=== PATIENT | male | born 1995 | race Caucasian/White ===

== ENCOUNTER 2019-06-19 19:40 | Emergency (ER) | payer MEDICAID, SELFPAY ==
--- NOTE | 2019-06-19 19:42 | ED_ITS ---
Entered by Carrol Ballard, acting as scribe for Shara Linder HPI - Seizure General: Chief Complaint: Seizure Stated Complaint: SEIZURE Time Seen by Provider: 06/19/19 19:41 Source: EMS Mode of arrival: EMS Limitations: no limitations History of Present Illness: HPI Narrative: 24 yo m came to the er by [facility] for a seizure. Onset was today. Pt states that he has one about once a month. He denies missing any medications or loss of sleep, alcohol or other known precipitants for his seizures. Patient is developmental delayed and appears postictal. We are awaiting his care provider at this time. MD complaint: possible seizure Onset (ago): day(s) (today) Witnessed: No Trauma: No Seizure History: Yes Place: Home Possible Precipitating Event: none Associated symptoms: Reports no associated symptoms; Deny chest pain, chills, confusion, diaphoresis, fever(s), malaise or syncope Review of Systems General: Reports: other (negative unless marked) Const: Denies: fever, chills, body aches, fatigue, malaise or diaphoresis Eyes: Denies: change in vision or blurry vision ENMT: Denies: throat pain, painful swallowing, hoarseness, ear pain, ear discharge, Change in hearing or nasal discharge Card: Denies: chest pain, palpitations, irregular heart rhythm, syncope, pre- syncope, shortness of breath on exertion or shortness of breath when lying down Resp: Denies: shortness of breath, productive cough, non-productive cough, wheezing, coughing up blood or chest congestion GI: Denies: abdominal pain, nausea, vomiting, vomiting blood, coffee grounds in vomit, diarrhea, constipation, cramping, blood in stool or black tarry stool : Denies: flank pain, difficulty urinating, painful urination, urinary frequency, urinary urgency, decreased urine ouput, urinary incontinence or blood in urine Musc: Denies: neck pain, back pain, extremity pain, extremity swelling, joint pain, joint swelling, joint warmth or joint stiffness Skin/Breast: Denies: rash, skin tenderness or yellow skin Neuro: Denies: headache, numbness in extremities, weakness in extremities, changes in sensation, lack of coordination, difficulty walking, dizziness, vertigo or confusion Endo: Denies: excessive thirst, tired all the time, cold intolerance, excessive sweating, flushing or hot flashes Harshad/Lymph: Denies: easy bruising, easy bleeding, petechiae or enlarged lymph nodes All/Imm: Denies: hives, throat swelling, tongue swelling, facial swelling or acute wheezing PFSH ED PFSH: Statuses (acute, chronic, etc) shown below reflect problem list status as previously entered and may not be historically accurate Social History Smoking and tobacco status: current every day smoker Physical Exam Const: COMMON NORMALS: no apparent distress, oriented x3, no limitations, healthy appearing and well nourished EXAM LIMITATIONS: no altered mental status GENERAL APPEARANCE: cooperative, well kempt and well developed ORIENTATION/CONSCIOUSNESS: Yes awake HENMT: COMMON NORMALS: normocephalic, head/scalp atraumatic, hearing grossly normal bilaterally, external ears normal, EAC's normal, external nose normal and moist oral mucous membranes HEAD & SCALP: normal to inspection, normocephalic and atraumatic FACE & SINUS: normal facial exam and face symmetric NOSE: external nose normal and nares normal EXTERNAL EAR: Yes external ears normal EXTERNAL AUDITORY CANAL: EAC's normal MOUTH: oral and palatal mucosa normal and tongue normal Eye: COMMON NORMALS: PERRL, EOMs intact bilaterally, conjunctivae normal and no scleral icterus GENERAL EYE: normal appearance of both eyes and normal light reflex CONJUNCTIVA: Yes conjunctivae normal SCLERA: sclerae normal CORNEA: Yes corneas normal PUPIL: Yes PERRL DIRECT OPHTHALMOSCOPY: Yes normal light reflex Neck/C-Spine: COMMON NORMALS: full ROM, no lymphadenopathy, supple, no meningeal signs and no JVD GENERAL: Yes normal visual inspection and Yes trachea midline CERVICAL SPINE: Yes cervical ROM normal Chest: COMMONS NORMALS: inspection of chest normal and palpation of chest normal Resp: COMMON NORMALS: normal respiratory effort, no retractions, no use of accessory muscles and clear to auscultation bilaterally EFFORT & INSPECTION: Yes able to speak in complete sentences AUSCULTATION: clear to auscultation bilaterally Cardio: COMMON NORMALS: no JVD, regular rate, regular rhythm, S1 normal heart sound, S2 normal heart sound, no gallops, no clicks, no murmurs and no rub JUGULAR VENOUS DISTENTION: no JVD RATE: regular rate RHYTHM: regular rhythm HEART SOUNDS: S1 normal and S2 normal GI: COMMON NORMALS: soft to palpation, non-tender, no hepatosplenomegaly and no masses INSPECTION: Yes normal to inspection PALPATION: Yes soft and Yes no hepatosplenomegaly : COMMON NORMALS: Yes no CVA tenderness BLADDER/KIDNEY EXAM: Yes no CVA tenderness Back/Pelvis: COMMON NORMALS: no CVA tenderness, thoracic and lumbar spine normal to inspection, no thoracic nor lumbar tenderness and thoraco-lumbar ROM normal Extremity: COMMON NORMALS: normal to inspection, full ROM, normal capillary refill, no joint enlargement, no clubbing, cyanosis or edema and no calf tenderness Neuro: COMMON NORMALS: oriented x3, CN's II-XII intact bilaterally, moves all extremities, no focal motor deficits and no sensory deficits noted MENINGEAL SIGNS: Yes no meningeal signs Psych: COMMON NORMALS: mental status grossly normal, thought process normal, c ooperative, affect normal, speech normal and activity/motor behavior normal APPEARANCE: Yes well kempt SPEECH: Yes normal speech THOUGHT PROCESS: normal thought process Skin: COMMON NORMALS: no rashes or lesions noted, skin turgor normal, no jaundice, no petechiae and no mottling GENERAL SKIN EXAM: no rashes or lesions noted and turgor normal Course Vital Signs: Vital signs: Vital Signs Temperature 98.2 F 06/19/19 19:44 Pulse Rate 101 H 06/19/19 20:51 Respiratory Rate 20 H 06/19/19 20:51 Blood Pressure 131/91 06/19/19 20:51 Pulse Oximetry 99 06/19/19 20:51 MDM - Seizure MDM Narrative: Medical decision making narrative: Arrival -Ángel is a 24-year-old male who comes in with what appears to be a breakthrough seizure. Is unclear he may have hurt himself. Differential diagnosis is that of breakthrough seizure, syncope, altered mental status among many others. We will proceed with typical evaluation for altered mental status seizure type work-up and await for his caretakers to arrive. Discharge -Ángel's caretakers have arrived and stated the patient acted as though he was been going to go into a seizure and demonstrated very brief seizure activity and then was slowly responsive. He did not fall but was caught and had no injuries from this. They state that this is a typical seizure for him a typical seizure pattern. They do agree to return if symptoms change or worsen but at this time they would like to take him home. His Depakote is therapeutic but I will give him a dose of Ativan just to help calm the brain in the short-term. They agree to follow-up with his regular doctor for reevaluation. Lab Data: Attestation: I reviewed the patient's lab results. Labs: Lab Results 06/19/19 06/19/19 06/19/19 Range/Units 19:54 19:54 20:00 WBC 4.8 (4.0-10.0) 10^3/ uL RBC 4.84 (4.1-5.3) 10^6/u L Hgb 14.1 (11.7-16.6) g/dL Hct 43.4 (42.0-52.0) % MCV 89.7 (80-94) fL MCH 29.1 (28.0-34.0) pg MCHC 32.5 (30.0-36.0) g/dL RDW 13.0 (12.1-15.1) % Plt Count 183 (130-400) 10^3/c mm MPV 11.6 H (7.4-10.4) fL Neut % (Auto) 52.3 % Lymph % (Auto) 34.7 % [place] % (Auto) 11.0 % Eos % (Auto) 0.8 % Baso % (Auto) 0.4 % Neut # (Auto) 2.5 (1.8-7.7) 10^3/u L Lymph # (Auto) 1.7 (0.8-4.8) 10^3/u L [place] # (Auto) 0.5 (0.2-0.9) 10^3/u L Eos # (Auto) 0.0 (0.0-0.8) 10^3/u L Baso # (Auto) 0.0 (0.0-0.1) 10^3/u L Nucleated RBC % (a uto) 0 % Nucleated RBCs # 0.0 /100WBC Sodium 135 L (136-145) mmol/L Potassium 4.0 (3.5-5.1) mmol/L Chloride 99 (98-107) mmol/L Carbon Dioxide 26 (22-29) mmol/L Anion Gap 14.0 (5-19) BUN 14 (6-20) mg/dL Creatinine 0.7 (0.7-1.2) mg/dL GFR Calculation 138.6 H (90-130) mL/min Glucose 133 H (74-109) mg/dL Calcium 10.0 (8.5-10.5) mg/dL Total Bilirubin 0.2 (0.15-1.2) mg/dL AST 19 (0-40) U/L ALT 22 (0-41) U/L Alkaline Phosphata se 62 (40-130) IU/L Total Protein 7.6 (6.6-8.7) g/dL Albumin 4.4 (3.5-5.2) g/dL Globulin 3.2 (1.3-4.6) g/dL Urine Color Yellow (Yellow) Urine Appearance Sl hazy (CLEAR) Urine pH 8 H (5-7) Ur Specific Gravit y 1.015 (1.005-1.030) Urine Protein Neg (Negative) Urine Glucose (UA) Norm (Normal) Urine Ketones Negative (Negative) Urine Occult Blood Neg (Negative) Urine Nitrate Negative (Negative) Urine Bilirubin Neg (NEGATIVE) Prot Sulfosalicyli c Acd Negative Urine Urobilinogen Norm (Negative) mg/dL Ur Leukocyte Cinthya ase Negative (Negative) Urine RBC None (0-2) /hpf Urine WBC None (0-5) /hpf Ur Squamous Epith Cells None (0-5) Urine Bacteria 2+ H (NONE) Valproic Acid 99.2 (50-100) mcg/mL Discharge Plan Discharge Patient Disposition: Home, Self-Care Clinical Impression: Epileptic seizure Qualifiers: Epilepsy type: unspecified Intractability: not intractable Status epilepticus: without status epilepticus Qualified Code(s): G40.909 - Epilepsy, unspecified, not intractable, without status epilepticus Condition: Stable Prescriptions: No Action dextroamphetamine 10 mg tablet 10 mg PO BID RF: 0 topiramate 100 mg tablet 100 mg PO BID RF: 0 dextroamphetamine 5 mg tablet 5 mg PO TID RF: 0 hydrochlorothiazide 25 mg tablet 25 mg PO QAM RF: 0 desmopressin [DDAVP] 0.2 mg tablet 0.2 mg PO .hs RF: 0 loxapine succinate 5 mg capsule 10 mg PO BID RF: 0 diphenhydramine HCl [Banophen] 50 mg capsule 50 mg PO .twice daily RF: 0 folic acid 1 mg tablet 1 mg PO ONCE RF: 0 trazodone 50 mg tablet 50 mg PO .qhs RF: 0 lorazepam 1 mg tablet 1 mg PO BID RF: 0 benztropine 1 mg tablet 1 mg PO BID RF: 0 divalproex 500 mg tablet,delayed release (DR/EC) 1,000 mg PO BID Qty: 120 RF: 1 divalproex [Depakote ER] 500 mg tablet extended release 24 hr 500 mg PO .q hs Qty: 30 RF: 1 Discharge Orders: Discharge Order (Routine); Ordered 06/19/19 Ordered By: Shara Linder Referrals: Beatriz Loza DO [Family Provider] - 1-3 days Discharge Diet: Advance as tolerated Discharge Activity: Increase activity as tolerated Patient Instructions: Epilepsy (ED), Seizures Activity Restrictions/Additional Instructions: Please return to the ER immediately for any of the signs or symptoms listed on your discharge instruction sheets, worsening/changing of your symptoms, you are not getting better as quickly as expected, or for ANY other cause or concerns. No driving, no working at heights, no tub baths, no swimming alone or anything else that would put you at risk should you have another seizure. Discharge Date/Time: 06/19/19 20:52 Coding Level of Care Code ED Traffic Attendant for Chg Fwd Exam Problem Focused The documentation recorded by the Elio cason Stephanie Lyn, accurately reflects the service I personally performed and the decisions made by , Shara Palomares Jun 19, 2019 19:40
[2019-06-19 19:44] VITALS: BP 120/83; PULSE 102; RESP 16; TEMP 36.8; O2SAT 99; BMI 32.1
[2019-06-19] MEDS: LORazepam 2 mg/mL INJ 1 mL 0.5 MG IVP ×2 (19:55→20:51)
[2019-06-19 20:06] LABS: Basophils % 0.4 %; Eosinophils % 0.8 %; Hematocrit 43.4 % (42.0-52.0); Hemoglobin 14.1 g/dL (11.7-16.6); Lymphocytes # 1.7 10^3/uL (0.8-4.8); Lymphocytes % 34.7 %; Mean Corpuscular HGB Conc 32.5 g/dL (30.0-36.0); Mean Corpuscular Hemoglobin 29.1 pg (28.0-34.0); Mean Corpuscular Volume 89.7 fL (80-94); Mean Platelet Volume 11.6 fL (7.4-10.4); Monocytes # 0.5 10^3/uL (0.2-0.9); Neutrophils # 2.5 10^3/uL (1.8-7.7); Neutrophils % 52.3 %; Nucleated Red Blood Cells % 0 %; Platelet Count 183 10^3/cmm (130-400); Red Blood Count 4.84 10^6/uL (4.1-5.3); White Blood Count 4.8 10^3/uL (4.0-10.0)
[2019-06-19 20:21] LABS: Alanine Aminotransferase 22 U/L (0-41); Albumin Level 4.4 g/dL (3.5-5.2); Alkaline Phosphatase 62 IU/L (40-130); Aspartate Amino Transferase 19 U/L (0-40); Blood Urea Nitrogen 14 mg/dL (6-20); Carbon Dioxide 26 mmol/L (22-29); Chloride 99 mmol/L (98-107); Globulin 3.2 g/dL (1.3-4.6); Glomerular Filtration Rate 138.6 mL/min (90-130); Glucose 133 mg/dL (74-109); Sodium 135 mmol/L (136-145); Total Bilirubin 0.2 mg/dL (0.15-1.2); Total Protein 7.6 g/dL (6.6-8.7); Valproic Acid Level 99.2 mcg/mL (50-100)
[2019-06-19 20:22] LABS: Specific Gravity, Urine 1.015 (1.005-1.030); Urine Appearance SL Hazy (CLEAR); Urine Color Yellow (Yellow); pH Urine 8 (5-7)
[2019-06-19 20:23] LABS: Bacteria Urine 2+; Bilirubin Urine Neg (NEGATIVE); Blood Urine Neg (Negative); Glucose Urine UA Norm (Normal); Ketones Urine Negative (Negative); Leukocyte Esterase Urine Negative (Negative); Nitrate Urine Negative (Negative); Protein Urine Neg (Negative); Sulfosalicylic Acid Urine Negative; Urobilinogen Urine Norm (Negative)
[2019-06-19 20:51] VITALS: BP 131/91; PULSE 101; RESP 20; O2SAT 99
== END 2019-06-19 20:52 | disposition home or self-care (01) ==
PROVIDERS: Emergency Provider Emergency Medicine; Family Provider Family Medicine
DX: G40.909 Epilepsy, unspecified, not intractable, without status epilepticus (principal); F17.210 Nicotine dependence, cigarettes, uncomplicated
CPT/HCPCS: 80053; 80164; 81001; 85025; 96374; 99283; J2060

== ENCOUNTER 2019-06-20 23:37 | Emergency (ER) | payer MEDICAID, SELFPAY ==
[2019-06-20 23:37] VITALS: BP 150/97; PULSE 108; RESP 18; TEMP 36.5; O2SAT 97; BMI 34.8
--- NOTE | 2019-06-20 23:38 | ED_ITS ---
Entered by Carrol Ballard, acting as scribe for Jimmie Magallanes DO HPI - Psych General: Chief Complaint: Psychiatric Symptoms Stated Complaint: anger issues Time Seen by Provider: 06/20/19 23:38 Source: EMS Mode of arrival: EMS Limitations: no limitations History of Present Illness: HPI Narrative: 24 yo m came to the er by [facility] for anger issues. Onset was today. Pt states that he was threating the staff. Pt states that he was mad at the staff but is not now. Pt states that the police told him that he had a choice to come to the hospital or half-way and pt chose the hospital. MD complaint: other (anger issues) Onset (ago): day(s) (today) Duration: resolved prior to arrival History of same: Yes Relieving factors: none Exacerbating factors: none Associated psychiatric symptoms: none Associated symptoms: Deny auditory hallucinations or visual hallucinations Review of Systems Const: Denies: fever or chills Eyes: Denies: change in vision or blurry vision ENMT: Denies: painful swallowing, swelling of lips/tongue, bleeding gums, dental pain, Change in hearing, nose bleeds, post nasal drip or facial/sinus pain Card: Denies: chest pain, palpitations, irregular heart rhythm, edema, swelling of feet/ankles, shortness of breath on exertion or shortness of breath when lying down Resp: Denies: shortness of breath, productive cough, non-productive cough or wheezing GI: Denies: abdominal pain, nausea, vomiting, rectal pain, blood in stool or black tarry stool : Denies: difficulty urinating, painful urination, urinary frequency, urinary urgency or blood in urine Musc: Denies: joint warmth Skin/Breast: Denies: rash, itching or redness Neuro: Denies: headache, dizziness, vertigo, confusion or seizure-like activity Psych: Denies: anxiety, visual hallucinations or auditory hallucinations All/Imm: Denies: acute wheezing PFSH ED PFSH: Statuses (acute, chronic, etc) shown below reflect problem list status as previously entered and may not be historically accurate Social History Smoking and tobacco status: current every day smoker Physical Exam Const: GENERAL APPEARANCE: not well developed ORIENTATION/CONSCIOUSNESS: Yes oriented to person, Yes oriented to place and Yes oriented to time HENMT: COMMON NORMALS: normocephalic, external ears normal and external nose normal HEAD & SCALP: normocephalic; no scalp tenderness FACE & SINUS: normal facial exam NOSE: external nose normal and no nasal discharge EXTERNAL EAR: Yes external ears normal MOUTH: tongue normal TEETH & GINGIVA: Yes abnormal tooth and associated gingiva THROAT: posterior oropharynx normal; no peritonsillar mass Eye: COMMON NORMALS: PERRL, EOMs intact bilaterally and conjunctivae normal EYELID: eyelids normal CONJUNCTIVA: Yes conjunctivae normal PUPIL: Yes PERRL Neck/C-Spine: COMMON NORMALS: full ROM GENERAL: No tracheal deviation Chest: COMMONS NORMALS: inspection of chest normal CHEST: No tenderness Resp: COMMON NORMALS: clear to auscultation bilaterally EFFORT & INSPECTION: No tachypneic, No respiratory distress, No retractions, No uses accessory muscles and No tracheal deviation AUSCULTATION: clear to auscultation bilaterally, no rhonchi, no wheezes and lung sounds not diminished Cardio: COMMON NORMALS: regular rate and regular rhythm RATE: regular rate RHYTHM: regular rhythm HEART SOUNDS: no murmurs PERIPHERAL PULSES: radial pulses present GI: INSPECTION: No abdominal distension AUSCULTATION: No hyperactive bowel sounds and No hypoactive bowel sounds PALPATION: No guarding and No rigid PERCUSSION: no dullness to percussion and no tympanic to percussion : COMMON NORMALS: Yes no CVA tenderness BLADDER/KIDNEY EXAM: Yes no CVA tenderness Back/Pelvis: COMMON NORMALS: no CVA tenderness Neuro: SENSORIUM/ORIENTATION: Yes oriented to person, Yes oriented to place and Yes oriented to time Psych: COMMON NORMALS: mental status grossly normal Skin: COMMON NORMALS: no rashes or lesions noted GENERAL SKIN EXAM: no rashes or lesions noted MDM - Psych Lab Data: Labs: Lab Results 06/20/19 06/20/19 06/21/19 Range/Units 23:59 23:59 00:20 WBC 5.4 (4.0-10.0) 10^3/ uL RBC 4.61 (4.1-5.3) 10^6/u L Hgb 13.6 (11.7-16.6) g/dL Hct 40.8 L (42.0-52.0) % MCV 88.5 (80-94) fL MCH 29.5 (28.0-34.0) pg MCHC 33.3 (30.0-36.0) g/dL RDW 13.0 (12.1-15.1) % Plt Count 183 (130-400) 10^3/c mm MPV 12.0 H (7.4-10.4) fL Neut % (Auto) 49.4 % Lymph % (Auto) 38.0 % Alfalfa % (Auto) 10.4 % Eos % (Auto) 1.1 % Baso % (Auto) 0.4 % Neut # (Auto) 2.7 (1.8-7.7) 10^3/u L Lymph # (Auto) 2.1 (0.8-4.8) 10^3/u L Alfalfa # (Auto) 0.6 (0.2-0.9) 10^3/u L Eos # (Auto) 0.1 (0.0-0.8) 10^3/u L Baso # (Auto) 0.0 (0.0-0.1) 10^3/u L Nucleated RBC % (a uto) 0 % Nucleated RBCs # 0.0 /100WBC Sodium 137 (136-145) mmol/L Potassium 3.0 L (3.5-5.1) mmol/L Chloride 99 (98-107) mmol/L Carbon Dioxide 22 (22-29) mmol/L Anion Gap 19.0 (5-19) BUN 14 (6-20) mg/dL Creatinine 0.6 L (0.7-1.2) mg/dL GFR Calculation 165.5 H (90-130) mL/min Glucose 174 H (74-109) mg/dL Calcium 9.6 (8.5-10.5) mg/dL Total Bilirubin 0.2 (0.15-1.2) mg/dL AST 18 (0-40) U/L ALT 24 (0-41) U/L Alkaline Phosphata se 65 (40-130) IU/L Total Protein 7.3 (6.6-8.7) g/dL Albumin 4.3 (3.5-5.2) g/dL Globulin 3.0 (1.3-4.6) g/dL Urine Color Yellow (Yellow) Urine Appearance Clear (CLEAR) Urine pH 6.5 (5-7) Ur Specific Gravit y 1.020 (1.005-1.030) Urine Protein Neg (Negative) Urine Glucose (UA) Norm (Normal) Urine Ketones Negative (Negative) Urine Occult Blood Neg (Negative) Urine Nitrate Negative (Negative) Urine Bilirubin Neg (NEGATIVE) Urine Urobilinogen 1 H (Negative) mg/dL Ur Leukocyte Cinthya ase Negative (Negative) Salicylates < 0.3 L (3-10) mg/dL Urine Opiates Scre en (Negative) ng/mL Acetaminophen < 5.0 L (10-30) ug/mL Ur Barbiturates Sc reen (Negative) ng/mL Valproic Acid 88.0 (50-100) mcg/mL Ur Phencyclidine S crn (Negative) ng/mL Ur Amphetamines Sc reen (Negative) ng/mL U Benzodiazepines Scrn (Negative) ng/mL Urine Cocaine Scre en (Negative) ng/mL U Marijuana (THC) Screen (Negative) ng/mL Ethyl Alcohol < 10 (0-10) mg/dL 06/21/19 Range/Units 00:20 WBC (4.0-10.0) 10^3/ uL RBC (4.1-5.3) 10^6/u L Hgb (11.7-16.6) g/dL Hct (42.0-52.0) % MCV (80-94) fL MCH (28.0-34.0) pg MCHC (30.0-36.0) g/dL RDW (12.1-15.1) % Plt Count (130-400) 10^3/c mm MPV (7.4-10.4) fL Neut % (Auto) % Lymph % (Auto) % Alfalfa % (Auto) % Eos % (Auto) % Baso % (Auto) % Neut # (Auto) (1.8-7.7) 10^3/u L Lymph # (Auto) (0.8-4.8) 10^3/u L Alfalfa # (Auto) (0.2-0.9) 10^3/u L Eos # (Auto) (0.0-0.8) 10^3/u L Baso # (Auto) (0.0-0.1) 10^3/u L Nucleated RBC % (a uto) % Nucleated RBCs # /100WBC Sodium (136-145) mmol/L Potassium (3.5-5.1) mmol/L Chloride (98-107) mmol/L Carbon Dioxide (22-29) mmol/L Anion Gap (5-19) BUN (6-20) mg/dL Creatinine (0.7-1.2) mg/dL GFR Calculation (90-130) mL/min Glucose (74-109) mg/dL Calcium (8.5-10.5) mg/dL Total Bilirubin (0.15-1.2) mg/dL AST (0-40) U/L ALT (0-41) U/L Alkaline Phosphata se (40-130) IU/L Total Protein (6.6-8.7) g/dL Albumin (3.5-5.2) g/dL Globulin (1.3-4.6) g/dL Urine Color (Yellow) Urine Appearance (CLEAR) Urine pH (5-7) Ur Specific Gravit y (1.005-1.030) Urine Protein (Negative) Urine Glucose (UA) (Normal) Urine Ketones (Negative) Urine Occult Blood (Negative) Urine Nitrate (Negative) Urine Bilirubin (NEGATIVE) Urine Urobilinogen (Negative) mg/dL Ur Leukocyte Cinthya ase (Negative) Salicylates (3-10) mg/dL Urine Opiates Scre en Negative (Negative) ng/mL Acetaminophen (10-30) ug/mL Ur Barbiturates Sc reen Negative (Negative) ng/mL Valproic Acid (50-100) mcg/mL Ur Phencyclidine S crn Negative (Negative) ng/mL Ur Amphetamines Sc reen Positive H (Negative) ng/mL U Benzodiazepines Scrn Positive H (Negative) ng/mL Urine Cocaine Scre en Negative (Negative) ng/mL U Marijuana (THC) Screen Negative (Negative) ng/mL Ethyl Alcohol (0-10) mg/dL Discharge Plan Discharge Patient Disposition: Home, Self-Care Clinical Impression: Intermittent explosive disorder in adult Condition: Stable Prescriptions: No Action dextroamphetamine 10 mg tablet 10 mg PO BID RF: 0 topiramate 100 mg tablet 100 mg PO BID RF: 0 dextroamphetamine 5 mg tablet 5 mg PO TID RF: 0 hydrochlorothiazide 25 mg tablet 25 mg PO QAM RF: 0 desmopressin [DDAVP] 0.2 mg tablet 0.2 mg PO .hs RF: 0 loxapine succinate 5 mg capsule 10 mg PO BID RF: 0 diphenhydramine HCl [Banophen] 50 mg capsule 50 mg PO .twice daily RF: 0 folic acid 1 mg tablet 1 mg PO ONCE RF: 0 trazodone 50 mg tablet 50 mg PO .qhs RF: 0 lorazepam 1 mg tablet 1 mg PO BID RF: 0 benztropine 1 mg tablet 1 mg PO BID RF: 0 divalproex 500 mg tablet,delayed release (DR/EC) 1,000 mg PO BID Qty: 120 RF: 1 divalproex [Depakote ER] 500 mg tablet extended release 24 hr 500 mg PO .q hs Qty: 30 RF: 1 Discharge Orders: Discharge Order (Routine); Ordered 06/21/19 Ordered By: Jimmie Magallanes Referrals: Beatriz Loza DO [Family Provider] - Discharge Diet: Usual diet Discharge Activity: Resume usual activity Activity Restrictions/Additional Instructions: Return for thoughts or wishes to harm yourself or others. Discharge Date/Time: 06/21/19 01:44 Coding Level of Care Code ED Stucco Laborer for Chg Fwd The documentation recorded by the Elio cason Stephanie Lyn, accurately reflects the service I personally performed and the decisions made by Elpidio lyles Jeremy John, DO Jun 20, 2019 23:37
--- NOTE | 2019-06-21 00:09 | PC.NURSE ---
pt is not suicidal, but placed in psych room
[2019-06-21 00:15] LABS: Basophils % 0.4 %; Eosinophils # 0.1 10^3/uL (0.0-0.8); Eosinophils % 1.1 %; Hematocrit 40.8 % (42.0-52.0); Hemoglobin 13.6 g/dL (11.7-16.6); Lymphocytes # 2.1 10^3/uL (0.8-4.8); Mean Corpuscular HGB Conc 33.3 g/dL (30.0-36.0); Mean Corpuscular Hemoglobin 29.5 pg (28.0-34.0); Mean Corpuscular Volume 88.5 fL (80-94); Monocytes # 0.6 10^3/uL (0.2-0.9); Monocytes % 10.4 %; Neutrophils # 2.7 10^3/uL (1.8-7.7); Neutrophils % 49.4 %; Nucleated Red Blood Cells % 0 %; Platelet Count 183 10^3/cmm (130-400); Red Blood Count 4.61 10^6/uL (4.1-5.3); White Blood Count 5.4 10^3/uL (4.0-10.0)
[2019-06-21 00:34] LABS: Add Urine Microscopic? NO
[2019-06-21 00:38] LABS: THC Screen Urine Negative (Negative)
[2019-06-21 00:39] LABS: Amphetamines Screen Urine Positive (Negative); Barbiturates Screen Urine Negative (Negative); Benzodiazepines Screen Urine Positive (Negative); Bilirubin Urine Neg (NEGATIVE); Blood Urine Neg (Negative); Cocaine Screen Urine Negative (Negative); Glucose Urine UA Norm (Normal); Ketones Urine Negative (Negative); Leukocyte Esterase Urine Negative (Negative); Nitrate Urine Negative (Negative); Opiate Screen Urine Negative (Negative); PCP Screen Urine Negative (Negative); Protein Urine Neg (Negative); Urine Appearance Clear (CLEAR); Urine Color Yellow (Yellow); Urobilinogen Urine 1 mg/dL (Negative); pH Urine 6.5 (5-7)
[2019-06-21 00:44] LABS: Alanine Aminotransferase 24 U/L (0-41); Albumin Level 4.3 g/dL (3.5-5.2); Alkaline Phosphatase 65 IU/L (40-130); Aspartate Amino Transferase 18 U/L (0-40); Blood Urea Nitrogen 14 mg/dL (6-20); Calcium 9.6 mg/dL (8.5-10.5); Carbon Dioxide 22 mmol/L (22-29); Chloride 99 mmol/L (98-107); Glomerular Filtration Rate 165.5 mL/min (90-130); Glucose 174 mg/dL (74-109); Sodium 137 mmol/L (136-145); Total Bilirubin 0.2 mg/dL (0.15-1.2); Total Protein 7.3 g/dL (6.6-8.7)
[2019-06-21 01:00] LABS: Acetaminophen < 5.0 ug/mL (10-30); Alcohol Level < 10 mg/dL (0-10); Salicylate < 0.3 mg/dL (3-10)
[2019-06-21] MEDS: ziprasidone hcl 40 mg Capsule PO (01:43)
== END 2019-06-21 01:44 | disposition home or self-care (01) ==
PROVIDERS: Emergency Provider Emergency Medicine; Family Provider Family Medicine
DX: F63.81 Intermittent explosive disorder (principal); F17.210 Nicotine dependence, cigarettes, uncomplicated
CPT/HCPCS: 80053; 80164; 80307; 81003; 85025; 99284

== ENCOUNTER → 2019-07-02 13:50 | Outpatient (BNVA) | payer MEDICAID, SELFPAY | PROVIDERS: Family Provider Family Medicine; Visit Provider Nurse Practitioner | DX: F70 Mild intellectual disabilities (principal); F41.1 Generalized anxiety disorder; F90.2 Attention-deficit hyperactivity disorder, combined type; F31.9 Bipolar disorder, unspecified | CPT/HCPCS: 90832; 99213 ==

== ENCOUNTER → 2019-08-14 08:34 | Outpatient (BNVA) | payer MEDICAID, SELFPAY | PROVIDERS: Family Provider Family Medicine; Visit Provider Nurse Practitioner | DX: F31.9 Bipolar disorder, unspecified (principal); F90.2 Attention-deficit hyperactivity disorder, combined type; F41.1 Generalized anxiety disorder; F70 Mild intellectual disabilities | CPT/HCPCS: 99214 ==

== ENCOUNTER → 2019-09-24 07:45 | Outpatient (BNVA) | payer MEDICAID, SELFPAY | PROVIDERS: Family Provider Family Medicine; Visit Provider Nurse Practitioner | DX: F31.9 Bipolar disorder, unspecified (principal); F90.2 Attention-deficit hyperactivity disorder, combined type; F41.1 Generalized anxiety disorder; F70 Mild intellectual disabilities | CPT/HCPCS: 99213 ==

== ENCOUNTER → 2019-10-02 07:39 | Outpatient (BNVA) | payer MEDICAID, SELFPAY | PROVIDERS: Family Provider Family Medicine; Visit Provider Nurse Practitioner | DX: F31.9 Bipolar disorder, unspecified (principal); F41.1 Generalized anxiety disorder; F70 Mild intellectual disabilities; F90.2 Attention-deficit hyperactivity disorder, combined type; F43.12 Post-traumatic stress disorder, chronic | CPT/HCPCS: 99214 ==

== ENCOUNTER → 2019-10-22 07:40 | Outpatient (BNVA) | payer MEDICAID, SELFPAY | PROVIDERS: Family Provider Family Medicine; Visit Provider Nurse Practitioner | DX: F31.9 Bipolar disorder, unspecified (principal); F90.2 Attention-deficit hyperactivity disorder, combined type; F70 Mild intellectual disabilities; F41.1 Generalized anxiety disorder | CPT/HCPCS: 99213 ==

== ENCOUNTER 2019-10-28 02:18 | Inpatient (IN) | payer MEDICAID, SELFPAY ==
[2019-10-28] VITALS (7 sets, daily range): BP systolic 108–151; BP diastolic 68–100; PULSE 92–102; RESP 17–22; TEMP 36.4–36.8; O2SAT 96–99; BMI 41.8
--- NOTE | 2019-10-28 02:24 | ECG_ITS ---
Measurements Intervals [place] Rate: 99 P: 35 NH: 174 QRS: 40 QRSD: 85 T: 64 QT: 323 QTc: 415 SINUS RHYTHM NONSPECIFIC T-WAVE ABNORMALITY Compared to ECG 01/08/2019 20:16:59 T-wave abnormality now present Electronically Signed On 10-28-2019 19:37:07 CDT by Sam Rosen M.D. [email or web address]
--- NOTE | 2019-10-28 02:36 | ED_ITS ---
HPI - Psych General: Chief Complaint: Psychiatric Symptoms Stated Complaint: mhe Time Seen by Provider: 10/28/19 02:19 History of Present Illness: HPI Narrative: Ángel is a 24-year-old male who comes in from his assisted living facility with reports that he put his hands on his caregiver. Patient states he is having auditory hallucinations telling him to hurt his caregiver. Patient states that he does not want to do this and he wants to get help. He denies any suicidal thoughts. He only has voices telling him to hurt his caregiver that he wants to get help. Review of Systems Const: Denies: fever(s), chills, body aches, fatigue, malaise or diaphoresis Eyes: Denies: change in vision, blurry vision, blind spots or photophobia ENMT: Denies: throat pain, odynophagia, hoarseness, swelling of lips/tongue, ear or mastoid pain, ear discharge, change in hearing or nasal discharge Card: Denies: chest pain, palpitations, irregular heart rhythm, edema, lightheadedness, syncope, pre-syncope, dyspnea on exertion or orthopnea Resp: Denies: dyspnea, productive cough, non-productive cough, wheezing, hemoptysis or chest congestion GI: Denies: abdominal pain, nausea, vomiting, hematemesis, coffee ground emesis, heartburn, diarrhea, constipation, GI cramping, hematochezia or melena : Denies: flank pain, dysuria, urinary frequency, urinary urgency or hematuria Musc: Denies: neck pain, back pain, extremity pain, extremity swelling, joint pain, joint swelling, joint redness, joint warmth or joint stiffness Skin/Breast: Denies: rash, pruritus, erythema, skin tenderness or jaundice Neuro: Denies: headache(s), numbness in extremities, weakness in extremities, sensory changes, lack of coordination, difficulty walking, dizziness, vertigo, confusion or Slurred speech present Harshad/Lymph: Denies: easy bruising, easy bleeding, petechiae, purpura or enlarged lymph nodes All/Imm: Denies: urticaria, throat swelling, tongue swelling, facial swelling or acute wheezing PFSH ED PFSH: Medical History Attention-deficit hyperactivity disorder, combined type Bipolar disorder, unspecified Generalized anxiety disorder Mild intellectual disabilities Social History Smoking and tobacco status: never smoked Smoking risk assessment/counseling performed?: Yes Tobacco counseling given: counseling >3 minutes Physical Exam Const: COMMON NORMALS: no acute distress, patient oriented x3, no limitations, healthy appearing and well nourished GENERAL APPEARANCE: cooperative, well kempt and well developed HENMT: COMMON NORMALS: normocephalic, atraumatic, hearing grossly normal bilaterally, external ears normal, EAC's normal, Normal external nose present and moist oral mucous membranes HEAD & SCALP: normocephalic and atraumatic NOSE: Normal external nose present and Normal nares present EXTERNAL EAR: Yes external ears normal EXTERNAL AUDITORY CANAL: EAC's normal MOUTH: Normal oral and palatal mucosa present, lip normal and tongue normal Eye: COMMON NORMALS: Equal, round and reactive pupils present, EOMs intact bilaterally, conjunctivae normal and no scleral icterus GENERAL EYE: appearance normal, both eyes and all related structures ALIGNMENT: Yes alignment normal PERIORBITAL: periorbital findings normal EYELID: eyelids normal CONJUNCTIVA: Yes conjunctivae normal SCLERA: sclerae normal PUPIL: Yes Equal, round and reactive pupils present Neck/C-Spine: COMMON NORMALS: full ROM, no lymphadenopathy, supple, no meningeal signs and no JVD GENERAL: Yes normal visual inspection and Yes trachea midline Chest: COMMONS NORMALS: normal inspection of the chest and normal palpation of entire chest wall Resp: COMMON NORMALS: normal respiratory effort, No retractions, No use of accessory muscles and clear to auscultation bilaterally EFFORT & INSPECTION: Yes able to speak in complete sentences and Yes symmetric chest movement AUSCULTATION: clear to auscultation bilaterally, no crackles, no rales, no rhonchi and no wheezes Cardio: COMMON NORMALS: no JVD, regular rate, regular rhythm, S1 normal heart sound present, S2 normal heart sound present, No gallops present (Cardio), No clicks present (Cardio), No murmurs present (Cardio) and No rub (Cardio) RATE: regular rate RHYTHM: regular rhythm HEART SOUNDS: S1 normal heart sound present and S2 normal heart sound present GI: COMMON NORMALS: Soft to palpation and No hepatosplenomegaly present PALPATION: Yes Soft to palpation, No Tenderness to palpation present (GI), No Guarding due to palpation present (GI), No Rigid due to palpation, Yes No hepatosplenomegaly present, No Hernia present, No Palpable mass present and No Pulsatile mass present : COMMON NORMALS: Yes no CVA tenderness BLADDER/KIDNEY EXAM: Yes no CVA tenderness Back/Pelvis: COMMON NORMALS: no CVA tenderness, thoracic and lumbar spine normal to inspection, no thoracic nor lumbar tenderness and thoraco-lumbar ROM normal Extremity: COMMON NORMALS: normal to inspection, full ROM, capillary refill normal, no joint enlargement, no clubbing, cyanosis or edema and no calf tenderness Neuro: COMMON NORMALS: patient oriented x3, CN's II-XII intact bilaterally, moves all extremities, no focal motor deficits and no sensory deficits noted MENINGEAL SIGNS: Yes no meningeal signs SPEECH: speech normal Psych: APPEARANCE: Yes well kempt and Yes disheveled ATTITUDE: Yes calm ACTIVITY/MOTOR BEHAVIOR: Yes appropriate eye contact SPEECH: Yes slow MOOD & AFFECT: Yes apathetic THOUGHT PROCESS: disorganized THOUGHT CONTENT: Yes Hallucination(s) present ATTENTION/CONCENTRATION: Yes attention grossly intact INSIGHT: Limited insight present (Psych) Skin: COMMON NORMALS: no rashes or lesions noted, turgor normal, no jaundice, no petechiae and no mottling GENERAL SKIN EXAM: no rashes or lesions noted and turgor normal MDM - Psych MDM Narrative: Medical decision making narrative: Case reviewed with Dr. Khoury, he agrees to accept the patient to the [facility]. Lab Data: Labs: Lab Results 10/28/19 Range/Units 02:30 WBC 5.2 (4.0-10.0) 10^3/ uL RBC 4.33 (4.1-5.3) 10^6/u L Hgb 12.5 (11.7-16.6) g/dL Hct 39.3 L (42.0-52.0) % MCV 90.8 (80-94) fL MCH 28.9 (28.0-34.0) pg MCHC 31.8 (30.0-36.0) g/dL RDW 13.1 (12.1-15.1) % Plt Count 235 (130-400) 10^3/c mm MPV 11.5 H (7.4-10.4) fL Neut % (Auto) 53.5 % Lymph % (Auto) 34.0 % Wharton % (Auto) 9.6 % Eos % (Auto) 1.7 % Baso % (Auto) 0.4 % Neut # (Auto) 2.8 (1.8-7.7) 10^3/u L Lymph # (Auto) 1.8 (0.8-4.8) 10^3/u L Wharton # (Auto) 0.5 (0.2-0.9) 10^3/u L Eos # (Auto) 0.1 (0.0-0.8) 10^3/u L Baso # (Auto) 0.0 (0.0-0.1) 10^3/u L Nucleated RBC % (a uto) 0 % Nucleated RBCs # 0.0 /100WBC EKG Data^: EKG 1: Attestation: I personally reviewed and interpreted this EKG as follows: EKG interpretation date: 10/28/19 EKG interpretation time: 02:38 Interpretation: Normal sinus rhythm at 99 beats a minute, no acute ST-T wave changes, no blocks, normal intervals. Discharge Plan Discharge Patient Disposition: Placed in Observation Clinical Impression: Acute psychosis Condition: Stable Prescriptions: No Action divalproex 500 mg tablet,delayed release (DR/EC) 500 mg PO .COMPLEX Qty: 150 RF: 1 quetiapine [Seroquel] 50 mg tablet 50 mg PO BID Qty: 60 RF: 0 topiramate 100 mg tablet 100 mg PO BID Qty: 60 RF: 1 trazodone 100 mg tablet 100 mg PO .HS Qty: 30 RF: 0 benztropine 1 mg tablet 1 mg PO BID Qty: 60 RF: 1 lorazepam 1 mg tablet 1 mg PO BID Qty: 60 RF: 1 hydrochlorothiazide 25 mg tablet 25 mg PO QAM RF: 0 desmopressin [DDAVP] 0.2 mg tablet 0.2 mg PO .hs RF: 0 folic acid 1 mg tablet 1 mg PO ONCE RF: 0 Referrals: Beatriz Loza DO [Primary Care Provider] - Coding Level of Care Code ED Certified Ophthalmic Medical Technician for g Fwd Exam Comprehensive
[2019-10-28 02:39] LABS: Basophils % 0.4 %; Eosinophils # 0.1 10^3/uL (0.0-0.8); Eosinophils % 1.7 %; Hematocrit 39.3 % (42.0-52.0); Hemoglobin 12.5 g/dL (11.7-16.6); Lymphocytes # 1.8 10^3/uL (0.8-4.8); Mean Corpuscular HGB Conc 31.8 g/dL (30.0-36.0); Mean Corpuscular Hemoglobin 28.9 pg (28.0-34.0); Mean Corpuscular Volume 90.8 fL (80-94); Mean Platelet Volume 11.5 fL (7.4-10.4); Monocytes # 0.5 10^3/uL (0.2-0.9); Monocytes % 9.6 %; Neutrophils # 2.8 10^3/uL (1.8-7.7); Neutrophils % 53.5 %; Nucleated Red Blood Cells % 0 %; Platelet Count 235 10^3/cmm (130-400); Red Blood Count 4.33 10^6/uL (4.1-5.3); Red Cell Distribution Width 13.1 % (12.1-15.1); White Blood Count 5.2 10^3/uL (4.0-10.0)
[2019-10-28 03:01] LABS: Amphetamines Screen Urine Negative (Negative); Barbiturates Screen Urine Negative (Negative); Benzodiazepines Screen Urine Positive (Negative); Cocaine Screen Urine Negative (Negative); Opiate Screen Urine Negative (Negative); PCP Screen Urine Negative (Negative); THC Screen Urine Negative (Negative)
[2019-10-28 03:05] LABS: Lithium 0.1 mmol/L (0.6-1.2)
[2019-10-28 03:11] LABS: Alanine Aminotransferase 22 U/L (0-41); Alkaline Phosphatase 66 IU/L (40-130); Anion Gap 14.5 (5-19); Aspartate Amino Transferase 16 U/L (0-40); Blood Urea Nitrogen 16 mg/dL (6-20); Carbon Dioxide 24 mmol/L (22-29); Chloride 101 mmol/L (98-107); Globulin 2.7 g/dL (1.3-4.6); Glomerular Filtration Rate 138.6 mL/min (90-130); Glucose 252 mg/dL (65-115); Osmolality Calculated 287 mOsm/kg (285-295); Phenytoin Dilantin 0.8 ug/mL (10-20); Potassium 3.5 mmol/L (3.5-5.1); Sodium 136 mmol/L (136-145); Thyroid Stimulating Hormone 3.93 uIU/mL (0.27-4.20); Total Bilirubin 0.2 mg/dL (0.15-1.2); Total Protein 6.7 g/dL (6.6-8.7)
[2019-10-28 03:13] LABS: Acetaminophen < 5.0 ug/mL (10-30); Alcohol Level < 10 mg/dL (0-10); Salicylate < 0.3 mg/dL (3-10)
--- NOTE | 2019-10-28 03:17 | PC.NURSE ---
called report to Naomi in N[facility]
[2019-10-28 06:16] LABS: Glucose Point of Care 311 mg/dL (70-110)
--- NOTE | 2019-10-28 11:32 | P.HP_ITS ---
Providers/Chief Complaint Admitting Physician: Jaquan Khoury MD Primary Care Provider: Beatriz Loza DO Chief Complaint: mhe HPI N[facility] History of Present Illness Ángel Calloway is a 24 year old male Ángel presents today, reporting that he is not doing really well. We checked his pharmacy and it appears, at least at this point, he is not taking his medication. He is at an assisted living facility, so it is unclear why that is the case. We agreed that we would do some investigating to figure out what he is actually taking, since he could not produce that information independently. He presented to the emergency room, reporting that he was having thoughts to put his hands on his caregiver and actually did do so, but it is our understanding that he did not do any significant harm. He was endorsing auditory hallucinations telling him to do that. He denied any suicidality, and he endorses a desire, to get assistance in fighting off the voices. We reviewed his last note and outside of the medications, he denies any substantive changes to his circumstances and psychosocial history. [place] [facility] [place] History of Present Illness Date of Service: May 12, 2019 Chief Complaint: I got angry and acted like I shouldn't HPI: Ángel presented today reporting that he lost control and was inappropriate and angry, and that is how he ended up coming to the hospital. He was seen most recently in December at this hospital and seen on two occasions by this commercial insurance underwriter during that visit. He presents reporting that he knows that he should not have done what he did and he was out of control, and that he feels like he will be fine if he goes back there, and he is also fine if he stays a couple of days. The treatment team is working hard to talk to the residential to find out if this represents some kind of decompensation or whether this represents one of his explosive episodes and whether or not there is something to be gained by a long hospitalization versus him maybe having a mild adjustment in his medications and then working on his choices which will always be the case. We did discuss the risks, benefits and alternatives of increasing his Loxapine which he understood and agreed to proceed as is documented in this note. He endorsed a willingness to follow the rules here and denied any new or pressing problems other than the conflict that happened yesterday at his facility. We reviewed his psychosocial history and he denied any changes or new aspects to his life. He reportedly still lives with perfect partners and he is planning on returning there as far as he understands. Per ED eval: HISTORY OF PRESENT ILLNESS Chief Complaint: DELUSIONAL and HALLUCINATIONS and Hearing voices. This started today. (24 yo m came to the er by police. This happened tonight. Pt stats that he is hearing voices and the voices are telling him to harm people but he does not want to. Pt is denying any SI at this time.). No recent drug use or alcohol consumption. The patient has had delusions and hallucinations. No suicidal thoughts. The symptoms are described as mild. No injury is present. Recent medical care: The patient was seen recently by a health care provider. Seen for 01/07/19 MHE. REVIEW OF SYSTEMS No headache, fever or cough. All other systems reviewed and are negative. PAST HISTORY See nurses notes. Hypertension. Diabetes mellitus. Hypokalemia. Attention deficit and hyperactivity disorder. Mental illness. Bipolar disorder. Obesity. ( Enuresis). Surgeries: Unknown. SOCIAL HISTORY Light tobacco smoker- less than 1/2 a pack per day. No alcohol use or drug use. ADDITIONAL NOTES The nursing notes have been reviewed. PHYSICAL EXAM Vital Signs: 05/12/2019 03:15 BP: 130/95. HR: 94. O2 saturation: 97%. Temp: 97.7 F. Appearance: Alert. No acute distress. Appearance is normal. Lethargic. Eyes: Pupils equal, round and reactive to light. Neck: Normal inspection. Neck supple. CVS: Normal heart rate and rhythm. Heart sounds normal. Respiratory: Breath sounds normal. Chest nontender. Abdomen: Soft and nontender. Skin: Normal skin color. Extremities: Extremities exhibit normal ROM. Psych / Neuro: Blunted affect. Appears to have auditory hallucinations. He expresses homicidal thoughts. He does not appear to understand his illness. Cranial nerves normal (as tested). No cerebellar findings. No motor Per last NPU eval: History of Present Illness Date of Service: Jan 07, 2019 Chief Complaint: He was going to kill himself and hurt staff. HPI: Ángel is a 25 year old white male who here is for suicidal behaviors. The voices are inside of his head. The voices are male. The voices tell him to hurt himself and others. He denies visual hallucinations, paranoia and ideas of references, He admits to thought broadcasting, thought insertion and thought withdrawal. Moods are happy. He is able to have fun. Sleep is good. Appetite is good. Energy level is good. Concentration is good. He denies crying spells and guilty feelings. Motivation is good. Self esteem is good. The patient denies homicidal and suicidal thoughts. He denies generalized anxiety, panic attacks, compulsions and obsessions. The patient denies didi and irritability. Allergies: Coded Allergies: OLANZAPINE (Verified Allergy, Unknown, 07/24/18) RISPERIDONE (Verified Allergy, Unknown, 07/24/18) Active Meds: Current Hospital Medications: Medications (Trade) Dose Ordered Sig/Zaid Route PRN Reason Start Time Stop Time Status Last Admin Dose Admin Lorazepam (Ativan Tab) 0.5 mg Q4H PRN PO FOR MILD ANXIETY 01/07/19 01:30 Lorazepam (Ativan Tab) 1 mg Q4H PRN PO FOR MODERATE ANXIETY 01/07/19 01:30 Lorazepam (Ativan Tab) 2 mg Q4H PRN PO FOR SEVERE ANXIETY 01/07/19 01:30 Lorazepam (Ativan Inj) 2 mg Q4H PRN IM For Severe Aggression 01/07/19 01:30 Haloperidol Lactate (Haldol Inj) 5 mg Q4H PRN IM Severe Aggression 01/07/19 01:30 Diphenhydramine HCl (Benadryl Inj) 50 mg ONCE PRN IV Severe Extrapyramidal Symptoms 01/07/19 01:30 Benztropine Mesylate (Cogentin Tab) 1 mg BID PRN PO Mild Extrapyramidal symptoms 01/07/19 01:30 Benztropine Mesylate (Cogentin Inj) 1 mg ONCE PRN IM Severe Extrapyramidal Symptom 01/07/19 01:30 Acetaminophen (Tylenol Tab) 650 mg Q4H PRN PO FOR MILD PAIN 01/07/19 01:30 Trazodone HCl (Trazodone) 50 mg BEDTIME PRN PO FOR SLEEP 01/07/19 01:30 Nicotine (Nicoderm Patch) 21 mg DAILY PRN TD FOR WITHDRAWAL 01/07/19 01:30 Nicotine Polacrilex (Nicotine Gum) 2 mg Q2H PRN PO Withdrawal 01/07/19 01:30 Haloperidol (Haldol Tab) 5 mg Q4H PRN PO For agitation 01/07/19 01:30 Lorazepam (Ativan Tab) 2 mg Q4H PRN PO FOR AGITATION 01/07/19 01:30 Past Medical History Past Medical History Past Medical History: None Other Medical History: There is no history of psychiatric hospitalizations. He denies a history of therapy. Ángel has a history of medication management. The patient denies a history of suicide attempts. Ángel denies a history of self injurious behaviors and violence. Other Surgical History: Left Foot after a fall Other Family Medical History: There is no family history of mental illness. There is no history of drug abuse. No one has committed or attempted suicide. Other Past Social History: Ángel denies a history of drug and alcohol abuse. The patient was born in [place], [place] and [place], [place]. Biological parents are to each other and still living. Ángel has two brothers. Ángel is single. He graduated high school and took regular classes. The patient is disabled. He lives in a house and does not have transportation. He denies legal issues. Ángel denies a history of physical and sexual abuse. Meds NPU Home Medications Medication Instructions Recorded Confirmed Last Taken Type desmopressin 0.2 mg tablet 0.2 mg PO .hs tab 05/30/19 08/14/19 Unknown History folic acid 1 mg tablet 1 mg PO ONCE 05/30/19 08/14/19 Unknown History hydrochlorothiazide 25 mg tablet 25 mg PO QAM 05/30/19 08/14/19 Unknown History benztropine 1 mg tablet 1 mg PO BID #60 tab 10/22/19 10/22/19 Unknown Rx divalproex 500 mg tablet,delayed 500 mg PO .COMPLEX #150 tab 10/22/19 10/22/19 Unknown Rx release quetiapine 50 mg tablet 50 mg PO BID #60 tab 10/22/19 10/22/19 Unknown Rx topiramate 100 mg tablet 100 mg PO BID #60 tab 10/22/19 10/22/19 Unknown Rx trazodone 100 mg tablet 100 mg PO .HS #30 tab 10/22/19 10/22/19 Unknown Rx lorazepam 1 mg tablet 1 mg PO BID #60 tab 10/23/19 10/23/19 Unknown Rx Allergies Allergy/AdvReac Type Severity Reaction Status Date / Time olanzapine Allergy Unknown Verified 05/30/19 11:43 risperidone Allergy Unknown Verified 05/30/19 11:43 PFS NPU PFSH: Medical History Attention-deficit hyperactivity disorder, combined type Bipolar disorder, unspecified Generalized anxiety disorder Mild intellectual disabilities Social History Smoking and tobacco status: never smoked Smoking risk assessment/counseling performed?: Yes Tobacco counseling given: counseling >3 minutes Mental Status Exam MSE Comments: This is an obese, versus morbidly obese, white male, with adequate dress, grooming, and eye contact. No abnormal movements except for psychomotor retardation. Cooperative with exam in mild distress. Speech was decreased rate and volume. Mood described as depressed and anxious; affect congruent. Thought process, organized. Thought content: patient denied any suicidal or homicidal ideation but did endorse this vague auditory hallucination to put his hands on his provider. There were no delusions reported or noted. He does endorse some auditory hallucinations. Attention and concentration appear intact, and memory is unreliable, but none were formally tested. He is alert and oriented times three. Insight and judgment are impaired. Intellectual ability is impaired. Vitals/I&O/Wt Last Vital Signs Temp 97.6 F 10/28/19 22:00 Pulse 92 10/28/19 22:00 Resp 17 10/28/19 22:00 BP 108/68 10/28/19 22:00 Pulse Ox 99 10/28/19 22:00 Weight last 48 hrs Weight 136.078 kg Data NPU : 10/28/19 02:30 10/28/19 02:30 A&P Assessment and plan (1) Acute psychosis: Status: Acute (2) Bipolar disorder, unspecified: Status: Acute (3) Attention-deficit hyperactivity disorder, combined type: Status: Acute (4) Generalized anxiety disorder: Status: Acute (5) Mild intellectual disabilities: Status: Acute Additional A&P Information This is a 24 year old, white male, well known to the system, with a long history of intellectual disability and psychosis, previous diagnoses of bipolar disorder and attention deficit hyperactivity disorder, who presents with urges to put his hands on his provider, and appearing to be not on his medication. Continue current medication after we evaluate and vet what he is actually taking. We do have a note from his outpatient provider from 10-21, however pharmacy reports seem to be conflicting. Continue q 15-minute check for safety. Encourage individual, group, and milieu therapy. We will work with the social work team to figure out what is happening, if there is an issue with him taking medication, given him being in an assisted setting. Involuntary Hold Information 96 Hour Hold: 96 Hour Involuntary Admission: No Attestations NPU Medical Necessity Statement*: Inpatient hospitalization is medically necessary, and the clinically appropriate intervention at this time. We will evaluate his medications and restart and monitor, and make changes as indicated. He will be in the hospital for over two midnights. Likely length of stay four to six days. Coding Level of Care Code Acute K [employer] Professional for shasta Fwd Diagnoses Acute psychosis F23 Bipolar disorder, unspecified F31.9 Attention-deficit hyperactivity disorder, combined type F90.2 Generalized anxiety disorder F41.1 Mild intellectual disabilities F70
[2019-10-28] MEDS: trazodone 50 mg Tablet PO (21:01)
[2019-10-29 06:00] VITALS: BP 120/84; PULSE 93; RESP 18; TEMP 36.6; O2SAT 95
[2019-10-29 06:35] LABS: Glucose Point of Care 132 mg/dL (70-110)
--- NOTE | 2019-10-29 12:41 | P.PN_ITS ---
Subjective NPU Subjective: Interval history: Ángel presents today reporting that he feels like he is ready to go home. There have been signs of aggression or concerns, as were raised at the time of admission. He denies any thoughts to put his hands on his provider, but this is an issue that has been ongoing. We continue to try to work with the place of residence to get his medication list because there continue to be discrepancies that we do not want to engage. He reports he is eating and sleeping fine. Mental Status Exam MSE Comments: This is an obese, versus morbidly obese, white male, with limited dress, grooming, and adequate eye contact. No abnormal movements except for significant psychomotor retardation. Semi-cooperative with exam in no acute distress. Speech was decreased rate and volume and child-like. Mood described as okay; affect subdued. Thought process, linear. Thought content: patient denied any suicidal or homicidal ideation, there were no delusions reported or noted, patient denied any auditory or visual hallucinations. Memory appears unreliable. Insight and judgment are limited. Impulse control is limited but improving. Intellectual ability is impaired. Vitals/I&O/Wt Last Vital Signs Temp 97.8 F 10/29/19 06:00 Pulse 93 10/29/19 06:00 Resp 18 10/29/19 06:00 BP 120/84 10/29/19 06:00 Pulse Ox 95 10/29/19 06:00 Data NPU : 10/28/19 02:30 10/28/19 02:30 A&P Additional A&P Information (1) Acute psychosis: (2) Bipolar disorder, unspecified: (3) Attention-deficit hyperactivity disorder, combined type: (4) Generalized anxiety disorder: (5) Mild intellectual disabilities: This is a 24 year old, white male, well known to the system, with a long history of intellectual disability and psychosis, previous diagnoses of bipolar disorder and attention deficit hyperactivity disorder, who presents with urges to put his hands on his provider, and appearing to be not on his medication. Continue current medication after we evaluate and vet what he is actually taking. We do have a note from his outpatient provider from 10-21, however pharmacy reports seem to be conflicting. Continue q 15-minute check for safety. Encourage individual, group, and milieu therapy. We will work with the social work team to figure out what is happening, if there is an issue with him taking medication, which shouldn't be given him being in an assisted setting. Involuntary Hold Information 96 Hour Hold: 96 Hour Involuntary Admission: No Attestations NPU Medical Necessity Statement*: Inpatient hospitalization is medically necessary, and the clinically appropriate intervention at this time. We will evaluate his medications and restart and monitor, and make changes as indicated. Likely length of stay 3-5 days. Coding Level of Care Code Acute Manager Of International for Caron Crane
[2019-10-29 14:00] VITALS: BP 143/99; PULSE 94; RESP 20; TEMP 36.6; O2SAT 94
[2019-10-29 17:14] LABS: Glucose Point of Care 112 mg/dL (70-110)
[2019-10-29 22:00] VITALS: BP 130/88; PULSE 94; RESP 24; TEMP 37; O2SAT 98
[2019-10-30 06:00] VITALS: BP 139/94; PULSE 89; RESP 21; TEMP 36.9; O2SAT 98
[2019-10-30 06:25] LABS: Glucose Point of Care 130 mg/dL (70-110)
[2019-10-30 14:00] VITALS: BP 117/65; PULSE 64; RESP 18; TEMP 37.1; O2SAT 98
--- NOTE | 2019-10-30 15:53 | PM.NDC ---
Diagnoses at Discharge Discharge Diagnosis (1) Acute psychosis: Status: Acute Problem details: It appears there was a logistical foul-up in the patient's medications and he deteriorated into a brief period of psychosis. (2) Bipolar disorder, unspecified: Status: Acute Problem details: Patient is normally stable on his regimen. (3) Attention-deficit hyperactivity disorder, combined type: Status: Acute (4) Generalized anxiety disorder: Status: Acute (5) Mild intellectual disabilities: Status: Acute Reason for Visit Reason for Visit: mhe Brief History: Ángel presented the day before yesterday, reporting that he was not doing really well. We checked his pharmacy and it appeared, at least at this point, he was not taking his medication. He resides at an assisted living facility, so it is unclear why that is the case. We agreed that we would do some investigating to figure out what he is actually taking, since he could not produce that information independently. He presented to the emergency room, reporting that he was having thoughts to put his hands on his caregiver and actually did do so, but it is our understanding that he did not do any significant harm. He was endorsing auditory hallucinations telling him to do that. He denied any suicidality, and he endorses a desire to get assistance in fighting off the voices. We reviewed his last note and outside of the medications, he denies any substantive changes to his circumstances and psychosocial history. Hospital Course Hospital Course The patient was put back on his regimen and very quickly reconstituted. He is now free of hallucinations or other psychotic manifestations. He denies any intent harm anyone, including himself. Discharge Summary The patient will return to the [facility] whence he came and our nurse store planner will backtrack on the noncompliance to see that it does not recur. Involuntary Hold Information 96 Hour Hold: 96 Hour Involuntary Admission: No Mental Status Exam MSE Comments: This is a morbidly obese male with adequate dress, grooming, and eye contact. No abnormal movements except for psychomotor retardation. Cooperative with exam in mild distress. Speech was decreased rate and volume. Mood described as depressed and anxious; affect congruent. Thought process, organized and free of any racing, blocking or looseness of association. The patient denied any suicidal or homicidal ideation but did endorse this vague auditory hallucination to put his hands on his provider. There were no delusions reported or noted. He does endorse some auditory hallucinations. Attention and concentration appear intact, and memory is unreliable, but none were formally tested. He is alert and oriented times three. Insight and judgment are impaired. Intellectual ability is impaired. Discharge Data Data Completed and Pending: Labs from last 24 hours 10/30/19 10/29/19 05:54 17:11 POC Glucose 130 112 Vitals: Last Vital Signs Temp 98.5 F 10/30/19 06:00 Pulse 89 10/30/19 06:00 Resp 21 H 10/30/19 06:00 BP 139/94 10/30/19 06:00 Pulse Ox 98 10/30/19 06:00 Discharge Plan Discharge Patient Disposition: Home, Self-Care Condition: Stable Prescriptions: Continued divalproex 500 mg tablet,delayed release (DR/EC) 500 mg PO .COMPLEX Qty: 150 RF: 1 quetiapine [Seroquel] 50 mg tablet 50 mg PO BID Qty: 60 RF: 0 topiramate 100 mg tablet 100 mg PO BID Qty: 60 RF: 1 trazodone 100 mg tablet 100 mg PO .HS Qty: 30 RF: 0 benztropine 1 mg tablet 1 mg PO BID Qty: 60 RF: 1 lorazepam 1 mg tablet 1 mg PO BID Qty: 60 RF: 1 hydrochlorothiazide 25 mg tablet 25 mg PO QAM RF: 0 desmopressin [DDAVP] 0.2 mg tablet 0.2 mg PO .hs RF: 0 folic acid 1 mg tablet 1 mg PO ONCE RF: 0 Discharge Orders: Discharge Order (Routine); Ordered 10/30/19 Ordered By: Tommy Sanders Referrals: Ananya Cha PMHNP [Staff Physician] - 11/12/19 1:30 pm Beatriz Loza DO [Primary Care Provider] - Discharge Diet: Usual diet Discharge Activity: Resume usual activity Discharge Attestations NPU Time Spent in Discharge Care*: greater than 30 min Specific Discharge Activities: Specific discharge activities: educating patient, discussing with pcp/other providers, discussing with casework supervisor/social workers/dc planners, documenting/other paperwork and evaluating patient/reviewing data Status at Discharge: Cognitive status at discharge: mildly impaired cognition, Behavioral status at discharge: cooperative, Functional status at discharge: independent ambulation Overall status at discharge: patient is back to baseline Coding Level of Care Code Acute [employer] for [employer] Diagnoses Acute psychosis F23 Bipolar disorder, unspecified F31.9 Attention-deficit hyperactivity disorder, combined type F90.2 Generalized anxiety disorder F41.1 Mild intellectual disabilities F70
[2019-10-30 16:28] VITALS: BP 139/94; PULSE 89; RESP 21; TEMP 36.9; O2SAT 98
== END 2019-10-30 17:28 | disposition home or self-care (01) | DRG 885 ==
LOC: ER 03:00 → NP 03:10
PROVIDERS: Emergency Medicine; Admitting Provider Psychiatry & Neurology Psychiatry; PCP Family Medicine; Visit Provider Psychiatry & Neurology Psychiatry
DX: F23 Brief psychotic disorder (principal); Z68.41 Body mass index [BMI] 40.0-44.9, adult; R45.851 Suicidal ideations; I10 Essential (primary) hypertension; E11.9 Type 2 diabetes mellitus without complications; E87.6 Hypokalemia; F90.9 Attention-deficit hyperactivity disorder, unspecified type; E66.9 Obesity, unspecified; F17.210 Nicotine dependence, cigarettes, uncomplicated; F31.9 Bipolar disorder, unspecified; F41.9 Anxiety disorder, unspecified; F70 Mild intellectual disabilities
CPT/HCPCS: 12345; 36415; 36416; 80053; 80156; 80164; 80178; 80185; 80306; 80307; 82962; 84443; 85025; 93005; 99284; 99285

== ENCOUNTER 2019-10-28 02:18 | Emergency (ER) | payer MEDICAID, SELFPAY | END 2019-10-28 03:37 | disposition admitted as inpatient to this hospital (09) | LOC: ER 11-10 13:57 | PROVIDERS: Emergency Provider Emergency Medicine; PCP Family Medicine | DX: F23 Brief psychotic disorder (principal) | CPT/HCPCS: 12345; 36415; 80053; 80156; 80164; 80178; 80185; 80306; 80307; 84443; 85025; 93005; 99284; 99285 ==

== ENCOUNTER 2019-11-12 03:35 | Inpatient (IN) | payer MEDICAID, SELFPAY ==
[2019-11-12 03:36] VITALS: BP 145/83; PULSE 92; RESP 26; TEMP 36.8; O2SAT 94; BMI 38.0
--- NOTE | 2019-11-12 03:41 | ECG_ITS ---
[facility] ED Test Date: 2019-11-12 Pat Name: Ángel Calloway Department: Room: 150 Gender: Male Stores Assistant: : 1995 Requested By: Shara Stinson Order Number: [id number] Xiomara MD: Darien Starr M.D. Measurements Intervals [place] Rate: 92 P: 40 SC: 185 QRS: 91 QRSD: 89 T: 22 QT: 326 QTc: 404 Interpretive Statements SINUS RHYTHM BORDERLINE RIGHT AXIS DEVIATION [QRS AXIS > 90] LOW QRS VOLTAGE IN PRECORDIAL LEADS [QRS DEFLECTION < 1.0 mV IN CHEST LEADS] POSSIBLE RIGHT VENTRICULAR CONDUCTION DELAY [RSR (QR) IN V1/V2] Compared to ECG 10/28/2019 02:38:19 Low QRS voltage now present T-wave abnormality no longer present Electronically Signed On 11-12-2019 19:16:39 CDT by Darien Starr M.D. [id number]
--- NOTE | 2019-11-12 03:48 | W.ED.PSYCH ---
HPI - Psych General: Chief Complaint: Psychiatric Symptoms Stated Complaint: STRESS Time Seen by Provider: 11/12/19 03:42 Source: patient Mode of arrival: ambulatory Limitations: no limitations History of Present Illness: HPI Narrative: Mr. ramos is a nice 24-year-old male who comes on feeling depressed and lonely. He states he misses his family. Patient is very withdrawn and not very forthcoming with many recent facts. He denies any suicidal homicidal ideation. He is requesting admission for psychiatric stabilization. Review of Systems Const: Denies: fever(s), chills, body aches, fatigue, malaise or diaphoresis Eyes: Denies: change in vision, blurry vision, blind spots or photophobia ENMT: Denies: throat pain, odynophagia, hoarseness, swelling of lips/tongue, ear or mastoid pain, ear discharge, change in hearing or nasal discharge Card: Denies: chest pain, palpitations, irregular heart rhythm, edema, lightheadedness, syncope, pre-syncope, dyspnea on exertion or orthopnea Resp: Denies: dyspnea, productive cough, non-productive cough, wheezing, hemoptysis or chest congestion GI: Denies: abdominal pain, nausea, vomiting, hematemesis, coffee ground emesis, heartburn, diarrhea, constipation, GI cramping, hematochezia or melena : Denies: flank pain, dysuria, urinary frequency, urinary urgency or hematuria Musc: Denies: neck pain, back pain, extremity pain, extremity swelling, joint pain, joint swelling, joint redness, joint warmth or joint stiffness Skin/Breast: Denies: rash, pruritus, erythema, skin tenderness or jaundice Neuro: Denies: headache(s), numbness in extremities, weakness in extremities, sensory changes, lack of coordination, difficulty walking, dizziness, vertigo, confusion or Slurred speech present Harshad/Lymph: Denies: easy bruising, easy bleeding, petechiae, purpura or enlarged lymph nodes All/Imm: Denies: urticaria, throat swelling, tongue swelling, facial swelling or acute wheezing PFSH ED PFSH: Medical History Attention-deficit hyperactivity disorder, combined type Bipolar disorder, unspecified Patient is normally stable on his regimen. Generalized anxiety disorder Mild intellectual disabilities Social History Smoking and tobacco status: never smoked Smoking risk assessment/counseling performed?: Yes Tobacco counseling given: counseling >3 minutes Physical Exam Const: COMMON NORMALS: no acute distress, patient oriented x3, no limitations, healthy appearing and well nourished GENERAL APPEARANCE: cooperative and well developed HENMT: COMMON NORMALS: normocephalic, atraumatic, external ears normal, EAC's normal and Normal external nose present HEAD & SCALP: normal to inspection, normocephalic and atraumatic FACE & SINUS: normal facial exam and face symmetric NOSE: Normal external nose present and Normal nares present EXTERNAL EAR: Yes external ears normal EXTERNAL AUDITORY CANAL: EAC's normal MOUTH: Normal oral and palatal mucosa present, lip normal and tongue normal Eye: COMMON NORMALS: Equal, round and reactive pupils present and conjunctivae normal GENERAL EYE: appearance normal, both eyes and all related structures ALIGNMENT: Yes alignment normal PERIORBITAL: periorbital findings normal EYELID: eyelids normal CONJUNCTIVA: Yes conjunctivae normal SCLERA: sclerae normal PUPIL: Yes Equal, round and reactive pupils present Neck/C-Spine: COMMON NORMALS: full ROM, no lymphadenopathy, supple, no meningeal signs and no JVD GENERAL: Yes normal visual inspection and Yes trachea midline Chest: COMMONS NORMALS: normal inspection of the chest and normal palpation of entire chest wall Resp: COMMON NORMALS: normal respiratory effort, No retractions and No use of accessory muscles EFFORT & INSPECTION: Yes able to speak in complete sentences and Yes symmetric chest movement AUSCULTATION: no crackles, no rales, no rhonchi and no wheezes Cardio: COMMON NORMALS: no JVD, regular rate, regular rhythm, S1 normal heart sound present and S2 normal heart sound present RATE: regular rate RHYTHM: regular rhythm HEART SOUNDS: S1 normal heart sound present, S2 normal heart sound present, no click, no gallops, no murmurs, no rubs and abnormal split S2 GI: COMMON NORMALS: Soft to palpation and No hepatosplenomegaly present PALPATION: Yes Soft to palpation, No Tenderness to palpation present (GI), No Guarding due to palpation present (GI), No Rigid due to palpation, Yes No hepatosplenomegaly present, No Hernia present, No Palpable mass present and No Pulsatile mass present : COMMON NORMALS: Yes no CVA tenderness BLADDER/KIDNEY EXAM: Yes no CVA tenderness Back/Pelvis: COMMON NORMALS: no CVA tenderness, thoracic and lumbar spine normal to inspection, no thoracic nor lumbar tenderness and thoraco-lumbar ROM normal Extremity: COMMON NORMALS: normal to inspection, full ROM, capillary refill normal, no joint enlargement, no clubbing, cyanosis or edema and no calf tenderness Neuro: COMMON NORMALS: patient oriented x3, CN's II-XII intact bilaterally, moves all extremities, no focal motor deficits and no sensory deficits noted MENINGEAL SIGNS: Yes no meningeal signs SPEECH: speech normal Psych: COMMON NORMALS: Normal thought process present, cooperative, denies homicidal ideation and denies suicidal ideation ATTITUDE: Yes Withdrawn affect present SPEECH: Yes slow MOOD & AFFECT: Yes tearful THOUGHT PROCESS: Normal thought process present Skin: COMMON NORMALS: no rashes or lesions noted, turgor normal, no jaundice, no petechiae and no mottling GENERAL SKIN EXAM: no rashes or lesions noted and turgor normal MDM - Psych MDM Narrative: Medical decision making narrative: The case reviewed with Dr. Khoury, he agrees to meet the patient for further evaluation and care. Lab Data: Attestation: I reviewed the patient's lab results. Labs: Lab Results 11/12/19 Range/Units 03:54 WBC 6.2 (4.0-10.0) 10^3/ uL RBC 4.76 (4.1-5.3) 10^6/u L Hgb 13.7 (11.7-16.6) g/dL Hct 41.8 L (42.0-52.0) % MCV 87.8 (80-94) fL MCH 28.8 (28.0-34.0) pg MCHC 32.8 (30.0-36.0) g/dL RDW 13.0 (12.1-15.1) % Plt Count 218 (130-400) 10^3/c mm MPV 11.0 H (7.4-10.4) fL Neut % (Auto) 57.3 % Lymph % (Auto) 28.5 % [place] % (Auto) 10.3 % Eos % (Auto) 1.1 % Baso % (Auto) 0.5 % Neut # (Auto) 3.6 (1.8-7.7) 10^3/u L Lymph # (Auto) 1.8 (0.8-4.8) 10^3/u L [place] # (Auto) 0.6 (0.2-0.9) 10^3/u L Eos # (Auto) 0.1 (0.0-0.8) 10^3/u L Baso # (Auto) 0.0 (0.0-0.1) 10^3/u L Nucleated RBC % (a uto) 0 % Nucleated RBCs # 0.0 /100WBC EKG Data^: EKG 1: Attestation: I personally reviewed and interpreted this EKG as follows: EKG interpretation date: 11/12/19 EKG interpretation time: 04:02 Interpretation: Normal sinus rhythm at 92 beats a minute, no acute ST or T wave changes. Normal intervals. Discharge Plan Discharge Patient Disposition: Admitted As Inpatient Admit Provider: Jaquan Khoury Clinical Impression: Depression Condition: Stable Interventions: ED Discharge Assessment Last Done: 11/12/19 04:27 ED Charges Last Done: 11/12/19 04:29 Discharge Date/Time: 11/12/19 04:41 Coding Level of Care Code ED Pediatric Surgeon for Caron Crane
[2019-11-12 03:59] LABS: Basophils % 0.5 %; Eosinophils # 0.1 10^3/uL (0.0-0.8); Eosinophils % 1.1 %; Hematocrit 41.8 % (42.0-52.0); Hemoglobin 13.7 g/dL (11.7-16.6); Lymphocytes # 1.8 10^3/uL (0.8-4.8); Lymphocytes % 28.5 %; Mean Corpuscular HGB Conc 32.8 g/dL (30.0-36.0); Mean Corpuscular Hemoglobin 28.8 pg (28.0-34.0); Mean Corpuscular Volume 87.8 fL (80-94); Monocytes # 0.6 10^3/uL (0.2-0.9); Monocytes % 10.3 %; Neutrophils # 3.6 10^3/uL (1.8-7.7); Neutrophils % 57.3 %; Nucleated Red Blood Cells % 0 %; Platelet Count 218 10^3/cmm (130-400); Red Blood Count 4.76 10^6/uL (4.1-5.3); White Blood Count 6.2 10^3/uL (4.0-10.0)
[2019-11-12 04:21] LABS: Lithium 0.1 mmol/L (0.6-1.2)
[2019-11-12 04:24] LABS: Alanine Aminotransferase 40 U/L (0-41); Albumin Level 4.2 g/dL (3.5-5.2); Alkaline Phosphatase 70 IU/L (40-130); Anion Gap 16.5 (5-19); Aspartate Amino Transferase 28 U/L (0-40); Blood Urea Nitrogen 13 mg/dL (6-20); Calcium 9.2 mg/dL (8.5-10.5); Carbon Dioxide 24 mmol/L (22-29); Chloride 97 mmol/L (98-107); Globulin 2.4 g/dL (1.3-4.6); Glomerular Filtration Rate 165.5 mL/min (90-130); Glucose 119 mg/dL (65-115); Osmolality Calculated 275 mOsm/kg (285-295); Phenytoin Dilantin 0.8 ug/mL (10-20); Potassium 3.5 mmol/L (3.5-5.1); Sodium 134 mmol/L (136-145); Total Bilirubin 0.2 mg/dL (0.15-1.2); Total Protein 6.6 g/dL (6.6-8.7); Valproic Acid Level 88.9 ug/mL (50-100)
[2019-11-12 04:25] LABS: Acetaminophen < 5.0 ug/mL (10-30); Alcohol Level < 10 mg/dL (0-10); Salicylate < 0.3 mg/dL (3-10)
[2019-11-12 04:29] LABS: Thyroid Stimulating Hormone 3.67 uIU/mL (0.27-4.20)
[2019-11-12 04:46] LABS: Amphetamines Screen Urine Negative (Negative); Barbiturates Screen Urine Negative (Negative); Benzodiazepines Screen Urine Positive (Negative); Cocaine Screen Urine Negative (Negative); Opiate Screen Urine Negative (Negative); PCP Screen Urine Negative (Negative); THC Screen Urine Negative (Negative)
[2019-11-12 04:47] VITALS: BP 123/89; PULSE 113; RESP 20; TEMP 36.9; O2SAT 98
[2019-11-12] MEDS: folic acid 1 mg Tablet PO (08:17)
[2019-11-12] MEDS: divalproex DR 500 mg Tablet 1000 MG PO ×2 (08:17→15:08)
[2019-11-12] MEDS: benztropine 1 mg Tablet PO ×2 (08:17→17:05)
[2019-11-12] MEDS: LORazepam 1 mg Tablet PO ×2 (08:17→17:05)
[2019-11-12] MEDS: topiramate 100 mg Tablet PO ×2 (08:17→17:05)
--- NOTE | 2019-11-12 08:17 | PM.NHP ---
Providers/Chief Complaint Admitting Physician: Jaquan Khoury MD Primary Care Provider: Beatriz Loza DO Referral Source: [facility] Chief Complaint: STRESS HPI NPU History of Present Illness Ángel Calloway is a 24 year old male who comes on feeling depressed and lonely. He states he misses his family. Patient is very withdrawn and not very forthcoming. He denies any suicidal homicidal ideation. He is requesting admission for psychiatric stabilization. He is pretty sleepy and groggy and his speech is sloppy but not dysarthric. It is hard to get the whole story from him but the verification lead brought him here. Review of Systems Narrative: Const: Denies: fever(s), chills, body aches, fatigue, malaise or diaphoresis Eyes: Denies: change in vision, blurry vision, blind spots or photophobia ENMT: Denies: throat pain, odynophagia, hoarseness, swelling of lips/tongue, ear or mastoid pain, ear discharge, change in hearing or nasal discharge Card: Denies: chest pain, palpitations, irregular heart rhythm, edema, lightheadedness, syncope, pre-syncope, dyspnea on exertion or orthopnea Resp: Denies: dyspnea, productive cough, non-productive cough, wheezing, hemoptysis or chest congestion GI: Denies: abdominal pain, nausea, vomiting, hematemesis, coffee ground emesis, heartburn, diarrhea, constipation, GI cramping, hematochezia or melena : Denies: flank pain, dysuria, urinary frequency, urinary urgency or hematuria Musc: Denies: neck pain, back pain, extremity pain, extremity swelling, joint pain, joint swelling, joint redness, joint warmth or joint stiffness Skin/Breast: Denies: rash, pruritus, erythema, skin tenderness or jaundice Neuro: Denies: headache(s), numbness in extremities, weakness in extremities, sensory changes, lack of coordination, difficulty walking, dizziness, vertigo, confusion or Slurred speech present Harshad/Lymph: Denies: easy bruising, easy bleeding, petechiae, purpura or enlarged lymph nodes All/Imm: Denies: urticaria, throat swelling, tongue swelling, facial swelling or acute wheezing Meds NPU Home Medications Medication Instructions Recorded Confirmed Last Taken Type desmopressin 0.2 mg tablet 0.2 mg PO .hs tab 05/30/19 08/14/19 Unknown History folic acid 1 mg tablet 1 mg PO ONCE 05/30/19 08/14/19 Unknown History hydrochlorothiazide 25 mg tablet 25 mg PO QAM 05/30/19 08/14/19 Unknown History benztropine 1 mg tablet 1 mg PO BID #60 tab 10/22/19 10/22/19 Unknown Rx divalproex 500 mg tablet,delayed 500 mg PO .COMPLEX #150 tab 10/22/19 10/22/19 Unknown Rx release quetiapine 50 mg tablet 50 mg PO BID #60 tab 10/22/19 10/22/19 Unknown Rx topiramate 100 mg tablet 100 mg PO BID #60 tab 10/22/19 10/22/19 Unknown Rx trazodone 100 mg tablet 100 mg PO .HS #30 tab 10/22/19 10/22/19 Unknown Rx lorazepam 1 mg tablet 1 mg PO BID #60 tab 10/23/19 10/23/19 Unknown Rx Allergies Allergy/AdvReac Type Severity Reaction Status Date / Time olanzapine Allergy Unknown Verified 05/30/19 11:43 risperidone Allergy Unknown Verified 05/30/19 11:43 [facility] NPU PFSH: Medical History Attention-deficit hyperactivity disorder, combined type Bipolar disorder, unspecified Patient is normally stable on his regimen. Generalized anxiety disorder Mild intellectual disabilities Social History Smoking and tobacco status: never smoked Smoking risk assessment/counseling performed?: Yes Tobacco counseling given: counseling >3 minutes Other Psychiatric History: Other Psychiatric History: The patient had been discharged from our NPU on the fourth preceding. At that time he had not been receiving his medication. The logistical snafu was never resolved. He still does not know why he was not getting his medicine. He is now. Mental Status Exam MSE Comments: This is a morbidly obese male who presents disheveled and with poor grooming. Eye contact variable. No abnormal movements except for psychomotor retardation. Cooperative with exam in mild distress. Speech was decreased rate and volume. Mood described as depressed and anxious; affect congruent. Thought process, organized and free of any racing, blocking or looseness of association. The patient denied any suicidal or homicidal ideation but did report he was upset that he missed his family. There were no delusions reported or noted. He does endorse some auditory hallucinations. Attention and concentration appear intact, and memory is unreliable, but none were formally tested. He is alert and oriented times three. Insight and judgment are impaired. Intellectual ability is impaired. Vitals/I&O/Wt Last Vital Signs Temp 98.5 F 11/12/19 04:47 Pulse 113 H 11/12/19 04:47 Resp 20 H 11/12/19 04:47 BP 123/89 11/12/19 04:47 Pulse Ox 98 11/12/19 04:47 Weight last 48 hrs Weight 280 lb Physical Exam Narrative: EXAM NARRATIVE: Const: COMMON NORMALS: no acute distress, patient oriented x3, no limitations, healthy appearing and well nourished GENERAL APPEARANCE: cooperative and well developed HENMT: COMMON NORMALS: normocephalic, atraumatic, external ears normal, EAC's normal and Normal external nose present HEAD & SCALP: normal to inspection, normocephalic and atraumatic FACE & SINUS: normal facial exam and face symmetric NOSE: Normal external nose present and Normal nares present EXTERNAL EAR: Yes external ears normal EXTERNAL AUDITORY CANAL: EAC's normal MOUTH: Normal oral and palatal mucosa present, lip normal and tongue normal Eye: COMMON NORMALS: Equal, round and reactive pupils present and conjunctivae normal GENERAL EYE: appearance normal, both eyes and all related structures ALIGNMENT: Yes alignment normal PERIORBITAL: periorbital findings normal EYELID: eyelids normal CONJUNCTIVA: Yes conjunctivae normal SCLERA: sclerae normal PUPIL: Yes Equal, round and reactive pupils present Neck/C-Spine: COMMON NORMALS: full ROM, no lymphadenopathy, supple, no meningeal signs and no JVD GENERAL: Yes normal visual inspection and Yes trachea midline Chest: COMMONS NORMALS: normal inspection of the chest and normal palpation of entire chest wall Resp: COMMON NORMALS: normal respiratory effort, No retractions and No use of accessory muscles EFFORT & INSPECTION: Yes able to speak in complete sentences and Yes symmetric chest movement AUSCULTATION: no crackles, no rales, no rhonchi and no wheezes Cardio: COMMON NORMALS: no JVD, regular rate, regular rhythm, S1 normal heart sound present and S2 normal heart sound present RATE: regular rate RHYTHM: regular rhythm HEART SOUNDS: S1 normal heart sound present, S2 normal heart sound present, no click, no gallops, no murmurs, no rubs and abnormal split S2 GI: COMMON NORMALS: Soft to palpation and No hepatosplenomegaly present PALPATION: Yes Soft to palpation, No Tenderness to palpation present (GI), No Guarding due to palpation present (GI), No Rigid due to palpation, Yes No hepatosplenomegaly present, No Hernia present, No Palpable mass present and No Pulsatile mass present : COMMON NORMALS: Yes no CVA tenderness BLADDER/KIDNEY EXAM: Yes no CVA tenderness Back/Pelvis: COMMON NORMALS: no CVA tenderness, thoracic and lumbar spine normal to inspection, no thoracic nor lumbar tenderness and thoraco-lumbar ROM normal Extremity: COMMON NORMALS: normal inspection, full ROM, capillary refill normal, no joint enlargement, no clubbing, cyanosis or edema, no calf tenderness. Neuro: COMMON NORMALS: patient oriented x3, CN's II-XII intact bilaterally, moves all extremities, no focal motor deficits and no sensory deficits noted. no meningeal signs SPEECH: speech normal Psych: COMMON NORMALS: Normal thought process present, cooperative, denies homicidal ideation and denies suicidal ideation ATTITUDE: Yes Withdrawn affect present SPEECH: Yes slow MOOD & AFFECT: Yes tearful THOUGHT PROCESS: Normal thought process present Skin: COMMON NORMALS: no rashes or lesions noted, turgor normal, no jaundice, no petechiae and no mottling GENERAL SKIN EXAM: no rashes or lesions noted and turgor normal Data NPU : 11/12/19 03:54 11/12/19 03:54 A&P Assessment and plan (1) Depression: The patient is torpid. Status: Chronic Qualifiers: Depression Type: unspecified Qualified Code(s): F32.9 - Major depressive disorder, single episode, unspecified (2) Mild intellectual disabilities: The patient has adequate assisted living. He has sufficient cognitive wherewithal to live there. Status: Chronic Involuntary Hold Information 96 Hour Hold: 96 Hour Involuntary Admission: No Attestations NPU Medical Necessity Statement*: This may be a brief hospital stay. I anticipate no more than 3-5 midnights. Time Spent in Patient Care: Greater than 35 minutes (>than 50% of time spent in counselling and/or direct pt care on unit). Coding Level of Care Code Acute Cellulose Insulation Helper for [facility] Diagnoses Depression F32.9 Depression Type: unspecified Mild intellectual disabilities F70
[2019-11-12] MEDS: quetiapine 100 mg Tablet 50 MG PO (08:18)
[2019-11-12 12:44] VITALS: BP 130/73; PULSE 95; RESP 18; TEMP 37; O2SAT 95
[2019-11-12] MEDS: quetiapine 100 mg Tablet PO (20:15)
[2019-11-12] MEDS: trazodone 100 mg Tablet PO (20:16)
[2019-11-12] MEDS: divalproex DR 500 mg Tablet PO (20:17)
[2019-11-12 22:00] VITALS: BP 130/84; PULSE 94; RESP 22; TEMP 37; O2SAT 96
[2019-11-13] MEDS: hydroCHLOROthiazide 25 mg Tablet PO (05:59)
[2019-11-13 06:00] VITALS: BP 122/87; PULSE 95; RESP 22; TEMP 36.9; O2SAT 97
[2019-11-13] MEDS: LORazepam 1 mg Tablet PO ×2 (08:11→17:00)
[2019-11-13] MEDS: benztropine 1 mg Tablet PO ×2 (08:11→17:00)
[2019-11-13] MEDS: divalproex DR 500 mg Tablet 1000 MG PO ×2 (08:12→15:13)
[2019-11-13] MEDS: topiramate 100 mg Tablet PO ×2 (08:12→17:00)
--- NOTE | 2019-11-13 13:10 | P.PN_ITS ---
Subjective NPU Subjective: Interval history: Ángel presents today reporting that he wants to go home. This is very much his MO. He comes to the hospital and very quickly wants to be discharged with very limited impulse control. It is looking like he has gained some weight, though his BMI appears to be decreased from his last stay. His Depakote level was probably not a real troth, was 88.9, and he denies having any symptoms, though he has been sleeping a lot here and his problem at the long-term he lives at was that he was not sleeping. He denies having sleeping problems here but is not the best historian. He currently does take a standard dose of Trazodone and also has Seroquel which appears to have been added by Dr. Sanders. Otherwise, he reports he is doing well and denies any issues and would like to go home. Mental Status Exam MSE Comments: This is an obese, white male, with limited dress, grooming, and eye contact. No abnormal movements except for psychomotor retardation. Coope rative with exam in no acute distress. Speech was decreased rate and volume and child-like with some poor articulation especially with R?s. Mood described as okay, ?I think I am ready to go home?; affect subdued. Thought process, linear. Thought content: patient denied any suicidal or homicidal ideation, there were no delusions reported or noted, patient denied any auditory or visual hallucinations. Attention and concentration were intact, and memory seems unreliable, but none were formally tested. Alert and oriented times three. Insight and judgment are impaired. Intellectual ability is impaired. Impulse control is limited. Vitals/I&O/Wt Last Vital Signs Temp 978 F H 11/13/19 22:00 Pulse 100 11/13/19 22:00 Resp 18 11/13/19 22:00 BP 125/89 11/13/19 22:00 Pulse Ox 98 11/13/19 22:00 Data NPU : 11/12/19 03:54 11/12/19 03:54 A&P Assessment and plan (1) Depression: Status: Chronic Qualifiers: Depression Type: unspecified Qualified Code(s): F32.9 - Major depressive disorder, single episode, unspecified (2) Attention-deficit hyperactivity disorder, combined type: Status: Acute (3) Mild intellectual disabilities: Status: Chronic Additional A&P Information This is a 24 year old, white male, with a long history of intellectual disability, mild versus moderate, attention deficit hyperactivity disorder, combined type, and depression, who presents with some difficulties with sleep with a recent addition of Seroquel. Continue current medication. Will continue to monitor for appropriateness for discharge. Continue individual, group, and milieu therapy. Continue q 15-minute checks for safety. Will work with treatment team to find appropriate time for safe discharge. Involuntary Hold Information 96 Hour Hold: 96 Hour Involuntary Admission: No Attestations NPU Medical Necessity Statement*: Inpatient hospitalization is medically necessary, and the clinically appropriate intervention at this time. We will monitor medications and make changes as indicated. Likely length of stay two to four days. Coding Level of Care Code Acute Water Softener Servicer And Installer for g Fwd Diagnoses Depression F32.9 Depression Type: unspecified Attention-deficit hyperactivity disorder, combined type F90.2 Mild intellectual disabilities F70
[2019-11-13 14:00] VITALS: BP 137/86; PULSE 100; RESP 18; TEMP 36.6; O2SAT 98
--- NOTE | 2019-11-13 16:58 | P.PN_ITS ---
Subjective NPU Subjective: Interval history: Ángel presents today reporting that he wants to go home. This is very much his MO. He comes to the hospital and very quickly wants to be discharged with very limited impulse control. It is looking like he has gained some weight, though his BMI appears to be decreased from his last stay. His Depakote level was probably not a real troth, was 88.9, and he denies having any symptoms, though he has been sleeping a lot here and his problem at the intermediate he lives at was that he was not sleeping. He denies having sleeping problems here but is not the best historian. He currently does take a standard dose of Trazodone and also has Seroquel which appears to have been added by Dr. Sanders. Otherwise, he reports he is doing well and denies any issues and would like to go home. Mental Status Exam MSE Comments: This is an obese, white male, with limited dress, grooming, and eye contact. No abnormal movements except for psychomotor retardation. Jose Alfredo ative with exam in no acute distress. Speech was decreased rate and volume and child-like with some poor articulation especially with R?s. Mood described as okay, ?I think I am ready to go home?; affect subdued. Thought process, linear. Thought content: patient denied any suicidal or homicidal ideation, there were no delusions reported or noted, patient denied any auditory or visual hallucinations. Attention and concentration were intact, and memory seems unreliable, but none were formally tested. Alert and oriented times three. Insight and judgment are impaired. Intellectual ability is impaired. Impulse control is limited. Vitals/I&O/Wt Last Vital Signs Temp 97.9 F 11/13/19 14:00 Pulse 100 11/13/19 14:00 Resp 18 11/13/19 14:00 BP 137/86 11/13/19 14:00 Pulse Ox 98 11/13/19 14:00 Weight last 48 hrs Weight 127.006 kg Home Medications desmopressin 0.2 mg tablet 0.2 mg PO .hs tab 05/30/19 [History Confirmed 11/12/19] folic acid 1 mg tablet 1 mg PO ONCE 05/30/19 [History Confirmed 11/12/19] hydrochlorothiazide 25 mg tablet 25 mg PO QAM 05/30/19 [History Confirmed 11/12/19] benztropine 1 mg tablet 1 mg PO BID #60 tab 10/22/19 [Rx Confirmed 11/12/19] divalproex 500 mg tablet,delayed release 500 mg PO .COMPLEX #150 tab 10/22/19 [Rx Confirmed 11/12/19] quetiapine 50 mg tablet 50 mg PO BID #60 tab 10/22/19 [Rx Confirmed 11/12/19] topiramate 100 mg tablet 100 mg PO BID #60 tab 10/22/19 [Rx Confirmed 11/12/19] trazodone 100 mg tablet 100 mg PO .HS #30 tab 10/22/19 [Rx Confirmed 11/12/19] lorazepam 1 mg tablet 1 mg PO BID #60 tab 10/23/19 [Rx Confirmed 11/12/19] Active Medications Acetaminophen (Tylenol) 650 mg PO Q4H PRN PRN Reason: MILD PAIN Benztropine Mesylate (Cogentin) 1 mg PO BID PRN PRN Reason: Mild Extrapyramidal symptoms Benztropine Mesylate (Cogentin) 1 mg PO BID [facility] Last Admin: 11/13/19 17:00 Dose: 1 mg Documented by: Camphor/Menthol/Phenol (Blistex) 1 applic TOPICAL Q1H PRN PRN Reason: DRYNESS Desmopressin Acetate (Ddavp) 0.2 mg PO BEDTIME [facility] Last Admin: 11/13/19 20:52 Dose: 0.2 mg Documented by: Diphenhydramine HCl (Benadryl) 50 mg IM ONCE PRN PRN Reason: Severe Extrapyramidal Symptoms Diphenhydramine HCl (Benadryl) 50 mg IM Q4H PRN PRN Reason: Severe Aggression Divalproex Sodium (Depakote Dr) 1,000 mg PO 0800,1400 [facility] Last Admin: 11/13/19 15:13 Dose: 1,000 mg Documented by: Divalproex Sodium (Depakote Dr) 500 mg PO BEDTIME [facility] Last Admin: 11/13/19 20:54 Dose: 500 mg Documented by: Haloperidol (Haldol) 5 mg PO Q4H PRN PRN Reason: AGITATION Haloperidol Lactate (Haldol Inj) 5 mg IM Q4H PRN PRN Reason: Severe Aggression Hydrochlorothiazide (Hctz) 25 mg PO QAM [facility] Last Admin: 06/18/20 05:59 Dose: 25 mg Documented by: Hydroxyzine Pamoate (Vistaril) 50 mg PO Q6H PRN PRN Reason: ANXIETY Loperamide HCl (Imodium Capsule) 2 mg PO Q6H PRN PRN Reason: DIARRHEA Lorazepam (Ativan) 2 mg IM Q4H PRN PRN Reason: Severe Aggression Lorazepam (Ativan) 1 mg PO BID [facility] Last Admin: 11/13/19 17:00 Dose: 1 mg Documented by: Nicotine (Nicoderm 21 Mg Patch) 1 patch TRANSDERMA DAILY PRN PRN Reason: NICOTINE WITHDRAWAL Nicotine Polacrilex (Nicorette) 2 mg BUCCAL Q2H PRN PRN Reason: NICOTINE WITHDRAWAL Ondansetron HCl (Zofran) 4 mg PO Q6H PRN PRN Reason: NAUSEA AND VOMITING Quetiapine Fumarate (Seroquel) 100 mg PO BEDTIME [facility] Last Admin: 11/13/19 20:53 Dose: 100 mg Documented by: Topiramate (Topamax) 100 mg PO BID [facility] Last Admin: 11/13/19 17:00 Dose: 100 mg Documented by: Trazodone HCl (Desyrel) 50 mg PO BEDTIME PRN PRN Reason: SLEEP Trazodone HCl (Desyrel) 100 mg PO BEDTIME [facility] Last Admin: 11/13/19 20:52 Dose: 100 mg Documented by: Data NPU : 11/12/19 03:54 11/12/19 03:54 A&P Assessment and plan (1) Depression: Status: Chronic Qualifiers: Depression Type: unspecified Qualified Code(s): F32.9 - Major depressive disorder, single episode, unspecified (2) Attention-deficit hyperactivity disorder, combined type: Status: Acute (3) Mild intellectual disabilities: Status: Chronic Additional A&P Information This is a 24 year old, white male, with a long history of intellectual disability, mild versus moderate, attention deficit hyperactivity disorder, combined type, and depression, who presents with some difficulties with sleep with a recent addition of Seroquel. Continue current medication. Will continue to monitor for appropriateness for discharge. Continue individual, group, and milieu therapy. Continue q 15-minute checks for safety. Will work with treatment team to find appropriate time for safe discharge. Involuntary Hold Information 96 Hour Hold: 96 Hour Involuntary Admission: No Attestations NPU Medical Necessity Statement*: Inpatient hospitalization is medically necessary, and the clinically appropriate intervention at this time. We will monitor medications and make changes as indicated. Likely length of stay two to four days. Coding Level of Care Code Acute Drafter Cartographic for g Fwd Diagnoses Depression F32.9 Depression Type: unspecified Attention-deficit hyperactivity disorder, combined type F90.2 Mild intellectual disabilities F70
[2019-11-13] MEDS: haloperidol inj 5 mg/mL INJ 1 mL IM (20:25)
[2019-11-13] MEDS: LORazepam 2 mg/mL INJ 1 mL IM (20:35)
[2019-11-13] MEDS: trazodone 100 mg Tablet PO (20:52)
[2019-11-13] MEDS: quetiapine 100 mg Tablet PO (20:53)
[2019-11-13] MEDS: divalproex DR 500 mg Tablet PO (20:54)
[2019-11-13 22:00] VITALS: BP 125/89; PULSE 100; RESP 18; TEMP 525.5; TEMP 978; O2SAT 98
--- NOTE | 2019-11-13 23:42 | PC.NURSE ---
Patient Behavior Around 1999 patient began kicking door to the stairs saying he wanted to go home. It was explained we could talk to Dr Khoury about it but he could not keep kicking the door. He began pushing on the acute door. House super and security were called. Med nurse was sent to get medication. He began pulling the fire alarm. Security was present trying to verbally de escalate offering options. Another patient was in the andino and he started towards him with his fist drawn. BD went into his room. BD would not answer any questions. He started walking towards me with his fist drawn and I backed into the nurses station. He was pounding on the window at the nurses station. A code 10 was called at 2011. He was kicking at security and got him cornered by the vending machine. I went back out to help and BD began kicking at me and spitting towards me. Other staff were present and place him in a safe hold and he was taken to the restraint room. Patient began crying and stated he would cooperate and we did not have to restrain him. He was given 5 mg of Haldol IM. He agreed to remain calm and was escorted to his room. A message was left on the [employer] voice mail-Stacey Flores-that a code 10 occurred and patient was now cooperating and sleeping.
--- NOTE | 2019-11-14 00:22 | PC.NURSE ---
At approximately 1999 I was in the medication room beginning to pull 2100 meds. I heard a loud pounding noise in the patient andino way. I opened the door from the med-room to the andino way to investigate. Patient ( B. D. ) was kicking and pushing the door to the stair well. I attempted to reason with patient but he continued to pound / kick door. I approached the patient in attempts to calm him , asking what we could do to help settle the situation? He then moved to the fire alarm and proceeded to lift the lid to the alarm causing it to beep loudly. AT 2011 a code 10 was called. At this point, the devulcanizer charger and myself were still trying to defuse the situation. Patient stated I don't like people telling me what to do ! Proceeded to ball up his fist and approach the devulcanizer charger violently. I went to med room to get medication for B. D.. When I came out, [facility] , two ancillary staff and security had arrived. Patient had security peened up against vending machine with enough force to damage the cell phone in his back pocket. Additional staff arrived and was able to use SAFE holds to escort patient to restraint room. The patient began crying and was acceptable to get a 5 mg Haldol IM at 2025. Patient was then escorted to his room promising to cooperate, where at approximately 2029 he was given 2mg Ativan IM. I returned to med room to finish passing 2100 medications.
[2019-11-14 06:00] VITALS: BP 96/65; PULSE 82; RESP 14; TEMP 36.6; O2SAT 98
[2019-11-14] MEDS: hydroCHLOROthiazide 25 mg Tablet PO (06:23)
[2019-11-14] MEDS: LORazepam 1 mg Tablet PO (08:51)
[2019-11-14] MEDS: topiramate 100 mg Tablet PO (08:51)
[2019-11-14] MEDS: benztropine 1 mg Tablet PO (08:51)
[2019-11-14] MEDS: divalproex DR 500 mg Tablet 1000 MG PO ×2 (08:52→13:54)
[2019-11-14 14:00] VITALS: BP 96/65; PULSE 82; RESP 14; TEMP 36.6; O2SAT 98
--- NOTE | 2019-11-14 15:08 | PM.NDC ---
Diagnoses at Discharge Discharge Diagnosis (1) Depression: Status: Chronic Qualifiers: Depression Type: unspecified Qualified Code(s): F32.9 - Major depressive disorder, single episode, unspecified (2) Attention-deficit hyperactivity disorder, combined type: Status: Acute (3) Mild intellectual disabilities: Status: Chronic Reason for Visit Reason for Visit: STRESS Brief History: History of Present Illness Ángel Calloway is a 24 year old male who comes on feeling depressed and lonely. He states he misses his family. Patient is very withdrawn and not very forthcoming. He denies any suicidal homicidal ideation. He is requesting admission for psychiatric stabilization. He is pretty sleepy and groggy and his speech is sloppy but not dysarthric. It is hard to get the whole story from him but the applied science and technologies dean brought him here. Review of Systems Narrative: Const: Denies: fever(s), chills, body aches, fatigue, malaise or diaphoresis Eyes: Denies: change in vision, blurry vision, blind spots or photophobia ENMT: Denies: throat pain, odynophagia, hoarseness, swelling of lips/tongue, ear or mastoid pain, ear discharge, change in hearing or nasal discharge Card: Denies: chest pain, palpitations, irregular heart rhythm, edema, lightheadedness, syncope, pre-syncope, dyspnea on exertion or orthopnea Resp: Denies: dyspnea, productive cough, non-productive cough, wheezing, hemoptysis or chest congestion GI: Denies: abdominal pain, nausea, vomiting, hematemesis, coffee ground emesis, heartburn, diarrhea, constipation, GI cramping, hematochezia or melena : Denies: flank pain, dysuria, urinary frequency, urinary urgency or hematuria Musc: Denies: neck pain, back pain, extremity pain, extremity swelling, joint pain, joint swelling, joint redness, joint warmth or joint stiffness Skin/Breast: Denies: rash, pruritus, erythema, skin tenderness or jaundice Neuro: Denies: headache(s), numbness in extremities, weakness in extremities, sensory changes, lack of coordination, difficulty walking, dizziness, vertigo, confusion or Slurred speech present Harshad/Lymph: Denies: easy bruising, easy bleeding, petechiae, purpura or enlarged lymph nodes All/Imm: Denies: urticaria, throat swelling, tongue swelling, facial swelling or acute wheezing Meds NPU Home Medications Medication Instructions Recorded Confirmed Last Taken Type desmopressin 0.2 mg tablet 0.2 mg PO .hs tab 05/30/19 08/14/19 Unknown History folic acid 1 mg tablet 1 mg PO ONCE 05/30/19 08/14/19 Unknown History hydrochlorothiazide 25 mg tablet 25 mg PO QAM 05/30/19 08/14/19 Unknown History benztropine 1 mg tablet 1 mg PO BID #60 tab 10/22/19 10/22/19 Unknown Rx divalproex 500 mg tablet,delayed 500 mg PO .COMPLEX #150 tab 10/22/19 10/22/19 Unknown Rx release quetiapine 50 mg tablet 50 mg PO BID #60 tab 10/22/19 10/22/19 Unknown Rx topiramate 100 mg tablet 100 mg PO BID #60 tab 10/22/19 10/22/19 Unknown Rx trazodone 100 mg tablet 100 mg PO .HS #30 tab 10/22/19 10/22/19 Unknown Rx lorazepam 1 mg tablet 1 mg PO BID #60 tab 10/23/19 10/23/19 Unknown Rx Allergies Allergy/AdvReac Type Severity Reaction Status Date / Time olanzapine Allergy Unknown Verified 05/30/19 11:43 risperidone Allergy Unknown Verified 05/30/19 11:43 [facility] NPU PFSH: Medical History Attention-deficit hyperactivity disorder, combined type Bipolar disorder, unspecified Patient is normally stable on his regimen. Generalized anxiety disorder Mild intellectual disabilities Social History Smoking and tobacco status: never smoked Smoking risk assessment/counseling performed?: Yes Tobacco counseling given: counseling >3 minutes Other Psychiatric History: Other Psychiatric History: The patient had been discharged from our NPU on the fourth preceding. At that time he had not been receiving his medication. The logistical snafu was never resolved. He still does not know why he was not getting his medicine. He is now. Per his 10/27 [facility] IP eval: Hospital Course Hospital Course Ángel presented to the emergency room for his second hospitalization in October, brought by police with reports of depression, missing his family, being withdrawn, and requesting inpatient hospitalization for psychiatric stabilization. He had significant difficulties with intellectual disability and impulse control disorder and occasional aggression or aggressive ideology. He was admitted to the neuro-psychiatric unit for definitive treatment of those issues. On the unit, he quickly acclimated to the individual, group, and milieu therapies provided. It was noted that he was not sleeping well and having some aggression. Dr. Sanders added Seroquel which appeared to assist with sleep and behavior, and he had notable improvement. During the hospitalization, the patient had routine laboratory studies which were within normal limits, except for a few outliers. Additionally, he had a general medical evaluation which was within normal limits and revealed no new acute processes. Discharge Summary At the time of discharge the patient denied all lethality, was absent psychosis, and mood and anxiety were well managed. He was evaluated and deemed to be absent credible lethality, and had achieved the maximum benefit from an inpatient hospitalization, and so he was discharged. Involuntary Hold Information 96 Hour Hold: 96 Hour Involuntary Admission: No Mental Status Exam MSE Comments: This is an obese, white male, with adequate dress, grooming, and eye contact. No abnormal movements. Cooperative with exam in no acute distress. Speech was dysarthric and child-like, and decreased rate and volume. Mood described as much better; affect congruent. Thought process, organized. Thought content: patient denied any suicidal or homicidal ideation, there were no delusions reported or noted, patient denied any auditory or visual hallucinations. Attention, concentration, and memory appeared intact but were not formally tested. Alert and oriented times three. Insight and judgment are limited. Impulse control is limited and intellectual ability impaired. Discharge Data Vitals: Last Vital Signs Temp 97.8 F 11/14/19 06:00 Pulse 82 11/14/19 06:00 Resp 14 11/14/19 06:00 BP 96/65 11/14/19 06:00 Pulse Ox 98 11/14/19 06:00 Discharge Plan Discharge Patient Disposition: Home, Self-Care Condition: Stable Prescriptions: New divalproex 500 mg Tablet,Delayed Release (Dr/Ec) 500 mg PO BEDTIME 30 Days Qty: 30 RF: 1 quetiapine 100 mg Tablet 100 mg PO BEDTIME 30 Days Qty: 30 RF: 1 Continued divalproex 500 mg tablet,delayed release (DR/EC) 500 mg PO .COMPLEX Qty: 150 RF: 1 topiramate 100 mg tablet 100 mg PO BID Qty: 60 RF: 1 trazodone 100 mg tablet 100 mg PO .HS Qty: 30 RF: 0 benztropine 1 mg tablet 1 mg PO BID Qty: 60 RF: 1 lorazepam 1 mg tablet 1 mg PO BID Qty: 60 RF: 1 hydrochlorothiazide 25 mg tablet 25 mg PO QAM RF: 0 DDAVP 0.2 mg tablet 0.2 mg PO .hs 30 Days Qty: 30 RF: 1 Discontinued quetiapine [Seroquel] 50 mg tablet 50 mg PO BID Qty: 60 RF: 0 folic acid 1 mg tablet 1 mg PO ONCE RF: 0 Discharge Orders: Discharge Order (Routine); Ordered 11/14/19 Ordered By: Jaquan Khoury Referrals: Ananya Cha PMHNP [Staff Physician] - 11/21/19 11:00 am Beatriz Loza DO [Primary Care Provider] - Discharge Diet: Regular Discharge Activity: Resume usual activity Patient Instructions: Depression (DC), Brief Psychotic Disorder (DC) Activity Restrictions/Additional Instructions: do continue to work with your sales and marketing analyst at the [facility] Discharge Date/Time: 11/14/19 16:00 Discharge Attestations NPU Time Spent in Discharge Care*: less than 30 min Specific Discharge Activities: Specific discharge activities: educating patient, discussing with machine adjuster leader case trim/social workers/dc planners, documenting/other paperwork and evaluating patient/reviewing data Status at Discharge: Cognitive status at discharge: mildly impaired cognition, Behavioral status at discharge: cooperative, Coding Level of Care Code Acute Fine Artist for [facility] Fwd Diagnoses Depression F32.9 Depression Type: unspecified Attention-deficit hyperactivity disorder, combined type F90.2 Mild intellectual disabilities F70
[2019-11-14 15:37] VITALS: BP 96/65; PULSE 82; RESP 14; TEMP 36.6; O2SAT 98
== END 2019-11-14 16:00 | disposition home or self-care (01) | DRG 881 ==
LOC: ER 04:07 → NP 04:28
PROVIDERS: Emergency Medicine; Admitting Provider Psychiatry & Neurology Psychiatry; PCP Family Medicine; Visit Provider Psychiatry & Neurology Psychiatry
DX: F32.9 Major depressive disorder, single episode, unspecified (principal); F90.2 Attention-deficit hyperactivity disorder, combined type; F41.9 Anxiety disorder, unspecified; F70 Mild intellectual disabilities; E66.01 Morbid (severe) obesity due to excess calories; Z68.38 Body mass index [BMI] 38.0-38.9, adult
CPT/HCPCS: 12345; 36415; 80053; 80156; 80164; 80178; 80185; 80306; 80307; 84443; 85025; 93005; 96372; 99281; J1630; J2060

== ENCOUNTER 2019-11-12 03:35 | Emergency (ER) | payer MEDICAID, SELFPAY | END 2019-11-12 04:41 | disposition admitted as inpatient to this hospital (09) | LOC: ER 11-15 13:29 | PROVIDERS: Emergency Provider Emergency Medicine; PCP Family Medicine | DX: F32.9 Major depressive disorder, single episode, unspecified (principal) | CPT/HCPCS: 36415; 80053; 80156; 80164; 80178; 80185; 80307; 84443; 85025; 93005; 99281; 99285 ==

== ENCOUNTER → 2019-11-21 08:05 | Outpatient (BNVA) | payer MEDICAID, SELFPAY | PROVIDERS: PCP Family Medicine; Visit Provider Nurse Practitioner | DX: F90.2 Attention-deficit hyperactivity disorder, combined type (principal); F70 Mild intellectual disabilities | CPT/HCPCS: 99214 ==

== ENCOUNTER → 2019-12-19 07:57 | Outpatient (BNVA) | payer MEDICAID, SELFPAY | PROVIDERS: PCP Family Medicine; Visit Provider Nurse Practitioner | DX: F31.9 Bipolar disorder, unspecified (principal); F70 Mild intellectual disabilities | CPT/HCPCS: 99213 ==

== ENCOUNTER → 2020-01-14 15:40 | Outpatient (BNVA) | payer MEDICAID, SELFPAY | PROVIDERS: PCP Family Medicine; Referring Provider Registered Nurse; Visit Provider Podiatrist Foot & Ankle Surgery | DX: L60.3 Nail dystrophy (principal) | CPT/HCPCS: 87210 ==

== ENCOUNTER → 2020-01-16 09:09 | Outpatient (BNVA) | payer MEDICAID, SELFPAY | PROVIDERS: PCP Family Medicine; Visit Provider Nurse Practitioner | DX: F31.9 Bipolar disorder, unspecified (principal); F70 Mild intellectual disabilities; F90.2 Attention-deficit hyperactivity disorder, combined type | CPT/HCPCS: 99213 ==

== ENCOUNTER 2020-02-11 15:50 | Emergency (ER) | payer MEDICAID, SELFPAY ==
[2020-02-11 15:51] VITALS: BP 127/86; PULSE 90; RESP 18; TEMP 36.3; O2SAT 98; BMI 48.4
--- NOTE | 2020-02-11 16:17 | ED_ITS ---
Documented by User: ESTEPHANIA Rodirguez 02/12/20 07:03 HPI - Fall General: Chief Complaint: Fall Stated Complaint: FALL WITH FACE PAIN Time Seen by Provider: 02/11/20 16:00 Source: patient and other (caregiver) Mode of arrival: ambulatory Limitations: other (pt has intellectual disability ) History of Present Illness: HPI Narrative: Patient is a 24-year-old male who presents to ED today along with his caregiver evaluation following a fall. Patient is a resident at [facility]. Caregiver tells me he was going down some stairs when he accidentally fell forward onto his head and face (height of one step). Caregiver states there was no LOC. Patient has been acting normally since. He does complain of pain to his right forehead and right maxillary region. He complains of pain to the middle and left side of his chest. He denies difficulty breathing. He appears in no acute distress. MD complaint: fall Onset (ago): hour(s) Fall from: standing Fall witnessed: yes, by bystander (caregiver ) Place fall occurred: home Loss of consciousness: None Prolonged down time: no Symptoms prior to fall: none Context: tripped/slipped Associated symptoms-after fall: Reports chest pain and headache(s); Denies abdominal pain, confusion, difficulty walking, lightheadedness, neck pain or vertigo Review of Systems Const: Denies: fever(s), chills, body aches, fatigue or malaise Eyes: Denies: change in vision, blurry vision or photophobia ENMT: Reports: other (facial pain); Denies: odynophagia, dental pain, ear or mastoid pain, nasal discharge, nasal congestion or epistaxis Card: Reports: chest pain; Denies: palpitations, irregular heart rhythm, edema, lightheadedness, syncope, pre-syncope, dyspnea on exertion or orthopnea Resp: Denies: dyspnea, productive cough, non-productive cough, wheezing, stridor, pain on inspiration, hemoptysis or chest congestion GI: Denies: abdominal pain, nausea or vomiting Musc: Denies: neck pain, back pain, extremity pain, extremity swelling, joint pain or joint swelling Neuro: Reports: headache(s); Denies: numbness in extremities, weakness in extremities, sensory changes, lack of coordination, difficulty walking, frequent falls, dizziness, vertigo, confusion, behavioral changes or Slurred speech present [facility] ED PFSH: Medical History Attention-deficit hyperactivity disorder, combined type Bipolar disorder, unspecified Patient is normally stable on his regimen. Generalized anxiety disorder Mild intellectual disabilities Social History Smoking and tobacco status: never smoked Smoking risk assessment/counseling performed?: Yes Tobacco counseling given: counseling >3 minutes Physical Exam Const: COMMON NORMALS: no acute distress, patient oriented x3 and alert GENERAL APPEARANCE: cooperative NUTRITIONAL APPEARANCE: obese morbidly obese ORIENTATION/CONSCIOUSNESS: Yes oriented to person and Yes oriented to place OTHER: intellectual disability HENMT: COMMON NORMALS: normocephalic, hearing grossly normal bilaterally, external ears normal, EAC's normal, TM's normal bilaterally, Normal external nose present, Normal nasal mucous membranes and turbinates present, moist oral mucous membranes and oropharynx normal HEAD & SCALP: normocephalic HEAD IMAGES: 1. abrasion, pain NOSE: Normal external nose present and Normal nasal mucous membranes and turbinates present EXTERNAL EAR: Yes external ears normal EXTERNAL AUDITORY CANAL: EAC's normal TYMPANIC MEMBRANE: TM's normal bilaterally Eye: COMMON NORMALS: Equal, round and reactive pupils present and EOMs intact bilaterally GENERAL EYE: appearance normal, both eyes and all related structures PUPIL: Yes Equal, round and reactive pupils present Neck/C-Spine: COMMON NORMALS: full ROM, no lymphadenopathy and no meningeal signs CERVICAL SPINE: Yes cervical ROM normal, No pain with cervical ROM, No Cervical spine tenderness and No Paracervical muscle tenderness Chest: COMMONS NORMALS: normal inspection of the chest OTHER: mild TTP L anterior chest Resp: COMMON NORMALS: normal respiratory effort and clear to auscultation bilaterally AUSCULTATION: clear to auscultation bilaterally Cardio: COMMON NORMALS: regular rate and regular rhythm RATE: regular rate RHYTHM: regular rhythm GI: COMMON NORMALS: Normal to inspection, nondistended, normoactive bowel sounds present, Soft to palpation, non-tender, No hepatosplenomegaly present and no masses PALPATION: Yes Soft to palpation and Yes No hepatosplenomegaly present Back/Pelvis: COMMON NORMALS: thoracic and lumbar spine normal to inspection, no thoracic nor lumbar tenderness and thoraco-lumbar ROM normal Extremity: COMMON NORMALS: normal to inspection GENERAL: Yes normal exam except as noted Neuro: NELL COMA SCALE: document GCS findings [place] coma scale eye opening: Spontaneous Nell coma scale verbal response: Orientated Nell coma scale motor response: Obey commands Nell coma scale total score: 15 COMMON NORMALS: patient oriented x3 SENSORIUM/ORIENTATION: Yes alert, Yes oriented to person and Yes oriented to place MENINGEAL SIGNS: Yes no meningeal signs SPEECH: Other neuro speech findings (slow) OTHER: at mental baseline per caregiver Skin: COMMON NORMALS: no rashes or lesions noted GENERAL SKIN EXAM: no rashes or lesions noted Course Vital Signs: Vital signs: Vital Signs Temperature 97.3 F L 02/11/20 15:51 Pulse Rate 86 02/11/20 18:06 Respiratory Rate 14 02/11/20 18:06 Blood Pressure 108/69 02/11/20 18:06 Pulse Oximetry 97 02/11/20 18:06 MDM - Fall Imaging Data^: CXR: Radiologist's impression: [address] [address] XRay Report Signed Patient: Ángel Calloway Unit #: [id number] : 1995 Age/Sex: 24 / M ADM Date: 02/11/20 Loc: ER Room/Bed: Attending Dr: Ordering Provider/Ordering MD: Yadira Alberts Date of Service: 02/11/20 Procedure(s): XR chest 1V portable [id number] Accession Number(s): [id number] Report Number: [id number] WS: [id number] EXAM: AP CHEST: PORTABLE UPRIGHT DATE OF EXAM: 02/11/2020, 1633 hours COMPARISON: Chest x-ray from 04/18/2019 HISTORY: Patient is 24 years old with fall injury. Complaining of pain. FINDINGS: The cardiac silhouette is normal in size. The mediastinal contours are normal. The pulmonary vascularity is normal. Lung volume is mid inspiration. Lungs are clear of infiltrate. No effusion or pneumothorax No acute bony abnormality is seen. XR/XR chest 1V portable [id number] IMPRESSION: No acute pulmonary disease. Dictated By: Jose Marte MD Signed By: Jose Marte MD Signed Date/Time: 02/11/20 1645 DD/ Discharge Plan Discharge Patient Disposition: Home Clinical Impression: Abrasion Contusion Qualifiers: Encounter type: initial encounter Contusion area: head Contusion of head detail: orbital tissues Laterality: right Qualified Code(s): S05.11XA - Contusion of eyeball and orbital tissues, right eye, initial encounter Condition: Stable Prescriptions: No Action hydrochlorothiazide 25 mg tablet 25 mg PO QAM RF: 0 terbinafine HCl 250 mg tablet 250 mg PO DAILY RF: 0 loperamide 2 mg tablet 2 mg PO Q6H PRNRF: 0 fluticasone propionate [Flonase Allergy Relief] 50 mcg/actuation spray,suspension 1 spray INTRANASAL DAILY PRNRF: 0 silver sulfadiazine 1 % cream 1 applic TOPICAL DAILY RF: 0 benztropine 1 mg tablet 1 mg PO BID Qty: 60 RF: 1 DDAVP 0.2 mg tablet 0.2 mg PO .hs 30 Days Qty: 30 RF: 1 topiramate 100 mg tablet 100 mg PO BID Qty: 60 RF: 1 quetiapine 100 mg tablet 100 mg PO BEDTIME 30 Days Qty: 30 RF: 1 lorazepam 1 mg tablet 1 mg PO BID Qty: 60 RF: 1 divalproex 500 mg tablet,delayed release (DR/EC) 500 mg PO .COMPLEX Qty: 150 RF: 1 trazodone 100 mg tablet 100 mg PO .HS Qty: 30 RF: 0 vitamin A and D Ointment 1 applic TOPICAL 6XD PRN (Reason: skin irritation) Qty: 113 RF: 0 Discharge Orders: Discharge Order (Routine); Ordered 02/11/20 Ordered By: Von Worthington Referrals: Beatriz Loza DO [Primary Care Provider] - Discharge Diet: Regular Discharge Activity: Resume usual activity Patient Instructions: Contusion in Adults (ED), Abrasion (ED) Activity Restrictions/Additional Instructions: Follow-up with medical provider as directed in 7-10 days. Take ibuprofen or Tylenol for pain. Return to the ER or your medical provider if condition worsen s. Please read and understand discharge instructions. If any questions, please ask. Discharge Date/Time: 02/11/20 18:07 Sign Out Sign Out Data: Patient Sign Out occurred on 02/11/20 at 17:14. Patient's care was discussed, and care was transferred from to ESTEPHANIA Mcgvoern. Coding Level of Care Code ED [employer] for Chg Fwd Exam Comprehensive Documented by User: ESTEPHANIA Mcgovern 02/12/20 02:24 HPI - Fall General: Chief Complaint: Fall Stated Complaint: FALL WITH FACE PAIN Time Seen by Provider: 02/11/20 16:00 [facility] ED PFSH: Medical History Attention-deficit hyperactivity disorder, combined type Bipolar disorder, unspecified Patient is normally stable on his regimen. Generalized anxiety disorder Mild intellectual disabilities Social History Smoking and tobacco status: never smoked Smoking risk assessment/counseling performed?: Yes Tobacco counseling given: counseling >3 minutes Physical Exam HENMT: HEAD IMAGES: 1. abrasion, pain Course Vital Signs: Vital signs: Vital Signs Temperature 97.3 F L 02/11/20 15:51 Pulse Rate 86 02/11/20 18:06 Respiratory Rate 14 02/11/20 18:06 Blood Pressure 108/69 02/11/20 18:06 Pulse Oximetry 97 02/11/20 18:06 MDM - Fall MDM Narrative: Medical decision making narrative: Patient is a 24-year-old male who comes to the ED after having a fall down steps and hitting head. Patient had no loss of consciousness. He was complaining of some head, face and chest pain. Neuro exam was normal. Chest x-ray showed no acute findings. CT of head and CT of face showed no acute findings or fractures. Patient was discharged and told to follow-up with his PCP in 7 to 10 days for reevaluation. Apply cold pack on face trunk with any swelling. Take ibuprofen or Tylenol for pain. Return to ED precautions given. Patient and patient's caregiver understood and agree with plan. Imaging Data^: CT Head: Attestation: I personally reviewed and interpreted this imaging study as sharon ws: Radiologist's impression: [facility] [address] [facility] [place] [address] CT Scan Report Signed Patient: Ángel Calloway Unit #: [id number] : 1995 Age/Sex: 24 / M ADM Date: 02/11/20 Loc: ER Room/Bed: Attending Dr: Ordering Provider/Ordering MD: Yadira Alberts Date of Service: 02/11/20 Procedure(s): CT head wo con* [id number] Accession Number(s): [id number] Report Number: [id number] WS: [id number] EXAM: CT head wo con* [id number] DATE OF EXAMINATION: 02/11/2020, 1725 hours COMPARISON: None. HISTORY: 24 years old with fall injury. Complaining of a headache with right-sided facial pain. TECHNIQUE: Thin slice imaging obtained through the brain without the utilization of contrast. Images viewed in brain, subdural and bone window with reconstructions. CONTRAST: None DLP: 912.[address] scans at [facility] use at least one of these dose optimization techniques: automated exposure control; mA and/or kV adjustment per patient size (includes targeted exams where dose is matched to clinical indication); or iterative reconstruction. FINDINGS: Garrett-white differentiation is normal. No findings of hemorrhage, hydrocephalus, mass, mass effect or abnormal extra-axial fluid collection is seen. Hyperostosis frontalis changes are demonstrated. No acute skull abnormality is demonstrated. Extracalvarial soft tissues are unremarkable. CT/CT head wo con* [id number] IMPRESSION: No acute intracranial process. Dictated By: Jose Marte MD Signed By: Jose Marte MD Signed Date/Time: 02/11/20 1736 DD/ [address]: Attestation: I personally reviewed and interpreted this imaging study as follows: Radiologist's impression: [facility] [address] [facility] [place] [address] CT Scan Report Signed Patient: Ángel Calloway Unit #: [id number] : 1995 Age/Sex: 24 / M ADM Date: 02/11/20 Loc: ER Room/Bed: Attending Dr: Ordering Provider/Ordering MD: Yadira Alberts Date of Service: 02/11/20 Procedure(s): CT facial bones wo con* [id number] Accession Number(s): [id number] Report Number: [id number] WS: [id number] EXAM: CT facial bones wo con* [id number] DATE OF EXAMINATION: 02/11/2020, 1728 hour COMPARISON: None. HISTORY: 24 years old with facial trauma status post fall. Complaining of right-sided f acial pain TECHNIQUE: Transaxial computed tomography images obtained through the facial bones and viewed in multiple windows with reconstructions. DLP: 898.[address] scans at [facility] use at least one of these dose optimization techniques: automated exposure control; mA and/or kV adjustment per patient size (includes targeted exams where dose is matched to clinical indication); or iterative reconstruction. FINDINGS: Bone density is normal in appearance. Hyperostosis frontalis changes are demonstrated. Paranasal sinuses are pneumatized and well aerated. Small amount of streak artifact at the level of the oral cavity from dental amalgam. No facial fracture is identified. Small contusion injury over the right cheek region seen on soft tissue windows. Both orbital fossa and contents are unremarkable. CT/CT facial bones wo con* [id number] IMPRESSION: No facial bone fracture seen. Soft tissues contusion injury right cheek. Dictated By: Jose Marte MD Signed By: Jose Marte MD Signed Date/Time: 02/11/201737 DD/ 35 Discharge Plan Discharge Patient Disposition: Home Clinical Impression: Abrasion Contusion Qualifiers: Encounter type: initial encounter Contusion area: head Contusion of head de tail: orbital tissues Laterality: right Qualified Code(s): S05.11XA - Contusion of eyeball and orbital tissues, right eye, initial encounter Condition: Stable Prescriptions: No Action hydrochlorothiazide 25 mg tablet 25 mg PO QAM RF: 0 terbinafine HCl 250 mg tablet 250 mg PO DAILY RF: 0 loperamide 2 mg tablet 2 mg PO Q6H PRNRF: 0 fluticasone propionate [Flonase Allergy Relief] 50 mcg/actuation spray,suspension 1 spray INTRANASAL DAILY PRNRF: 0 silver sulfadiazine 1 % cream 1 applic TOPICAL DAILY RF: 0 benztropine 1 mg tablet 1 mg PO BID Qty: 60 RF: 1 DDAVP 0.2 mg tablet 0.2 mg PO .hs 30 Days Qty: 30 RF: 1 topiramate 100 mg tablet 100 mg PO BID Qty: 60 RF: 1 quetiapine 100 mg tablet 100 mg PO BEDTIME 30 Days Qty: 30 RF: 1 lorazepam 1 mg tablet 1 mg PO BID Qty: 60 RF: 1 divalproex 500 mg tablet,delayed release (DR/EC) 500 mg PO .COMPLEX Qty: 150 RF: 1 trazodone 100 mg tablet 100 mg PO .HS Qty: 30 RF: 0 vitamin A and D Ointment 1 applic TOPICAL 6XD PRN (Reason: skin irritation) Qty: 113 RF: 0 Discharge Orders: Discharge Order (Routine); Ordered 02/11/20 Ordered By: Von Worthington Referrals: Beatriz Loza DO [Primary Care Provider] - Discharge Diet: Regular Discharge Activity: Resume usual activity Patient Instructions: Contusion in Adults (ED), Abrasion (ED) Activity Restrictions/Additional Instructions: Follow-up with medical provider as directed in 7-10 days. Take ibuprofen or Tylenol for pain. Return to the ER or your medical provider if condition worsens. Please read and understand discharge instructions. If any questions, please ask. Discharge Date/Time: 02/11/20 18:07 Sign Out Sign Out Data: Patient Sign Out occurred on 02/11/20 at 17:14. Patient's care was discussed, and care was transferred from to ESTEPHANIA Mcgovern. Coding Level of Care Code ED [employer] for [place] Fwd Exam Comprehensive
--- NOTE | 2020-02-11 16:24 | CT_ITS ---
WS: [id number] EXAM: CT facial bones wo con* [id number] DATE OF EXAMINATION: 02/11/2020, 1728 hour COMPARISON: None. HISTORY: 24 years old with facial trauma status post fall. Complaining of right-sided facial pain TECHNIQUE: Transaxial computed tomography images obtained through the facial bones and viewed in mult iple windows with reconstructions. DLP: 898.[address] scans at [facility] use at least one of these dose optimization techniques: automat ed exposure control; mA and/or kV adjustment per patient size (includes targeted exams where dose is matched to clinical indication); or iterative reconstruction. FINDINGS: Bone density is normal in appearance. Hyperostosis frontalis changes are demonstrated. Paranasal sinu ses are pneumatized and well aerated. Small amount of streak artifact at the level of the oral cavity from dental amalgam. No facial fracture is identified. Small contusion injury over the right cheek r egion seen on soft tissue windows. Both orbital fossa and contents are unremarkable. CT/CT facial bones wo con* [id number] IMPRESSION: No facial bone fracture seen. Soft tissues contusion injury right cheek.
--- NOTE | 2020-02-11 16:24 | CT_ITS ---
WS: [id number] EXAM: CT head wo con* [id number] DATE OF EXAMINATION: 02/11/2020, 1725 hours COMPARISON: None. HISTORY: 24 years old with fall injury. Complaining of a headache with right-sided facial pain. TECHNIQUE: Thin slice imaging obtained through the brain without the utilization of contrast. Images viewed in b rain, subdural and bone window with reconstructions. CONTRAST: None DLP: 912.[address] scans at [facility] use at least one of these dose optimization techniques: automat ed exposure control; mA and/or kV adjustment per patient size (includes targeted exams where dose is matched to clinical indication); or iterative reconstruction. FINDINGS: Garrett-white differentiation is normal. No findings of hemorrhage, hydrocephalus, mass, mass effect or abnormal extra-axial fluid collection is seen. Hyperostosis frontalis changes are demonstrated. No a cute skull abnormality is demonstrated. Extracalvarial soft tissues are unremarkable. CT/CT head wo con* [id number] IMPRESSION: No acute intracranial process.
--- NOTE | 2020-02-11 16:25 | XR_ITS ---
WS: [id number] EXAM: AP CHEST: PORTABLE UPRIGHT DATE OF EXAM: 02/11/2020, 1633 hours COMPARISON: Chest x-ray from 04/18/2019 HISTORY: Patient is 24 years old with fall injury. Complaining of pain. FINDINGS: The cardiac silhouette is normal in size. The mediastinal contours are normal. The pulmonary vas cularity is normal. Lung volume is mid inspiration. Lungs are clear of infiltrate. No effusion or pn eumothorax No acute bony abnormality is seen. XR/XR chest 1V portable [id number] IMPRESSION: No acute pulmonary disease.
[2020-02-11] MEDS: acetaminophen 500 mg Tablet 1000 MG PO (18:04)
[2020-02-11 18:06] VITALS: BP 108/69; PULSE 86; RESP 14; O2SAT 97
== END 2020-02-11 18:07 | disposition home or self-care (01) ==
PROVIDERS: Emergency Provider Physician Assistant; PCP Family Medicine
DX: S05.11XA Contusion of eyeball and orbital tissues, right eye, initial encounter (principal); W10.8XXA Fall (on) (from) other stairs and steps, initial encounter
CPT/HCPCS: 12345; 70450; 70486; 71045; 99282; 99283

== ENCOUNTER → 2020-02-13 08:28 | Outpatient (BNVA) | payer MEDICAID, SELFPAY | PROVIDERS: PCP Family Medicine; Visit Provider Nurse Practitioner | DX: F31.9 Bipolar disorder, unspecified (principal); F70 Mild intellectual disabilities; F90.2 Attention-deficit hyperactivity disorder, combined type; F43.12 Post-traumatic stress disorder, chronic | CPT/HCPCS: 99213 ==

== ENCOUNTER → 2020-03-15 08:02 | Outpatient (BNVA) | payer MEDICAID, SELFPAY | PROVIDERS: PCP Family Medicine; Visit Provider Nurse Practitioner | DX: F31.9 Bipolar disorder, unspecified (principal); F90.2 Attention-deficit hyperactivity disorder, combined type; F70 Mild intellectual disabilities | CPT/HCPCS: 99214 ==

== ENCOUNTER → 2020-04-09 12:37 | Outpatient (BNVA) | payer MEDICAID, SELFPAY | PROVIDERS: PCP Family Medicine; Visit Provider Nurse Practitioner | DX: F70 Mild intellectual disabilities (principal); F31.9 Bipolar disorder, unspecified; F90.2 Attention-deficit hyperactivity disorder, combined type | CPT/HCPCS: 99213 ==

== ENCOUNTER → 2020-06-04 12:43 | Outpatient (BNVA) | payer MEDICAID, SELFPAY | PROVIDERS: PCP Family Medicine; Visit Provider Nurse Practitioner | DX: F70 Mild intellectual disabilities (principal); F31.9 Bipolar disorder, unspecified; F90.2 Attention-deficit hyperactivity disorder, combined type | CPT/HCPCS: 99213 ==

== ENCOUNTER → 2020-08-25 09:42 | Outpatient (BNVA) | payer BC, SELFPAY | PROVIDERS: PCP Family Medicine; Visit Provider Nurse Practitioner | DX: F70 Mild intellectual disabilities (principal); F31.9 Bipolar disorder, unspecified; F90.2 Attention-deficit hyperactivity disorder, combined type | CPT/HCPCS: 99214 ==

== ENCOUNTER → 2020-09-01 10:15 | Outpatient (BNVA) | payer BC, SELFPAY | PROVIDERS: PCP Family Medicine; Visit Provider Nurse Practitioner | DX: F31.9 Bipolar disorder, unspecified (principal); F90.2 Attention-deficit hyperactivity disorder, combined type; F70 Mild intellectual disabilities | CPT/HCPCS: 99214 ==

== ENCOUNTER → 2020-09-21 11:52 | Outpatient (BNVA) | payer BC, SELFPAY | PROVIDERS: PCP Family Medicine; Visit Provider Nurse Practitioner | DX: F90.2 Attention-deficit hyperactivity disorder, combined type (principal); F70 Mild intellectual disabilities; F31.9 Bipolar disorder, unspecified | CPT/HCPCS: 99214 ==

== ENCOUNTER 2020-09-28 06:18 | Emergency (ER) | payer BC, MEDICAID, SELFPAY ==
[2020-09-28 06:19] VITALS: BP 143/99; PULSE 98; RESP 20; TEMP 36.2; O2SAT 97; BMI 43.4
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
[2020-09-28 06:53] LABS: Basophils % 0.5 %; Eosinophils # 0.1 10^3/uL (0.0-0.8); Eosinophils % 0.9 %; Hematocrit 44.3 % (42.0-52.0); Hemoglobin 14.2 g/dL (11.7-16.6); Lymphocytes # 1.4 10^3/uL (0.8-4.8); Lymphocytes % 25.1 %; Mean Corpuscular HGB Conc 32.1 g/dL (30.0-36.0); Mean Corpuscular Hemoglobin 28.8 pg (28.0-34.0); Mean Corpuscular Volume 89.9 fL (80-94); Monocytes # 0.4 10^3/uL (0.2-0.9); Monocytes % 8.1 %; Neutrophils # 3.46 10^3/uL (1.8-7.7); Neutrophils % 63.4 %; Nucleated Red Blood Cells % 0 %; Platelet Count 210 10^3/cmm (130-400); Red Blood Count 4.93 10^6/uL (4.1-5.3); Red Cell Distribution Width 14.7 % (12.1-15.1); White Blood Count 5.5 10^3/uL (4.0-10.0)
[2020-09-28 07:11] LABS: Alanine Aminotransferase 25 U/L (0-41); Albumin Level 4.5 g/dL (3.5-5.2); Alkaline Phosphatase 59 IU/L (40-130); Anion Gap 12.7 (5-19); Aspartate Amino Transferase 20 U/L (0-40); Blood Urea Nitrogen 19 mg/dL (6-20); Calcium 8.8 mg/dL (8.5-10.5); Carbon Dioxide 25 mmol/L (22-29); Chloride 104 mmol/L (98-107); Globulin 2.9 g/dL (1.3-4.6); Glomerular Filtration Rate 164.2 mL/min (90-130); Glucose 125 mg/dL (65-115); Osmolality Calculated 290 mOsm/kg (285-295); Potassium 3.7 mmol/L (3.5-5.1); Sodium 138 mmol/L (136-145); Total Bilirubin 0.2 mg/dL (0.15-1.2); Total Protein 7.4 g/dL (6.6-8.7)
[2020-09-28 07:13] LABS: Acetaminophen < 5.0 ug/mL (10-30); Salicylate < 0.3 mg/dL (3-10)
[2020-09-28] MEDS: tetanus-dipt-pertussis 0.5 mL SDV IM (08:36)
== END 2020-09-28 10:05 | disposition home or self-care (01) ==
PROVIDERS: Emergency Provider Family Medicine
DX: F63.81 Intermittent explosive disorder (principal); F90.2 Attention-deficit hyperactivity disorder, combined type; F31.9 Bipolar disorder, unspecified; F70 Mild intellectual disabilities; Z23 Encounter for immunization
CPT/HCPCS: 80053; 80307; 85025; 90471; 90715; 99283

== ENCOUNTER → 2020-10-11 13:38 | Outpatient (BNVA) | payer BC, MEDICAID, SELFPAY | PROVIDERS: Visit Provider Nurse Practitioner | DX: F31.9 Bipolar disorder, unspecified (principal); F70 Mild intellectual disabilities; F63.81 Intermittent explosive disorder; F17.210 Nicotine dependence, cigarettes, uncomplicated | CPT/HCPCS: 99214 ==

== ENCOUNTER → 2020-10-15 08:46 | Outpatient (BNVA) | payer BC, SELFPAY | PROVIDERS: Visit Provider Nurse Practitioner | DX: Z79.899 Other long term (current) drug therapy (principal) | CPT/HCPCS: 80164 ==

== ENCOUNTER 2020-10-24 21:04 | Emergency (ER) | payer BC, MEDICAID, SELFPAY ==
[2020-10-24 21:04] VITALS: BP 138/76; PULSE 76; RESP 20; TEMP 36.8; O2SAT 97; BMI 40.6
[2020-10-24 21:36] LABS: Add Urine Microscopic? NO; Charge for UA Resulting for Rev
[2020-10-24 21:39] LABS: Bilirubin Urine Neg (Negative); Blood Urine Neg (Negative); Glucose Urine UA 4+ (Normal); Ketones Urine 1+ (Negative); Leukocyte Esterase Urine Negative (Negative); Nitrate Urine Negative (Negative); Protein Urine Neg (Negative); Urine Appearance Clear (CLEAR); Urine Color Yellow (Yellow); Urobilinogen Urine 1 mg/dL (Negative); pH Urine 6 (5-7)
[2020-10-24 21:48] LABS: Amphetamines Screen Urine Negative (Negative); Barbiturates Screen Urine Negative (Negative); Benzodiazepines Screen Urine Negative (Negative); Cocaine Screen Urine Negative (Negative); Opiate Screen Urine Negative (Negative); PCP Screen Urine Negative (Negative); THC Screen Urine Negative (Negative)
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
[2020-10-24 22:31] LABS: Basophils % 0.6 %; Eosinophils # 0.1 10^3/uL (0.0-0.8); Eosinophils % 0.9 %; Hematocrit 44.9 % (42.0-52.0); Hemoglobin 14.7 g/dL (11.7-16.6); Lymphocytes # 1.6 10^3/uL (0.8-4.8); Lymphocytes % 25.4 %; Mean Corpuscular HGB Conc 32.7 g/dL (30.0-36.0); Mean Corpuscular Hemoglobin 29.2 pg (28.0-34.0); Mean Corpuscular Volume 89.3 fL (80-94); Mean Platelet Volume 11.8 fL (7.4-10.4); Monocytes # 0.4 10^3/uL (0.2-0.9); Monocytes % 6.7 %; Neutrophils # 4.13 10^3/uL (1.8-7.7); Neutrophils % 64.8 %; Nucleated Red Blood Cells % 0 %; Platelet Count 222 10^3/cmm (130-400); Red Blood Count 5.03 10^6/uL (4.1-5.3); White Blood Count 6.4 10^3/uL (4.0-10.0)
[2020-10-24 22:45] LABS: Alanine Aminotransferase 26 U/L (0-41); Albumin Level 4.4 g/dL (3.5-5.2); Alkaline Phosphatase 66 IU/L (40-130); Anion Gap 15.8 (5-19); Aspartate Amino Transferase 16 U/L (0-40); Blood Urea Nitrogen 16 mg/dL (6-20); Calcium 9.1 mg/dL (8.5-10.5); Carbon Dioxide 23 mmol/L (22-29); Chloride 103 mmol/L (98-107); Glomerular Filtration Rate 202.6 mL/min (90-130); Glucose 271 mg/dL (65-115); Osmolality Calculated 297 mOsm/kg (285-295); Potassium 3.8 mmol/L (3.5-5.1); Sodium 138 mmol/L (136-145); Total Bilirubin 0.2 mg/dL (0.15-1.2); Total Protein 7.4 g/dL (6.6-8.7)
[2020-10-24 22:51] LABS: Acetaminophen < 5.0 ug/mL (10-30); Alcohol Level < 10 mg/dL (0-10); Salicylate < 0.3 mg/dL (3-10)
== END 2020-10-24 22:40 | disposition home or self-care (01) ==
PROVIDERS: Emergency Provider Family Medicine; PCP Nurse Practitioner Psychiatric/Mental Health
DX: R45.4 Irritability and anger (principal); Z79.84 Long term (current) use of oral hypoglycemic drugs
CPT/HCPCS: 36415; 80053; 80306; 80307; 81003; 85025; 99283

== ENCOUNTER 2020-10-30 21:09 | Observation (INO) | payer BC, MEDICAID, SELFPAY ==
[2020-10-30 21:16] VITALS: BP 156/84; PULSE 85; RESP 18; TEMP 36.7; O2SAT 99; BMI 44.0
[2020-10-30 21:42] LABS: Add Urine Microscopic? NO; Charge for UA Resulting for Rev
[2020-10-30 21:43] LABS: Basophils % 0.5 %; Eosinophils % 0.5 %; Hematocrit 45.5 % (42.0-52.0); Lymphocytes # 1.7 10^3/uL (0.8-4.8); Lymphocytes % 23.1 %; Mean Corpuscular Hemoglobin 29.2 pg (28.0-34.0); Mean Corpuscular Volume 88.7 fL (80-94); Mean Platelet Volume 11.6 fL (7.4-10.4); Monocytes # 0.6 10^3/uL (0.2-0.9); Monocytes % 7.7 %; Nucleated Red Blood Cells % 0 %; Platelet Count 270 10^3/cmm (130-400); Red Blood Count 5.13 10^6/uL (4.1-5.3); Red Cell Distribution Width 13.6 % (12.1-15.1); White Blood Count 7.3 10^3/uL (4.0-10.0)
[2020-10-30 21:45] LABS: Bilirubin Urine Neg (Negative); Blood Urine Neg (Negative); Glucose Urine UA 4+ (Normal); Ketones Urine Negative (Negative); Leukocyte Esterase Urine Negative (Negative); Nitrate Urine Negative (Negative); Protein Urine Neg (Negative); Urine Appearance Clear (CLEAR); Urine Color Yellow (Yellow); Urobilinogen Urine Norm (Negative); pH Urine 5 (5-7)
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
[2020-10-30 21:54] LABS: Amphetamines Screen Urine Negative (Negative); Barbiturates Screen Urine Negative (Negative); Benzodiazepines Screen Urine Negative (Negative); Cocaine Screen Urine Negative (Negative); Opiate Screen Urine Negative (Negative); PCP Screen Urine Negative (Negative); THC Screen Urine Negative (Negative)
[2020-10-30 22:04] LABS: Alanine Aminotransferase 22 U/L (0-41); Albumin Level 4.5 g/dL (3.5-5.2); Alkaline Phosphatase 65 IU/L (40-130); Anion Gap 16.4 (5-19); Aspartate Amino Transferase 17 U/L (0-40); Blood Urea Nitrogen 22 mg/dL (6-20); Calcium 8.8 mg/dL (8.5-10.5); Carbon Dioxide 23 mmol/L (22-29); Chloride 100 mmol/L (98-107); Globulin 3.7 g/dL (1.3-4.6); Glomerular Filtration Rate 202.6 mL/min (90-130); Glucose 222 mg/dL (65-115); Osmolality Calculated 292 mOsm/kg (285-295); Potassium 3.4 mmol/L (3.5-5.1); Sodium 136 mmol/L (136-145); Total Bilirubin 0.2 mg/dL (0.15-1.2); Total Protein 8.2 g/dL (6.6-8.7)
[2020-10-30 22:05] LABS: Acetaminophen < 5.0 ug/mL (10-30); Alcohol Level < 10 mg/dL (0-10); Salicylate < 0.3 mg/dL (3-10)
[2020-10-30 22:39] LABS: Valproic Acid Level 62.5 ug/mL (50-100)
[2020-10-31 00:24] VITALS: BP 135/86; PULSE 94; RESP 18; TEMP 36.8; O2SAT 95
[2020-10-31 00:38] VITALS: BP 156/84; PULSE 85; RESP 18; O2SAT 99
[2020-10-31 06:00] VITALS: BP 112/73; PULSE 85; RESP 18; TEMP 36.8; O2SAT 96
[2020-10-31] MEDS: CLONazepam 1 mg Tablet PO (08:32)
[2020-10-31] MEDS: divalproex DR 500 mg Tablet 1000 MG PO (08:32)
[2020-10-31] MEDS: topiramate 100 mg Tablet PO (08:32)
[2020-10-31] MEDS: multivitamin therapeutic Tablet 1 TAB PO (08:32)
[2020-10-31] MEDS: hydroCHLOROthiazide 25 mg Tablet PO (08:32)
[2020-10-31] MEDS: metformin 850 mg Tablet PO (08:57)
[2020-10-31] MEDS: sitagliptin 100 mg Tablet PO (08:58)
--- NOTE | 2020-10-31 09:42 | P.SS_ITS ---
Short Stay Summary Providers Date of Admit/Discharge: 10/31/20 Attending Provider: Tiny Kahn DO Primary Care Provider: Salome Glover APRN Chief Complaint: MHE HPI History of Present Illness Ángel Calloway is a 25 year old male with history of bipolar disorder, intermittent explosive disorder, ADHD, low intellectual functioning presented to the hospital with episode of physical agitation after missing a dose of medication yesterday. Patient has longstanding history of these types of episodes in which he transiently reports auditory hallucinations leading to these events where he tries to grab a lpn per diem but quickly reconstitutes and denies any auditory hallucinations and appears to be more related to impulse control. Review of Systems General: Reports: 10 or more systems reviewed and unremarkable except in HPI and below Home Meds/Allergies Home Medications and Allergies Home Medications Medication Instructions Recorded Confirmed Type hydrochlorothiazide 25 mg tablet 25 mg PO QAM 05/30/19 10/31/20 History loperamide 2 mg tablet 2 mg PO Q6H PRN 12/18/19 10/31/20 History terbinafine HCl 250 mg tablet 250 mg PO DAILY 12/18/19 10/31/20 History metformin 850 mg tablet 850 mg PO BID 08/25/20 10/31/20 History multivitamin 1 tab PO DAILY 08/25/20 10/31/20 History sitagliptin 100 mg tablet 100 mg PO QAM tab 08/25/20 10/31/20 History clonazepam 1 mg tablet 1 mg PO BID 10/11/20 10/31/20 History Allergies Allergy/AdvReac Type Severity Reaction Status Date / Time olanzapine Allergy Unknown Verified 10/30/20 21:26 risperidone Allergy Unknown Verified 10/30/20 21:26 PFSH Acute PFSH: Medical History Attention-deficit hyperactivity disorder, combined type Bipolar disorder, unspecified Generalized anxiety disorder Intermittent explosive disorder Mild intellectual disabilities On valproic acid therapy Social History Smoking and tobacco status: never smoked Smoking risk assessment/counseling performed?: Yes Tobacco counseling given: counseling >3 minutes Vitals/I&O/Wt Last Vital Signs Temp 98.3 F 10/31/20 06:00 Pulse 85 10/31/20 06:00 Resp 18 10/31/20 06:00 BP 112/73 10/31/20 06:00 Pulse Ox 96 10/31/20 06:00 Weight last 48 hrs Weight 147.418 kg Physical Exam Narrative: EXAM NARRATIVE: MSE: Appears stated age, obese, wearing hospital scrubs, calm, cooperative, interactive, childlike and polite, good eye contact Psychomotor activity is neither increased nor decreased, no agitation Speech is normal rate, normal volume, spontaneous, fair articulation, not pressured I feel good, congruent affect, not labile Alert and oriented to person, place, time, situation Memory and concentration appear to be intact per interview Intellectual functioning is low per history, not formally tested for this evaluation Thought process, linear, no flight of ideas, no looseness of associations Thought content, no delusions, no hallucinations, no suicidal or homicidal ideation Insight and judgment are fair Hospital Course Hospital Course Patient had no behavioral disturbances throughout his hospital course to include emergency department evaluation and while on the inpatient psychiatry unit. He denies any psychotic symptoms, denies any auditory hallucinations, denies any visual hallucinations, denies any delusions. Patient denies any recent or current elevated or expansive mood states, denies any hypomanic or manic episodes. Denies any recent mood symptoms although does report occasional irritability with situations in which there is a mismatch between his expectations and reality and are typically centered on activities or things that he wants that he cannot have such as smoking cigarettes. Per chart review, patient has been compliant with outpatient medication management follow-up. Patient's home medications were restarted and no medication adjustments were indicated given patient's quick reconstitution and likely contribution of impulse control. He was not psychotic and was not endorsing any suicidal ideation or homicidal ideation at the time of discharge and did not appear to pose an imminent threat of harm to self or others. Low to moderate risk of harm to self or others given no current suicidal or homicidal ideation and no current endorsement of psychotic symptoms although patient's risk may be elevated if he is noncompliant with his medication or continues to act out or act impulsively in situations in which she is not able to utilize more adaptive coping strategies. Risk mitigation included psych iatric hospitalization for observation for any persisting suicidal or homicidal ideation or any psychotic symptoms although patient quickly reconstituted with no endorsement of any psychotic symptoms since the time of his initial evaluation in the emergency department. Patient has ongoing scheduled outpatient medication management follow-up and has been compliant with these appointments. Patient was able to communicate his understanding of the need to tell others when he is experiencing any command auditory hallucinations or is experiencing any impulse control issues that may potentially harm himself or others in order to mitigate this risk further as well as the need to be compliant with his medication and medication management follow-up. Diagnoses at Discharge Discharge Diagnosis (1) Acute psychosis: Status: Acute (2) Bipolar disorder, unspecified: Status: Acute Discharge Plan Discharge Patient Disposition: Home Condition: Stable Prescriptions: Continued divalproex [Depakote] 500 mg tablet,delayed release (DR/EC) 1,000 mg PO BID Qty: 120 RF: 1 DDAVP 0.2 mg tablet 0.2 mg PO .hs 30 Days Qty: 30 RF: 1 hydroxyzine HCl 50 mg tablet 100 mg PO .at bed Qty: 60 RF: 1 quetiapine [Seroquel] 200 mg tablet 400 mg PO .HS Qty: 60 RF: 1 topiramate 100 mg tablet 100 mg PO TID Qty: 90 RF: 1 hydrochlorothiazide 25 mg tablet 25 mg PO QAM RF: 0 terbinafine HCl 250 mg tablet 250 mg PO DAILY RF: 0 loperamide 2 mg tablet 2 mg PO Q6H PRN (Reason: Diarrhea) RF: 0 metformin 850 mg tablet 850 mg PO BID RF: 0 multivitamin Tablet 1 tab PO DAILY RF: 0 Januvia 100 mg tablet 100 mg PO QAM RF: 0 clonazepam 1 mg tablet 1 mg PO BID RF: 0 vitamin A and D Ointment 1 applic TOPICAL 6XD PRN (Reason: skin irritation) Qty: 113 RF: 0 Discharge Orders: Discharge Order (Routine); Ordered 10/31/20 Ordered By: Tiny Kahn Referrals: Stpehanie Glover APRN [Primary Care Provider] - Discharge Diet: Usual diet Discharge Activity: Resume usual activity Patient Instructions: Opioid Safety Attestations Medical Necessity Statement*: Outpatient medication management and therapy is the least restrictive and appropriate level of care at this time. Time Spent in Patient Care*: greater than 30 min Status at Discharge: Cognitive status at discharge: mildly impaired cognition , Behavioral status at discharge: cooperative , Functional status at discharge: independent ambulation Overall status at discharge: patient is back to baseline Quality Metrics Clinical Quality Measures: During this hospital stay, did patient experience: None Coding Level of Care Code Acute Manager Of Maintenance for Chg Fwd Diagnoses Acute psychosis F23 Bipolar disorder, unspecified F31.9
[2020-10-31 09:46] VITALS: BP 112/73; PULSE 85; RESP 18; TEMP 36.8; O2SAT 96
== END 2020-10-31 10:13 | disposition home or self-care (01) ==
LOC: ER 22:56 → NP 10-31 00:14
PROVIDERS: Admitting Provider Psychiatry & Neurology Psychiatry; Emergency Provider Emergency Medicine; PCP Nurse Practitioner Psychiatric/Mental Health; Visit Provider Psychiatry & Neurology Psychiatry
DX: F23 Brief psychotic disorder (principal); F31.9 Bipolar disorder, unspecified
CPT/HCPCS: 80053; 80164; 80306; 80307; 81003; 85025; 99285; G0378

== ENCOUNTER → 2020-11-08 14:18 | Outpatient (BNVA) | payer BC, SELFPAY | PROVIDERS: PCP Nurse Practitioner Psychiatric/Mental Health; Visit Provider Nurse Practitioner | DX: F31.9 Bipolar disorder, unspecified (principal); F63.81 Intermittent explosive disorder; F70 Mild intellectual disabilities | CPT/HCPCS: 99214 ==

== ENCOUNTER → 2020-12-06 12:37 | Outpatient (BNVA) | payer BC, SELFPAY | PROVIDERS: PCP Nurse Practitioner Psychiatric/Mental Health; Visit Provider Nurse Practitioner | DX: F31.9 Bipolar disorder, unspecified (principal); F70 Mild intellectual disabilities; F63.81 Intermittent explosive disorder | CPT/HCPCS: 99214 ==

== ENCOUNTER 2020-12-17 08:34 | Emergency (ER) | payer MEDICAID, SELFPAY ==
[2020-12-17 08:55] VITALS: BP 137/105; PULSE 93; RESP 18; TEMP 36.6; O2SAT 97; BMI 38.7
[2020-12-17 09:15] VITALS: BP 135/84; PULSE 84; RESP 18; O2SAT 96
--- NOTE | 2020-12-17 09:19 | W.ED.GENADLT ---
HPI - General Adult General: Chief complaint: General Medical Stated complaint: high bs Time Seen by Provider: 12/17/20 08:47 History of Present Illness: HPI narrative: 25-year-old male comes in complaining of elevated blood sugars and fatigue for last couple of days. They have been treating the patient with his usual medication which includes sitagliptin. He has not had any fever sweats or chills no polyuria or polydipsia. Denies abdominal pain no recent illness Onset (ago): day(s) Severity: mild Relieving factors: none Exacerbating factors: none Associated symptoms: Deny chest pain, confusion, cough, diaphoresis, decreased appetite, dyspnea, fevers/chills, headache(s), malaise, nausea, rash, seizures, short of breath, syncope, vomiting or weakness Treatments prior to arrival: none Review of Systems Const: Denies: malaise or diaphoresis ENMT: Denies: throat pain, ear or mastoid pain, nasal discharge or nasal congestion Card: Denies: chest pain or syncope Resp: Denies: dyspnea GI: Denies: nausea or vomiting : Denies: flank pain, dysuria, urinary frequency or urinary urgency Skin/Breast: Denies: rash Neuro: Denies: headache(s) or confusion PFSH ED PFSH: Medical History Attention-deficit hyperactivity disorder, combined type Bipolar disorder, unspecified Generalized anxiety disorder Intermittent explosive disorder Mild intellectual disabilities On valproic acid therapy Social History Smoking and tobacco status: never smoked Smoking risk assessment/counseling performed?: Yes Tobacco counseling given: counseling >3 minutes Physical Exam Const: COMMON NORMALS: no acute distress GENERAL APPEARANCE: cooperative and comfortable HENMT: COMMON NORMALS: normocephalic, atraumatic and hearing grossly normal bilaterally HEAD & SCALP: normocephalic and atraumatic Neck/C-Spine: COMMON NORMALS: no JVD Lymph: LYMPHATIC: no lymphadenopathy noted and no lymphedema noted Resp: COMMON NORMALS: normal respiratory effort, No retractions, No use of accessory muscles and clear to auscultation bilaterally AUSCULTATION: clear to auscultation bilaterally Cardio: COMMON NORMALS: no JVD, regular rate, regular rhythm and No murmurs present (Cardio) RATE: regular rate RHYTHM: regular rhythm GI: COMMON NORMALS: Soft to palpation and No hepatosplenomegaly present AUSCULTATION: Yes normoactive bowel sounds PALPATION: Yes Soft to palpation, No Tenderness to palpation present (GI), No Guarding due to palpation present (GI) and Yes No hepatosplenomegaly present Extremity: COMMON NORMALS: normal to inspection, capillary refill normal, no clubbing, cyanosis or edema, no calf tenderness and no pedal edema Skin: COMMON NORMALS: no rashes or lesions noted GENERAL SKIN EXAM: no rashes or lesions noted Course Vital Signs: Vital signs: Vital Signs Temperature 97.9 F 12/17/20 08:55 Pulse Rate 102 H 12/17/20 12:02 Respiratory Rate 18 12/17/20 12:02 Blood Pressure 129/104 12/17/20 12:02 Pulse Oximetry 96 12/17/20 12:02 MDM - General Adult MDM Narrative: Medical decision making narrative: Blood sugars improved. He can be better served by more aggressive regimen but concerned about how often he will be able to check his blood sugars and react especially with his health he has a potential for hypoglycemia like insulin. Instead we will start him on Trulicity at the regular lower dose for initiation and they can follow-up with her primary care doctor to see about advancing the dose if needed Lab Data: Labs: Lab Results 12/17/20 12/17/20 12/17/20 Range/Units 09:27 10:07 10:16 WBC 5.4 (4.0-10.0) 10^3/ uL RBC 5.21 (4.1-5.3) 10^6/u L Hgb 15.0 (11.7-16.6) g/dL Hct 45.2 (42.0-52.0) % MCV 86.8 (80-94) fL MCH 28.8 (28.0-34.0) pg MCHC 33.2 (30.0-36.0) g/dL RDW 13.0 (12.1-15.1) % Plt Count 226 (130-400) 10^3/c mm MPV 11.5 H (7.4-10.4) fL Neut % (Auto) 57.7 % Lymph % (Auto) 25.5 % [place] % (Auto) 9.4 % Eos % (Auto) 1.1 % Baso % (Auto) 1.5 % Neut # (Auto) 3.12 (1.8-7.7) 10^3/u L Lymph # (Auto) 1.4 (0.8-4.8) 10^3/u L [place] # (Auto) 0.5 (0.2-0.9) 10^3/u L Eos # (Auto) 0.1 (0.0-0.8) 10^3/u L Baso # (Auto) 0.1 (0.0-0.1) 10^3/u L Nucleated RBC % (a uto) 0 % Nucleated RBCs # 0.0 /100WBC Specimen Type Arterial Sample Site Radial, left ABG pH 7.37 (7.35-7.45) ABG pCO2 39.9 (35-45) mmHg ABG pO2 78.0 L (80.0-100.0) mmH g ABG HCO3 23.3 (22-26) mmol/L ABG O2 Saturation 96.0 ABG Base Excess -1.8 (-2.0-2.0) mmol/ L Scot Test Pos A-a O2 Gradient 3.0 L (5-10) mmHg Hematocrit 44.6 (42-52) % Hgb O2 Saturation 93.2 L (95-100) % Carboxyhemoglobin 2.1 (0.4-20.1) %THgb Methemoglobin 0.8 (0.4-1.5) % Total Hemoglobin 14.5 (14-18) g/dL Sodium 136.0 (131-143) mmol/L Potassium 3.9 (3.5-5.0) mmol/L Glucose 432.0 H (70-115) mg/dL Ionized Calcium 1.3 (1.1-1.4) mmol/L O2 Delivery Device Room air FiO2 21.0 % Community Case Manager ID [id number] Chloride (98-107) mmol/L Carbon Dioxide (22-29) mmol/L Anion Gap (5-19) BUN (6-20) mg/dL Creatinine (0.7-1.2) mg/dL GFR Calculation (90-130) mL/min POC Glucose 461 H (70-110) mg/dL Calculated Osmolal ity (285-295) mOsm/k g Calcium (8.5-10.5) mg/dL Total Bilirubin (0.15-1.2) mg/dL AST (0-40) U/L ALT (0-41) U/L Alkaline Phosphata se (40-130) IU/L Total Protein (6.6-8.7) g/dL Albumin (3.5-5.2) g/dL Globulin (1.3-4.6) g/dL Serum Ketones (Negative) 12/17/20 12/17/20 12/17/20 Range/Units 10:16 10:16 12:01 WBC (4.0-10.0) 10^3/ uL RBC (4.1-5.3) 10^6/u L Hgb (11.7-16.6) g/dL Hct (42.0-52.0) % MCV (80-94) fL MCH (28.0-34.0) pg MCHC (30.0-36.0) g/dL RDW (12.1-15.1) % Plt Count (130-400) 10^3/c mm MPV (7.4-10.4) fL Neut % (Auto) % Lymph % (Auto) % [place] % (Auto) % Eos % (Auto) % Baso % (Auto) % Neut # (Auto) (1.8-7.7) 10^3/u L Lymph # (Auto) (0.8-4.8) 10^3/u L [place] # (Auto) (0.2-0.9) 10^3/u L Eos # (Auto) (0.0-0.8) 10^3/u L Baso # (Auto) (0.0-0.1) 10^3/u L Nucleated RBC % (a uto) % Nucleated RBCs # /100WBC Specimen Type Sample Site ABG pH (7.35-7.45) ABG pCO2 (35-45) mmHg ABG pO2 (80.0-100.0) mmH g ABG HCO3 (22-26) mmol/L ABG O2 Saturation ABG Base Excess (-2.0-2.0) mmol/ L Scot Test A-a O2 Gradient (5-10) mmHg Hematocrit (42-52) % Hgb O2 Saturation (95-100) % Carboxyhemoglobin (0.4-20.1) %THgb Methemoglobin (0.4-1.5) % Total Hemoglobin (14-18) g/dL Sodium 132 L (131-143) mmol/L Potassium 4.1 (3.5-5.0) mmol/L Glucose 443 H (70-115) mg/dL Ionized Calcium (1.1-1.4) mmol/L O2 Delivery Device FiO2 % Community Case Manager ID Chloride [id number] L (98-107) mmol/L Carbon Dioxide 23 (22-29) mmol/L Anion Gap 16.1 (5-19) BUN 17 (6-20) mg/dL Creatinine 0.6 L (0.7-1.2) mg/dL GFR Calculation 164.2 H (90-130) mL/min POC Glucose 309 H (70-110) mg/dL Calculated Osmolal ity 295 (285-295) mOsm/k g Calcium 9.4 (8.5-10.5) mg/dL Total Bilirubin 0.2 (0.15-1.2) mg/dL AST 11 (0-40) U/L ALT 14 (0-41) U/L Alkaline Phosphata se 73 (40-130) IU/L Total Protein 7.5 (6.6-8.7) g/dL Albumin 4.3 (3.5-5.2) g/dL Globulin 3.2 (1.3-4.6) g/dL Serum Ketones Negative (Negative) Discharge Plan Discharge Patient Disposition: Home Clinical Impression: Diabetes, Mild intellectual disabilities Condition: Stable Prescriptions: New Trulicity 0.75 mg/0.5 mL pen injector 0.75 mg SUBCUT .weekly Qty: 1 RF: 0 No Action hydrochlorothiazide 25 mg tablet 25 mg PO DAILY@08 RF: 0 loperamide 2 mg tablet 4 mg PO PRN MDD 8 tabs PRN (Reason: Diarrhea) RF: 0 multivitamin Tablet 1 tab PO DAILY@08 RF: 0 Januvia 100 mg tablet 100 mg PO DAILY@08 RF: 0 clonazepam 1 mg tablet 1 mg PO BID@08,20 RF: 0 terbinafine HCl 1 % Cream 1 applic TOPICAL PRN RF: 0 triamcinolone acetonide 0.1 % Cream 1 applic TOPICAL PRN RF: 0 Miralax 17 gram/dose Powder 17 g PO DAILY PRN (Reason: Constipation) RF: 0 Flonase 50 mcg/actuation [place],Suspension 1 spray INTRANASAL DAILY@08 RF: 0 Petroleum Jelly Gel 1 applic TOPICAL PRN RF: 0 DDAVP 0.2 mg tablet 0.2 mg PO BEDTIME RF: 0 Seroquel 200 mg tablet 400 mg PO BEDTIME@20 RF: 0 hydroxyzine HCl 50 mg tablet 100 mg PO DAILY@20 RF: 0 Depakote 500 mg tablet,delayed release (DR/EC) 1,000 mg PO BID@08,20 RF: 0 topiramate 100 mg tablet 100 mg PO TID@08,12,20 RF: 0 Discharge Orders: Discharge ED (Routine); Ordered 12/17/20 Ordered By: Alistair Carter Discharge Diet: Usual diet Discharge Activity: Resume usual activity Patient Instructions: Opioid Safety Activity Restrictions/Additional Instructions: Follow-up with your primary care doctor within the week. The new medication is a self auto injection to be used once weekly continue to monitor blood sugars. Bring your blood pressure log to your next doctor's appointment. Coding Level of Care Code ED Dry Cleaning Counter Clerk for Caron Crane
[2020-12-17 09:37] LABS: ABG PCO2 39.9 mmHg (35-45); ABG PH Result 7.37 (7.35-7.45); Arterial Blood Gas Hematocrit 44.6 % (42-52); Base Excess ABG -1.8 mmol/L (-2.0-2.0); Blood Gas Allen Test Pos; Blood Gas Sample Type Arterial; Carboxyhemoglobin 2.1 %THgb (0.4-20.1); HCO3 ABG 23.3 mmol/L (22-26); HGB O2 Sat 93.2 % (95-100); Ionized Calcium Level - ABG 1.3 mmol/L (1.1-1.4); Methemoglobin 0.8 % (0.4-1.5); Potassium Level - ABG 3.9 mmol/L (3.5-5.0); Total Hemoglobin 14.5 g/dL (14-18)
[2020-12-17 09:38] LABS: Blood Gas Sample Site Radial, left; Oxygen Device ROOM AIR
[2020-12-17] MEDS: insulin regular-human 100 units/1 mL 10 UNIT IVP (10:20)
[2020-12-17] MEDS: sodium chloride 0.9% 1,000 ML 999 ML IV (10:21)
[2020-12-17 10:22] LABS: Basophils # 0.1 10^3/uL (0.0-0.1); Basophils % 1.5 %; Eosinophils # 0.1 10^3/uL (0.0-0.8); Eosinophils % 1.1 %; Hematocrit 45.2 % (42.0-52.0); Lymphocytes # 1.4 10^3/uL (0.8-4.8); Lymphocytes % 25.5 %; Mean Corpuscular HGB Conc 33.2 g/dL (30.0-36.0); Mean Corpuscular Hemoglobin 28.8 pg (28.0-34.0); Mean Corpuscular Volume 86.8 fL (80-94); Mean Platelet Volume 11.5 fL (7.4-10.4); Monocytes # 0.5 10^3/uL (0.2-0.9); Monocytes % 9.4 %; Neutrophils # 3.12 10^3/uL (1.8-7.7); Neutrophils % 57.7 %; Nucleated Red Blood Cells % 0 %; Platelet Count 226 10^3/cmm (130-400); Red Blood Count 5.21 10^6/uL (4.1-5.3); White Blood Count 5.4 10^3/uL (4.0-10.0)
[2020-12-17 10:41] LABS: Ketone (Acetest) Serum Negative (Negative)
[2020-12-17 10:42] LABS: Alanine Aminotransferase 14 U/L (0-41); Albumin Level 4.3 g/dL (3.5-5.2); Alkaline Phosphatase 73 IU/L (40-130); Anion Gap 16.1 (5-19); Aspartate Amino Transferase 11 U/L (0-40); Blood Urea Nitrogen 17 mg/dL (6-20); Calcium 9.4 mg/dL (8.5-10.5); Carbon Dioxide 23 mmol/L (22-29); Chloride 97 mmol/L (98-107); Globulin 3.2 g/dL (1.3-4.6); Glomerular Filtration Rate 164.2 mL/min (90-130); Glucose 443 mg/dL (65-115); Osmolality Calculated 295 mOsm/kg (285-295); Potassium 4.1 mmol/L (3.5-5.1); Sodium 132 mmol/L (136-145); Total Bilirubin 0.2 mg/dL (0.15-1.2); Total Protein 7.5 g/dL (6.6-8.7)
[2020-12-17 12:02] VITALS: BP 129/104; PULSE 102; RESP 18; O2SAT 96
[2020-12-18 02:16] LABS: Glucose Point of Care 309 mg/dL (70-110)
[2020-12-18 02:16] LABS: Glucose Point of Care 461 mg/dL (70-110)
== END 2020-12-17 12:57 | disposition home or self-care (01) ==
PROVIDERS: Emergency Provider Family Medicine
DX: E11.9 Type 2 diabetes mellitus without complications (principal); F70 Mild intellectual disabilities; Z79.84 Long term (current) use of oral hypoglycemic drugs
CPT/HCPCS: 36416; 36600; 80051; 80053; 82009; 82330; 82805; 82962; 85025; 96361; 96374; 99284; J1815; J7030

== ENCOUNTER 2021-01-01 21:31 | Observation (INO) | payer MEDICAID, SELFPAY ==
[2021-01-01 21:32] VITALS: BP 134/72; PULSE 111; RESP 20; TEMP 36.2; O2SAT 96; BMI 38.7
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
[2021-01-01] MEDS: haloperidol inj 5 mg/mL INJ 1 mL IM (21:43)
[2021-01-01] MEDS: LORazepam 2 mg/mL INJ 1 mL IM (21:43)
[2021-01-01 21:54] LABS: Basophils % 0.6 %; Eosinophils % 0.8 %; Hematocrit 46.4 % (42.0-52.0); Hemoglobin 16.4 g/dL (11.7-16.6); Lymphocytes % 38.7 %; Mean Corpuscular HGB Conc 35.3 g/dL (30.0-36.0); Mean Corpuscular Hemoglobin 30.5 pg (28.0-34.0); Mean Corpuscular Volume 86.4 fL (80-94); Mean Platelet Volume 11.8 fL (7.4-10.4); Monocytes # 0.4 10^3/uL (0.2-0.9); Monocytes % 8.2 %; Neutrophils # 2.56 10^3/uL (1.8-7.7); Neutrophils % 49.9 %; Nucleated Red Blood Cells % 0 %; Platelet Count 251 10^3/cmm (130-400); Red Blood Count 5.37 10^6/uL (4.1-5.3); Red Cell Distribution Width 13.2 % (12.1-15.1); White Blood Count 5.1 10^3/uL (4.0-10.0)
[2021-01-01 22:32] LABS: Albumin Level 4.2 g/dL (3.5-5.2); Alkaline Phosphatase 87 IU/L (40-130); Blood Urea Nitrogen 13 mg/dL (6-20); Calcium 9.7 mg/dL (8.5-10.5); Carbon Dioxide 19 mmol/L (22-29); Chloride 91 mmol/L (98-107); Globulin 3.1 g/dL (1.3-4.6); Glomerular Filtration Rate 102.8 mL/min (90-130); Glucose 385 mg/dL (65-115); Osmolality Calculated 290 mOsm/kg (285-295); Sodium 132 mmol/L (136-145); Total Bilirubin 0.2 mg/dL (0.15-1.2); Total Protein 7.3 g/dL (6.6-8.7)
[2021-01-01 22:42] LABS: Acetaminophen < 5.0 ug/mL (10-30); Alcohol Level < 10 mg/dL (0-10); Salicylate < 0.3 mg/dL (3-10)
[2021-01-01 22:44] LABS: Alanine Aminotransferase < 5 U/L (0-41); Aspartate Amino Transferase 5 U/L (0-40)
[2021-01-01 23:16] VITALS: BP 130/80; PULSE 79; RESP 17; TEMP 36.8; O2SAT 96
[2021-01-01 23:20] LABS: Amphetamines Screen Urine Negative (Negative); Barbiturates Screen Urine Negative (Negative); Benzodiazepines Screen Urine Negative (Negative); Cocaine Screen Urine Negative (Negative); Opiate Screen Urine Negative (Negative); PCP Screen Urine Negative (Negative); THC Screen Urine Negative (Negative)
[2021-01-02 06:00] VITALS: BP 132/87; PULSE 69; RESP 16; TEMP 36.6; O2SAT 97
[2021-01-02 06:47] LABS: Glucose Point of Care 387 mg/dL (70-110)
[2021-01-02] MEDS: fluticasone nasal spray 16gm Btl 1 SPRAY INTRANASAL (07:50)
[2021-01-02] MEDS: CLONazepam 1 mg Tablet PO (07:51)
[2021-01-02] MEDS: divalproex DR 500 mg Tablet 1000 MG PO (07:51)
[2021-01-02] MEDS: hydroCHLOROthiazide 25 mg Tablet PO (07:51)
[2021-01-02] MEDS: metformin 850 mg Tablet PO (07:52)
[2021-01-02] MEDS: multivitamin therapeutic Tablet 1 TAB PO (07:52)
[2021-01-02] MEDS: sitagliptin 100 mg Tablet PO (07:53)
[2021-01-02] MEDS: topiramate 100 mg Tablet PO (07:53)
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
[2021-01-02 11:13] VITALS: BP 132/87; PULSE 69; RESP 16; TEMP 36.6; O2SAT 97
[2021-01-02 11:32] LABS: Glucose Point of Care 299 mg/dL (70-110)
== END 2021-01-02 12:00 | disposition home or self-care (01) ==
LOC: ER 22:49 → NP 01-02 04:55
PROVIDERS: Admitting Provider Psychiatry & Neurology Child & Adolescent Psychiatry; Emergency Provider Emergency Medicine; Visit Provider Psychiatry & Neurology Child & Adolescent Psychiatry
DX: F31.9 Bipolar disorder, unspecified (principal); F63.81 Intermittent explosive disorder; Z79.899 Other long term (current) drug therapy; F70 Mild intellectual disabilities
CPT/HCPCS: 36416; 80053; 80306; 80307; 82962; 85025; 96372; 99285; G0378; J1630; J1815; J2060

== ENCOUNTER → 2021-01-11 07:46 | Outpatient (BNVA) | payer MEDICAID, SELFPAY | PROVIDERS: Visit Provider Nurse Practitioner | DX: F31.9 Bipolar disorder, unspecified (principal); F63.81 Intermittent explosive disorder; F70 Mild intellectual disabilities | CPT/HCPCS: 99214 ==

== ENCOUNTER → 2021-01-17 13:29 | Outpatient (BNVA) | payer MEDICAID, SELFPAY | PROVIDERS: Visit Provider Nurse Practitioner | DX: F31.9 Bipolar disorder, unspecified (principal); F63.81 Intermittent explosive disorder; F70 Mild intellectual disabilities | CPT/HCPCS: 99214 ==

== ENCOUNTER → 2021-01-26 09:50 | Outpatient (BNVA) | payer MEDICAID, SELFPAY | PROVIDERS: Visit Provider Counselor Mental Health | DX: F31.9 Bipolar disorder, unspecified (principal); F63.81 Intermittent explosive disorder; F32.9 Major depressive disorder, single episode, unspecified | CPT/HCPCS: 90834 ==

== ENCOUNTER → 2021-02-02 10:01 | Outpatient (BNVA) | payer MEDICAID, SELFPAY | PROVIDERS: Visit Provider Counselor Mental Health | DX: F31.9 Bipolar disorder, unspecified (principal); F63.81 Intermittent explosive disorder; F32.9 Major depressive disorder, single episode, unspecified | CPT/HCPCS: 90832; 90834 ==

== ENCOUNTER → 2021-02-09 09:58 | Outpatient (BNVA) | payer MEDICAID, SELFPAY | PROVIDERS: Visit Provider Counselor Mental Health | DX: F31.9 Bipolar disorder, unspecified (principal); F63.81 Intermittent explosive disorder; F32.9 Major depressive disorder, single episode, unspecified | CPT/HCPCS: 90834 ==

== ENCOUNTER → 2021-02-16 08:57 | Outpatient (BNVA) | payer MEDICAID, SELFPAY | PROVIDERS: Visit Provider Counselor Mental Health | DX: F31.9 Bipolar disorder, unspecified (principal); F63.81 Intermittent explosive disorder; F32.9 Major depressive disorder, single episode, unspecified | CPT/HCPCS: 90832; 90834 ==

== ENCOUNTER → 2021-02-24 09:54 | Outpatient (BNVA) | payer MEDICAID, SELFPAY | PROVIDERS: Visit Provider Counselor Mental Health | DX: F31.9 Bipolar disorder, unspecified (principal); F63.81 Intermittent explosive disorder | CPT/HCPCS: 90834 ==

== ENCOUNTER → 2021-03-10 11:05 | Outpatient (BNVA) | payer MEDICAID, SELFPAY | PROVIDERS: Visit Provider Counselor Mental Health | DX: F31.9 Bipolar disorder, unspecified (principal); F63.81 Intermittent explosive disorder; F32.9 Major depressive disorder, single episode, unspecified; F33.1 Major depressive disorder, recurrent, moderate; F43.12 Post-traumatic stress disorder, chronic | CPT/HCPCS: 90834 ==

== ENCOUNTER → 2021-03-16 09:36 | Outpatient (BNVA) | payer MEDICAID, SELFPAY | PROVIDERS: Visit Provider Nurse Practitioner | DX: F31.9 Bipolar disorder, unspecified (principal); F63.81 Intermittent explosive disorder; F70 Mild intellectual disabilities | CPT/HCPCS: 99214 ==

== ENCOUNTER 2021-03-18 04:55 | Emergency (ER) | payer MEDICAID, SELFPAY ==
--- NOTE | 2021-03-18 04:59 | ED_ITS ---
HPI - Psych General: Chief Complaint: Psychiatric Symptoms Stated Complaint: Argument with care givers Time Seen by Provider: 03/18/21 04:57 Source: patient Mode of arrival: ambulatory Limitations: no limitations History of Present Illness: HPI Narrative: 25-year-old male who has a history of bipolar disorder and intellectual disability is very well-known to the ER. He has had multiple outburst with caregivers where he gets angry and argues with them. EMS states that tonight he was in another argument and was upset. They state that since they have been involved though he has been calm and cooperative. Patient is cooperative here but states that he was angry and arguing with his caregivers earlier denies any suicidal or homicidal ideations denies any worsening improving factors. Associated symptoms: Deny depression Review of Systems Const: Denies: fever(s), chills, body aches or change in appetite Eyes: Denies: blurry vision or eye discomfort ENMT: Denies: throat pain or dental pain Card: Denies: chest pain Resp: Denies: dyspnea GI: Denies: abdominal pain, nausea, vomiting or diarrhea : Denies: dysuria Musc: Denies: neck pain or back pain Skin/Breast: Denies: rash Neuro: Denies: headache(s) Psych: Denies: depression Hasrhad/Lymph: Denies: easy bruising All/Imm: Denies: urticaria PFSH ED PFSH: Medical History Attention-deficit hyperactivity disorder, combined type Bipolar disorder, unspecified Generalized anxiety disorder Intermittent explosive disorder Mild intellectual disabilities On valproic acid therapy Psychiatric care Social History Smoking and tobacco status: never smoked Smoking risk assessment/counseling performed?: Yes Tobacco counseling given: counseling >3 minutes Physical Exam Const: COMMON NORMALS: no acute distress, patient oriented x3 and healthy appearing HENMT: COMMON NORMALS: normocephalic and atraumatic HEAD & SCALP: normocephalic and atraumatic Eye: COMMON NORMALS: Equal, round and reactive pupils present and EOMs intact bilaterally PUPIL: Yes Equal, round and reactive pupils present Neck/C-Spine: COMMON NORMALS: full ROM and supple Chest: COMMONS NORMALS: normal inspection of the chest and normal palpation of entire chest wall Resp: COMMON NORMALS: normal respiratory effort, No retractions, No use of accessory muscles and clear to auscultation bilaterally AUSCULTATION: clear to auscultation bilaterally Cardio: COMMON NORMALS: regular rate, regular rhythm and No murmurs present (Cardio) RATE: regular rate RHYTHM: regular rhythm GI: COMMON NORMALS: Normal to inspection, nondistended, normoactive bowel sounds present, Soft to palpation, non-tender and no masses PALPATION: Yes Soft to palpation Extremity: COMMON NORMALS: normal to inspection and full ROM Neuro: COMMON NORMALS: patient oriented x3, moves all extremities and no focal motor deficits Psych: COMMON NORMALS: mental status grossly normal, Normal thought process present and cooperative THOUGHT PROCESS: Normal thought process present Skin: COMMON NORMALS: no rashes or lesions noted and no wounds GENERAL SKIN EXAM: no rashes or lesions noted Course Vital Signs: Vital signs: Vital Signs Temperature 97.8 F 03/18/21 05:04 Pulse Rate 95 03/18/21 05:04 Respiratory Rate 18 03/18/21 05:04 Blood Pressure 138/89 03/18/21 05:04 Pulse Oximetry 96 03/18/21 05:04 MDM - Psych MDM Narrative: Medical decision making narrative: Patient presents here with agitation since resolved he is well-appearing here and calm and has no homicidal suicidal thoughts he is stable for discharge back into custody of caregiver. Discharge Plan Discharge Patient Disposition: Home Clinical Impression: Agitation Condition: Stable Prescriptions: No Action Trulicity 0.75 mg/0.5 mL pen injector 0.75 mg SUBCUT .weekly RF: 0 clonazepam 1 mg tablet 1 mg PO BID@08,20 Qty: 60 RF: 1 desmopressin [DDAVP] 0.2 mg tablet 0.2 mg PO BEDTIME Qty: 30 RF: 1 divalproex 500 mg tablet,delayed release (DR/EC) 500 mg PO .COMPLEX Qty: 150 RF: 2 hydroxyzine HCl 50 mg tablet 100 mg PO .HS Qty: 60 RF: 1 quetiapine [Seroquel] 200 mg tablet 400 mg PO BEDTIME@20 Qty: 60 RF: 1 topiramate 100 mg tablet 100 mg PO TID@08,12,20 Qty: 90 RF: 1 quetiapine [Seroquel] 100 mg tablet 100 mg PO BID Qty: 60 RF: 1 hydrochlorothiazide 25 mg tablet 25 mg PO DAILY@08 RF: 0 loperamide 2 mg tablet 4 mg PO PRN MDD 8 tabs PRN (Reason: Diarrhea) RF: 0 multivitamin Tablet 1 tab PO DAILY@08 RF: 0 Januvia 100 mg tablet 100 mg PO DAILY@08 RF: 0 Victoza 2-Otf 0.6 mg/0.1 mL (18 mg/3 mL) pen injector 1.8 mg SUBCUT DAILY RF: 0 terbinafine HCl 1 % Cream 1 applic TOPICAL PRN RF: 0 triamcinolone acetonide 0.1 % Cream 1 applic TOPICAL PRN RF: 0 polyethylene glycol 3350 [Miralax] 17 gram/dose Powder 17 g PO DAILY PRN (Reason: Constipation) RF: 0 fluticasone propionate 50 mcg/actuation [place],Suspension 1 spray INTRANASAL DAILY@08 RF: 0 white petrolatum [Petroleum Jelly] Gel 1 applic TOPICAL PRN RF: 0 Discharge Orders: Discharge ED (Routine); Ordered 03/18/21 Ordered By: Sridhar Chavez Discharge Diet: Advance as tolerated Discharge Activity: Resume usual activity Patient Instructions: Bipolar Disorder (ED) Coding Level of Care Code ED [employer] for [employer] Fwd Exam Comprehensive
[2021-03-18 05:04] VITALS: BP 138/89; PULSE 95; RESP 18; TEMP 36.6; O2SAT 96; BMI 39.0
[2021-03-18 05:31] VITALS: BP 138/78; PULSE 78; RESP 16; O2SAT 98
== END 2021-03-18 05:33 | disposition home or self-care (01) ==
PROVIDERS: Emergency Provider Emergency Medicine
DX: R45.1 Restlessness and agitation (principal)
CPT/HCPCS: 99283

== ENCOUNTER 2021-03-18 07:06 | Observation (INO) | payer MEDICAID, SELFPAY ==
[2021-03-18 07:07] VITALS: BP 133/83; PULSE 97; RESP 16; TEMP 36.4; O2SAT 97; BMI 38.7
--- NOTE | 2021-03-18 07:12 | ECG_ITS ---
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 Measurements Intervals [place] Rate: 89 P: 30 IA: 189 QRS: 24 QRSD: 93 T: 40 QT: 357 QTc: 434 Interpretive Statements SINUS RHYTHM ST ELEVATION, CONSIDER INFERIOR INJURY [MARKED ST ELEVATION W/O NORMALLY INFLECTED T-WAVE IN II/aVF] ACUTE NC Compared to ECG 11/12/2019 04:02:00 ST (T wave) deviation now present Myocardial infarct finding now present Electronically Signed On 03-18-2021 22:45:21 CDT by James Montes M.D. [email or web address].[employer]/store/NU/[id number] f
--- NOTE | 2021-03-18 07:15 | ED_ITS ---
HPI - Psych General: Chief Complaint: Psychiatric Symptoms Stated Complaint: HI, PSYCH EVAL Time Seen by Provider: 03/18/21 07:12 Source: patient and EMS Mode of arrival: EMS Limitations: no limitations History of Present Illness: HPI Narrative: Patient reportedly was in custody of police after patient threatened staff member at his living facility and threatened to kill himself as well. Patient was reportedly trying to cut his arm with a phone fur glosser. Patient states that he was angry that he could not go out and smoke and became angry at staff member. Patient became homicidal and suicidal at that point. Patient was brought in by EMS for evaluation. Patient reportedly was dismissed from the hospital earlier today. Patient states that he is not presently suicidal. MD complaint: suicidal ideation and other (Homicidal ideations) Onset (ago): hour(s) (1) Duration: other (Improving) History of same: Yes Relieving factors: other (time) Exacerbating factors: other (Anger management problem) Associated psychiatric symptoms: suicidal ideation and homicidal ideation Associated symptoms: Reports depression, homicidal ideation and suicidal ideation; Deny auditory hallucinations or visual hallucinations Treatments prior to arrival: none If self harm: admits thoughts of self harm Review of Systems Const: Denies: fever(s) or chills Eyes: Denies: change in vision ENMT: Denies: throat pain Card: Denies: chest pain or palpitations Resp: Denies: dyspnea or wheezing GI: Denies: abdominal pain, nausea or vomiting : Denies: flank pain Musc: Denies: neck pain or back pain Skin/Breast: Denies: rash or pruritus Neuro: Denies: headache(s) or numbness in extremities Psych: Reports: depression, mood swings, suicidal ideation and homicidal ideation; Denies: anxiety, visual hallucinations or auditory hallucinations Harshad/Lymph: Denies: enlarged lymph nodes PFSH ED PFSH: Medical History Attention-deficit hyperactivity disorder, combined type Bipolar disorder, unspecified Generalized anxiety disorder Intermittent explosive disorder Mild intellectual disabilities On valproic acid therapy Psychiatric care Social History Smoking and tobacco status: never smoked Smoking risk assessment/counseling performed?: Yes Tobacco counseling given: counseling >3 minutes Physical Exam Const: COMMON NORMALS: no acute distress, patient oriented x3, no limitations and well nourished EXAM LIMITATIONS: no altered mental status GENERAL APPEARANCE: cooperative NUTRITIONAL APPEARANCE: obese OTHER: Flat affect. States he is not suicidal or homicidal at this time. HENMT: COMMON NORMALS: normocephalic and atraumatic HEAD & SCALP: normoce phalic and atraumatic FACE & SINUS: normal facial exam Eye: COMMON NORMALS: EOMs intact bilaterally Neck/C-Spine: COMMON NORMALS: full ROM, no lymphadenopathy, supple and no meningeal signs GENERAL: Yes normal visual inspection Lymph: LYMPHATIC: no lymphadenopathy noted Chest: COMMONS NORMALS: normal inspection of the chest and normal palpation of entire chest wall CHEST: No Ecchymosis present and No rash Resp: COMMON NORMALS: normal respiratory effort, No retractions and clear to auscultation bilaterally EFFORT & INSPECTION: No respiratory distress AUSCULTATION: clear to auscultation bilaterally Cardio: COMMON NORMALS: regular rate, regular rhythm and Peripheral pulses 2+ throughout JUGULAR VENOUS DISTENTION: no JVD RATE: regular rate RHYTHM: regular rhythm PERIPHERAL PULSES: Peripheral pulses 2+ throughout GI: COMMON NORMALS: Normal to inspection, nondistended, normoactive bowel sounds present and non-tender : COMMON NORMALS: Yes no CVA tenderness BLADDER/KIDNEY EXAM: Yes no CVA tenderness Back/Pelvis: COMMON NORMALS: no CVA tenderness Extremity: COMMON NORMALS: normal to inspection, full ROM and capillary refill normal Neuro: COMMON NORMALS: patient oriented x3, CN's II-XII intact bilaterally, no focal motor deficits and no sensory deficits noted MENINGEAL SIGNS: Yes no meningeal signs Psych: COMMON NORMALS: mental status grossly normal and Normal thought process present THOUGHT PROCESS: Normal thought process present THOUGHT CONTENT: Yes Normal thought content present ATTENTION/CONCENTRATION: Yes attention grossly intact INSIGHT: Fair insight present (Psych) Skin: COMMON NORMALS: no rashes or lesions noted and no wounds NARRATIVE SKIN EXAM: Patient has no lacerations or abrasions or wounds to either extremity. Patient has written in ink mother Killer to left forearm. GENERAL SKIN EXAM: no rashes or lesions noted Course Vital Signs: Vital signs: Vital Signs Temperature 97.6 F 03/18/21 07:30 Pulse Rate 97 03/18/21 07:07 Respiratory Rate 16 03/18/21 07:30 Blood Pressure 133/83 03/18/21 07:07 Pulse Oximetry 97 03/18/21 07:07 MDM - Psych MDM Narrative: Medical decision making narrative: See nursing assessment. 96 hour hold form completed. 0958: Discussed with Dr. Montesinos psychiatry. He states when patient is medically cleared patient may be transferred to the behavioral health unit. We will transfuse 2 L of normal saline give patient IV insulin to correct his elevated glucose. Patient is not in DKA but is slightly dehydrated. This should correct with the above treatment. Once this is completed patient will be cleared to go to behavioral health unit. 1225: cbg now 228. Patient is medically cleared to be transferred to behavioral health unit. Lab Data: Attestation: I reviewed the patient's lab results. Labs: Lab Results 03/18/21 03/18/21 03/18/21 07:30 07:30 07:30 WBC 4.0 10^3/uL 10^3/ uL (4.0-10.0) RBC 5.00 10^6/uL 10^6 /uL (4.1-5.3) Hgb 15.2 g/dL g/dL (11.7-16.6) Hct 43.8 % % (42.0-52.0) MCV 87.6 fl fl (80-94) MCH 30.4 pg pg (28.0-34.0) MCHC 34.7 g/dL g/dL (30.0-36.0) RDW 13.6 % % (12.1-15.1) Plt Count 175 10^3/cmm 10^3 /cmm (130-400) MPV 12.3 fL H fL (7.4-10.4) Neut % (Auto) 53.1 % % Lymph % (Auto) 34.1 % % [place] % (Auto) 10.4 % % Eos % (Auto) 1.2 % % Baso % (Auto) 0.2 % % Neut # (Auto) 2.13 10^3/uL 10^3 /uL (1.8-7.7) Lymph # (Auto) 1.4 10^3/uL 10^3/ uL (0.8-4.8) [place] # (Auto) 0.4 10^3/uL 10^3/ uL (0.2-0.9) Eos # (Auto) 0.1 10^3/uL 10^3/ uL (0.0-0.8) Baso # (Auto) 0.0 10^3/uL 10^3/ uL (0.0-0.1) Nucleated RBC % (a uto) 0 % % Nucleated RBCs # 0.0 /100WBC /100W BC Sodium 130 mmol/L L mmol /L (136-145) Potassium 3.4 mmol/L L mmol /L (3.5-5.1) Chloride 89 mmol/L L mmol/ L (98-107) Carbon Dioxide 24 mmol/L mmol/L (22-29) Anion Gap 20.4 H (5-19) BUN 9 mg/dL mg/dL (6-20) Creatinine 0.7 mg/dL mg/dL (0.7-1.2) GFR Calculation 137.4 mL/min H mL /min (90-130) Glucose 437 mg/dL H mg/dL (65-115) POC Glucose Calculated Osmolal ity 287 mOsm/kg mOsm/ kg (285-295) Calcium 9.3 mg/dL mg/dL (8.5-10.5) Total Bilirubin 0.2 mg/dL mg/dL (0.15-1.2) AST 9 U/L U/L (0-40) ALT 8 U/L U/L (0-41) Alkaline Phosphata se 76 IU/L IU/L (40-130) Total Protein 7.7 g/dL g/dL (6.6-8.7) Albumin 4.1 g/dL g/dL (3.5-5.2) Globulin 3.6 g/dL g/dL (1.3-4.6) TSH 2.77 uIU/mL uIU/m L (0.27-4.20) Urine Color Straw (Yellow) Urine Appearance Clear (CLEAR) Urine pH 5 (5-7) Ur Specific Gravit y 1.010 (1.005-1.030) Urine Protein Neg (Negative) Urine Glucose (UA) 4+ H (Normal) Urine Ketones 2+ H (Negative) Urine Blood Neg (Negative) Urine Nitrate Negative (Negative) Urine Bilirubin Neg (Negative) Urine Urobilinogen Norm mg/dL mg/dL (Negative) Ur Leukocyte Cinthya ase Negative (Negative) Salicylates 0.4 mg/dL L mg/dL (3-10) Urine Opiates Scre en Acetaminophen < 5.0 ug/mL L ug/ mL (10-30) Ur Barbiturates Sc reen Valproic Acid 46.1 ug/mL L ug/m L (50-100) Ur Phencyclidine S crn Ur Amphetamines Sc reen U Benzodiazepines Scrn Urine Cocaine Scre en U Marijuana (THC) Screen Ethyl Alcohol < 10 mg/dL mg/dL (0-10) SARS-CoV-2 Ag (Rap id) 03/18/21 03/18/21 03/18/21 07:30 09:54 12:18 WBC RBC Hgb Hct MCV MCH MCHC RDW Plt Count MPV Neut % (Auto) Lymph % (Auto) [place] % (Auto) Eos % (Auto) Baso % (Auto) Neut # (Auto) Lymph # (Auto) [place] # (Auto) Eos # (Auto) Baso # (Auto) Nucleated RBC % (a uto) Nucleated RBCs # Sodium Potassium Chloride Carbon Dioxide Anion Gap BUN Creatinine GFR Calculation Glucose POC Glucose 228 mg/dL H mg/dL (70-110) Calculated Osmolal ity Calcium Total Bilirubin AST ALT Alkaline Phosphata se Total Protein Albumin Globulin TSH Urine Color Urine Appearance Urine pH Ur Specific Gravit y Urine Protein Urine Glucose (UA) Urine Ketones Urine Blood Urine Nitrate Urine Bilirubin Urine Urobilinogen Ur Leukocyte Cinthya ase Salicylates Urine Opiates Scre en Negative ng/mL ng /mL (Negative) Acetaminophen Ur Barbiturates Sc reen Negative ng/mL ng /mL (Negative) Valproic Acid Ur Phencyclidine S crn Negative ng/mL ng /mL (Negative) Ur Amphetamines Sc reen Negative ng/mL ng /mL (Negative) U Benzodiazepines Scrn Negative ng/mL ng /mL (Negative) Urine Cocaine Scre en Negative ng/mL ng /mL (Negative) U Marijuana (THC) Screen Negative ng/mL ng /mL (Negative) Ethyl Alcohol SARS-CoV-2 Ag (Rap id) Negative (Negative) EKG Data^: EKG 1: Attestation: I personally reviewed and interpreted this EKG as follows: EKG interpretation date: 03/18/21 EKG interpretation time: 08:42 Prior EKG tracings: not available for review Interpretation: Normal sinus rhythm with early repolarization. No acute NC. Normal axis. Normal GA interval, normal P waves, normal T waves. Heart rate 89. normal QRS interval. No previous EKG to compare to. Discharge Plan Discharge Clinical Impression: Major depress dis, severe, Suicidal ideation, Dehydration, mild Type 2 diabetes mellitus Qualifiers: Diabetes mellitus longterm insulin use: without longterm use Diabetes mellitus complication status: with hyperglycemia Qualified Code(s): E11.65 - Type 2 diabetes mellitus with hyperglycemia Condition: Stable Prescriptions: No Action clonazepam 1 mg tablet 1 mg PO BID@08,20 Qty: 60 RF: 1 desmopressin [DDAVP] 0.2 mg tablet 0.2 mg PO BEDTIME Qty: 30 RF: 1 divalproex 500 mg tablet,delayed release (DR/EC) 500 mg PO .COMPLEX Qty: 150 RF: 2 quetiapine [Seroquel] 200 mg tablet 400 mg PO BEDTIME@20 Qty: 60 RF: 1 topiramate 100 mg tablet 100 mg PO TID@08,12,20 Qty: 90 RF: 1 quetiapine [Seroquel] 100 mg tablet 100 mg PO BID Qty: 60 RF: 1 hydrochlorothiazide 25 mg tablet 25 mg PO DAILY@08 RF: 0 loperamide 2 mg tablet 4 mg PO PRN MDD 8 tabs PRN (Reason: Diarrhea) RF: 0 multivitamin Tablet 1 tab PO DAILY@08 RF: 0 Januvia 100 mg tablet 100 mg PO DAILY@08 RF: 0 Victoza 2-Otf 0.6 mg/0.1 mL (18 mg/3 mL) pen injector 1.8 mg SUBCUT DAILY RF: 0 terbinafine HCl 1 % Cream 1 applic TOPICAL PRN RF: 0 triamcinolone acetonide 0.1 % Cream 1 applic TOPICAL PRN RF: 0 polyethylene glycol 3350 [Miralax] 17 gram/dose Powder 17 g PO DAILY PRN (Reason: Constipation) RF: 0 fluticasone propionate 50 mcg/actuation [place],Suspension 1 spray INTRANASAL DAILY@08 RF: 0 white petrolatum [Petroleum Jelly] Gel 1 applic TOPICAL PRN RF: 0 hydroxyzine HCl 50 mg tablet 100 mg PO BEDTIME RF: 0 Coding Level of Care Code ED Brake Repairer Air for Chg Fwd Exam Comprehensive
[2021-03-18 07:30] VITALS: RESP 16; TEMP 36.4
[2021-03-18 07:51] LABS: Basophils % 0.2 %; Eosinophils # 0.1 10^3/uL (0.0-0.8); Eosinophils % 1.2 %; Hematocrit 43.8 % (42.0-52.0); Hemoglobin 15.2 g/dL (11.7-16.6); Lymphocytes # 1.4 10^3/uL (0.8-4.8); Lymphocytes % 34.1 %; Mean Corpuscular HGB Conc 34.7 g/dL (30.0-36.0); Mean Corpuscular Hemoglobin 30.4 pg (28.0-34.0); Mean Corpuscular Volume 87.6 fl (80-94); Mean Platelet Volume 12.3 fL (7.4-10.4); Monocytes # 0.4 10^3/uL (0.2-0.9); Monocytes % 10.4 %; Neutrophils # 2.13 10^3/uL (1.8-7.7); Neutrophils % 53.1 %; Nucleated Red Blood Cells % 0 %; Platelet Count 175 10^3/cmm (130-400); Red Cell Distribution Width 13.6 % (12.1-15.1)
[2021-03-18 07:55] LABS: Add Urine Microscopic? NO; Charge for UA Resulting for Rev; Urine Appearance Clear (CLEAR); Urine Color Straw (Yellow); pH Urine 5 (5-7)
[2021-03-18 07:56] LABS: Bilirubin Urine Neg (Negative); Blood Urine Neg (Negative); Glucose Urine UA 4+ (Normal); Ketones Urine 2+ (Negative); Leukocyte Esterase Urine Negative (Negative); Nitrate Urine Negative (Negative); Protein Urine Neg (Negative); Urobilinogen Urine Norm (Negative)
[2021-03-18 08:05] LABS: Amphetamines Screen Urine Negative (Negative); Barbiturates Screen Urine Negative (Negative); Benzodiazepines Screen Urine Negative (Negative); Cocaine Screen Urine Negative (Negative); Opiate Screen Urine Negative (Negative); PCP Screen Urine Negative (Negative); THC Screen Urine Negative (Negative)
[2021-03-18 08:19] LABS: Albumin Level 4.1 g/dL (3.5-5.2); Alkaline Phosphatase 76 IU/L (40-130); Blood Urea Nitrogen 9 mg/dL (6-20); Calcium 9.3 mg/dL (8.5-10.5); Carbon Dioxide 24 mmol/L (22-29); Chloride 89 mmol/L (98-107); Globulin 3.6 g/dL (1.3-4.6); Glomerular Filtration Rate 137.4 mL/min (90-130); Glucose 437 mg/dL (65-115); Osmolality Calculated 287 mOsm/kg (285-295); Salicylate 0.4 mg/dL (3-10); Sodium 130 mmol/L (136-145); Thyroid Stimulating Hormone 2.77 uIU/mL (0.27-4.20); Total Bilirubin 0.2 mg/dL (0.15-1.2); Total Protein 7.7 g/dL (6.6-8.7); Valproic Acid Level 46.1 ug/mL (50-100)
[2021-03-18 09:03] LABS: Acetaminophen < 5.0 ug/mL (10-30); Alcohol Level < 10 mg/dL (0-10); Anion Gap 20.4 (5-19); Potassium 3.4 mmol/L (3.5-5.1)
[2021-03-18 09:04] LABS: Alanine Aminotransferase 8 U/L (0-41); Aspartate Amino Transferase 9 U/L (0-40)
[2021-03-18 10:18] LABS: SARS Covid-2 Antigen Negative (Negative)
[2021-03-18] MEDS: insulin regular-human 100 units/1 mL 8 UNIT IVP (10:28)
[2021-03-18] MEDS: sodium chloride 0.9% 2,000 ML 1000 ML IV (10:28)
[2021-03-18 12:21] LABS: Glucose Point of Care 228 mg/dL (70-110)
--- NOTE | 2021-03-18 13:21 | PC.NURSE ---
pt s blood glucose checked; 228. Updated
--- NOTE | 2021-03-18 15:56 | PC.NURSE ---
Tia, marketing programs specialist at [facility] requesting an update when pt is transferred to room. [phone]
--- NOTE | 2021-03-18 16:03 | W.ED.PSYCH ---
HPI - Psych General: Chief Complaint: Psychiatric Symptoms Stated Complaint: HI, PSYCH EVAL Time Seen by Provider: 03/18/21 07:12 Source: patient and EMS Mode of arrival: EMS History of Present Illness: Duration: other (Improving) Relieving factors: other (time) Exacerbating factors: other (Anger management problem) Treatments prior to arrival: none PFSH ED PFSH: Medical History Attention-deficit hyperactivity disorder, combined type Bipolar disorder, unspecified Generalized anxiety disorder Intermittent explosive disorder Mild intellectual disabilities On valproic acid therapy Psychiatric care Social History Smoking and tobacco status: never smoked Smoking risk assessment/counseling performed?: Yes Tobacco counseling given: counseling >3 minutes Course Vital Signs: Vital signs: Vital Signs Temperature 97.6 F 03/18/21 07:30 Pulse Rate 97 03/18/21 07:07 Respiratory Rate 16 03/18/21 07:30 Blood Pressure 133/83 03/18/21 07:07 Pulse Oximetry 97 03/18/21 07:07 MDM - Psych MDM Narrative: Medical decision making narrative: 1600: Patient started to become more anxious and agitated. He was demanding to leave. He was threatening to go through the cyber security manager. However he did not make any violent gestures. He was told that he is on a 96-hour involuntary hold. We had discussed this earlier also. Patient is not willing to stay in the hospital and is demanding to leave. Therefore, will give patient Haldol and Ativan to make him less anxious and agitated. Lab Data: Labs: Lab Results 03/18/21 03/18/21 03/18/21 07:30 07:30 07:30 WBC 4.0 10^3/uL 10^3/ uL (4.0-10.0) RBC 5.00 10^6/uL 10^6 /uL (4.1-5.3) Hgb 15.2 g/dL g/dL (11.7-16.6) Hct 43.8 % % (42.0-52.0) MCV 87.6 fl fl (80-94) MCH 30.4 pg pg (28.0-34.0) MCHC 34.7 g/dL g/dL (30.0-36.0) RDW 13.6 % % (12.1-15.1) Plt Count 175 10^3/cmm 10^3 /cmm (130-400) MPV 12.3 fL H fL (7.4-10.4) Neut % (Auto) 53.1 % % Lymph % (Auto) 34.1 % % [place] % (Auto) 10.4 % % Eos % (Auto) 1.2 % % Baso % (Auto) 0.2 % % Neut # (Auto) 2.13 10^3/uL 10^3 /uL (1.8-7.7) Lymph # (Auto) 1.4 10^3/uL 10^3/ uL (0.8-4.8) [place] # (Auto) 0.4 10^3/uL 10^3/ uL (0.2-0.9) Eos # (Auto) 0.1 10^3/uL 10^3/ uL (0.0-0.8) Baso # (Auto) 0.0 10^3/uL 10^3/ uL (0.0-0.1) Nucleated RBC % (a uto) 0 % % Nucleated RBCs # 0.0 /100WBC /100W BC Sodium 130 mmol/L L mmol /L (136-145) Potassium 3.4 mmol/L L mmol /L (3.5-5.1) Chloride 89 mmol/L L mmol/ L (98-107) Carbon Dioxide 24 mmol/L mmol/L (22-29) Anion Gap 20.4 H (5-19) BUN 9 mg/dL mg/dL (6-20) Creatinine 0.7 mg/dL mg/dL (0.7-1.2) GFR Calculation 137.4 mL/min H mL /min (90-130) Glucose 437 mg/dL H mg/dL (65-115) POC Glucose Calculated Osmolal ity 287 mOsm/kg mOsm/ kg (285-295) Calcium 9.3 mg/dL mg/dL (8.5-10.5) Total Bilirubin 0.2 mg/dL mg/dL (0.15-1.2) AST 9 U/L U/L (0-40) ALT 8 U/L U/L (0-41) Alkaline Phosphata se 76 IU/L IU/L (40-130) Total Protein 7.7 g/dL g/dL (6.6-8.7) Albumin 4.1 g/dL g/dL (3.5-5.2) Globulin 3.6 g/dL g/dL (1.3-4.6) TSH 2.77 uIU/mL uIU/m L (0.27-4.20) Urine Color Straw (Yellow) Urine Appearance Clear (CLEAR) Urine pH 5 (5-7) Ur Specific Gravit y 1.010 (1.005-1.030) Urine Protein Neg (Negative) Urine Glucose (UA) 4+ H (Normal) Urine Ketones 2+ H (Negative) Urine Blood Neg (Negative) Urine Nitrate Negative (Negative) Urine Bilirubin Neg (Negative) Urine Urobilinogen Norm mg/dL mg/dL (Negative) Ur Leukocyte Cinthya ase Negative (Negative) Salicylates 0.4 mg/dL L mg/dL (3-10) Urine Opiates Scre en Acetaminophen < 5.0 ug/mL L ug/ mL (10-30) Ur Barbiturates Sc reen Valproic Acid 46.1 ug/mL L ug/m L (50-100) Ur Phencyclidine S crn Ur Amphetamines Sc reen U Benzodiazepines Scrn Urine Cocaine Scre en U Marijuana (THC) Screen Ethyl Alcohol < 10 mg/dL mg/dL (0-10) SARS-CoV-2 Ag (Rap id) 03/18/21 03/18/21 03/18/21 07:30 09:54 12:18 WBC RBC Hgb Hct MCV MCH MCHC RDW Plt Count MPV Neut % (Auto) Lymph % (Auto) [place] % (Auto) Eos % (Auto) Baso % (Auto) Neut # (Auto) Lymph # (Auto) [place] # (Auto) Eos # (Auto) Baso # (Auto) Nucleated RBC % (a uto) Nucleated RBCs # Sodium Potassium Chloride Carbon Dioxide Anion Gap BUN Creatinine GFR Calculation Glucose POC Glucose 228 mg/dL H mg/dL (70-110) Calculated Osmolal ity Calcium Total Bilirubin AST ALT Alkaline Phosphata se Total Protein Albumin Globulin TSH Urine Color Urine Appearance Urine pH Ur Specific Gravit y Urine Protein Urine Glucose (UA) Urine Ketones Urine Blood Urine Nitrate Urine Bilirubin Urine Urobilinogen Ur Leukocyte Cinthya ase Salicylates Urine Opiates Scre en Negative ng/mL ng /mL (Negative) Acetaminophen Ur Barbiturates Sc reen Negative ng/mL ng /mL (Negative) Valproic Acid Ur Phencyclidine S crn Negative ng/mL ng /mL (Negative) Ur Amphetamines Sc reen Negative ng/mL ng /mL (Negative) U Benzodiazepines Scrn Negative ng/mL ng /mL (Negative) Urine Cocaine Scre en Negative ng/mL ng /mL (Negative) U Marijuana (THC) Screen Negative ng/mL ng /mL (Negative) Ethyl Alcohol SARS-CoV-2 Ag (Rap id) Negative (Negative) Discharge Plan Discharge Patient Disposition: Admitted As Inpatient Clinical Impression: Major depress dis, severe, Suicidal ideation, Dehydration, mild Type 2 diabetes mellitus Qualifiers: Diabetes mellitus computer terminal operator insulin use: without alf use Diabetes mellitus complication status: with hyperglycemia Qualified Code(s): E11.65 - Type 2 diabetes mellitus with hyperglycemia Condition: Stable Discharge Diet: Diabetic Discharge Activity: Resume usual activity Coding Level of Care Code ED Scientific Affairs Manager for Caron Crane
[2021-03-18] MEDS: LORazepam 2 mg/mL INJ 1 mL IM (16:12)
[2021-03-18] MEDS: haloperidol inj 5 mg/mL INJ 1 mL IM (16:13)
--- NOTE | 2021-03-18 16:40 | PC.NURSE ---
Pt becoming very restless and agitated, pt requesting IV be removed and states he wants to go home. This RN advised pt hs in unable to go home at this time, pt states he wants to talk with the doctor. advised, states he will go talk with him as soon as he gets a chance. 1345 1400; Pt talking with security, states he is going home and if not home then to senior living. Pt advised he is unable to go to senior living or home at this time since he is a hold. Pt getting angry, insists he will walk past security. advised, new verbal orders given. Sarika Rn entered room to find pt sitting on the bed, pt agreed to take IM medication.
--- NOTE | 2021-03-18 16:49 | PC.NURSE ---
Report called to , given to BAKARI Alvarado
--- NOTE | 2021-03-18 16:54 | W.ED.PSYCH ---
HPI - Psych General: Chief Complaint: Psychiatric Symptoms Stated Complaint: HI, PSYCH EVAL Time Seen by Provider: 03/18/21 07:12 Source: patient and EMS Mode of arrival: EMS History of Present Illness: Duration: other (Improving) Relieving factors: other (time) Exacerbating factors: other (Anger management problem) Treatments prior to arrival: none PFSH ED PFSH: Medical History Attention-deficit hyperactivity disorder, combined type Bipolar disorder, unspecified Generalized anxiety disorder Intermittent explosive disorder Mild intellectual disabilities On valproic acid therapy Psychiatric care Social History Smoking and tobacco status: never smoked Smoking risk assessment/counseling performed?: Yes Tobacco counseling given: counseling >3 minutes Course Vital Signs: Vital signs: Vital Signs Temperature 97.6 F 03/18/21 07:30 Pulse Rate 97 03/18/21 07:07 Respiratory Rate 16 03/18/21 07:30 Blood Pressure 133/83 03/18/21 07:07 Pulse Oximetry 97 03/18/21 07:07 MDM - Psych MDM Narrative: Medical decision making narrative: 1650: Patient tolerated Haldol and Ativan well. He is calm and awake. Lab Data: Labs: Lab Results 03/18/21 03/18/21 03/18/21 07:30 07:30 07:30 WBC 4.0 10^3/uL 10^3/ uL (4.0-10.0) RBC 5.00 10^6/uL 10^6 /uL (4.1-5.3) Hgb 15.2 g/dL g/dL (11.7-16.6) Hct 43.8 % % (42.0-52.0) MCV 87.6 fl fl (80-94) MCH 30.4 pg pg (28.0-34.0) MCHC 34.7 g/dL g/dL (30.0-36.0) RDW 13.6 % % (12.1-15.1) Plt Count 175 10^3/cmm 10^3 /cmm (130-400) MPV 12.3 fL H fL (7.4-10.4) Neut % (Auto) 53.1 % % Lymph % (Auto) 34.1 % % [place] % (Auto) 10.4 % % Eos % (Auto) 1.2 % % Baso % (Auto) 0.2 % % Neut # (Auto) 2.13 10^3/uL 10^3 /uL (1.8-7.7) Lymph # (Auto) 1.4 10^3/uL 10^3/ uL (0.8-4.8) [place] # (Auto) 0.4 10^3/uL 10^3/ uL (0.2-0.9) Eos # (Auto) 0.1 10^3/uL 10^3/ uL (0.0-0.8) Baso # (Auto) 0.0 10^3/uL 10^3/ uL (0.0-0.1) Nucleated RBC % (a uto) 0 % % Nucleated RBCs # 0.0 /100WBC /100W BC Sodium 130 mmol/L L mmol /L (136-145) Potassium 3.4 mmol/L L mmol /L (3.5-5.1) Chloride 89 mmol/L L mmol/ L (98-107) Carbon Dioxide 24 mmol/L mmol/L (22-29) Anion Gap 20.4 H (5-19) BUN 9 mg/dL mg/dL (6-20) Creatinine 0.7 mg/dL mg/dL (0.7-1.2) GFR Calculation 137.4 mL/min H mL /min (90-130) Glucose 437 mg/dL H mg/dL (65-115) POC Glucose Calculated Osmolal ity 287 mOsm/kg mOsm/ kg (285-295) Calcium 9.3 mg/dL mg/dL (8.5-10.5) Total Bilirubin 0.2 mg/dL mg/dL (0.15-1.2) AST 9 U/L U/L (0-40) ALT 8 U/L U/L (0-41) Alkaline Phosphata se 76 IU/L IU/L (40-130) Total Protein 7.7 g/dL g/dL (6.6-8.7) Albumin 4.1 g/dL g/dL (3.5-5.2) Globulin 3.6 g/dL g/dL (1.3-4.6) TSH 2.77 uIU/mL uIU/m L (0.27-4.20) Urine Color Straw (Yellow) Urine Appearance Clear (CLEAR) Urine pH 5 (5-7) Ur Specific Gravit y 1.010 (1.005-1.030) Urine Protein Neg (Negative) Urine Glucose (UA) 4+ H (Normal) Urine Ketones 2+ H (Negative) Urine Blood Neg (Negative) Urine Nitrate Negative (Negative) Urine Bilirubin Neg (Negative) Urine Urobilinogen Norm mg/dL mg/dL (Negative) Ur Leukocyte Cinthya ase Negative (Negative) Salicylates 0.4 mg/dL L mg/dL (3-10) Urine Opiates Scre en Acetaminophen < 5.0 ug/mL L ug/ mL (10-30) Ur Barbiturates Sc reen Valproic Acid 46.1 ug/mL L ug/m L (50-100) Ur Phencyclidine S crn Ur Amphetamines Sc reen U Benzodiazepines Scrn Urine Cocaine Scre en U Marijuana (THC) Screen Ethyl Alcohol < 10 mg/dL mg/dL (0-10) SARS-CoV-2 Ag (Rap id) 03/18/21 03/18/21 03/18/21 07:30 09:54 12:18 WBC RBC Hgb Hct MCV MCH MCHC RDW Plt Count MPV Neut % (Auto) Lymph % (Auto) [place] % (Auto) Eos % (Auto) Baso % (Auto) Neut # (Auto) Lymph # (Auto) [place] # (Auto) Eos # (Auto) Baso # (Auto) Nucleated RBC % (a uto) Nucleated RBCs # Sodium Potassium Chloride Carbon Dioxide Anion Gap BUN Creatinine GFR Calculation Glucose POC Glucose 228 mg/dL H mg/dL (70-110) Calculated Osmolal ity Calcium Total Bilirubin AST ALT Alkaline Phosphata se Total Protein Albumin Globulin TSH Urine Color Urine Appearance Urine pH Ur Specific Gravit y Urine Protein Urine Glucose (UA) Urine Ketones Urine Blood Urine Nitrate Urine Bilirubin Urine Urobilinogen Ur Leukocyte Cinthya ase Salicylates Urine Opiates Scre en Negative ng/mL ng /mL (Negative) Acetaminophen Ur Barbiturates Sc reen Negative ng/mL ng /mL (Negative) Valproic Acid Ur Phencyclidine S crn Negative ng/mL ng /mL (Negative) Ur Amphetamines Sc reen Negative ng/mL ng /mL (Negative) U Benzodiazepines Scrn Negative ng/mL ng /mL (Negative) Urine Cocaine Scre en Negative ng/mL ng /mL (Negative) U Marijuana (THC) Screen Negative ng/mL ng /mL (Negative) Ethyl Alcohol SARS-CoV-2 Ag (Rap id) Negative (Negative) Discharge Plan Discharge Patient Disposition: Admitted As Inpatient Admit Provider: Matty Montesinos Clinical Impression: Major depress dis, severe, Suicidal ideation, Dehydration, mild Type 2 diabetes mellitus Qualifiers: Diabetes mellitus intermediate insulin use: without intermediate use Diabetes mellitus complication status: with hyperglycemia Qualified Code(s): E11.65 - Type 2 diabetes mellitus with hyperglycemia Condition: Stable Discharge Diet: Diabetic Discharge Activity: Resume usual activity Coding Level of Care Code ED Senior C Web Developer for Caron Crane
[2021-03-18 17:34] VITALS: BP 117/84; PULSE 91; RESP 18; TEMP 36.6; O2SAT 98
[2021-03-18 19:14] LABS: Estmated Average Glucose 275; Hemoglobin A1C 11.2 % (4.0-6.0)
[2021-03-18] MEDS: hyDROXYzine 25 mg Capsule 100 MG PO (21:17)
[2021-03-18] MEDS: topiramate 100 mg Tablet PO (21:18)
[2021-03-18] MEDS: divalproex DR 500 mg Tablet PO (21:18)
[2021-03-18] MEDS: CLONazepam 1 mg Tablet PO (21:18)
[2021-03-18] MEDS: quetiapine 100 mg Tablet 400 MG PO (21:19)
[2021-03-18 21:21] VITALS: BP 157/89; PULSE 72; RESP 17; TEMP 36.6; O2SAT 99
[2021-03-18 22:00] LABS: Glucose Point of Care > 600 mg/dL (70-110)
[2021-03-18 22:00] LABS: Glucose Point of Care > 600 mg/dL (70-110)
[2021-03-18] MEDS: insulin lispro 100 unit/1 mL 15 UNIT SUBCUT (22:41)
--- NOTE | 2021-03-18 23:09 | PC.NURSE ---
At 2218 hrs this Nurse phoned Dr. Montesinos regarding pt's blood sugar. BS would not register on the glucometer and pt had eaten several small containers of ice cream at snack. Dr Montesinos referred this Nurse to the Hospitalist Dr. Garcia who ordered Stat CMP and 15 Units Lispro SC. Patient has no complaints at this time. Will continue to monitor.
[2021-03-18 23:47] LABS: Alanine Aminotransferase 6 U/L (0-41); Albumin Level 3.6 g/dL (3.5-5.2); Alkaline Phosphatase 59 IU/L (40-130); Anion Gap 17.1 (5-19); Aspartate Amino Transferase 6 U/L (0-40); Blood Urea Nitrogen 12 mg/dL (6-20); Calcium 8.9 mg/dL (8.5-10.5); Carbon Dioxide 23 mmol/L (22-29); Chloride 95 mmol/L (98-107); Globulin 2.7 g/dL (1.3-4.6); Glomerular Filtration Rate 202.6 mL/min (90-130); Osmolality Calculated 296 mOsm/kg (285-295); Potassium 4.1 mmol/L (3.5-5.1); Sodium 131 mmol/L (136-145); Total Bilirubin 0.2 mg/dL (0.15-1.2); Total Protein 6.3 g/dL (6.6-8.7)
[2021-03-18 23:52] LABS: Glucose 529 mg/dL (65-115)
[2021-03-19 00:14] LABS: Glucose Point of Care 410 mg/dL (70-110)
[2021-03-19] MEDS: insulin lispro 100 unit/1 mL 8 UNIT SUBCUT (00:37)
--- NOTE | 2021-03-19 01:07 | P.CONIM_ITS ---
Providers/Reason For Consult Consulting Physician/Specialty*: Ingrid Garcia MD/Hospitalist Reason for Consult*: diabetes management Attending Physician: Matty Montesinos MD History of Present Illness History of Present Illness Ángel Calloway is a 25 year old male currently admitted to the neuropsychiatry unit for violent behavior and homicidal thoughts. He has a history of diabetes mellitus, outpatient on sitagliptin, liraglutide, last HbA1c at 11.2. Hospitalist services consulted to assist with diabetes management. At the time of my assessment this evening, patient's blood sugar is greater than 600, unable to be measured on a glucometer. Stat CMP was then ordered which showed a blood sugar of 529, pseudohyponatremia with sodium 131, anion gap of 17, which is within normal range. His HbA1c from earlier this morning is at 11.2 consistent with poorly controlled diabetes mellitus. Review of Systems General: Reports: 10 or more systems reviewed and unremarkable except in HPI and below Const: Denies: fever(s), chills or body aches Eyes: Denies: change in vision, blurry vision or photophobia ENMT: Reports: hoarseness; Denies: throat pain, enlarged tonsils, odynophagia or nasal congestion Card: Denies: chest pain, palpitations, irregular heart rhythm, edema, swelling of feet/ankles, lightheadedness, pre-syncope, dyspnea on exertion or orthopnea Resp: Denies: dyspnea, productive cough, non-productive cough, wheezing, stridor, pain on inspiration, change in phlegm color, hemoptysis or chest congestion GI: Denies: abdominal pain, nausea, vomiting, hematemesis, coffee ground emesis, dysphagia, heartburn, diarrhea, constipation, GI cramping, change in stool character, hematochezia or melena : Denies: flank pain, dysuria, urinary frequency, urinary urgency, urinary hesitancy or hematuria Musc: Denies: neck pain, back pain, extremity pain, joint swelling, joint warmth or deformity Neuro: Denies: headache(s), numbness in extremities, weakness in extremities, sensory changes, difficulty walking, frequent falls, dizziness, vertigo, behavioral changes, Slurred speech present or seizure-like activity Psych: Denies: anxiety, depression, suicidal ideation or homicidal ideation Endo: Denies: polyuria, polydipsia, tired all the time, cold intolerance or hot flashes Harshad/Lymph: Denies: easy bruising or easy bleeding Meds/Allergies Home Medications and Allergies Home Medications Medication Instructions Recorded Confirmed Last Taken Type hydrochlorothiazide 25 mg tablet 25 mg PO DAILY@08 05/30/19 03/18/21 03/17/21 History loperamide 2 mg tablet 4 mg PO PRN PRN MDD 8 tabs 12/18/19 03/18/21 Unknown History multivitamin 1 tab PO DAILY@08 08/25/20 03/18/21 03/17/21 History sitagliptin 100 mg tablet 100 mg PO DAILY@08 tab 08/25/20 03/18/21 03/17/21 History fluticasone propionate 1 spray INTRANASAL DAILY@08 12/17/20 03/18/21 03/17/21 History polyethylene glycol 3350 [Miralax] 17 g PO DAILY PRN 12/17/20 03/18/21 Unknown History terbinafine HCl 1 applic TOPICAL PRN 12/17/20 03/18/21 01/01/21 09:00 History triamcinolone acetonide 1 applic TOPICAL PRN 12/17/20 03/18/21 01/01/21 09:00 History white petrolatum [Petroleum Jelly] 1 applic TOPICAL PRN 12/17/20 03/18/21 01/01/21 09:00 History liraglutide 0.6 mg/0.1 mL (18 mg/3 1.8 mg SUBCUT DAILY 01/10/21 03/18/21 03/17/21 History mL) subcutaneous pen injector clonazepam 1 mg tablet 1 mg PO BID@ #60 tab 03/16/21 03/18/21 03/17/21 Rx desmopressin 0.2 mg tablet 0.2 mg PO BEDTIME #30 tab 03/16/21 03/18/21 03/17/21 Rx divalproex 500 mg tablet,delayed 500 mg PO .COMPLEX #150 tab 03/16/21 03/18/21 03/17/21 Rx release quetiapine 100 mg tablet 100 mg PO BID #60 tab 03/16/21 03/18/21 03/17/21 Rx quetiapine 200 mg tablet 400 mg PO BEDTIME@20 #60 tab 03/16/21 03/18/21 03/17/21 Rx topiramate 100 mg tablet 100 mg PO TID@08,,20 #90 tab 03/16/21 03/18/21 03/18/21 Rx hydroxyzine HCl 100 mg PO BEDTIME 03/18/21 03/18/21 03/17/21 History Allergies Allergy/AdvReac Type Severity Reaction Status Date / Time olanzapine Allergy Unknown Verified 03/16/21 09:47 risperidone Allergy Unknown Verified 03/16/21 09:47 Current Medications Current Medications Generic Name Dose Route Start Last Admin Trade Name Hellen PRN Reason Stop Dose Admin Clonazepam 1 mg 03/18/21 20:00 03/18/21 21:18 Clonazepam 1 Mg Tablet PO 1 mg BID@, JULIANA Administration Desmopressin Acetate 0.2 mg 03/18/21 21:00 03/18/21 22:02 Desmopressin 0.2 Mg Tablet PO 0.2 mg BEDTIME JULIANA Administration Divalproex Sodium 500 mg 03/18/21 21:00 03/18/21 21:[address] 500 Mg Tablet PO 500 mg BEDTIME JULIANA Administration Hydroxyzine Pamoate 100 mg 03/18/21 21:00 03/18/21 21:17 Hydroxyzine 25 Mg Capsule PO 100 mg BEDTIME JULIANA Administration Sodium Chloride 2,000 mls @ 1,000 mls/hr 03/18/21 10:00 03/18/21 22:39 Sodium Chloride 0.9% IV Not Given .Q2H JULIANA Quetiapine Fumarate 400 mg 03/18/21 20:00 03/18/21 21:19 Quetiapine 100 Mg Tablet PO 400 mg BEDTIME@20 JULIANA Administration Topiramate 100 mg 03/18/21 20:00 03/18/21 21:18 Topiramate 100 Mg Tablet PO 100 mg TID@08,,20 JULIANA Administration PFSH Acute PFSH: Medical History Attention-deficit hyperactivity disorder, combined type Bipolar disorder, unspecified Generalized anxiety disorder Intermittent explosive disorder Mild intellectual disabilities On valproic acid therapy Psychiatric care Social History Smoking and tobacco status: never smoked Smoking risk assessment/counseling performed?: Yes Tobacco counseling given: counseling >3 minutes Vitals/I&O/Wt Last Vital Signs Temp 97.9 F 03/18/21 21:21 Pulse 72 03/18/21 21:21 Resp 17 03/18/21 21:21 BP 157/89 03/18/21 21:21 Pulse Ox 99 03/18/21 21:21 Weight last 48 hrs Weight 126.099 kg Physical Exam Narrative: EXAM NARRATIVE: GEN: Awake, alert and oriented, no acute distress CVS: S1S2 N RS: CTA B/L Abd: Soft, nt/nd , bs+ COMBINATION TECHNICIAN: no focal neuro deficits A&P Assessment and plan (1) Uncontrolled diabetes mellitus with hyperglycemia: Patient with uncontrolled diabetes mellitus with hyperglycemia currently with blood sugar at 529 on CMP, too high to be read via glucometer earlier. No current signs of ketoacidosis or hyperosmolar state. Anion gap is within range at 17. Given 15 units of insulin lispro after first blood sugar check which was greater than 600. He has additionally been started on high-dose insulin sliding scale. After 15 units insulin, appropriate glycemic response with trend down to BS 410. Every 2 hour Accu-Cheks tonight, further recommendations based on blood sugar trend tonight Based on 24 hr insulin requirements, will likely transition to long acting + pre meal insulin. 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
[2021-03-19 02:47] LABS: Glucose Point of Care 265 mg/dL (70-110)
[2021-03-19 04:52] LABS: Glucose Point of Care 243 mg/dL (70-110)
[2021-03-19 06:00] VITALS: BP 125/78; PULSE 73; RESP 15; TEMP 36.5; O2SAT 97
[2021-03-19 07:08] LABS: Glucose Point of Care 219 mg/dL (70-110)
--- NOTE | 2021-03-19 09:16 | PM.PN ---
Subjective Subjective: Interval history: Patient seen [facility]. today. Blood sugars better controlled early in the morning today but went up again. Reported by nurses for having multiple snacks during the day most likely secondary to his baseline ADHD and intellectual disability. Has been told the plan will be to discharge as per primary team. 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 A1c reported to be 11.2. No anion gap on BMP. Can continue home dose of liraglutide. Add glimepiride 2 mg twice daily, Metformin 1000 mg twice daily. Can discharge on Lantus 10 units at bedtime. Will advise patient to check blood sugars twice daily at home and maintain a blood sugar diary to follow-up with his primary care provider within next 2 weeks for further adjustment of hypoglycemics. Discussed in detail regarding lifestyle modifications. Status: Acute (2) Attention-deficit hyperactivity disorder, combined type: Status: Acute (3) Mild intellectual disabilities: Status: Chronic Attestations Medical Necessity Statement*: As per primary team. Time Spent in Patient Care: Greater than 35 minutes (>than 50% of time spent in counselling and/or direct pt care on unit). Coding Level of Care Code Acute Investigator Internal Revenue for [facility] Diagnoses Uncontrolled diabetes mellitus with hyperglycemia E11.65 Attention-deficit hyperactivity disorder, combined type F90.2 Mild intellectual disabilities F70
[2021-03-19] MEDS: insulin lispro 100 unit/1 mL SUBCUT ×2 (09:41→11:43)
[2021-03-19 09:43] LABS: Iron 85 ug/dL (59-158); Percent Saturation 28.5 % (20-50); Total Iron Binding Capacity 298 mcg/dl; Unsaturated Iron Binding 213 ug/dL (112-347)
[2021-03-19 09:44] LABS: Anion Gap 14.8 (5-19); Blood Urea Nitrogen 10 mg/dL (6-20); Calcium 9.4 mg/dL (8.5-10.5); Carbon Dioxide 23 mmol/L (22-29); Chloride 100 mmol/L (98-107); Glomerular Filtration Rate 202.6 mL/min (90-130); Glucose 333 mg/dL (65-115); Osmolality Calculated 290 mOsm/kg (285-295); Potassium 3.8 mmol/L (3.5-5.1); Sodium 134 mmol/L (136-145)
[2021-03-19] MEDS: fluticasone nasal spray 16gm Btl 1 SPRAY INTRANASAL (09:44)
[2021-03-19] MEDS: CLONazepam 1 mg Tablet PO (09:46)
[2021-03-19] MEDS: multivitamin therapeutic Tablet 1 TAB PO (09:46)
[2021-03-19] MEDS: topiramate 100 mg Tablet PO ×2 (09:46→12:59)
[2021-03-19] MEDS: glimepiride 2 mg Tablet PO (09:46)
[2021-03-19] MEDS: hydroCHLOROthiazide 25 mg Tablet PO (09:47)
[2021-03-19] MEDS: divalproex DR 500 mg Tablet 1000 MG PO ×2 (09:47→12:59)
[2021-03-19] MEDS: quetiapine 100 mg Tablet PO (09:47)
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
[2021-03-19 11:39] LABS: Glucose Point of Care 476 mg/dL (70-110)
[2021-03-19] MEDS: nicotine 2 mg Gum BUCCAL (12:18)
[2021-03-19 13:46] VITALS: BP 110/61; PULSE 20; RESP 97; TEMP 35.9
== END 2021-03-19 14:25 | disposition home or self-care (01) ==
LOC: ER 16:24 → NP 03-19 03:06
PROVIDERS: Student in an Organized Health Care Education/Training Program; Admitting Provider Psychiatry & Neurology Child & Adolescent Psychiatry; Emergency Provider Family Medicine; Visit Provider Psychiatry & Neurology Child & Adolescent Psychiatry
DX: F41.1 Generalized anxiety disorder (principal); E11.65 Type 2 diabetes mellitus with hyperglycemia; R45.851 Suicidal ideations; E86.0 Dehydration; F31.9 Bipolar disorder, unspecified; F90.2 Attention-deficit hyperactivity disorder, combined type; F70 Mild intellectual disabilities; R45.850 Homicidal ideations; Z79.84 Long term (current) use of oral hypoglycemic drugs
CPT/HCPCS: 36416; 80048; 80053; 80164; 80306; 80307; 81003; 82962; 83036; 83540; 83550; 84443; 85025; 87426; 93005; 96372; 96374; 99285; 99291; G0378; J1630; J1815; J2060; J7030

== ENCOUNTER → 2021-03-23 14:08 | Outpatient (BNVA) | payer MEDICAID, SELFPAY | PROVIDERS: Visit Provider Counselor Mental Health | DX: F31.9 Bipolar disorder, unspecified (principal); F63.81 Intermittent explosive disorder; F32.9 Major depressive disorder, single episode, unspecified; F43.12 Post-traumatic stress disorder, chronic | CPT/HCPCS: 90834 ==

== ENCOUNTER 2021-04-04 06:03 | Inpatient (IN) | payer MEDICAID, SELFPAY ==
[2021-04-04 06:05] VITALS: BP 118/82; PULSE 93; RESP 18; TEMP 36.9; O2SAT 95; BMI 32.1
[2021-04-04 06:20] LABS: Basophils % 0.9 %; Eosinophils % 0.9 %; Hematocrit 45.7 % (42.0-52.0); Lymphocytes # 1.2 10^3/uL (0.8-4.8); Lymphocytes % 26.2 %; Mean Corpuscular HGB Conc 32.8 g/dL (30.0-36.0); Mean Corpuscular Hemoglobin 30.2 pg (28.0-34.0); Mean Platelet Volume 11.6 fL (7.4-10.4); Monocytes # 0.4 10^3/uL (0.2-0.9); Monocytes % 9.2 %; Neutrophils # 2.91 10^3/uL (1.8-7.7); Neutrophils % 61.9 %; Nucleated Red Blood Cells % 0 %; Platelet Count 217 10^3/cmm (130-400); Red Blood Count 4.97 10^6/uL (4.1-5.3); Red Cell Distribution Width 13.8 % (12.1-15.1); White Blood Count 4.7 10^3/uL (4.0-10.0)
[2021-04-04 06:40] LABS: Alanine Aminotransferase 9 U/L (0-41); Albumin Level 4.1 g/dL (3.5-5.2); Alkaline Phosphatase 59 IU/L (40-130); Anion Gap 14.8 (5-19); Aspartate Amino Transferase 6 U/L (0-40); Blood Urea Nitrogen 11 mg/dL (6-20); Carbon Dioxide 22 mmol/L (22-29); Chloride 102 mmol/L (98-107); Globulin 3.2 g/dL (1.3-4.6); Glucose 200 mg/dL (65-115); Osmolality Calculated 285 mOsm/kg (285-295); Potassium 3.8 mmol/L (3.5-5.1); Sodium 135 mmol/L (136-145); Total Bilirubin 0.2 mg/dL (0.15-1.2); Total Protein 7.3 g/dL (6.6-8.7)
[2021-04-04 06:41] LABS: Acetaminophen < 5.0 ug/mL (10-30); Salicylate < 0.3 mg/dL (3-10)
--- NOTE | 2021-04-04 07:04 | ED.C_ITS ---
HPI - Psych General: Chief Complaint: Psychiatric Symptoms Stated Complaint: SI Time Seen by Provider: 04/04/21 06:10 History of Present Illness: HPI Narrative: 26-year-old male presents emergency room from a snf. He became agitated and upset at some of the staff threatened to harm himself with a hair tremors. He did not actually harm himself. He has had this happen several times in the past he has explosive anger outburst. Time I see him he denies any suicidal homicidal ideation he is calm down and is very cooperative. MD complaint: suicidal ideation Onset (ago): minute(s) Duration: intermittent and resolved prior to arrival History of same: Yes Relieving factors: none Exacerbating factors: none Associated symptoms: Deny auditory hallucinations, visual hallucinations, delusions or racing thoughts Treatments prior to arrival: none If self harm: admits thoughts of self harm Review of Systems Const: Denies: fever(s), chills, body aches, change in appetite, fatigue or malaise ENMT: Denies: throat pain, ear or mastoid pain, nasal discharge or nasal congestion Card: Denies: chest pain, edema, dyspnea on exertion or orthopnea Resp: Denies: dyspnea, productive cough or non-productive cough GI: Denies: abdominal pain, nausea, vomiting, hematemesis, coffee ground emesis, diarrhea, constipation, bloating, hematochezia or melena : Denies: flank pain, dysuria, urinary frequency or urinary urgency Skin/Breast: Denies: rash or pruritus Psych: Denies: visual hallucinations or auditory hallucinations [facility] ED PFSH: Medical History Attention-deficit hyperactivity disorder, combined type Bipolar disorder, unspecified Generalized anxiety disorder Intermittent explosive disorder Mild intellectual disabilities On valproic acid therapy Psychiatric care Social History Smoking and tobacco status: never smoked Smoking risk assessment/counseling performed?: Yes Tobacco counseling given: counseling >3 minutes Physical Exam Const: COMMON NORMALS: no acute distress GENERAL APPEARANCE: cooperative and comfortable ORIENTATION/CONSCIOUSNESS: Yes awake HENMT: COMMON NORMALS: normocephalic, atraumatic and hearing grossly normal bilaterally HEAD & SCALP: normocephalic and atraumatic Neck/C-Spine: COMMON NORMALS: no JVD Resp: COMMON NORMALS: normal respiratory effort, No retractions, No use of accessory muscles and clear to auscultation bilaterally AUSCULTATION: clear to auscultation bilaterally Cardio: COMMON NORMALS: no JVD, regular rate, regular rhythm and No murmurs present (Cardio) RATE: regular rate RHYTHM: regular rhythm GI: COMMON NORMALS: Soft to palpation and No hepatosplenomegaly present AUSCULTATION: Yes normoactive bowel sounds PALPATION: Yes Soft to palpation, No Tenderness to palpation present (GI), No Guarding due to palpation present (GI) and Yes No hepatosplenomegaly present Extremity: COMMON NORMALS: normal to inspection, capillary refill normal, no clubbing, cyanosis or edema, no calf tenderness and no pedal edema Psych: THOUGHT CONTENT: No delusions Skin: COMMON NORMALS: no rashes or lesions noted GENERAL SKIN EXAM: no rashes or lesions noted Course Vital Signs: Vital signs: Vital Signs Temperature 98.4 F 04/04/21 06:05 Pulse Rate 93 04/04/21 06:05 Respiratory Rate 18 04/04/21 06:05 Blood Pressure 118/82 04/04/21 06:05 Pulse Oximetry 95 04/04/21 06:05 MDM - Psych MDM Narrative: Medical decision making narrative: Discussed with Dr. Khoury he would like to keep the patient on alps for a time. Orders written to admit to psychiatry. Lab Data: Labs: Lab Results 04/04/21 04/04/21 04/04/21 06:15 06:15 06:44 WBC 4.7 10^3/uL 10^3/ uL (4.0-10.0) RBC 4.97 10^6/uL 10^6 /uL (4.1-5.3) Hgb 15.0 g/dL g/dL (11.7-16.6) Hct 45.7 % % (42.0-52.0) MCV 92.0 fl fl (80-94) MCH 30.2 pg pg (28.0-34.0) MCHC 32.8 g/dL g/dL (30.0-36.0) RDW 13.8 % % (12.1-15.1) Plt Count 217 10^3/cmm 10^3 /cmm (130-400) MPV 11.6 fL H fL (7.4-10.4) Neut % (Auto) 61.9 % % Lymph % (Auto) 26.2 % % [place] % (Auto) 9.2 % % Eos % (Auto) 0.9 % % Baso % (Auto) 0.9 % % Neut # (Auto) 2.91 10^3/uL 10^3 /uL (1.8-7.7) Lymph # (Auto) 1.2 10^3/uL 10^3/ uL (0.8-4.8) [place] # (Auto) 0.4 10^3/uL 10^3/ uL (0.2-0.9) Eos # (Auto) 0.0 10^3/uL 10^3/ uL (0.0-0.8) Baso # (Auto) 0.0 10^3/uL 10^3/ uL (0.0-0.1) Nucleated RBC % (a uto) 0 % % Nucleated RBCs # 0.0 /100WBC /100W BC Sodium 135 mmol/L L mmol /L (136-145) Potassium 3.8 mmol/L mmol/L (3.5-5.1) Chloride 102 mmol/L mmol/L (98-107) Carbon Dioxide 22 mmol/L mmol/L (22-29) Anion Gap 14.8 (5-19) BUN 11 mg/dL mg/dL (6-20) Creatinine 0.4 mg/dL L mg/dL (0.7-1.2) GFR Calculation 260.0 mL/min H mL /min (90-130) Glucose 200 mg/dL H mg/dL (65-115) Calculated Osmolal ity 285 mOsm/kg mOsm/ kg (285-295) Calcium 9.0 mg/dL mg/dL (8.5-10.5) Total Bilirubin 0.2 mg/dL mg/dL (0.15-1.2) AST 6 U/L U/L (0-40) ALT 9 U/L U/L (0-41) Alkaline Phosphata se 59 IU/L IU/L (40-130) Total Protein 7.3 g/dL g/dL (6.6-8.7) Albumin 4.1 g/dL g/dL (3.5-5.2) Globulin 3.2 g/dL g/dL (1.3-4.6) Urine Color Yellow (Yellow) Urine Appearance Clear (CLEAR) Urine pH 7 (5-7) Ur Specific Gravit y 1.005 (1.005-1.030) Urine Protein Neg (Negative) Urine Glucose (UA) 4+ H (Normal) Urine Ketones Negative (Negative) Urine Blood Neg (Negative) Urine Nitrate Negative (Negative) Urine Bilirubin Neg (Negative) Urine Urobilinogen Norm mg/dL mg/dL (Negative) Ur Leukocyte Cinthya ase Negative (Negative) Salicylates < 0.3 mg/dL L mg/ dL (3-10) Acetaminophen < 5.0 ug/mL L ug/ mL (10-30) Discharge Plan Discharge Admit Provider: Jaquan Khoury Clinical Impression: Suicidal ideation, Intermittent explosive disorder, Type 2 diabetes mellitus, Mild intellectual disabilities, Attention-deficit hyperactivity disorder, combined type Condition: Stable Coding Level of Care Code ED Director Of Sales And Marketing for Alexg Fwd Exam Comprehensive
[2021-04-04 07:12] LABS: Add Urine Microscopic? NO; Charge for UA Resulting for Rev
[2021-04-04 07:15] LABS: Bilirubin Urine Neg (Negative); Blood Urine Neg (Negative); Glucose Urine UA 4+ (Normal); Ketones Urine Negative (Negative); Leukocyte Esterase Urine Negative (Negative); Nitrate Urine Negative (Negative); Protein Urine Neg (Negative); Specific Gravity, Urine 1.005 (1.005-1.030); Urine Appearance Clear (CLEAR); Urine Color Yellow (Yellow); Urobilinogen Urine Norm (Negative); pH Urine 7 (5-7)
[2021-04-04 09:49] VITALS: BP 123/89; PULSE 89; RESP 14; O2SAT 98
[2021-04-04 10:04] VITALS: BP 134/86; PULSE 92; RESP 18; TEMP 36.6; O2SAT 93
[2021-04-04 14:00] VITALS: BP 117/82; PULSE 95; RESP 20; TEMP 36.7; O2SAT 93
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
[2021-04-04] MEDS: nicotine 2 mg Gum BUCCAL (17:45)
[2021-04-04 20:39] VITALS: BP 122/80; PULSE 90; RESP 17; TEMP 37.1; O2SAT 98
[2021-04-05 05:52] LABS: Glucose Point of Care 226 mg/dL (70-110)
[2021-04-05 05:53] VITALS: BP 131/90; PULSE 84; RESP 17; TEMP 36.7; O2SAT 98
--- NOTE | 2021-04-05 05:54 | PC.NURSE ---
charge nurse and PULLING MACHINE OPERATOR notified of pts blood glucose of 226
[2021-04-05] MEDS: nicotine 2 mg Gum BUCCAL ×4 (07:49→17:45)
--- NOTE | 2021-04-05 11:47 | NPU.GN ---
[facility] Group Topic:Grounding Thoughts, Coping Skills General Mood of Group: Ángel did very well and attended group today. Ángel was social and in a good mood today.
[2021-04-05 14:00] VITALS: BP 111/77; PULSE 84; RESP 17; TEMP 36.2; O2SAT 98
--- NOTE | 2021-04-05 15:07 | P.NPUPN_ITS ---
Subjective NPU Subjective: Interval history: Patient presents today reporting that he left to be discharged. We discussed that we would monitor him for likely 1 more day as referral go out to evaluate the availability of resources. He was very focused on when he would be discharged and denied any problems and had no negative reports from staff. He reports that he is eating and sleeping fine and talk to his people at his ISL about the situation. He reports that they advised him that he would likely be coming home but that if he acted out again he would probably be transferred to a locked facility. Mental Status Exam MSE Comments: acute distress. Speech was dysarthric and child-like, and dec reased rate and volume. Mood described as much better; affect congruent. Thought process, organized. Thought content: patient denied any suicidal or homicidal ideation, there were no delusions reported or noted, patient denied any auditory or visual hallucinations. Attention, concentration, and memory appeared intact but were not formally tested. Alert and oriented times three. Insight and judgment are limited. Impulse control is limited and intellectual ability impaired. Vitals/I&O/Wt Last Vital Signs Temp 97.2 F L 04/05/21 14:00 Pulse 84 04/05/21 14:00 Resp 17 04/05/21 14:00 BP 111/77 04/05/21 14:00 Pulse Ox 98 04/05/21 14:00 Data NPU : 04/04/21 06:15 04/04/21 06:15 A&P Additional A&P Information (1) Suicidal ideation: (2) Type 2 diabetes mellitus: (3) Bipolar disorder, unspecified: (4) Intermittent explosive disorder: (5) On valproic acid therapy: (6) Depression: (7) Attention-deficit hyperactivity disorder, combined type: (8) Mild intellectual disabilities: Additional A&P Information This is a 24 year old, white male, with a long history of intellectual disability, mild versus moderate, attention deficit hyperactivity disorder, combined type, and depression, who presents with recent behavioral disturbance at his [facility]L. Continue current medication. Will continue to monitor for appropriateness for discharge. Continue individual, group, and milieu therapy. Continue q 15-minute checks for safety. Will work with treatment team to find appropriate time for safe discharge. We will see if there are any available beds that would provide an improvement on his current living arrangement. However there is nothing available we will leave those referrals out there and his outpatient providers at the IS will need to follow-up with those. Involuntary Hold Information 96 Hour Hold: 96 Hour Involuntary Admission: No 96 Hour Hold Ending Date: 03/24/21 96 Hour Hold Ending Time: 23:11 Attestations NPU Medical Necessity Statement*: Inpatient hospitalization is medically necessary, and the clinically appropriate intervention at this time. We will evaluate his medications and restart and monitor, and make changes as indicated. Likely length of stay 1-2 days. Coding Level of Care Code Acute Supervisor Marble for Caron Crane
[2021-04-05 20:31] VITALS: BP 136/59; PULSE 97; RESP 18; O2SAT 97
[2021-04-06 06:00] VITALS: BP 128/85; PULSE 85; RESP 14; O2SAT 96
[2021-04-06] MEDS: nicotine 2 mg Gum BUCCAL ×2 (07:27→15:04)
[2021-04-06 07:44] LABS: Glucose Point of Care 179 mg/dL (70-110)
--- NOTE | 2021-04-06 12:46 | NPU.GN ---
[facility] Group Topic: Self Care Bingo/ Crisis Plan Work Sheet General Mood of Group: Ángel did attend and participate in group today. His demeanour was good and he was social in group with this manual writer and others. Ángel had a hard time comprehending the group activity and group materials as he needed extra assistance.
[2021-04-06] MEDS: topiramate 100 mg Tablet PO (13:37)
[2021-04-06] MEDS: divalproex DR 500 mg Tablet 1000 MG PO (13:37)
[2021-04-06 14:00] VITALS: BP 120/70; PULSE 79; RESP 17; TEMP 36.2; O2SAT 95
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
[2021-04-06 16:35] VITALS: BP 128/85; PULSE 85; RESP 14; TEMP 36.7; O2SAT 96
== END 2021-04-06 17:06 | disposition home or self-care (01) | DRG 883 ==
LOC: ER 06:41 → NP 09:13
PROVIDERS: Emergency Medicine; Admitting Provider Psychiatry & Neurology Psychiatry; Emergency Provider Family Medicine; Visit Provider Psychiatry & Neurology Psychiatry
DX: F63.81 Intermittent explosive disorder (principal); F33.9 Major depressive disorder, recurrent, unspecified; R45.851 Suicidal ideations; F90.2 Attention-deficit hyperactivity disorder, combined type; F41.1 Generalized anxiety disorder; F70 Mild intellectual disabilities; E11.9 Type 2 diabetes mellitus without complications; Z79.899 Other long term (current) drug therapy; Z79.84 Long term (current) use of oral hypoglycemic drugs; Z79.4 Long term (current) use of insulin
CPT/HCPCS: 36416; 80053; 80307; 81003; 82962; 85025; 97150; 97165; 99285; G0378

== ENCOUNTER → 2021-04-14 09:30 | Outpatient (BNVA) | payer MEDICAID, SELFPAY | PROVIDERS: Visit Provider Nurse Practitioner | DX: F31.9 Bipolar disorder, unspecified (principal); F63.81 Intermittent explosive disorder; F70 Mild intellectual disabilities; F17.210 Nicotine dependence, cigarettes, uncomplicated | CPT/HCPCS: 99214 ==

== ENCOUNTER → 2021-06-08 13:59 | Outpatient (BNVA) | payer MEDICAID, SELFPAY | PROVIDERS: Visit Provider Counselor Mental Health | DX: F31.9 Bipolar disorder, unspecified (principal); F63.81 Intermittent explosive disorder; F32.9 Major depressive disorder, single episode, unspecified | CPT/HCPCS: 90834 ==

== ENCOUNTER → 2021-06-23 11:47 | Outpatient (BNVA) | payer MEDICAID, SELFPAY | PROVIDERS: Visit Provider Counselor Mental Health | DX: F31.9 Bipolar disorder, unspecified (principal); F63.81 Intermittent explosive disorder; F32.9 Major depressive disorder, single episode, unspecified; F90.2 Attention-deficit hyperactivity disorder, combined type | CPT/HCPCS: 90834 ==

== ENCOUNTER → 2021-07-07 11:51 | Outpatient (BNVA) | payer MEDICAID, SELFPAY | PROVIDERS: Visit Provider Counselor Mental Health | DX: F31.9 Bipolar disorder, unspecified (principal); F63.81 Intermittent explosive disorder; F32.9 Major depressive disorder, single episode, unspecified; F90.2 Attention-deficit hyperactivity disorder, combined type | CPT/HCPCS: 90834 ==

== ENCOUNTER → 2021-07-12 09:39 | Outpatient (BNVA) | payer MEDICAID, SELFPAY | PROVIDERS: Visit Provider Nurse Practitioner | DX: F17.210 Nicotine dependence, cigarettes, uncomplicated (principal); F90.2 Attention-deficit hyperactivity disorder, combined type; F31.9 Bipolar disorder, unspecified; F63.81 Intermittent explosive disorder; F70 Mild intellectual disabilities | CPT/HCPCS: 99214 ==

== ENCOUNTER 2021-07-27 11:42 | Outpatient (CLI) | payer MEDICAID, SELFPAY ==
[2021-07-27 12:46] LABS: Alanine Aminotransferase 38 U/L (0-41); Albumin Level 4.7 g/dL (3.5-5.2); Alkaline Phosphatase 41 IU/L (40-130); Blood Urea Nitrogen 13 mg/dL (6-20); Calcium 9.4 mg/dL (8.5-10.5); Carbon Dioxide 25 mmol/L (22-29); Chloride 102 mmol/L (98-107); Globulin 2.8 g/dL (1.3-4.6); Glomerular Filtration Rate 162.9 mL/min (90-130); Glucose 100 mg/dL (65-115); Osmolality Calculated 288 mOsm/kg (285-295); Sodium 139 mmol/L (136-145); Total Bilirubin 0.3 mg/dL (0.15-1.2); Total Protein 7.5 g/dL (6.6-8.7)
[2021-07-27 12:49] LABS: Anion Gap 15.8 (5-19); Potassium 3.8 mmol/L (3.5-5.1)
[2021-07-27 12:50] LABS: Aspartate Amino Transferase 38 U/L (0-40)
== END 2021-07-27 11:43 | disposition home or self-care (01) ==
PROVIDERS: Visit Provider Podiatrist Foot & Ankle Surgery
DX: B35.1 Tinea unguium (principal)
CPT/HCPCS: 36415; 80053

== ENCOUNTER 2021-08-09 20:27 | Inpatient (IN) | payer MEDICAID, SELFPAY ==
[2021-08-09 20:31] VITALS: BP 159/120; PULSE 111; RESP 18; TEMP 36.2; O2SAT 96; BMI 39.7
[2021-08-09 20:51] VITALS: BP 159/120; PULSE 111; RESP 18; TEMP 36.2; O2SAT 96
[2021-08-09 20:59] LABS: Basophils # 0.1 10^3/uL (0.0-0.1); Basophils % 0.8 %; Eosinophils # 0.1 10^3/uL (0.0-0.8); Eosinophils % 1.5 %; Hemoglobin 16.4 g/dL (11.7-16.6); Lymphocytes # 2.4 10^3/uL (0.8-4.8); Lymphocytes % 32.5 %; Mean Corpuscular HGB Conc 32.8 g/dL (30.0-36.0); Mean Corpuscular Hemoglobin 29.9 pg (28.0-34.0); Mean Corpuscular Volume 91.2 fl (80-94); Mean Platelet Volume 11.5 fL (7.4-10.4); Monocytes # 0.7 10^3/uL (0.2-0.9); Monocytes % 9.3 %; Neutrophils # 3.91 10^3/uL (1.8-7.7); Neutrophils % 54.2 %; Nucleated Red Blood Cells % 0 %; Platelet Count 310 10^3/cmm (130-400); Red Blood Count 5.48 10^6/uL (4.1-5.3); Red Cell Distribution Width 13.6 % (12.1-15.1); White Blood Count 7.2 10^3/uL (4.0-10.0)
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
[2021-08-09 21:24] LABS: Amphetamines Screen Urine Negative (Negative); Barbiturates Screen Urine Negative (Negative); Benzodiazepines Screen Urine Negative (Negative); Cocaine Screen Urine Negative (Negative); Opiate Screen Urine Negative (Negative); PCP Screen Urine Negative (Negative); THC Screen Urine Negative (Negative)
[2021-08-09 21:31] LABS: Alanine Aminotransferase 36 U/L (0-41); Albumin Level 5.1 g/dL (3.5-5.2); Alkaline Phosphatase 43 IU/L (40-130); Aspartate Amino Transferase 29 U/L (0-40); Blood Urea Nitrogen 17 mg/dL (6-20); Calcium 10.1 mg/dL (8.5-10.5); Carbon Dioxide 22 mmol/L (22-29); Chloride 102 mmol/L (98-107); Globulin 3.2 g/dL (1.3-4.6); Glomerular Filtration Rate 136.3 mL/min (90-130); Glucose 162 mg/dL (65-115); Lipase 47 U/L (13-60); Osmolality Calculated 291 mOsm/kg (285-295); Sodium 138 mmol/L (136-145); Total Bilirubin 0.2 mg/dL (0.15-1.2); Total Protein 8.3 g/dL (6.6-8.7)
[2021-08-09 21:39] LABS: Acetaminophen < 5.0 ug/mL (10-30); Anion Gap 17.6 (5-19); Potassium 3.6 mmol/L (3.5-5.1); Salicylate < 0.3 mg/dL (3-10)
[2021-08-09 22:06] VITALS: BP 132/84; PULSE 104; RESP 18; O2SAT 98
[2021-08-09 22:11] VITALS: BP 123/85; PULSE 109; RESP 22; TEMP 36.5; O2SAT 96
[2021-08-09 22:19] LABS: Alcohol Level < 10 mg/dL (0-10)
[2021-08-10 06:00] VITALS: BP 132/92; PULSE 102; RESP 22; TEMP 36.2; O2SAT 98
[2021-08-10 06:51] LABS: Glucose Point of Care 106 mg/dL (70-110)
[2021-08-10] MEDS: nicotine 2 mg Gum BUCCAL ×7 (07:01→19:59)
[2021-08-10] MEDS: polyethylene glycol 3350 Pkt 17 gm PO (08:16)
[2021-08-10] MEDS: sitagliptin 100 mg Tablet PO (08:17)
[2021-08-10] MEDS: quetiapine 100 mg Tablet PO ×2 (08:17→20:34)
[2021-08-10] MEDS: CLONazepam 1 mg Tablet PO ×2 (08:17→20:35)
[2021-08-10] MEDS: hydroCHLOROthiazide 25 mg Tablet PO (08:17)
[2021-08-10] MEDS: metformin XR 500 MG Tablet 1000 MG PO ×2 (08:17→20:34)
[2021-08-10] MEDS: fenofibrate 145 mg Tablet PO (08:17)
[2021-08-10] MEDS: multivitamin therapeutic Tablet 1 TAB PO (08:17)
[2021-08-10] MEDS: glimepiride 2 mg Tablet PO ×2 (08:17→20:33)
[2021-08-10] MEDS: topiramate 100 mg Tablet PO ×3 (08:17→20:34)
[2021-08-10] MEDS: fluticasone nasal spray 16gm Btl 1 SPRAY INTRANASAL (08:18)
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
[2021-08-10 11:18] LABS: Glucose Point of Care 119 mg/dL (70-110)
--- NOTE | 2021-08-10 11:32 | NPU.GN ---
[facility] Group Topic:Coping Mechanisms Activity General Mood of Group: Ángel did attend and participate in group today. His hygiene was ok and he was pleasant and social with others in group.
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
[2021-08-10 14:00] VITALS: BP 97/51; PULSE 81; RESP 17; TEMP 36.6; O2SAT 97
[2021-08-10] MEDS: insulin glargine 100 units/1 mL 10 UNIT SUBCUT (15:33)
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
[2021-08-10] MEDS: quetiapine 100 mg Tablet 400 MG PO (20:33)
[2021-08-10] MEDS: hyDROXYzine 25 mg Capsule 100 MG PO (20:34)
[2021-08-10] MEDS: divalproex DR 500 mg Tablet PO (20:34)
[2021-08-10 20:42] LABS: Glucose Point of Care 142 mg/dL (70-110)
[2021-08-10 21:09] VITALS: BP 129/82; PULSE 116; RESP 20; TEMP 36.8; O2SAT 94
[2021-08-11] MEDS: nicotine 2 mg Gum BUCCAL ×4 (03:43→12:24)
[2021-08-11 06:00] VITALS: BP 118/80; PULSE 87; RESP 18; TEMP 36.6; O2SAT 96
[2021-08-11 07:05] LABS: Glucose Point of Care 105 mg/dL (70-110)
[2021-08-11] MEDS: fluticasone nasal spray 16gm Btl 1 SPRAY INTRANASAL (09:10)
[2021-08-11] MEDS: CLONazepam 1 mg Tablet PO (09:11)
[2021-08-11] MEDS: quetiapine 100 mg Tablet PO (09:11)
[2021-08-11] MEDS: glimepiride 2 mg Tablet PO (09:11)
[2021-08-11] MEDS: fenofibrate 145 mg Tablet PO (09:11)
[2021-08-11] MEDS: metformin XR 500 MG Tablet 1000 MG PO (09:11)
[2021-08-11] MEDS: multivitamin therapeutic Tablet 1 TAB PO (09:11)
[2021-08-11] MEDS: sitagliptin 100 mg Tablet PO (09:11)
[2021-08-11] MEDS: hydroCHLOROthiazide 25 mg Tablet PO (09:12)
[2021-08-11] MEDS: topiramate 100 mg Tablet PO ×2 (09:12→12:16)
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
[2021-08-11 10:20] VITALS: BP 118/80; PULSE 87; RESP 18; TEMP 36.6; O2SAT 96
[2021-08-11 11:38] LABS: Glucose Point of Care 96 mg/dL (70-110)
== END 2021-08-11 12:35 | disposition home or self-care (01) | DRG 883 ==
LOC: ER 21:15 → NP 21:50
PROVIDERS: Admitting Provider Psychiatry & Neurology Psychiatry; Emergency Provider Emergency Medicine; Visit Provider Psychiatry & Neurology Psychiatry
DX: F63.81 Intermittent explosive disorder (principal); R45.851 Suicidal ideations; F90.2 Attention-deficit hyperactivity disorder, combined type; F32.9 Major depressive disorder, single episode, unspecified; F41.1 Generalized anxiety disorder; F17.210 Nicotine dependence, cigarettes, uncomplicated; E11.9 Type 2 diabetes mellitus without complications; Z79.84 Long term (current) use of oral hypoglycemic drugs; Z79.4 Long term (current) use of insulin
CPT/HCPCS: 36416; 80053; 80306; 80307; 82962; 83690; 85025; 96372; 97150; 97165; J1815

== ENCOUNTER → 2021-08-17 13:44 | Outpatient (BNVA) | payer MEDICAID, SELFPAY | PROVIDERS: Visit Provider Nurse Practitioner | DX: F17.210 Nicotine dependence, cigarettes, uncomplicated (principal); F90.2 Attention-deficit hyperactivity disorder, combined type; F31.9 Bipolar disorder, unspecified; F63.81 Intermittent explosive disorder; F70 Mild intellectual disabilities | CPT/HCPCS: 99214 ==

== ENCOUNTER 2021-08-23 03:02 | Inpatient (IN) | payer MEDICAID, SELFPAY ==
[2021-08-23] VITALS (8 sets, daily range): BP systolic 116–145; BP diastolic 74–84; PULSE 70–96; RESP 16–18; TEMP 36.5–37.1; O2SAT 95–100; BMI 28.8
--- NOTE | 2021-08-23 03:17 | ED.C_ITS ---
HPI - Psych General: Chief Complaint: Psychiatric Symptoms Stated Complaint: SI Time Seen by Provider: 08/23/21 03:03 Source: patient and EMS Mode of arrival: EMS Limitations: no limitations History of Present Illness: 26-year-old male is very well-known to the ER with a history of MR kendrick states that he was angry with his caregivers tonight and got a pair of electric clippers and held it to his throat was having suicidal ideations and threats of suicide. He states that now he is calm down he feels much improved he denies any suicidality at this time denies any worsening improving factors. Associated symptoms: Reports depression and suicidal ideation Review of Systems Const: Denies: fever(s), chills, body aches or change in appetite Eyes: Denies: blurry vision or eye discomfort ENMT: Denies: throat pain or dental pain Card: Denies: chest pain Resp: Denies: dyspnea GI: Denies: abdominal pain, nausea, vomiting or diarrhea : Denies: dysuria Musc: Denies: neck pain or back pain Skin/Breast: Denies: rash Neuro: Denies: headache(s) Psych: Reports: depression and suicidal ideation Harshad/Lymph: Denies: easy bruising All/Imm: Denies: urticaria PFSH ED PFSH: Medical History Attention-deficit hyperactivity disorder, combined type Bipolar disorder, unspecified Generalized anxiety disorder Intermittent explosive disorder Nicotine dependence, cigarettes, uncomplicated On valproic acid therapy Psychiatric care Social History Smoking and tobacco status: current every day smoker cigarettes Packs smoked per day: 2 Smoking risk assessment/counseling performed?: Yes Tobacco counseling given: counseling >3 minutes Physical Exam Const: COMMON NORMALS: no acute distress, patient oriented x3 and healthy appearing HENMT: COMMON NORMALS: normocephalic and atraumatic HEAD & SCALP: normocephalic and atraumatic Eye: COMMON NORMALS: Equal, round and reactive pupils present and EOMs intact bilaterally PUPIL: Yes Equal, round and reactive pupils present Neck/C-Spine: COMMON NORMALS: full ROM and supple Chest: COMMONS NORMALS: normal inspection of the chest and normal palpation of entire chest wall Resp: COMMON NORMALS: normal respiratory effort, No retractions, No use of accessory muscles and clear to auscultation bilaterally AUSCULTATION: clear to auscultation bilaterally Cardio: COMMON NORMALS: regular rate, regular rhythm and No murmurs present (Cardio) RATE: regular rate RHYTHM: regular rhythm GI: COMMON NORMALS: Normal to inspection, nondistended, normoactive bowel sounds present, Soft to palpation, non-tender and no masses PALPATION: Yes Soft to palpation Extremity: COMMON NORMALS: normal to inspection and full ROM Neuro: COMMON NORMALS: patient oriented x3, moves all extremities and no focal motor deficits Psych: COMMON NORMALS: mental status grossly normal, Normal thought process present and cooperative MOOD & AFFECT: Yes depressed mood THOUGHT PROCESS: Normal thought process present Skin: COMMON NORMALS: no rashes or lesions noted and no wounds GENERAL SKIN EXAM: no rashes or lesions noted Course Vital Signs: Vital signs: Vital Signs Pulse Rate 96 08/23/21 04:36 Respiratory Rate 18 08/23/21 04:36 Blood Pressure 144/78 08/23/21 04:36 Pulse Oximetry 96 08/23/21 04:36 MDM - Psych Medical Decision Making Patient presents here with suicidal ideations patient is medically cleared I spoke to the psychiatrist and will admit here. Lab Data : 08/23/21 03:20 08/23/21 03:20 Laboratory Results WBC 5.8 10^3/uL (4.0-10.0) 08/23/21 03:20 RBC 4.81 10^6/uL (4.1-5.3) 08/23/21 03:20 Hgb 14.0 g/dL (11.7-16.6) 08/23/21 03:20 Hct 44.0 % (42.0-52.0) 08/23/21 03:20 MCV 91.5 fl (80-94) 08/23/21 03:20 MCH 29.1 pg (28.0-34.0) 08/23/21 03:20 MCHC 31.8 g/dL (30.0-36.0) 08/23/21 03:20 RDW 13.6 % (12.1-15.1) 08/23/21 03:20 Plt Count 241 10^3/cmm (130-400) 08/23/21 03:20 MPV 11.3 fL (7.4-10.4) H 08/23/21 03:20 Neut % (Auto) 51.1 % 08/23/21 03:20 Lymph % (Auto) 38.3 % 08/23/21 03:20 [place] % (Auto) 7.0 % 08/23/21 03:20 Eos % (Auto) 1.9 % 08/23/21 03:20 Baso % (Auto) 0.5 % 08/23/21 03:20 Neut # (Auto) 2.94 10^3/uL (1.8-7.7) 08/23/21 03:20 Lymph # (Auto) 2.2 10^3/uL (0.8-4.8) 08/23/21 03:20 [place] # (Auto) 0.4 10^3/uL (0.2-0.9) 08/23/21 03:20 Eos # (Auto) 0.1 10^3/uL (0.0-0.8) 08/23/21 03:20 Baso # (Auto) 0.0 10^3/uL (0.0-0.1) 08/23/21 03:20 Nucleated RBC % (auto) 0 % 08/23/21 03:20 Nucleated RBCs # 0.0 /100WBC 08/23/21 03:20 Sodium 135 mmol/L (136-145) L 08/23/21 03:20 Potassium 3.5 mmol/L (3.5-5.1) 08/23/21 03:20 Chloride 102 mmol/L (98-107) 08/23/21 03:20 Carbon Dioxide 22 mmol/L (22-29) 08/23/21 03:20 Anion Gap 14.5 (5-19) 08/23/21 03:20 BUN 17 mg/dL (6-20) 08/23/21 03:20 Creatinine 0.7 mg/dL (0.7-1.2) 08/23/21 03:20 GFR Calculation 136.3 mL/min (90-130) H 08/23/21 03:20 Glucose 106 mg/dL (65-115) 08/23/21 03:20 Calculated Osmolality 282 mOsm/kg (285-295) L 08/23/21 03:20 Calcium 9.7 mg/dL (8.5-10.5) 08/23/21 03:20 Total Bilirubin 0.2 mg/dL (0.15-1.2) 08/23/21 03:20 AST 15 U/L (0-40) 08/23/21 03:20 ALT 20 U/L (0-41) 08/23/21 03:20 Alkaline Phosphatase 37 IU/L (40-130) L 08/23/21 03:20 Total Protein 7.7 g/dL (6.6-8.7) 08/23/21 03:20 Albumin 4.4 g/dL (3.5-5.2) 08/23/21 03:20 Globulin 3.3 g/dL (1.3-4.6) 08/23/21 03:20 Salicylates < 0.3 mg/dL (3-10) L 08/23/21 03:20 Urine Opiates Screen Negative ng/mL (Negative) 08/23/21 03:19 Acetaminophen < 5.0 ug/mL (10-30) L 08/23/21 03:20 Ur Barbiturates Screen Negative ng/mL (Negative) 08/23/21 03:19 Valproic Acid 52.9 ug/mL (50-100) 08/23/21 03:20 Ur Phencyclidine Scrn Negative ng/mL (Negative) 08/23/21 03:19 Ur Amphetamines Screen Negative ng/mL (Negative) 08/23/21 03:19 U Benzodiazepines Scrn Negative ng/mL (Negative) 08/23/21 03:19 Urine Cocaine Screen Negative ng/mL (Negative) 08/23/21 03:19 U Marijuana (THC) Screen Negative ng/mL (Negative) 08/23/21 03:19 Ethyl Alcohol < 10 mg/dL (0-10) 08/23/21 03:20 Discharge Plan Discharge Patient Disposition: Admitted As Inpatient Admit Provider: Jaquan Khoury Clinical Impression: Suicidal ideation Condition: Stable Coding Level of Care Code ED Blood Bank Order Control Clerk for Caron Fwd Exam Comprehensive
[2021-08-23 03:23] LABS: Basophils % 0.5 %; Eosinophils # 0.1 10^3/uL (0.0-0.8); Eosinophils % 1.9 %; Lymphocytes # 2.2 10^3/uL (0.8-4.8); Lymphocytes % 38.3 %; Mean Corpuscular HGB Conc 31.8 g/dL (30.0-36.0); Mean Corpuscular Hemoglobin 29.1 pg (28.0-34.0); Mean Corpuscular Volume 91.5 fl (80-94); Mean Platelet Volume 11.3 fL (7.4-10.4); Monocytes # 0.4 10^3/uL (0.2-0.9); Neutrophils # 2.94 10^3/uL (1.8-7.7); Neutrophils % 51.1 %; Nucleated Red Blood Cells % 0 %; Platelet Count 241 10^3/cmm (130-400); Red Blood Count 4.81 10^6/uL (4.1-5.3); Red Cell Distribution Width 13.6 % (12.1-15.1); White Blood Count 5.8 10^3/uL (4.0-10.0)
[2021-08-23 03:44] LABS: Amphetamines Screen Urine Negative (Negative); Barbiturates Screen Urine Negative (Negative); Benzodiazepines Screen Urine Negative (Negative); Cocaine Screen Urine Negative (Negative); Opiate Screen Urine Negative (Negative); PCP Screen Urine Negative (Negative); THC Screen Urine Negative (Negative)
[2021-08-23 03:49] LABS: Acetaminophen < 5.0 ug/mL (10-30); Alanine Aminotransferase 20 U/L (0-41); Albumin Level 4.4 g/dL (3.5-5.2); Alcohol Level < 10 mg/dL (0-10); Alkaline Phosphatase 37 IU/L (40-130); Anion Gap 14.5 (5-19); Aspartate Amino Transferase 15 U/L (0-40); Blood Urea Nitrogen 17 mg/dL (6-20); Calcium 9.7 mg/dL (8.5-10.5); Carbon Dioxide 22 mmol/L (22-29); Chloride 102 mmol/L (98-107); Globulin 3.3 g/dL (1.3-4.6); Glomerular Filtration Rate 136.3 mL/min (90-130); Glucose 106 mg/dL (65-115); Osmolality Calculated 282 mOsm/kg (285-295); Potassium 3.5 mmol/L (3.5-5.1); Salicylate < 0.3 mg/dL (3-10); Sodium 135 mmol/L (136-145); Total Bilirubin 0.2 mg/dL (0.15-1.2); Total Protein 7.7 g/dL (6.6-8.7)
[2021-08-23 03:57] LABS: Valproic Acid Level 52.9 ug/mL (50-100)
[2021-08-23 06:33] LABS: Glucose Point of Care 157 mg/dL (70-110)
[2021-08-23] MEDS: benztropine 1 mg Tablet PO (09:03)
[2021-08-23] MEDS: glimepiride 2 mg Tablet PO ×2 (09:03→21:33)
[2021-08-23] MEDS: metformin 500 mg Tablet 1000 MG PO ×2 (09:03→21:31)
[2021-08-23] MEDS: topiramate 100 mg Tablet PO ×3 (09:04→21:33)
[2021-08-23] MEDS: quetiapine 100 mg Tablet PO ×2 (09:04→21:33)
[2021-08-23] MEDS: sitagliptin 100 mg Tablet PO (09:04)
[2021-08-23] MEDS: multivitamin therapeutic Tablet 1 TAB PO (09:04)
[2021-08-23] MEDS: fenofibrate 145 mg Tablet PO (09:04)
[2021-08-23] MEDS: hydroCHLOROthiazide 25 mg Tablet PO (09:04)
[2021-08-23] MEDS: nicotine 2 mg Gum BUCCAL ×5 (09:04→21:29)
[2021-08-23] MEDS: CLONazepam 1 mg Tablet PO ×2 (09:04→21:31)
[2021-08-23] MEDS: fluticasone nasal spray 16gm Btl 1 SPRAY INTRANASAL (09:05)
[2021-08-23] MEDS: insulin lispro 100 unit/1 mL SUBCUT (09:05)
[2021-08-23 12:03] LABS: Glucose Point of Care 120 mg/dL (70-110)
[2021-08-23] MEDS: insulin glargine 100 units/1 mL 10 UNIT SUBCUT (18:00)
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
[2021-08-23 18:44] LABS: Glucose Point of Care 118 mg/dL (70-110)
[2021-08-23] MEDS: hyDROXYzine 25 mg Capsule 100 MG PO (21:31)
[2021-08-23] MEDS: quetiapine 100 mg Tablet 400 MG PO (21:32)
[2021-08-23] MEDS: divalproex DR 500 mg Tablet PO (21:32)
[2021-08-24] MEDS: nicotine 2 mg Gum BUCCAL ×6 (05:41→15:20)
[2021-08-24 06:00] VITALS: BP 114/81; PULSE 89; RESP 20; TEMP 37; O2SAT 94
[2021-08-24] MEDS: fenofibrate 145 mg Tablet PO (08:27)
[2021-08-24] MEDS: glimepiride 2 mg Tablet PO (08:28)
[2021-08-24] MEDS: CLONazepam 1 mg Tablet PO (08:28)
[2021-08-24] MEDS: quetiapine 100 mg Tablet PO (08:28)
[2021-08-24] MEDS: sitagliptin 100 mg Tablet PO (08:28)
[2021-08-24] MEDS: multivitamin therapeutic Tablet 1 TAB PO (08:28)
[2021-08-24] MEDS: topiramate 100 mg Tablet PO ×2 (08:28→12:06)
[2021-08-24] MEDS: hydroCHLOROthiazide 25 mg Tablet PO (08:28)
[2021-08-24] MEDS: metformin 500 mg Tablet 1000 MG PO (08:28)
[2021-08-24] MEDS: fluticasone nasal spray 16gm Btl 1 SPRAY INTRANASAL (08:36)
[2021-08-24 08:42] LABS: Glucose Point of Care 180 mg/dL (70-110)
[2021-08-24] MEDS: insulin lispro 100 unit/1 mL SUBCUT ×2 (09:05→12:06)
[2021-08-24 11:27] LABS: Glucose Point of Care 144 mg/dL (70-110)
--- NOTE | 2021-08-24 11:48 | NPU.GN ---
[facility] Topic:Sharron Barahona General Mood of Group: Patient did attend group today. He was social and his hygiene was poor.
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
[2021-08-24 13:11] VITALS: BP 114/81; PULSE 89; RESP 20; TEMP 37; O2SAT 94
== END 2021-08-24 16:10 | disposition home or self-care (01) | DRG 883 ==
LOC: ER 03:38 → NP 04:43
PROVIDERS: Admitting Provider Psychiatry & Neurology Psychiatry; Emergency Provider Emergency Medicine; Visit Provider Psychiatry & Neurology Psychiatry
DX: F63.81 Intermittent explosive disorder (principal); R45.851 Suicidal ideations; F31.9 Bipolar disorder, unspecified; F90.2 Attention-deficit hyperactivity disorder, combined type; F17.210 Nicotine dependence, cigarettes, uncomplicated; F79 Unspecified intellectual disabilities
CPT/HCPCS: 36416; 80053; 80164; 80306; 80307; 82962; 85025; 96372; 97150; 97165; 99285; J1815 ×2

== ENCOUNTER → 2021-08-31 13:46 | Outpatient (BNVA) | payer MEDICAID, SELFPAY | PROVIDERS: Visit Provider Nurse Practitioner | DX: F31.9 Bipolar disorder, unspecified (principal); F63.81 Intermittent explosive disorder; F70 Mild intellectual disabilities | CPT/HCPCS: 99214 ==

== ENCOUNTER → 2021-09-01 11:50 | Outpatient (BNVA) | payer MEDICAID, SELFPAY | PROVIDERS: Visit Provider Counselor Mental Health | DX: F32.9 Major depressive disorder, single episode, unspecified (principal); F31.9 Bipolar disorder, unspecified; F63.81 Intermittent explosive disorder | CPT/HCPCS: 90834 ==

== ENCOUNTER 2021-09-28 05:14 | Emergency (ER) | payer MEDICAID, SELFPAY ==
[2021-09-28 05:20] VITALS: BP 135/89; PULSE 97; RESP 20; TEMP 36.6; O2SAT 98; BMI 34.8
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
[2021-09-28] MEDS: LORazepam 1 mg Tablet PO (05:36)
[2021-09-28 06:00] VITALS: BP 144/80; PULSE 91; RESP 20; O2SAT 95
[2021-09-28 06:37] VITALS: BP 148/86; PULSE 88; RESP 20; O2SAT 98
== END 2021-09-28 06:37 | disposition home or self-care (01) ==
PROVIDERS: Emergency Provider Emergency Medicine
DX: F63.81 Intermittent explosive disorder (principal); F70 Mild intellectual disabilities; F17.210 Nicotine dependence, cigarettes, uncomplicated
CPT/HCPCS: 99214; 99283

== ENCOUNTER → 2021-10-05 13:43 | Outpatient (BNVA) | payer MEDICAID, SELFPAY | PROVIDERS: Visit Provider Counselor Mental Health | DX: F31.9 Bipolar disorder, unspecified (principal) | CPT/HCPCS: 90834 ==

== ENCOUNTER 2021-10-16 02:00 | Emergency (ER) | payer MEDICAID, SELFPAY ==
[2021-10-16 02:02] VITALS: BP 110/77; PULSE 98; RESP 18; TEMP 36.8; O2SAT 97; BMI 49.0
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
[2021-10-16 03:28] LABS: Glucose Point of Care 98 mg/dL (70-110)
[2021-10-16 03:32] LABS: Basophils % 0.6 %; Eosinophils # 0.1 10^3/uL (0.0-0.8); Eosinophils % 2.1 %; Hematocrit 41.5 % (42.0-52.0); Hemoglobin 13.4 g/dL (11.7-16.6); Lymphocytes % 37.3 %; Mean Corpuscular HGB Conc 32.3 g/dL (30.0-36.0); Mean Corpuscular Hemoglobin 29.3 pg (28.0-34.0); Mean Corpuscular Volume 90.6 fl (80-94); Mean Platelet Volume 12.3 fL (7.4-10.4); Monocytes # 0.5 10^3/uL (0.2-0.9); Monocytes % 9.5 %; Neutrophils # 2.66 10^3/uL (1.8-7.7); Neutrophils % 49.6 %; Nucleated Red Blood Cells % 0 %; Platelet Count 128 10^3/cmm (130-400); Red Blood Count 4.58 10^6/uL (4.1-5.3); Red Cell Distribution Width 14.3 % (12.1-15.1); White Blood Count 5.4 10^3/uL (4.0-10.0)
[2021-10-16 03:57] LABS: Slide Review Slide Review Perform
[2021-10-16 04:01] LABS: Alanine Aminotransferase 27 U/L (0-41); Alkaline Phosphatase 29 IU/L (40-130); Aspartate Amino Transferase 19 U/L (0-40); Blood Urea Nitrogen 15 mg/dL (6-20); Calcium 8.4 mg/dL (8.5-10.5); Carbon Dioxide 16 mmol/L (22-29); Chloride 103 mmol/L (98-107); Globulin 2.4 g/dL (1.3-4.6); Glomerular Filtration Rate 162.9 mL/min (90-130); Glucose 95 mg/dL (65-115); Osmolality Calculated 279 mOsm/kg (285-295); Sodium 134 mmol/L (136-145); Total Bilirubin 0.2 mg/dL (0.15-1.2); Total Protein 6.4 g/dL (6.6-8.7)
[2021-10-16 04:02] LABS: Amphetamines Screen Urine Negative (Negative); Barbiturates Screen Urine Negative (Negative); Benzodiazepines Screen Urine Negative (Negative); Cocaine Screen Urine Negative (Negative); Opiate Screen Urine Negative (Negative); PCP Screen Urine Negative (Negative); THC Screen Urine Negative (Negative)
[2021-10-16 04:02] LABS: Acetaminophen < 5.0 ug/mL (10-30); Alcohol Level < 10 mg/dL (0-10); Anion Gap 18.5 (5-19); Potassium 3.5 mmol/L (3.5-5.1); Salicylate < 0.3 mg/dL (3-10)
== END 2021-10-16 05:07 | disposition home or self-care (01) ==
PROVIDERS: Emergency Provider Emergency Medicine; PCP Family Medicine
DX: F63.81 Intermittent explosive disorder (principal)
CPT/HCPCS: 36416; 80053; 80306; 80307; 82962; 85025; 99283

== ENCOUNTER 2021-10-24 22:46 | Emergency (ER) | payer MEDICAID, SELFPAY ==
[2021-10-24 22:53] VITALS: BP 125/90; PULSE 100; RESP 20; TEMP 36.9; O2SAT 95; BMI 47.3
--- NOTE | 2021-10-24 23:19 | W.ED.PSYCHS ---
HPI - Psych General: Chief Complaint: Psychiatric Symptoms Stated Complaint: SI/HI Time Seen by Provider: 10/24/21 22:50 Source: patient Mode of arrival: ambulatory Limitations: no limitations History of Present Illness: 26-year-old male who is very well-known to the ER states that he became angry at his case management social worker joan he had made suicidal homicidal statements. Patient here is cooperative EMS states he has been cooperative with them the whole time denies any worsening improving factors. Associated symptoms: Reports depression Review of Systems Const: Denies: fever(s), chills, body aches or change in appetite Eyes: Denies: blurry vision or eye discomfort ENMT: Denies: throat pain or dental pain Card: Denies: chest pain Resp: Denies: dyspnea GI: Denies: abdominal pain, nausea, vomiting or diarrhea : Denies: dysuria Musc: Denies: neck pain or back pain Skin/Breast: Denies: rash Neuro: Denies: headache(s) Psych: Reports: depression and mood swings Harshad/Lymph: Denies: easy bruising All/Imm: Denies: urticaria PFSH ED PFSH: Medical History Attention-deficit hyperactivity disorder, combined type Bipolar disorder, unspecified Generalized anxiety disorder Intermittent explosive disorder Nicotine dependence, cigarettes, uncomplicated On valproic acid therapy Psychiatric care Social History Smoking and tobacco status: current every day smoker cigarettes Packs smoked per day: 2 Smoking risk assessment/counseling performed?: Yes Tobacco counseling given: counseling >3 minutes Physical Exam Const: COMMON NORMALS: no acute distress, patient oriented x3 and healthy appearing HENMT: COMMON NORMALS: normocephalic and atraumatic HEAD & SCALP: normocephalic and atraumatic Eye: COMMON NORMALS: Equal, round and reactive pupils present and EOMs intact bilaterally PUPIL: Yes Equal, round and reactive pupils present Neck/C-Spine: COMMON NORMALS: full ROM and supple Chest: COMMONS NORMALS: normal inspection of the chest and normal palpation of entire chest wall Resp: COMMON NORMALS: normal respiratory effort, No retractions, No use of accessory muscles and clear to auscultation bilaterally AUSCULTATION: clear to auscultation bilaterally Cardio: COMMON NORMALS: regular rate, regular rhythm and No murmurs present (Cardio) RATE: regular rate RHYTHM: regular rhythm GI: COMMON NORMALS: Normal to inspection, nondistended, normoactive bowel sounds present, Soft to palpation, non-tender and no masses PALPATION: Yes Soft to palpation Extremity: COMMON NORMALS: normal to inspection and full ROM Neuro: COMMON NORMALS: patient oriented x3, moves all extremities and no focal motor deficits Psych: COMMON NORMALS: mental status grossly normal, Normal thought process present and cooperative THOUGHT PROCESS: Normal thought process present Skin: COMMON NORMALS: no rashes or lesions noted and no wounds GENERAL SKIN EXAM: no rashes or lesions noted Course Vital Signs: Vital signs: Vital Signs Temperature 98.5 F 10/24/21 22:53 Pulse Rate 100 10/24/21 22:53 Respiratory Rate 20 H 10/24/21 22:53 Blood Pressure 125/90 10/24/21 22:53 Pulse Oximetry 95 10/24/21 22:53 MDM - Psych Medical Decision Making Patient presents here with an anger outburst and made suicidal homicidal statements. Ángel is very well-known here I had Dr. Khoury evaluate him and he does not feel that he requires admission at this time. I agree with Dr. Khoury and will discharge him he has been stable here and acting appropriately. Discharge Plan Discharge Patient Disposition: Home Clinical Impression: Outbursts of anger Condition: Stable Prescriptions: No Action hydrochlorothiazide 25 mg tablet 25 mg PO DAILY@08 0RF loperamide 2 mg tablet 4 mg PO PRN MDD 8 tabs PRN (Reason: Diarrhea) 0RF multivitamin Tablet 1 tab PO DAILY@08 0RF Januvia 100 mg tablet 100 mg PO DAILY@08 0RF Victoza 2-Otf 0.6 mg/0.1 mL (18 mg/3 mL) pen injector 1.8 mg SUBCUT DAILY@08 0RF fenofibrate nanocrystallized 145 mg tablet 145 mg PO DAILY 0RF terbinafine HCl 250 mg tablet 250 mg PO DAILY 0RF Label Comments: pt no longer taking clonazepam 1 mg tablet 1 mg PO BID@08,20 Qty: 60 2RF DDAVP 0.2 mg tablet 0.2 mg PO BEDTIME@20 Qty: 30 2RF quetiapine [Seroquel] 200 mg tablet 400 mg PO BEDTIME@20 Qty: 60 2RF quetiapine [Seroquel] 100 mg tablet 100 mg PO BID@08,20 Qty: 60 2RF topiramate 100 mg tablet 100 mg PO TID@08,12,20 Qty: 90 2RF trazodone 150 mg tablet 150 mg PO .HS Qty: 30 2RF terbinafine HCl 1 % Cream 1 applic TOPICAL BID PRN (Reason: Skin Irritation) 0RF triamcinolone acetonide 0.1 % Cream 1 applic TOPICAL BID PRN (Reason: Skin Irritation) 0RF divalproex 500 mg tablet,delayed release (DR/EC) 500 mg PO BEDTIME 0RF polyethylene glycol 3350 [Miralax] 17 gram/dose Powder 17 g PO DAILY PRN (Reason: Constipation) 0RF fluticasone propionate 50 mcg/actuation [place],Suspension 1 spray INTRANASAL DAILY@08 0RF white petrolatum [Petroleum Jelly] Gel 1 applic TOPICAL PRN 0RF Rx Instructions: apply to heels glimepiride 2 mg tablet 2 mg PO BID@08,20 0RF Rx Instructions: before meals metformin 1,000 mg tablet extended release 24hr 1,000 mg PO BID@08,20 0RF Lantus Solostar U-100 Insulin 100 unit/mL (3 mL) insulin pen 10 unit SUBCUT DAILY@16 0RF Discharge Orders: Discharge ED (Routine); Ordered 10/24/21 Ordered By: Sridhar Chavez Referrals: Beatriz Loza DO [Primary Care Provider] - Discharge Diet: Advance as tolerated Discharge Activity: Resume usual activity Patient Instructions: Depression (ED) Coding Level of Care Code ED Director Telehealth for [facility]
[2021-10-24] MEDS: LORazepam 1 mg Tablet PO (23:47)
[2021-10-25 00:12] VITALS: RESP 18
== END 2021-10-25 00:12 | disposition home or self-care (01) ==
PROVIDERS: Emergency Provider Emergency Medicine; PCP Family Medicine
DX: R45.4 Irritability and anger (principal)
CPT/HCPCS: 99283

== ENCOUNTER → 2021-10-26 14:05 | Outpatient (BNVA) | payer MEDICAID, SELFPAY | PROVIDERS: PCP Family Medicine; Visit Provider Nurse Practitioner | DX: F31.9 Bipolar disorder, unspecified (principal); F63.81 Intermittent explosive disorder; F70 Mild intellectual disabilities; B35.3 Tinea pedis | CPT/HCPCS: 99214 ==

== ENCOUNTER 2021-11-08 03:45 | Emergency (ER) | payer MEDICAID, SELFPAY ==
[2021-11-08 03:49] VITALS: BP 123/91; PULSE 97; RESP 20; TEMP 37.1; O2SAT 94; BMI 40.1
--- NOTE | 2021-11-08 03:57 | W.PM.PSYCONS ---
Providers/Reason for Consult Consulting Physican/Specialty*: Jaquan Khoury MD. Psychiatry. Reason for Consult*: Evaluation for safety. Primary Care Provider: Beatriz Loza DO Psych Consult HPI History of Present Illness Ángel Calloway is a 26 year old male who presented to the emergency department with the following report: Chief Complaint: Psychiatric Symptoms Stated Complaint: SI, HI Time Seen by Provider: 11/08/21 03:47 Source: patient and EMS Mode of arrival: EMS Limitations: no limitations History of Present Illness: 26-year-old male who is very well-known to the ER. He has a history of low functioning and lives with a caregiver. He frequently gets angry with his care workers and has anger outburst and then states he is suicidal homicidal. Patient here is calm and cooperative he denies suicidality to me. Denies any worsening proving factors. Associated symptoms: Reports depression. A psychiatric consult was quested to manage the fact that he had expressed some concern for lethality. The interview went to the way the interview normally goes with Ángel. He talks about having frustration with his providers. He talks about needing to come into the hospital to get a break. We discussed the fact that the inpatient unit is not here to provide breaks when people have difficulty with their treatment providers but for people who there are clear concerns for lethality or in need for significant medication adjustment. We discussed that none of those factors are present and there have been no changes in his psychosocial circumstances that would suggest an inpatient stay would be a medically necessary approach. We discussed the importance of him working with his providers in a safe way. Meds Home Medications and Allergies Home Medications Medication Instructions Recorded Confirmed Last Taken Type hydrochlorothiazide 25 mg tablet 25 mg PO DAILY@05/30/19 12/20/21 08/22/21 History loperamide 2 mg tablet 4 mg PO PRN PRN Diarrhea 12/18/19 12/20/21 Unknown History multivitamin 1 tab PO DAILY@08/25/20 12/20/21 08/22/21 History sitagliptin 100 mg tablet (Januvia) 100 mg PO DAILY@08/25/20 12/20/21 08/22/21 History fluticasone propionate 50 1 spray intranasal DAILY@12/17/20 12/20/21 08/22/21 History mcg/actuation nasal spray,suspension polyethylene glycol 3350 17 17 g PO DAILY PRN Constipation 12/17/20 12/20/21 Unknown History gram/dose oral powder (Miralax) liraglutide 0.6 mg/0.1 mL (18 mg/3 1.8 mg SUBCUT DAILY@08 01/10/21 12/20/21 08/22/21 History mL) subcutaneous pen injector (Victoza 2-Otf) glimepiride 2 mg tablet 2 mg PO BID@,04/04/21 12/20/21 08/22/21 History insulin glargine 100 unit/mL (3 10 unit SUBCUT DAILY@16 04/04/21 12/20/21 08/22/21 History mL) subcutaneous pen (Lantus Solostar U-100 Insulin) metformin 1,000 mg tablet,extended 1,000 mg PO BID@08,04/04/21 12/20/21 08/22/21 History release 24hr fenofibrate nanocrystallized 145 145 mg PO DAILY 04/14/21 12/20/21 08/22/21 History mg tablet terbinafine HCl 1 % topical cream 1 applic topical BID PRN Skin 08/10/21 12/20/21 Unknown History Irritation triamcinolone acetonide 0.1 % 1 applic topical BID PRN Skin 08/10/21 12/20/21 08/22/21 History topical cream Irritation terbinafine HCl 250 mg tablet 250 mg PO DAILY 09/28/21 12/20/21 Unknown History acetaminophen 500 mg tablet See Rx Instructions PO Q6H PRN 10/26/21 12/20/21 Unknown History (Tylenol Extra Strength) ibuprofen 800 mg tablet 800 mg PO DAILY 10/26/21 12/20/21 Unknown History nirmatrelvir 300 mg (150 mg x See Rx Instructions PO .COMPLEX #6 12/15/21 12/20/21 Unknown Rx 2)-ritonavir 100 mg tablet (EUA) tabs (Paxlovid 300 mg () clonazepam 1 mg tablet 1 mg PO BID@08,20 #60 tabs 12/20/21 12/20/21 Unknown Rx desmopressin 0.2 mg tablet (DDAVP) 0.2 mg PO BEDTIME@20 #30 tabs 12/20/21 12/20/21 Unknown Rx quetiapine 100 mg tablet (Seroquel) 100 mg PO BID@08,20 #60 tabs 12/20/21 12/20/21 Unknown Rx quetiapine 200 mg tablet (Seroquel) 400 mg PO BEDTIME@20 #60 tabs 12/20/21 12/20/21 Unknown Rx topiramate 100 mg tablet 100 mg PO TID@08,12,20 #90 tabs 12/20/21 12/20/21 Unknown Rx trazodone 150 mg tablet 150 mg PO .HS #30 tabs 12/20/21 12/20/21 Unknown Rx divalproex 500 mg tablet,delayed 500 mg PO .COMPLEX #150 tabs 12/28/21 Unknown Rx release Allergies Allergy/AdvReac Type Severity Reaction Status Date / Time olanzapine Allergy Unknown Verified 12/20/21 14:25 risperidone Allergy Unknown Verified 12/20/21 14:25 PFSH NPU PFSH: Medical History Attention-deficit hyperactivity disorder, combined type Bipolar disorder, unspecified Generalized anxiety disorder Intermittent explosive disorder Nicotine dependence, cigarettes, uncomplicated On valproic acid therapy Psychiatric care Social History Smoking and tobacco status: current every day smoker cigarettes Packs smoked per day: 2 Smoking risk assessment/counseling performed?: Yes Tobacco counseling given: counseling >3 minutes Mental Status Exam MSE Comments: This is an obese, white male, with adequate dress, grooming, and eye contact. No abnormal movements. Cooperative with exam in no acute distress. Speech was dysarthric and child-like, and decreased rate and volume. Mood described as angry; affect slightly subdued. Thought process, organized. Thought content: patient denied any suicidal or homicidal ideation but did express frustration with his home health provider, there were no delusions reported or noted, patient denied any auditory or visual hallucinations. Attention, concentration, and memory appeared intact but limited, but were not formally tested. Alert and oriented times three. Insight and judgment are limited. Impulse control is limited and intellectual ability impaired. Vitals/I&O/Wt Last Vital Signs Temp 98.8 F 11/08/21 03:49 Pulse 97 11/08/21 03:49 Resp 20 H 11/08/21 03:49 BP 123/91 11/08/21 03:49 Pulse Ox 94 11/08/21 03:49 A&P Assessment and plan (1) Intellectual disability: Status: Acute (2) Suicidal ideation: Status: Resolved (3) Aggressive behavior: Status: Acute (4) Outbursts of explosive behavior: Status: Acute (5) Intermittent explosive disorder: Status: Chronic (6) Bipolar disorder, unspecified: Status: Chronic (7) Attention-deficit hyperactivity disorder, combined type: Status: Acute Plan This is a 26-year old resident of an [facility] who has a guardian who reported increased anger and aggression and was brought to the emergency department by his staff. Plan: 1.? Continue current medication.? 2.? This is a chronic situation and there are no acute legal issues present. 3.? Agree with discharge to home. Involuntary Hold Information 96 Hour Hold: 96 Hour Involuntary Admission: No Attestations NPU Medical Necessity Statement*: N/A. Please see primary provider note for details but agree with discharge to home without acute inpatient psychiatric services. Coding Level of Care Code Acute Learning Strategist for [facility] Fwd Diagnoses Intellectual disability F79 Suicidal ideation R45.851 Aggressive behavior R46.89 Outbursts of explosive behavior R46.89 Intermittent explosive disorder F63.81 Bipolar disorder, unspecified F31.9 Attention-deficit hyperactivity disorder, combined type F90.2
--- NOTE | 2021-11-08 04:00 | ED.C_ITS ---
HPI - Psych General: Chief Complaint: Psychiatric Symptoms Stated Complaint: SI, HI Time Seen by Provider: 11/08/21 03:47 Source: patient and EMS Mode of arrival: EMS Limitations: no limitations History of Present Illness: 26-year-old male who is very well-known to the ER. He has a history of low functioning and lives with a caregiver. He frequently gets angry with his care workers and has anger outburst and then states he is suicidal homicidal. Patient here is calm and cooperative he denies suicidality to me. Denies any worsening proving factors. Associated symptoms: Reports depression Review of Systems Const: Denies: fever(s), chills, body aches or change in appetite Eyes: Denies: blurry vision or eye discomfort ENMT: Denies: throat pain or dental pain Card: Denies: chest pain Resp: Denies: dyspnea GI: Denies: abdominal pain, nausea, vomiting or diarrhea : Denies: dysuria Musc: Denies: neck pain or back pain Skin/Breast: Denies: rash Neuro: Denies: headache(s) Psych: Reports: depression Harshad/Lymph: Denies: easy bruising All/Imm: Denies: urticaria PFSH ED PFSH: Medical History Attention-deficit hyperactivity disorder, combined type Bipolar disorder, unspecified Generalized anxiety disorder Intermittent explosive disorder Nicotine dependence, cigarettes, uncomplicated On valproic acid therapy Psychiatric care Social History Smoking and tobacco status: current every day smoker cigarettes Packs smoked per day: 2 Smoking risk assessment/counseling performed?: Yes Tobacco counseling given: counseling >3 minutes Physical Exam Const: COMMON NORMALS: no acute distress, patient oriented x3 and healthy appearing HENMT: COMMON NORMALS: normocephalic and atraumatic HEAD & SCALP: normocephalic and atraumatic Eye: COMMON NORMALS: Equal, round and reactive pupils present and EOMs intact bilaterally PUPIL: Yes Equal, round and reactive pupils present Neck/C-Spine: COMMON NORMALS: full ROM and supple Chest: COMMONS NORMALS: normal inspection of the chest and normal palpation of entire chest wall Resp: COMMON NORMALS: normal respiratory effort, No retractions, No use of accessory muscles and clear to auscultation bilaterally AUSCULTATION: clear to auscultation bilaterally Cardio: COMMON NORMALS: regular rate, regular rhythm and No murmurs present (Cardio) RATE: regular rate RHYTHM: regular rhythm GI: COMMON NORMALS: Normal to inspection, nondistended, normoactive bowel soun ds present, Soft to palpation, non-tender and no masses PALPATION: Yes Soft to palpation Extremity: COMMON NORMALS: normal to inspection and full ROM Neuro: COMMON NORMALS: patient oriented x3, moves all extremities and no focal motor deficits Psych: COMMON NORMALS: mental status grossly normal, Normal thought process present and cooperative THOUGHT PROCESS: Normal thought process present Skin: COMMON NORMALS: no rashes or lesions noted and no wounds GENERAL SKIN EXAM: no rashes or lesions noted Course Vital Signs: Vital signs: Vital Signs Temperature 98.8 F 11/08/21 03:49 Pulse Rate 97 11/08/21 03:49 Respiratory Rate 20 H 11/08/21 03:49 Blood Pressure 123/91 11/08/21 03:49 Pulse Oximetry 94 11/08/21 03:49 [facility] - Psych Medical Decision Making Patient presents for depression along with anger outburst. Patient's very well- known to me has had multiple occurrences like this. Patient has a history of MR and is gets very angry at his caregivers and then has anger outburst. This would happen again denied he is not suicidal or homicidal. I discussed case with Dr. Khoury of psychiatry who also spoke to patient over telemetry and who knows patient well and feels he is stable for discharge. I feel he is not a threat to himself or others and would not benefit from inpatient psych will discharge at this time. Discharge Plan Discharge Patient Disposition: Home Clinical Impression: Depression Condition: Stable Prescriptions: No Action hydrochlorothiazide 25 mg tablet 25 mg PO DAILY@08 0RF loperamide 2 mg tablet 4 mg PO PRN MDD 8 tabs PRN (Reason: Diarrhea) 0RF multivitamin Tablet 1 tab PO DAILY@08 0RF Januvia 100 mg tablet 100 mg PO DAILY@08 0RF Victoza 2-Otf 0.6 mg/0.1 mL (18 mg/3 mL) pen injector 1.8 mg SUBCUT DAILY@08 0RF fenofibrate nanocrystallized 145 mg tablet 145 mg PO DAILY 0RF terbinafine HCl 250 mg tablet 250 mg PO DAILY 0RF Label Comments: pt no longer taking ibuprofen 800 mg tablet 800 mg PO DAILY 0RF acetaminophen [Tylenol Extra Strength] 500 mg tablet See Rx Instructions PO Q6H PRN0RF Rx Instructions: 500mg 1-2 tablets PO every 6 hours PRN; clonazepam 1 mg tablet 1 mg PO BID@08,20 Qty: 60 2RF DDAVP 0.2 mg tablet 0.2 mg PO BEDTIME@20 Qty: 30 2RF quetiapine [Seroquel] 200 mg tablet 400 mg PO BEDTIME@20 Qty: 60 2RF quetiapine [Seroquel] 100 mg tablet 100 mg PO BID@08,20 Qty: 60 2RF topiramate 100 mg tablet 100 mg PO TID@08,12,20 Qty: 90 2RF trazodone 150 mg tablet 150 mg PO .HS Qty: 30 2RF terbinafine HCl 1 % Cream 1 applic TOPICAL BID PRN (Reason: Skin Irritation) 0RF triamcinolone acetonide 0.1 % Cream 1 applic TOPICAL BID PRN (Reason: Skin Irritation) 0RF divalproex 500 mg tablet,delayed release (DR/EC) 500 mg PO BEDTIME 0RF polyethylene glycol 3350 [Miralax] 17 gram/dose Powder 17 g PO DAILY PRN (Reason: Constipation) 0RF fluticasone propionate 50 mcg/actuation [place],Suspension 1 spray INTRANASAL DAILY@08 0RF glimepiride 2 mg tablet 2 mg PO BID@08,20 0RF Rx Instructions: before meals metformin 1,000 mg tablet extended release 24hr 1,000 mg PO BID@08,20 0RF Lantus Solostar U-100 Insulin 100 unit/mL (3 mL) insulin pen 10 unit SUBCUT DAILY@16 0RF Discharge Orders: Discharge ED (Routine); Ordered 11/08/21 Ordered By: Sridhar Chavez Referrals: Beatriz Loza DO [Primary Care Provider] - Discharge Diet: Advance as tolerated Discharge Activity: Resume usual activity Patient Instructions: Depression (ED) Coding Level of Care Code ED 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
[2021-11-08] MEDS: LORazepam 1 mg Tablet PO (04:10)
== END 2021-11-08 05:00 | disposition home or self-care (01) ==
PROVIDERS: Emergency Provider Emergency Medicine; PCP Family Medicine
DX: F32.A Depression, unspecified (principal)
CPT/HCPCS: 99283

== ENCOUNTER → 2021-11-11 13:57 | Outpatient (BNVA) | payer MEDICAID, SELFPAY | PROVIDERS: PCP Family Medicine; Visit Provider Counselor Mental Health | DX: F63.81 Intermittent explosive disorder (principal); F31.9 Bipolar disorder, unspecified | CPT/HCPCS: 90834 ==

== ENCOUNTER 2021-12-15 15:13 | Emergency (ER) | payer MEDICAID, SELFPAY ==
--- NOTE | 2021-12-15 15:15 | XR_ITS ---
WS: [id number] XR chest 1V portable [id number] REASON FOR EXAM: psych clearance FINDINGS: The chest is unchanged compared to 02/11/2020. The heart and mediastinum are within normal limits. Calcified granulomatous disease in both hemithoraces. Small volume lungs. No acute pulmonary parenchymal or pleural abnormality. Bony thorax is intact. XR/XR chest 1V portable [id number] IMPRESSION: No acute chest abnormality.
--- NOTE | 2021-12-15 15:15 | ECG_ITS ---
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 Measurements Intervals [place] Rate: 95 P: 42 NC: 193 QRS: 41 QRSD: 88 T: 61 QT: 329 QTc: 414 Interpretive Statements SINUS RHYTHM NONSPECIFIC T-WAVE ABNORMALITY Compared to ECG 03/18/2021 08:40:30 T-wave abnormality now present ST (T wave) deviation no longer present Myocardial infarct finding no longer present Electronically Signed On 12-15-2021 21:17:40 CDT by Darien Starr M.D. [id number]
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
[2021-12-15 15:35] VITALS: BP 144/90; PULSE 109; RESP 20; TEMP 36.8; O2SAT 96; BMI 54.5
[2021-12-15 16:09] LABS: Basophils # 0.1 10^3/uL (0.0-0.1); Basophils % 0.8 %; Eosinophils # 0.1 10^3/uL (0.0-0.8); Eosinophils % 1.5 %; Hematocrit 45.5 % (42.0-52.0); Hemoglobin 14.9 g/dL (11.7-16.6); Lymphocytes # 1.8 10^3/uL (0.8-4.8); Lymphocytes % 29.9 %; Mean Corpuscular HGB Conc 32.7 g/dL (30.0-36.0); Mean Corpuscular Hemoglobin 29.7 pg (28.0-34.0); Mean Corpuscular Volume 90.6 fl (80-94); Mean Platelet Volume 11.7 fL (7.4-10.4); Monocytes # 0.3 10^3/uL (0.2-0.9); Monocytes % 5.5 %; Neutrophils # 3.67 10^3/uL (1.8-7.7); Neutrophils % 59.7 %; Nucleated Red Blood Cells % 0.3 %; Platelet Count 270 10^3/cmm (130-400); Red Blood Count 5.02 10^6/uL (4.1-5.3); Red Cell Distribution Width 14.4 % (12.1-15.1); White Blood Count 6.2 10^3/uL (4.0-10.0)
[2021-12-15 16:22] LABS: Alanine Aminotransferase 29 U/L (0-41); Albumin Level 4.7 g/dL (3.5-5.2); Alkaline Phosphatase 37 IU/L (40-130); Anion Gap 16.6 (5-19); Aspartate Amino Transferase 26 U/L (0-40); Blood Urea Nitrogen 19 mg/dL (6-20); Calcium 9.6 mg/dL (8.5-10.5); Carbon Dioxide 25 mmol/L (22-29); Chloride 101 mmol/L (98-107); Free T4 Free Thyroxine 0.89 ng/dL (0.82-1.77); Glomerular Filtration Rate 162.9 mL/min (90-130); Glucose 174 mg/dL (65-115); Lipase 68 U/L (13-60); Osmolality Calculated 294 mOsm/kg (285-295); Potassium 3.6 mmol/L (3.5-5.1); Sodium 139 mmol/L (136-145); Thyroid Stimulating Hormone 2.65 uIU/mL (0.27-4.20); Total Bilirubin 0.2 mg/dL (0.15-1.2); Total Protein 7.7 g/dL (6.6-8.7)
[2021-12-15 16:24] LABS: Acetaminophen < 5.0 ug/mL (10-30); Salicylate < 0.3 mg/dL (3-10)
[2021-12-15 17:31] VITALS: BP 135/82; PULSE 97; RESP 19; TEMP 36.6; O2SAT 96
[2021-12-15 17:34] LABS: Alcohol Level < 10 mg/dL (0-10)
[2021-12-15 17:36] LABS: SARS Covid-2 Antigen Positive (Negative)
[2021-12-15 17:46] VITALS: BP 135/82; PULSE 97; RESP 18; O2SAT 96
[2021-12-15 20:30] VITALS: PULSE 100; RESP 20; O2SAT 97
[2021-12-15 21:00] VITALS: PULSE 100; RESP 20; O2SAT 98
== END 2021-12-15 21:00 | disposition home or self-care (01) ==
PROVIDERS: Emergency Provider Emergency Medicine; PCP Family Medicine
DX: R45.6 Violent behavior (principal); U07.1 COVID-19; Z79.84 Long term (current) use of oral hypoglycemic drugs; Z79.4 Long term (current) use of insulin; F17.210 Nicotine dependence, cigarettes, uncomplicated
CPT/HCPCS: 71045; 80053; 80307; 83690; 84439; 84443; 85025; 87426; 93005; 99285

== ENCOUNTER 2022-01-10 15:27 | Emergency (ER) | payer MEDICAID, SELFPAY ==
[2022-01-10 15:34] VITALS: BP 128/78; PULSE 77; RESP 18; TEMP 36.8; O2SAT 99; BMI 54.5
--- NOTE | 2022-01-10 15:41 | W.ED.PSYCHS ---
HPI - Psych General: Chief Complaint: General Medical Stated Complaint: SUICIDAL IDEATIONS Time Seen by Provider: 01/10/22 15:39 Source: patient Mode of arrival: EMS History of Present Illness: 26-year-old male presents emergency room via EMS. Mr. Bordie ruiz is here he presents again today with a chief complaint of he is not getting along with his caregiver. When I questioned him further on his reports that he met a particular caregiver got into yesterday over scheduling who is going to be taking care of him evidently were at odds with the child for most of the day yesterday then today he was still upset about it and ended up calling the police. Police came out evaluated they contacted EMS and then laughed according to reports a receiving from EMS via the nurses that when EMS arrived police were no longer present there is reportedly one of the caregivers at the home that is stating they heard him make comments about suicidal ideation. Patient is denying any suicidal or homicidal ideation he states he simply wants to talk to Dr. Khoury because he is frustrated with the particular caregiver and wants what he describes as a space from her and wants to be admitted to the psych unit so he does not have to deal with her he did not do anything to harm himself he denies taking any medications or any other activity to advance lethality. Has been a recurrent type presentation for this patient. Onset (ago): day(s) Duration: intermittent History of same: Yes Relieving factors: none Exacerbating factors: other (Interaction with particular caregiver) Associated symptoms: Deny auditory hallucinations, visual hallucinations or delusions Treatments prior to arrival: none Review of Systems Const: Denies: fever(s), chills, body aches, change in appetite, fatigue or malaise ENMT: Denies: throat pain, ear or mastoid pain, nasal discharge or nasal congestion Card: Denies: chest pain, edema, dyspnea on exertion or orthopnea Resp: Denies: dyspnea, productive cough or non-productive cough GI: Denies: abdominal pain, nausea, vomiting, hematemesis, coffee ground emesis, diarrhea, constipation, bloating, hematochezia or melena : Denies: flank pain, dysuria, urinary frequency or urinary urgency Skin/Breast: Denies: rash or pruritus Psych: Denies: visual hallucinations or auditory hallucinations PFS ED PFSH: Medical History Attention-deficit hyperactivity disorder, combined type Bipolar disorder, unspecified Generalized anxiety disorder Intermittent explosive disorder Nicotine dependence, cigarettes, uncomplicated On valproic acid therapy Psychiatric care Social History Smoking and tobacco status: current every day smoker cigarettes Packs smoked per day: 2 Smoking risk assessment/counseling performed?: Yes Tobacco counseling given: counseling >3 minutes Physical Exam Const: COMMON NORMALS: no acute distress GENERAL APPEARANCE: cooperative and comfortable ORIENTATION/CONSCIOUSNESS: Yes awake, Yes oriented to person, Yes oriented to place and Yes oriented to time HENMT: COMMON NORMALS: normocephalic, atraumatic and hearing grossly normal bilaterally HEAD & SCALP: normocephalic and atraumatic Resp: COMMON NORMALS: normal respiratory effort, No retractions, No use of accessory muscles and clear to auscultation bilaterally AUSCULTATION: clear to auscultation bilaterally Cardio: COMMON NORMALS: regular rate, regular rhythm and No murmurs present (Cardio) RATE: regular rate RHYTHM: regular rhythm GI: COMMON NORMALS: Soft to palpation and No hepatosplenomegaly present AUSCULTATION: Yes normoactive bowel sounds PALPATION: Yes Soft to palpation, No Tenderness to palpation present (GI), No Guarding due to palpation present (GI) and Yes No hepatosplenomegaly present Extremity: COMMON NORMALS: normal to inspection, capillary refill normal, no clubbing, cyanosis or edema, no calf tenderness and no pedal edema Neuro: SENSORIUM/ORIENTATION: Yes oriented to person, Yes oriented to place and Yes oriented to time Psych: THOUGHT CONTENT: No delusions Skin: COMMON NORMALS: no rashes or lesions noted GENERAL SKIN EXAM: no rashes or lesions noted Course Vital Signs: Vital signs: Vital Signs Temperature 98.2 F 01/10/22 15:34 Pulse Rate 77 01/10/22 15:34 Respiratory Rate 16 01/10/22 19:38 Blood Pressure 128/78 01/10/22 15:34 Pulse Oximetry 98 01/10/22 19:38 Oxygen Delivery Me thod 01/10/22 15:34 MDM - Psych Medical Decision Making Discussed case with Dr. Khoury he will come and see the patient here. Both of us in agreement he likely does not require admission at this point. Dr. Khoury will evaluate him and then we planned to discharge. Dr. Khoury is seen and evaluated the patient he concurs with discharge home. Medical Records I reviewed the patient's medical records. Lab Data I reviewed the patient's lab results. : 01/10/22 16:00 01/10/22 17:50 Laboratory Results WBC 6.2 10^3/uL (4.0-10.0) 01/10/22 16:00 RBC 4.95 10^6/uL (4.1-5.3) 01/10/22 16:00 Hgb 14.8 g/dL (11.7-16.6) 01/10/22 16:00 Hct 46.4 % (42.0-52.0) 01/10/22 16:00 MCV 93.7 fl (80-94) 01/10/22 16:00 MCH 29.9 pg (28.0-34.0) 01/10/22 16:00 MCHC 31.9 g/dL (30.0-36.0) 01/10/22 16:00 RDW 13.9 % (12.1-15.1) 01/10/22 16:00 Plt Count 246 10^3/cmm (130-400) 01/10/22 16:00 MPV 12.2 fL (7.4-10.4) H 01/10/22 16:00 Neut % (Auto) 60.8 % 01/10/22 16:00 Lymph % (Auto) 29.3 % 01/10/22 16:00 [place] % (Auto) 6.4 % 01/10/22 16:00 Eos % (Auto) 1.8 % 01/10/22 16:00 Baso % (Auto) 0.6 % 01/10/22 16:00 Neut # (Auto) 3.78 10^3/uL (1.8-7.7) 01/10/22 16:00 Lymph # (Auto) 1.8 10^3/uL (0.8-4.8) 01/10/22 16:00 [place] # (Auto) 0.4 10^3/uL (0.2-0.9) 01/10/22 16:00 Eos # (Auto) 0.1 10^3/uL (0.0-0.8) 01/10/22 16:00 Baso # (Auto) 0.0 10^3/uL (0.0-0.1) 01/10/22 16:00 Nucleated RBC % (auto) 0 % 01/10/22 16:00 Nucleated RBCs # 0.0 /100WBC 01/10/22 16:00 Sodium 140 mmol/L (136-145) 01/10/22 17:50 Potassium 3.2 mmol/L (3.5-5.1) L 01/10/22 17:50 Chloride 103 mmol/L (98-107) 01/10/22 17:50 Carbon Dioxide 21 mmol/L (22-29) L 01/10/22 17:50 Anion Gap 19.2 (5-19) H 01/10/22 17:50 BUN 16 mg/dL (6-20) 01/10/22 17:50 Creatinine 0.6 mg/dL (0.7-1.2) L 01/10/22 17:50 GFR Calculation 162.9 mL/min (90-130) H 01/10/22 17:50 Glucose 140 mg/dL (65-115) H 01/10/22 17:50 Calculated Osmolality 293 mOsm/kg (285-295) 01/10/22 17:50 Calcium 8.9 mg/dL (8.5-10.5) 01/10/22 17:50 Total Bilirubin 0.2 mg/dL (0.15-1.2) 01/10/22 17:50 AST 21 U/L (0-40) 01/10/22 17:50 ALT 20 U/L (0-41) 01/10/22 17:50 Alkaline Phosphatase 38 U/L (40-130) L 01/10/22 17:50 Total Protein 7.0 g/dL (6.6-8.7) 01/10/22 17:50 Albumin 4.3 g/dL (3.5-5.2) 01/10/22 17:50 Globulin 2.7 g/dL (1.3-4.6) 01/10/22 17:50 Salicylates < 0.3 mg/dL (3-10) L 01/10/22 17:50 Acetaminophen < 5.0 ug/mL (10-30) L 01/10/22 17:50 Discharge Plan Discharge Patient Disposition: Home Clinical Impression: Intermittent explosive disorder, Bipolar disorder, unspecified Condition: Stable Prescriptions: No Action hydrochlorothiazide 25 mg tablet 25 mg PO DAILY@08 loperamide 2 mg tablet 4 mg PO PRN MDD 8 tabs PRN (Reason: Diarrhea) multivitamin Tablet 1 tab PO DAILY@08 Januvia 100 mg tablet 100 mg PO DAILY@08 Victoza 2-Otf 0.6 mg/0.1 mL (18 mg/3 mL) pen injector 1.8 mg SUBCUT DAILY@08 fenofibrate nanocrystallized 145 mg tablet 145 mg PO DAILY terbinafine HCl 250 mg tablet 250 mg PO DAILY Label Comments: pt no longer taking ibuprofen 800 mg tablet 800 mg PO DAILY acetaminophen [Tylenol Extra Strength] 500 mg tablet See Rx Instructions PO Q6H PRN Rx Instructions: 500mg 1-2 tablets PO every 6 hours PRN; clonazepam 1 mg tablet 1 mg PO BID@08,20 Qty: 60 2RF DDAVP 0.2 mg tablet 0.2 mg PO BEDTIME@20 Qty: 30 2RF quetiapine [Seroquel] 200 mg tablet 400 mg PO BEDTIME@20 Qty: 60 2RF quetiapine [Seroquel] 100 mg tablet 100 mg PO BID@08,20 Qty: 60 2RF trazodone 150 mg tablet 150 mg PO .HS Qty: 30 2RF topiramate 100 mg tablet 100 mg PO TID@08,12,20 Qty: 90 2RF divalproex 500 mg tablet,delayed release (DR/EC) 500 mg PO .COMPLEX Qty: 150 1RF Rx Instructions: 2 tablets at 8 AM and 2 PM and 1 tablet at bedtime terbinafine HCl 1 % Cream 1 applic TOPICAL BID PRN (Reason: Skin Irritation) triamcinolone acetonide 0.1 % Cream 1 applic TOPICAL BID PRN (Reason: Skin Irritation) polyethylene glycol 3350 [Miralax] 17 gram/dose Powder 17 g PO DAILY PRN (Reason: Constipation) fluticasone propionate 50 mcg/actuation [place],Suspension 1 spray INTRANASAL DAILY@08 glimepiride 2 mg tablet 2 mg PO BID@08,20 Rx Instructions: before meals metformin 1,000 mg tablet extended release 24hr 1,000 mg PO BID@08,20 Lantus Solostar U-100 Insulin 100 unit/mL (3 mL) insulin pen 10 unit SUBCUT DAILY@16 Paxlovid (EUA) 150 mg x 2- 100 mg tablet See Rx Instructions .ROUTE .COMPLEX Qty: 6 0RF Rx Instructions: take TWO 150 mg tablets of nirmatrelvir with ONE 100 mg tablet of ritonavir twice daily for 5 days Discharge Orders: Discharge ED (Routine); Ordered 01/10/22 Ordered By: Alistair Carter Referrals: Beatriz Loza DO [Primary Care Provider] - Patient Instructions: Opioid Safety Coding Level of Care Code ED Medical Technologist Microbiology for Chg Fwd Exam Comprehensive
[2022-01-10 16:14] LABS: Basophils % 0.6 %; Eosinophils # 0.1 10^3/uL (0.0-0.8); Eosinophils % 1.8 %; Hematocrit 46.4 % (42.0-52.0); Hemoglobin 14.8 g/dL (11.7-16.6); Lymphocytes # 1.8 10^3/uL (0.8-4.8); Lymphocytes % 29.3 %; Mean Corpuscular HGB Conc 31.9 g/dL (30.0-36.0); Mean Corpuscular Hemoglobin 29.9 pg (28.0-34.0); Mean Corpuscular Volume 93.7 fl (80-94); Mean Platelet Volume 12.2 fL (7.4-10.4); Monocytes # 0.4 10^3/uL (0.2-0.9); Monocytes % 6.4 %; Neutrophils # 3.78 10^3/uL (1.8-7.7); Neutrophils % 60.8 %; Nucleated Red Blood Cells % 0 %; Platelet Count 246 10^3/cmm (130-400); Red Blood Count 4.95 10^6/uL (4.1-5.3); Red Cell Distribution Width 13.9 % (12.1-15.1); White Blood Count 6.2 10^3/uL (4.0-10.0)
--- NOTE | 2022-01-10 16:16 | P.NPUCON_ITS ---
Providers/Reason for Consult Consulting Physican/Specialty*: Jaquan Khoury MD. Psychiatry. Reason for Consult*: Safety for discharge. Primary Care Provider: Beatriz Loza, Psych Consult HPI History of Present Illness Ángel Calloway is a 26 year old male who presented to the emergency department with the following report: Chief Complaint: General Medical Stated Complaint: SUICIDAL IDEATIONS Time Seen by Provider: 01/10/22 15:39 Source: patient Mode of arrival: EMS History of Present Illness: 26-year-old male presents emergency room via EMS. Mr. Calloway frequently is here he presents again today with a chief complaint of he is not getting along with his caregiver. When I questioned him further on his reports that he met a particular caregiver got into yesterday over scheduling who is going to be taking care of him evidently were at odds with the child for most of the day yesterday then today he was still upset about it and ended up calling the police. Police came out evaluated they contacted EMS and then laughed according to reports a receiving from EMS via the nurses that when EMS arrived police were no longer present there is reportedly one of the caregivers at the home that is stating they heard him make comments about suicidal ideation. Patient is denying any suicidal or homicidal ideation he states he simply wants to talk to Dr. Khoury because he is frustrated with the particular caregiver and wants what he describes as a space from her and wants to be admitted to the psych unit so he does not have to deal with her he did not do anything to harm himself he denies taking any medications or any other activity to advance lethality. Has been a recurrent type presentation for this patient. Onset (ago): day(s) Duration: intermittent History of same: Yes Relieving factors: none Exacerbating factors: other (Interaction with particular caregiver) Associated symptoms: Deny auditory hallucinations, visual hallucinations or delusions Treatments prior to arrival: none. Impression was that he would be reasonable to discharge and so psychiatric consult was requested for a second opinion. 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 They all present with the same story of him getting angry due to some limit being set for him not liking something at his [facility]. Today is no different and he is frustrated about who was being scheduled at different times on the shifts during the week. He reported that he just needed to come and and have a break and get some distance from the person who does the scheduling with him he is frustrated. Explained to him like we generally do that we nonhospitalized we will continue to break her frustrated with someone and that if he has some concerns about his frustration tolerance starting to decrease his to speak with his outpatient physician about medication changes in that arena. Meds Home Medications and Allergies Home Medications Medication Instructions Recorded Confirmed Last Taken Type hydrochlorothiazide 25 mg tablet 25 mg PO DAILY@05/30/19 12/20/21 08/22/21 History loperamide 2 mg tablet 4 mg PO PRN PRN Diarrhea 12/18/19 12/20/21 Unknown Histor y multivitamin 1 tab PO DAILY@08/25/20 12/20/21 08/22/21 History sitagliptin 100 mg tablet (Januvia) 100 mg PO DAILY@08/25/20 12/20/21 08/22/21 History fluticasone propionate 50 1 spray intranasal DAILY@12/17/20 12/20/21 08/22/21 History mcg/actuation nasal spray,suspension polyethylene glycol 3350 17 17 g PO DAILY PRN Constipation 12/17/20 12/20/21 Unknown History gram/dose oral powder (Miralax) liraglutide 0.6 mg/0.1 mL (18 mg/3 1.8 mg SUBCUT DAILY@01/10/21 12/20/21 08/22/21 History mL) subcutaneous pen injector (Victoza 2-Otf) glimepiride 2 mg tablet 2 mg PO BID@04/04/21 12/20/21 08/22/21 History insulin glargine 100 unit/mL (3 10 unit SUBCUT DAILY@04/04/21 12/20/21 08/22/21 History mL) subcutaneous pen (Lantus Solostar U-100 Insulin) metformin 1,000 mg tablet,extended 1,000 mg PO BID@04/04/21 12/20/21 08/22/21 History release 24hr fenofibrate nanocrystallized 145 145 mg PO DAILY 04/14/21 12/20/21 08/22/21 History mg tablet terbinafine HCl 1 % topical cream 1 applic topical BID PRN Skin 08/10/21 12/20/21 Unknown History Irritation triamcinolone acetonide 0.1 % 1 applic topical BID PRN Skin 08/10/21 12/20/21 08/22/21 History topical cream Irritation terbinafine HCl 250 mg tablet 250 mg PO DAILY 09/28/21 12/20/21 Unknown History acetaminophen 500 mg tablet See Rx Instructions PO Q6H PRN 10/26/21 12/20/21 Unknown History (Tylenol Extra Strength) ibuprofen 800 mg tablet 800 mg PO DAILY 10/26/21 12/20/21 Unknown History nirmatrelvir 300 mg (150 mg x See Rx Instructions PO .COMPLEX #6 12/15/21 12/20/21 Unknown Rx 2)-ritonavir 100 mg tablet (EUA) tabs (Paxlovid 300 mg () clonazepam 1 mg tablet 1 mg PO BID@08,20 #60 tabs 12/20/21 12/20/21 Unknown Rx desmopressin 0.2 mg tablet (DDAVP) 0.2 mg PO BEDTIME@20 #30 tabs 12/20/21 12/20/21 Unknown Rx quetiapine 100 mg tablet (Seroquel) 100 mg PO BID@08,20 #60 tabs 12/20/21 12/20/21 Unknown Rx quetiapine 200 mg tablet (Seroquel) 400 mg PO BEDTIME@20 #60 tabs 12/20/21 12/20/21 Unknown Rx topiramate 100 mg tablet 100 mg PO TID@08,12,20 #90 tabs 12/20/21 12/20/21 Unknown Rx trazodone 150 mg tablet 150 mg PO .HS #30 tabs 12/20/21 12/20/21 Unknown Rx divalproex 500 mg tablet,delayed 500 mg PO .COMPLEX #150 tabs 12/28/21 Unknown Rx release Allergies Allergy/AdvReac Type Severity Reaction Status Date / Time olanzapine Allergy Unknown Verified 12/20/21 14:25 risperidone Allergy Unknown Verified 12/20/21 14:25 PFSH NPU PFSH: Medical History Attention-deficit hyperactivity disorder, combined type Bipolar disorder, unspecified Generalized anxiety disorder Intermittent explosive disorder Nicotine dependence, cigarettes, uncomplicated On valproic acid therapy Psychiatric care Social History Smoking and tobacco status: current every day smoker cigarettes Packs smoked per day: 2 Smoking risk assessment/counseling performed?: Yes Tobacco counseling given: counseling >3 minutes Mental Status Exam MSE Comments: This is an obese, white male, with adequate dress, grooming, and eye contact. No abnormal movements. Cooperative with exam in no acute distress. Speech was dysarthric and child-like, and decreased rate and volume. Mood described as I just need a break for a day; affect slightly subdued. Thought process, organized. Thought content: patient denied any suicidal or homicidal ideation but did express frustration with his home health provider, there were no delusions reported or noted, patient denied any auditory or visual hallucinations. Attention, concentration, and memory appeared intact but limited, but were not formally tested. Alert and oriented times three. Insight and judgment are limited. Impulse control is limited and intellectual ability impaired. Vitals/I&O/Wt Last Vital Signs Temp 98.2 F 01/10/22 15:34 Pulse 77 01/10/22 15:34 Resp 18 01/10/22 15:34 BP 128/78 01/10/22 15:34 Pulse Ox 99 01/10/22 15:34 O2 Del Method 01/10/22 15:34 Weight last 48 hrs Weight 172.365 kg Data NPU : 01/10/22 16:00 01/10/22 17:50 A&P Assessment and plan (1) Intellectual disability: Status: Acute (2) Suicidal ideation: Status: Resolved (3) Aggressive behavior: Status: Acute (4) Outbursts of explosive behavior: Status: Acute (5) Intermittent explosive disorder: Status: Chronic (6) Bipolar disorder, unspecified: Status: Chronic (7) Attention-deficit hyperactivity disorder, combined type: Status: Acute Plan This is a 26-year old resident of an [facility] who has a guardian who reported increased anger and aggression and was brought to the emergency department by his staff. Plan: 1.? Continue current medication.? 2.? This is a chronic situation and there are no acute lethality issues present. 3.? Agree with discharge to home given no credible lethality. Involuntary Hold Information 96 Hour Hold: 96 Hour Involuntary Admission: No Attestations NPU Medical Necessity Statement*: N/A. Please see primary provider note for details but agree with discharge to home without acute inpatient psychiatric services. Coding Level of Care Code Acute Financial Cost Analyst for Chg Fwd Diagnoses Intellectual disability F79 Suicidal ideation R45.851 Aggressive behavior R46.89 Outbursts of explosive behavior R46.89 Intermittent explosive disorder F63.81 Bipolar disorder, unspecified F31.9 Attention-deficit hyperactivity disorder, combined type F90.2
[2022-01-10 18:43] LABS: Alanine Aminotransferase 20 U/L (0-41); Albumin Level 4.3 g/dL (3.5-5.2); Alkaline Phosphatase 38 U/L (40-130); Anion Gap 19.2 (5-19); Aspartate Amino Transferase 21 U/L (0-40); Blood Urea Nitrogen 16 mg/dL (6-20); Calcium 8.9 mg/dL (8.5-10.5); Carbon Dioxide 21 mmol/L (22-29); Chloride 103 mmol/L (98-107); Globulin 2.7 g/dL (1.3-4.6); Glomerular Filtration Rate 162.9 mL/min (90-130); Glucose 140 mg/dL (65-115); Osmolality Calculated 293 mOsm/kg (285-295); Potassium 3.2 mmol/L (3.5-5.1); Sodium 140 mmol/L (136-145); Total Bilirubin 0.2 mg/dL (0.15-1.2)
[2022-01-10 18:48] LABS: Acetaminophen < 5.0 ug/mL (10-30); Salicylate < 0.3 mg/dL (3-10)
[2022-01-10 19:38] VITALS: RESP 16; O2SAT 98
== END 2022-01-10 19:41 | disposition home or self-care (01) ==
PROVIDERS: Emergency Provider Family Medicine; PCP Family Medicine
DX: F63.81 Intermittent explosive disorder (principal); F31.9 Bipolar disorder, unspecified
CPT/HCPCS: 80053; 80307; 85025; 99283

== ENCOUNTER 2022-04-02 20:20 | Emergency (ER) | payer MEDICAID, SELFPAY ==
[2022-04-02 20:21] VITALS: BMI 39.1
[2022-04-02 20:51] VITALS: BP 127/86; PULSE 100; RESP 12; TEMP 36.6; O2SAT 95
[2022-04-02 21:53] LABS: Basophils % 0.5 %; Eosinophils # 0.1 10^3/uL (0.0-0.8); Eosinophils % 0.9 %; Hematocrit 42.9 % (42.0-52.0); Hemoglobin 13.9 g/dL (11.7-16.6); Lymphocytes # 2.4 10^3/uL (0.8-4.8); Lymphocytes % 29.9 %; Mean Corpuscular HGB Conc 32.4 g/dL (30.0-36.0); Mean Corpuscular Hemoglobin 28.8 pg (28.0-34.0); Mean Platelet Volume 12.2 fL (7.4-10.4); Monocytes # 0.6 10^3/uL (0.2-0.9); Monocytes % 7.3 %; Neutrophils # 4.76 10^3/uL (1.8-7.7); Nucleated Red Blood Cells % 0 %; Platelet Count 233 10^3/cmm (130-400); Red Blood Count 4.82 10^6/uL (4.1-5.3); Red Cell Distribution Width 13.2 % (12.1-15.1); White Blood Count 7.9 10^3/uL (4.0-10.0)
[2022-04-02 21:57] LABS: Add Urine Microscopic? NO; Charge for UA Resulting for Rev
--- NOTE | 2022-04-02 22:00 | PC.NURSE ---
Patient sleeping. die set up worker at bedside.
[2022-04-02 22:09] LABS: Bilirubin Urine Neg (Negative); Blood Urine Neg (Negative); Glucose Urine UA Norm (Normal); Ketones Urine Negative (Negative); Nitrate Urine Negative (Negative); Protein Urine Neg (Negative); Urine Appearance Clear (CLEAR); Urine Color Yellow (Yellow); pH Urine 6 (5-7)
[2022-04-02 22:10] LABS: Amphetamines Screen Urine Negative (Negative); Barbiturates Screen Urine Negative (Negative); Benzodiazepines Screen Urine Positive (Negative); Cocaine Screen Urine Negative (Negative); Leukocyte Esterase Urine Negative (Negative); Opiate Screen Urine Negative (Negative); PCP Screen Urine Negative (Negative); THC Screen Urine Negative (Negative); Urobilinogen Urine Norm (Negative)
[2022-04-02 22:21] LABS: Valproic Acid Level 94.3 ug/mL (50-100)
[2022-04-02 22:22] LABS: Alanine Aminotransferase 14 U/L (0-41); Albumin Level 4.2 g/dL (3.5-5.2); Alkaline Phosphatase 31 U/L (40-130); Anion Gap 17.2 (5-19); Aspartate Amino Transferase 12 U/L (0-40); Blood Urea Nitrogen 12 mg/dL (6-20); Calcium 9.4 mg/dL (8.5-10.5); Carbon Dioxide 22 mmol/L (22-29); Chloride 100 mmol/L (98-107); Globulin 3.5 g/dL (1.3-4.6); Glomerular Filtration Rate 135.3 mL/min (90-130); Glucose 145 mg/dL (65-115); Osmolality Calculated 284 mOsm/kg (285-295); Potassium 3.2 mmol/L (3.5-5.1); Sodium 136 mmol/L (136-145); Total Bilirubin 0.2 mg/dL (0.15-1.2); Total Protein 7.7 g/dL (6.6-8.7)
[2022-04-02 22:52] LABS: Acetaminophen < 5.0 ug/mL (10-30); Alcohol Level < 10 mg/dL (0-10); Salicylate < 0.3 mg/dL (3-10)
--- NOTE | 2022-04-03 00:02 | PC.NURSE ---
Patient sleeping, care homehome health rn at home. Advised that patient is ready for discharge, states dining room supervisor will be to ED shortly and will arrange for transportation back to care home.
[2022-04-03 00:54] VITALS: BP 105/78; PULSE 78; RESP 14; O2SAT 98
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
== END 2022-04-03 00:55 | disposition home or self-care (01) ==
PROVIDERS: Emergency Provider Emergency Medicine; PCP Family Medicine
DX: R45.6 Violent behavior (principal); F31.9 Bipolar disorder, unspecified; F79 Unspecified intellectual disabilities; F17.210 Nicotine dependence, cigarettes, uncomplicated
CPT/HCPCS: 80053; 80164; 80306; 80307; 81003; 85025; 99283

== ENCOUNTER 2022-05-18 10:28 | Outpatient (CLI) | payer MEDICAID, SELFPAY | END 2022-05-18 10:29 | disposition home or self-care (01) | LOC: SPT 10:29 | PROVIDERS: PCP Family Medicine; Visit Provider Podiatrist Foot & Ankle Surgery | DX: Z46.89 Encounter for fitting and adjustment of other specified devices (principal); M25.372 Other instability, left ankle; E11.69 Type 2 diabetes mellitus with other specified complication; B35.1 Tinea unguium; L85.3 Xerosis cutis; E11.8 Type 2 diabetes mellitus with unspecified complications; Z79.4 Long term (current) use of insulin; Z79.84 Long term (current) use of oral hypoglycemic drugs | CPT/HCPCS: 11721; 99213; L1902 ==

== ENCOUNTER 2022-06-02 02:42 | Inpatient (IN) | payer MEDICAID, SELFPAY ==
[2022-06-02 02:44] VITALS: BP 166/100; PULSE 100; RESP 20; TEMP 36.4; O2SAT 99; BMI 44.3
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
[2022-06-02] MEDS: LORazepam 1 mg Tablet PO (02:48)
[2022-06-02 03:31] LABS: Basophils % 0.7 %; Eosinophils # 0.1 10^3/uL (0.0-0.8); Eosinophils % 1.6 %; Hematocrit 45.1 % (42.0-52.0); Hemoglobin 14.5 g/dL (11.7-16.6); Lymphocytes # 2.1 10^3/uL (0.8-4.8); Lymphocytes % 36.4 %; Mean Corpuscular HGB Conc 32.2 g/dL (30.0-36.0); Mean Corpuscular Hemoglobin 28.9 pg (28.0-34.0); Mean Platelet Volume 11.6 fL (7.4-10.4); Monocytes # 0.4 10^3/uL (0.2-0.9); Monocytes % 7.6 %; Neutrophils # 3.05 10^3/uL (1.8-7.7); Neutrophils % 52.7 %; Nucleated Red Blood Cells % 0 %; Platelet Count 278 10^3/cmm (130-400); Red Blood Count 5.01 10^6/uL (4.1-5.3); Red Cell Distribution Width 14.9 % (12.1-15.1); White Blood Count 5.8 10^3/uL (4.0-10.0)
[2022-06-02 03:40] LABS: Amphetamines Screen Urine Negative (Negative); Barbiturates Screen Urine Negative (Negative); Benzodiazepines Screen Urine Negative (Negative); Cocaine Screen Urine Negative (Negative); Opiate Screen Urine Negative (Negative); PCP Screen Urine Negative (Negative); THC Screen Urine Negative (Negative)
[2022-06-02 03:48] LABS: Alanine Aminotransferase 27 U/L (0-41); Albumin Level 4.8 g/dL (3.5-5.2); Alkaline Phosphatase 33 U/L (40-130); Anion Gap 14.6 (5-19); Aspartate Amino Transferase 23 U/L (0-40); Blood Urea Nitrogen 23 mg/dL (6-20); Calcium 10.1 mg/dL (8.5-10.5); Carbon Dioxide 24 mmol/L (22-29); Chloride 101 mmol/L (98-107); Globulin 3.5 g/dL (1.3-4.6); Glomerular Filtration Rate 161.6 mL/min (90-130); Glucose 99 mg/dL (65-115); Osmolality Calculated 286 mOsm/kg (285-295); Potassium 3.6 mmol/L (3.5-5.1); Salicylate 0.4 mg/dL (3-10); Sodium 136 mmol/L (136-145); Total Bilirubin 0.2 mg/dL (0.15-1.2); Total Protein 8.3 g/dL (6.6-8.7)
[2022-06-02 03:49] LABS: Acetaminophen < 5.0 ug/mL (10-30); Alcohol Level < 10 mg/dL (0-10); Valproic Acid Level 65.9 ug/mL (50-100)
--- NOTE | 2022-06-02 11:38 | PC.NURSE ---
Pt ate breakfast try, said he has no needs at this time, sitter with pt
[2022-06-02 11:39] VITALS: BP 155/90; PULSE 84; O2SAT 96
[2022-06-02 12:29] VITALS: BP 155/90; PULSE 84; O2SAT 96
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
[2022-06-02] MEDS: nicotine 2 mg Gum BUCCAL ×4 (13:16→20:19)
[2022-06-02 13:39] VITALS: BP 125/82; PULSE 121; RESP 18; TEMP 36.3; O2SAT 98
[2022-06-02 17:17] LABS: Glucose Point of Care 149 mg/dL (70-110)
[2022-06-02 19:36] LABS: Glucose Point of Care 142 mg/dL (70-110)
[2022-06-02 20:11] VITALS: BP 140/86; PULSE 93; RESP 16; TEMP 36.3; O2SAT 96
[2022-06-02] MEDS: quetiapine 100 mg Tablet PO (20:19)
[2022-06-02] MEDS: divalproex DR 500 mg Tablet PO (20:20)
[2022-06-02] MEDS: CLONazepam 1 mg Tablet PO (20:20)
[2022-06-02] MEDS: fenofibrate 145 mg Tablet PO (20:20)
[2022-06-02] MEDS: quetiapine 100 mg Tablet 400 MG PO (20:20)
[2022-06-02] MEDS: topiramate 100 mg Tablet PO (20:20)
[2022-06-02] MEDS: glimepiride 2 mg Tablet PO (20:21)
[2022-06-02] MEDS: metformin 500 mg Tablet 1000 MG PO (20:25)
[2022-06-02] MEDS: insulin glargine 100 units/1 mL 10 UNIT SUBCUT (20:25)
[2022-06-02] MEDS: trazodone 150 mg Tablet PO (20:25)
[2022-06-02 21:25] VITALS: PULSE 67; RESP 18; O2SAT 97
[2022-06-02] MEDS: albuterol 2.5 mg/3 mL Neb INHALATION (21:25)
[2022-06-02] MEDS: budesonide 0.5 mg/2 mL Neb INHALATION (21:25)
[2022-06-03] VITALS (8 sets, daily range): BP systolic 132–136; BP diastolic 62–93; PULSE 87–145; RESP 16–18; TEMP 36.3; O2SAT 95–99
[2022-06-03] MEDS: nicotine 2 mg Gum BUCCAL ×6 (04:33→20:57)
[2022-06-03] MEDS: ibuprofen 800 mg tablet PO (05:55)
[2022-06-03] MEDS: albuterol 2.5 mg/3 mL Neb INHALATION ×4 (08:26→21:38)
[2022-06-03] MEDS: budesonide 0.5 mg/2 mL Neb INHALATION ×2 (08:26→21:38)
[2022-06-03] MEDS: divalproex DR 500 mg Tablet 1000 MG PO ×2 (08:42→14:16)
[2022-06-03] MEDS: glimepiride 2 mg Tablet PO ×2 (08:42→20:53)
[2022-06-03] MEDS: CLONazepam 1 mg Tablet PO ×2 (08:42→20:53)
[2022-06-03] MEDS: quetiapine 100 mg Tablet 200 MG PO (08:43)
[2022-06-03] MEDS: topiramate 100 mg Tablet PO ×3 (08:43→20:54)
[2022-06-03] MEDS: hydroCHLOROthiazide 25 mg Tablet PO (08:43)
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
[2022-06-03] MEDS: sitagliptin 100 mg Tablet PO (08:44)
[2022-06-03] MEDS: metformin 500 mg Tablet 1000 MG PO ×2 (08:44→20:52)
[2022-06-03] MEDS: multivitamin therapeutic Tablet 1 TAB PO (08:44)
--- NOTE | 2022-06-03 10:44 | W.PM.NPUPNS ---
Subjective NPU Subjective: Patient presented today much like he does with his hospitalizations having no difficulties on the unit. No issues of irritability or anger. No problematic interactions with other patients staff or guests. Which continues to raise the concern of his behaviors being situational and not an issue related to medication issues. He continued from day 1 to ask when he was going to be going home which we discussed the likelihood that he will go home tomorrow morning and that there are no indications that there is any new or pressing issue just in adjusting to new staff and people setting boundaries and holding him accountable. Mental Status Exam MSE Comments: This is an obese to morbidly obese, white male, in hospital scrubs with limited grooming, and eye contact. No abnormal movements except for mild psychomotor retardation. Cooperative with exam in no acute distress. Speech was dysarthric and child-like, and decreased rate and volume. Mood described as okay; affect slightly subdued. Thought process, linear. Thought content: patient endorsed suicidal but denied homicidal ideation but did express frustration with his home health providers, there were no delusions reported or noted, patient denied any auditory or visual hallucinations. Attention, concentration, and memory appeared intact but limited, but were not formally tested. Alert and oriented times three. Insight and judgment are limited. Impulse control is impaired and intellectual ability impaired. Vitals/I&O/Wt Last Vital Signs Temp 97.4 F L 06/03/22 06:00 Pulse 87 06/03/22 08:33 Resp 18 06/03/22 08:28 BP 136/93 06/03/22 06:00 Pulse Ox 99 06/03/22 08:28 O2 Del Method 06/03/22 08:28 Weight last 48 hrs Weight 136.078 kg Data NPU 06/02/22 03:25 06/02/22 03:25 A&P Assessment and plan (1) Intellectual disability: (2) Suicidal ideation: (3) Aggressive behavior: (4) Outbursts of explosive behavior: (5) Intermittent explosive disorder: (6) Bipolar disorder, unspecified: (7) Attention-deficit hyperactivity disorder, combined type: Plan This is a 27-year old resident of an [facility] who has a guardian who reported increased anger and aggression and was once again brought to the emergency department by his staff. Plan: 1.? Continue current medication.? Consider whether a medication change is appropriate. 2.? Continue every 15 minute checks for safety. 3.? Encourage individual, group and milieu therapies. 4.? Encourage sober living treatment after discharge at the highest level of care to which he is willing to commit. 5.? We will monitor for safety and consider discharge.. Involuntary Hold Information 96 Hour Hold: 96 Hour Involuntary Admission: No Attestations NPU Medical Necessity Statement*: Inpatient hospitalization is medically necessary, and the clinically appropriate intervention at this time. We will evaluate his medications and restart and monitor, and make changes as indicated. He will be in the hospital for over two midnights. Likely length of stay 1-3 days. Coding Level of Care Code Acute Quality Control Associate for [facility] Fwd Diagnoses Intellectual disability F79 Suicidal ideation R45.851 Aggressive behavior R46.89 Outbursts of explosive behavior R46.89 Intermittent explosive disorder F63.81 Bipolar disorder, unspecified F31.9 Attention-deficit hyperactivity disorder, combined type F90.2
[2022-06-03 12:24] LABS: Glucose Point of Care 157 mg/dL (70-110)
[2022-06-03 20:28] LABS: Glucose Point of Care 330 mg/dL (70-110)
[2022-06-03] MEDS: quetiapine 100 mg Tablet PO (20:53)
[2022-06-03] MEDS: divalproex DR 500 mg Tablet PO (20:54)
[2022-06-03] MEDS: fenofibrate 145 mg Tablet PO (20:54)
[2022-06-03] MEDS: quetiapine 100 mg Tablet 400 MG PO (20:54)
[2022-06-03] MEDS: insulin glargine 100 units/1 mL 10 UNIT SUBCUT (21:07)
[2022-06-03] MEDS: trazodone 150 mg Tablet PO (21:08)
[2022-06-04] VITALS (9 sets, daily range): BP systolic 99–152; BP diastolic 64–89; PULSE 94–110; RESP 16–20; TEMP 36.6; O2SAT 96–99
[2022-06-04] MEDS: nicotine 2 mg Gum BUCCAL ×7 (07:49→21:23)
[2022-06-04] MEDS: divalproex DR 500 mg Tablet 1000 MG PO ×2 (08:25→14:07)
[2022-06-04] MEDS: CLONazepam 1 mg Tablet PO ×2 (08:25→20:05)
[2022-06-04] MEDS: hydroCHLOROthiazide 25 mg Tablet PO (08:25)
[2022-06-04] MEDS: topiramate 100 mg Tablet PO ×3 (08:26→20:11)
[2022-06-04] MEDS: metformin 500 mg Tablet 1000 MG PO ×2 (08:26→20:06)
[2022-06-04] MEDS: multivitamin therapeutic Tablet 1 TAB PO (08:26)
[2022-06-04] MEDS: quetiapine 100 mg Tablet 200 MG PO (08:26)
[2022-06-04] MEDS: glimepiride 2 mg Tablet PO ×2 (08:26→20:06)
[2022-06-04] MEDS: sitagliptin 100 mg Tablet PO (08:26)
[2022-06-04] MEDS: fluticasone nasal spray 16gm Btl 1 SPRAY INTRANASAL (08:28)
[2022-06-04] MEDS: budesonide 0.5 mg/2 mL Neb INHALATION ×2 (08:57→21:28)
[2022-06-04] MEDS: albuterol 2.5 mg/3 mL Neb INHALATION ×4 (08:57→21:28)
--- NOTE | 2022-06-04 11:15 | P.NPUPN_ITS ---
Subjective NPU Subjective: Patient presents today unchanged since his initial presentation. We discussed that there is no indication that represent a emotional decline but represents the impulse control symptom that is a hallmark of intellectual disability. We will work with treatment team tomorrow to return To his [facility]. We discussed that with his residents and they said that staffing should be arranged by late morning. He denies any issues or concerns. He promised that he would never behave like this again. Mental Status Exam MSE Comments: This is an obese to morbidly obese, white male, in hospital scrubs with limited grooming, and eye contact. No abnormal movements except for mild psychomotor retardation. Cooperative with exam in no acute distress. Speech was dysarthric and child-like, and decreased rate and volume. Mood described as okay; affect slightly subdued. Thought process, linear. Thought content: patient denies suicidal or homicidal ideations, there were no delusions reported or noted, patient denied any auditory or visual hallucinations. Attention, concentration, and memory appeared intact but limited, but were not formally tested. Alert and oriented times three. Insight and judgment are limited. Impulse control is impaired and intellectual ability impaired. Vitals/I&O/Wt Last Vital Signs Temp 97.4 F L 06/03/22 06:00 Pulse 110 H 06/04/22 09:03 Resp 18 06/04/22 08:58 BP 133/70 06/03/22 20:43 Pulse Ox 97 06/04/22 08:58 O2 Del Method 06/04/22 08:58 Weight last 48 hrs Weight 155.038 kg Data NPU 06/02/22 03:25 06/02/22 03:25 A&P Assessment and plan (1) Intellectual disability: (2) Suicidal ideation: (3) Aggressive behavior: (4) Outbursts of explosive behavior: (5) Intermittent explosive disorder: (6) Bipolar disorder, unspecified: (7) Attention-deficit hyperactivity disorder, combined type: Plan This is a 27-year old resident of an [facility] who has a guardian who reported increased anger and aggression and was once again brought to the emergency department by his staff. Plan: 1.? Continue current medication.? 2.? Continue every 15 minute checks for safety. 3.? Encourage individual, group and milieu therapies. 4.? Encourage sober living treatment after discharge at the highest level of care to which he is willing to commit. 5.? We will monitor for safety and consider discharge.. Involuntary Hold Information 96 Hour Hold: 96 Hour Involuntary Admission: No Attestations NPU Medical Necessity Statement*: Inpatient hospitalization is medically necessary, and the clinically appropriate intervention at this time. We will evaluate his medications and restart and monitor, and make changes as indicated. Likely length of stay 1-2 days. Coding Level of Care Code Acute Stamping Mill Tender for [facility] Fwd Diagnoses Intellectual disability F79 Suicidal ideation R45.851 Aggressive behavior R46.89 Outbursts of explosive behavior R46.89 Intermittent explosive disorder F63.81 Bipolar disorder, unspecified F31.9 Attention-deficit hyperactivity disorder, combined type F90.2
[2022-06-04 14:24] LABS: Glucose Point of Care 248 mg/dL (70-110)
[2022-06-04 14:24] LABS: Glucose Point of Care 125 mg/dL (70-110)
[2022-06-04] MEDS: divalproex DR 500 mg Tablet PO (20:05)
[2022-06-04] MEDS: fenofibrate 145 mg Tablet PO (20:05)
[2022-06-04] MEDS: trazodone 150 mg Tablet PO (20:06)
[2022-06-04] MEDS: quetiapine 100 mg Tablet 400 MG PO (20:06)
[2022-06-04] MEDS: quetiapine 100 mg Tablet PO (20:06)
[2022-06-04 20:11] LABS: Glucose Point of Care 295 mg/dL (70-110)
[2022-06-04] MEDS: insulin glargine 100 units/1 mL 10 UNIT SUBCUT (20:19)
[2022-06-05 05:24] VITALS: RESP 18
[2022-06-05] MEDS: nicotine 2 mg Gum BUCCAL ×3 (06:32→10:40)
[2022-06-05] MEDS: hydroCHLOROthiazide 25 mg Tablet PO (08:03)
[2022-06-05] MEDS: quetiapine 100 mg Tablet 200 MG PO (08:03)
[2022-06-05] MEDS: glimepiride 2 mg Tablet PO (08:03)
[2022-06-05] MEDS: CLONazepam 1 mg Tablet PO (08:03)
[2022-06-05] MEDS: sitagliptin 100 mg Tablet PO (08:03)
[2022-06-05] MEDS: multivitamin therapeutic Tablet 1 TAB PO (08:03)
[2022-06-05] MEDS: metformin 500 mg Tablet 1000 MG PO (08:03)
[2022-06-05] MEDS: topiramate 100 mg Tablet PO ×2 (08:03→12:18)
[2022-06-05] MEDS: fluticasone nasal spray 16gm Btl 1 SPRAY INTRANASAL (08:04)
[2022-06-05] MEDS: divalproex DR 500 mg Tablet 1000 MG PO (08:04)
[2022-06-05 08:12] LABS: Glucose Point of Care 166 mg/dL (70-110)
[2022-06-05 09:00] VITALS: PULSE 98; RESP 18; O2SAT 95
[2022-06-05] MEDS: albuterol 2.5 mg/3 mL Neb INHALATION (09:05)
[2022-06-05 09:11] VITALS: PULSE 110; RESP 18; O2SAT 95
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
[2022-06-05 11:03] VITALS: BP 99/64; PULSE 110; RESP 18; TEMP 36.6; O2SAT 95
== END 2022-06-05 12:58 | disposition home or self-care (01) | DRG 883 ==
LOC: ER 03:08 → ER IP 08:52 → NP 12:10
PROVIDERS: Admitting Provider Psychiatry & Neurology Psychiatry; Emergency Provider Emergency Medicine; PCP Family Medicine; Visit Provider Psychiatry & Neurology Psychiatry
DX: F63.81 Intermittent explosive disorder (principal); F79 Unspecified intellectual disabilities; F31.9 Bipolar disorder, unspecified; F90.2 Attention-deficit hyperactivity disorder, combined type; F17.210 Nicotine dependence, cigarettes, uncomplicated; Z91.51 Personal history of suicidal behavior
CPT/HCPCS: 36416; 80053; 80164; 80306; 80307; 82962; 85025; 94640; 96372; 97150; 97165; 99285; J1815; J7613; J7626

== ENCOUNTER 2022-06-06 10:45 | Emergency (ER) | payer MEDICAID, SELFPAY ==
[2022-06-06 10:49] VITALS: BP 148/60; PULSE 108; RESP 18; TEMP 36.4; O2SAT 95; BMI 41.3
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
[2022-06-06 11:30] LABS: Glucose Point of Care 268 mg/dL (70-110)
== END 2022-06-06 11:36 | disposition home or self-care (01) ==
PROVIDERS: Emergency Provider Emergency Medicine; PCP Family Medicine
DX: F63.81 Intermittent explosive disorder (principal); E11.9 Type 2 diabetes mellitus without complications; Z79.84 Long term (current) use of oral hypoglycemic drugs; Z79.4 Long term (current) use of insulin; F17.210 Nicotine dependence, cigarettes, uncomplicated
CPT/HCPCS: 36416; 82962; 99285

== ENCOUNTER 2022-06-20 02:20 | Inpatient (IN) | payer MEDICAID, SELFPAY ==
[2022-06-20 02:21] VITALS: BP 111/89; PULSE 101; RESP 18; TEMP 36.4; O2SAT 94; BMI 47.2
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
[2022-06-20] MEDS: LORazepam 1 mg Tablet PO (02:28)
[2022-06-20 02:39] LABS: Basophils # 0.1 10^3/uL (0.0-0.1); Basophils % 0.9 %; Eosinophils # 0.1 10^3/uL (0.0-0.8); Hematocrit 43.6 % (42.0-52.0); Hemoglobin 14.2 g/dL (11.7-16.6); Lymphocytes # 2.5 10^3/uL (0.8-4.8); Lymphocytes % 38.9 %; Mean Corpuscular HGB Conc 32.6 g/dL (30.0-36.0); Mean Corpuscular Volume 89.2 fl (80-94); Mean Platelet Volume 11.9 fL (7.4-10.4); Monocytes # 0.6 10^3/uL (0.2-0.9); Monocytes % 8.8 %; Neutrophils # 3.09 10^3/uL (1.8-7.7); Neutrophils % 48.5 %; Nucleated Red Blood Cells % 0 %; Platelet Count 222 10^3/cmm (130-400); Red Blood Count 4.89 10^6/uL (4.1-5.3); Red Cell Distribution Width 14.2 % (12.1-15.1); White Blood Count 6.4 10^3/uL (4.0-10.0)
[2022-06-20 02:55] LABS: Amphetamines Screen Urine Negative (Negative); Barbiturates Screen Urine Negative (Negative); Benzodiazepines Screen Urine Positive (Negative); Cocaine Screen Urine Negative (Negative); Opiate Screen Urine Negative (Negative); PCP Screen Urine Negative (Negative); THC Screen Urine Negative (Negative)
[2022-06-20 02:58] LABS: Alanine Aminotransferase 20 U/L (0-41); Albumin Level 4.6 g/dL (3.5-5.2); Alkaline Phosphatase 32 U/L (40-130); Blood Urea Nitrogen 25 mg/dL (6-20); Calcium 9.2 mg/dL (8.5-10.5); Carbon Dioxide 20 mmol/L (22-29); Chloride 98 mmol/L (98-107); Globulin 3.3 g/dL (1.3-4.6); Glomerular Filtration Rate 135.3 mL/min (90-130); Glucose 112 mg/dL (65-115); Osmolality Calculated 281 mOsm/kg (285-295); Sodium 133 mmol/L (136-145); Total Bilirubin 0.2 mg/dL (0.15-1.2); Total Protein 7.9 g/dL (6.6-8.7)
[2022-06-20 02:59] LABS: Acetaminophen < 5.0 ug/mL (10-30); Alcohol Level < 10 mg/dL (0-10); Anion Gap 18.1 (5-19); Aspartate Amino Transferase 23 U/L (0-40); Potassium 3.1 mmol/L (3.5-5.1); Salicylate < 0.3 mg/dL (3-10)
[2022-06-20] MEDS: potassium chloride ER 20 mEq Tablet 40 MEQ PO (03:26)
[2022-06-20 03:40] VITALS: BP 113/78; PULSE 89; RESP 17; TEMP 36.6; O2SAT 96
[2022-06-20] MEDS: nicotine 2 mg Gum BUCCAL ×7 (04:01→20:06)
[2022-06-20] MEDS: multivitamin therapeutic Tablet 1 TAB PO (07:49)
[2022-06-20] MEDS: quetiapine 100 mg Tablet 200 MG PO ×2 (07:49→20:06)
[2022-06-20] MEDS: metformin 500 mg Tablet 1000 MG PO ×2 (07:49→20:05)
[2022-06-20] MEDS: hydroCHLOROthiazide 25 mg Tablet PO (07:49)
[2022-06-20] MEDS: fluticasone nasal spray 16gm Btl 1 SPRAY INTRANASAL (07:49)
[2022-06-20] MEDS: topiramate 100 mg Tablet PO ×3 (07:50→20:06)
[2022-06-20] MEDS: divalproex DR 500 mg Tablet 1000 MG PO ×2 (07:50→13:26)
[2022-06-20] MEDS: glimepiride 2 mg Tablet PO ×2 (07:50→17:14)
[2022-06-20] MEDS: sitagliptin 100 mg Tablet PO (07:50)
[2022-06-20 08:00] VITALS: O2SAT 99
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
[2022-06-20] MEDS: CLONazepam 1 mg Tablet PO ×4 (09:46→20:06)
[2022-06-20 12:28] LABS: Glucose Point of Care 199 mg/dL (70-110)
[2022-06-20 14:00] VITALS: BP 133/87; PULSE 98; RESP 19; TEMP 36.4; O2SAT 100
[2022-06-20 20:00] VITALS: PULSE 75; RESP 16; O2SAT 98
[2022-06-20] MEDS: trazodone 150 mg Tablet PO (20:05)
[2022-06-20] MEDS: fenofibrate 145 mg Tablet PO (20:06)
[2022-06-20] MEDS: divalproex DR 500 mg Tablet PO (20:06)
[2022-06-20] MEDS: quetiapine 300 mg Tablet PO (20:06)
[2022-06-20 20:08] LABS: Glucose Point of Care 197 mg/dL (70-110)
[2022-06-20] MEDS: insulin glargine 100 units/1 mL 10 UNIT SUBCUT (20:25)
[2022-06-20] MEDS: budesonide 0.5 mg/2 mL Neb INHALATION (20:34)
[2022-06-20 20:50] VITALS: BP 126/89; PULSE 94; RESP 17; TEMP 36.6; O2SAT 94
[2022-06-21] MEDS: nicotine 2 mg Gum BUCCAL ×7 (02:07→20:28)
[2022-06-21 06:00] VITALS: BP 118/82; PULSE 95; RESP 20; TEMP 36.8; O2SAT 95
[2022-06-21] MEDS: sitagliptin 100 mg Tablet PO (07:53)
[2022-06-21] MEDS: CLONazepam 1 mg Tablet PO ×3 (07:53→20:10)
[2022-06-21] MEDS: glimepiride 2 mg Tablet PO ×2 (07:53→19:40)
[2022-06-21] MEDS: ARIPiprazole 10 mg Tablet 5 MG PO (07:53)
[2022-06-21] MEDS: multivitamin therapeutic Tablet 1 TAB PO (07:53)
[2022-06-21] MEDS: hydroCHLOROthiazide 25 mg Tablet PO (07:53)
[2022-06-21] MEDS: metformin 500 mg Tablet 1000 MG PO ×2 (07:54→20:22)
[2022-06-21] MEDS: divalproex DR 500 mg Tablet 1000 MG PO ×2 (07:54→13:57)
[2022-06-21] MEDS: topiramate 100 mg Tablet PO ×3 (07:55→20:23)
[2022-06-21] MEDS: fluticasone nasal spray 16gm Btl 1 SPRAY INTRANASAL (07:59)
[2022-06-21 08:00] VITALS: PULSE 95; RESP 20; O2SAT 95
[2022-06-21 08:04] LABS: Glucose Point of Care 208 mg/dL (70-110)
[2022-06-21] MEDS: budesonide 0.5 mg/2 mL Neb INHALATION ×2 (09:19→19:56)
[2022-06-21] MEDS: albuterol 2.5 mg/3 mL Neb INHALATION (09:19)
[2022-06-21 12:18] LABS: Glucose Point of Care 220 mg/dL (70-110)
[2022-06-21 14:00] VITALS: BP 129/90; PULSE 108; RESP 18; TEMP 36.4; O2SAT 96
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
[2022-06-21 19:57] VITALS: PULSE 111; RESP 20; O2SAT 96
[2022-06-21] MEDS: quetiapine 300 mg Tablet PO (20:08)
[2022-06-21] MEDS: divalproex DR 500 mg Tablet PO (20:09)
[2022-06-21] MEDS: quetiapine 100 mg Tablet 200 MG PO (20:10)
[2022-06-21] MEDS: trazodone 50 mg Tablet PO (20:23)
[2022-06-21] MEDS: insulin glargine 100 units/1 mL 10 UNIT SUBCUT (20:24)
[2022-06-21] MEDS: fenofibrate 145 mg Tablet PO (20:24)
[2022-06-21] MEDS: trazodone 150 mg Tablet PO (20:28)
[2022-06-21 20:31] LABS: Glucose Point of Care 228 mg/dL (70-110)
[2022-06-21 21:01] VITALS: PULSE 105; RESP 18; TEMP 36.5; O2SAT 94
[2022-06-22] MEDS: nicotine 2 mg Gum BUCCAL ×9 (00:26→22:56)
[2022-06-22 08:07] VITALS: PULSE 105; RESP 18; O2SAT 94
[2022-06-22] MEDS: albuterol 2.5 mg/3 mL Neb INHALATION (08:07)
[2022-06-22] MEDS: budesonide 0.5 mg/2 mL Neb INHALATION ×2 (08:07→20:43)
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
[2022-06-22] MEDS: hyDROXYzine 25 mg Capsule 50 MG PO (08:55)
[2022-06-22] MEDS: metformin 500 mg Tablet 1000 MG PO ×2 (08:55→20:31)
[2022-06-22] MEDS: ibuprofen 800 mg tablet PO (08:55)
[2022-06-22] MEDS: hydroCHLOROthiazide 25 mg Tablet PO (08:55)
[2022-06-22] MEDS: multivitamin therapeutic Tablet 1 TAB PO (08:56)
[2022-06-22] MEDS: sitagliptin 100 mg Tablet PO (08:56)
[2022-06-22] MEDS: glimepiride 2 mg Tablet PO ×2 (08:56→17:27)
[2022-06-22] MEDS: fluticasone nasal spray 16gm Btl 1 SPRAY INTRANASAL (08:57)
[2022-06-22] MEDS: ARIPiprazole 10 mg Tablet PO (08:57)
[2022-06-22] MEDS: divalproex DR 500 mg Tablet 1000 MG PO ×2 (08:57→15:04)
[2022-06-22] MEDS: CLONazepam 1 mg Tablet PO ×3 (08:57→20:33)
[2022-06-22 09:10] LABS: Glucose Point of Care 146 mg/dL (70-110)
[2022-06-22] MEDS: topiramate 100 mg Tablet PO ×3 (10:13→20:36)
[2022-06-22 12:02] LABS: Glucose Point of Care 150 mg/dL (70-110)
[2022-06-22 14:00] VITALS: BP 141/91; PULSE 107; RESP 18; TEMP 36.6; O2SAT 93
[2022-06-22 20:00] VITALS: PULSE 105; RESP 18; O2SAT 95
[2022-06-22 20:22] VITALS: BP 120/82; PULSE 105; RESP 18; TEMP 36.8; O2SAT 95
[2022-06-22] MEDS: quetiapine 100 mg Tablet 200 MG PO (20:30)
[2022-06-22] MEDS: divalproex DR 500 mg Tablet PO (20:31)
[2022-06-22] MEDS: fenofibrate 145 mg Tablet PO (20:31)
[2022-06-22] MEDS: quetiapine 300 mg Tablet PO (20:33)
[2022-06-22] MEDS: benztropine 1 mg Tablet PO (20:33)
[2022-06-22] MEDS: insulin glargine 100 units/1 mL 10 UNIT SUBCUT (20:34)
[2022-06-22] MEDS: trazodone 150 mg Tablet PO (20:36)
[2022-06-22 20:39] LABS: Glucose Point of Care 214 mg/dL (70-110)
[2022-06-22 20:44] VITALS: PULSE 105; RESP 18; O2SAT 95
[2022-06-23] MEDS: nicotine 2 mg Gum BUCCAL ×4 (04:21→12:58)
[2022-06-23 05:03] LABS: Glucose Point of Care 148 mg/dL (70-110)
[2022-06-23 06:00] VITALS: BP 119/65; PULSE 100; RESP 20; TEMP 36.6; O2SAT 96
[2022-06-23 07:51] LABS: Glucose Point of Care 183 mg/dL (70-110)
[2022-06-23 08:00] VITALS: PULSE 98; RESP 18; O2SAT 100
[2022-06-23] MEDS: CLONazepam 1 mg Tablet PO (08:07)
[2022-06-23] MEDS: ARIPiprazole 10 mg Tablet PO (08:08)
[2022-06-23] MEDS: topiramate 100 mg Tablet PO ×2 (08:08→14:33)
[2022-06-23] MEDS: metformin 500 mg Tablet 1000 MG PO (08:08)
[2022-06-23] MEDS: divalproex DR 500 mg Tablet 1000 MG PO (08:08)
[2022-06-23] MEDS: sitagliptin 100 mg Tablet PO (08:08)
[2022-06-23] MEDS: hydroCHLOROthiazide 25 mg Tablet PO (08:08)
[2022-06-23] MEDS: multivitamin therapeutic Tablet 1 TAB PO (08:08)
[2022-06-23] MEDS: glimepiride 2 mg Tablet PO (08:08)
[2022-06-23] MEDS: polyethylene glycol 3350 Pkt 17 gm PO (08:09)
[2022-06-23] MEDS: fluticasone nasal spray 16gm Btl 1 SPRAY NASAL (08:09)
[2022-06-23] MEDS: budesonide 0.5 mg/2 mL Neb INHALATION (08:12)
[2022-06-23 08:16] VITALS: PULSE 101
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
[2022-06-23 12:36] VITALS: BP 119/65; PULSE 87; RESP 18; TEMP 36.6; O2SAT 100
[2022-06-23 12:51] LABS: Glucose Point of Care 180 mg/dL (70-110)
== END 2022-06-23 14:36 | disposition home or self-care (01) | DRG 883 ==
LOC: ER 03:09 → NP 04:29
PROVIDERS: Admitting Provider Psychiatry & Neurology Psychiatry; Emergency Provider Emergency Medicine; PCP Family Medicine; Visit Provider Psychiatry & Neurology Psychiatry
DX: F63.81 Intermittent explosive disorder (principal); R44.0 Auditory hallucinations; F90.2 Attention-deficit hyperactivity disorder, combined type; F31.9 Bipolar disorder, unspecified; F41.1 Generalized anxiety disorder; F17.210 Nicotine dependence, cigarettes, uncomplicated; F79 Unspecified intellectual disabilities; F91.1 Conduct disorder, childhood-onset type
CPT/HCPCS: 36416; 80053; 80306; 80307; 82962; 85025; 94640; 96372; 97150; 97165; 99285; J1815; J7613; J7626

== ENCOUNTER 2022-06-23 23:35 | Emergency (ER) | payer MEDICAID, SELFPAY ==
[2022-06-23 23:48] VITALS: BP 144/97; PULSE 102; RESP 16; TEMP 36.3; O2SAT 96
--- NOTE | 2022-06-23 23:48 | W.ED.PSYCHS ---
Documented by User: KAYLEIGH Hernandez 06/24/22 00:27 HPI - Psych General: Chief Complaint: Psychiatric Symptoms Stated Complaint: SI Time Seen by Provider: 06/23/22 23:48 History of Present Illness: 27-year-old male patient returns to the emergency department today for concerns of hearing voices and suicidal thoughts. Patient reports that the voices tell him to take a pair of scissors and cut his throat. Patient reports that the voices continue to bother him and encouraged him to harm himself. Patient was just released from the neuropsychiatric unit and feels he needs to be back in the unit because he does not feel safe at home. Patient believes that his medication needs adjusted to stop the voices. Associated symptoms: Reports auditory hallucinations and suicidal ideation Review of Systems Psych: Reports: auditory hallucinations and suicidal ideation [facility] ED PFSH: Medical History Attention-deficit hyperactivity disorder, combined type Bipolar disorder, unspecified Generalized anxiety disorder Intermittent explosive disorder Nicotine dependence, cigarettes, uncomplicated On valproic acid therapy Psychiatric care Social History Smoking and tobacco status: current every day smoker cigarettes Packs smoked per day: 2 Smoking risk assessment/counseling performed?: Yes Tobacco counseling given: counseling >3 minutes Physical Exam Const: COMMON NORMALS: alert GENERAL APPEARANCE: well kempt HENMT: COMMON NORMALS: normocephalic HEAD & SCALP: normocephalic Neck/C-Spine: COMMON NORMALS: full ROM Resp: COMMON NORMALS: normal respiratory effort Cardio: COMMON NORMALS: regular rate RATE: regular rate Extremity: COMMON NORMALS: full ROM Neuro: SENSORIUM/ORIENTATION: Yes alert Psych: COMMON NORMALS: speech normal APPEARANCE: Yes well kempt ATTITUDE: Yes calm ACTIVITY/MOTOR BEHAVIOR: Yes Avoids eye contact (attititude/behavior) SPEECH: Yes normal speech and Yes soft MOOD & AFFECT: Yes depressed mood THOUGHT PROCESS: Circumstantial thought process present THOUGHT CONTENT: Yes Suicidality present and Yes Hallucination(s) present ATTENTION/CONCENTRATION: Yes attention grossly intact MEMORY/COGNITION: Yes memory grossly intact INSIGHT: Fair insight present (Psych) JUDGEMENT: Fair judgement present (Psych) Course Vital Signs: Vital signs: Vital Signs Temperature 97.4 F L 06/23/22 23:48 Pulse Rate 102 H 06/23/22 23:48 Respiratory Rate 16 06/23/22 23:48 Blood Pressure 144/97 06/23/22 23:48 Pulse Oximetry 96 06/23/22 23:48 Oxygen Delivery Me thod 06/23/22 23:48 MDM - Psych Medical Decision Making 27-year-old male patient comes in today for concerns of suicidal ideation and auditory hallucinations. Patient reports that he is hearing voices telling him to cut his throat. Patient feels that he may harm himself because the voices continue to tell him to harm himself. Patient believes that his medication needs adjustment further in order to stop the voices. Differential diagnosis includes schizophrenia, malingering, intellectual disability, bipolar disorder, diabetes type 2. Reviewed patient with Dr. Khoury. Dr. Khoury had evaluated the patient earlier today and felt comfortable for him being seen in outpatient clinic, he believes his symptoms are secondary to his intellectual disability and with patient being calm and no signs of self-harm he is safe to be discharged. I reviewed this with patient reported understanding. Patient is nonaggressive and is calm. Lab Data 06/24/22 00:10 06/24/22 00:10 Laboratory Results WBC 5.9 10^3/uL (4.0-10.0) 06/24/22 00:10 RBC 4.67 10^6/uL (4.1-5.3) 06/24/22 00:10 Hgb 13.6 g/dL (11.7-16.6) 06/24/22 00:10 Hct 42.3 % (42.0-52.0) 06/24/22 00:10 MCV 90.6 fl (80-94) 06/24/22 00:10 MCH 29.1 pg (28.0-34.0) 06/24/22 00:10 MCHC 32.2 g/dL (30.0-36.0) 06/24/22 00:10 RDW 13.8 % (12.1-15.1) 06/24/22 00:10 Plt Count 251 10^3/cmm (130-400) 06/24/22 00:10 MPV 11.8 fL (7.4-10.4) H 06/24/22 00:10 Neut % (Auto) 56.4 % 06/24/22 00:10 Lymph % (Auto) 30.5 % 06/24/22 00:10 Wink[place] % (Auto) 9.9 % 06/24/22 00:10 Eos % (Auto) 1.5 % 06/24/22 00:10 Baso % (Auto) 0.7 % 06/24/22 00:10 Neut # (Auto) 3.35 10^3/uL (1.8-7.7) 06/24/22 00:10 Lymph # (Auto) 1.8 10^3/uL (0.8-4.8) 06/24/22 00:10 [place]ink[place] # (Auto) 0.6 10^3/uL (0.2-0.9) 06/24/22 00:10 Eos # (Auto) 0.1 10^3/uL (0.0-0.8) 06/24/22 00:10 Baso # (Auto) 0.0 10^3/uL (0.0-0.1) 06/24/22 00:10 Nucleated RBC % (auto) 0 % 06/24/22 00:10 Nucleated RBCs # 0.0 /100WBC 06/24/22 00:10 Sodium 136 mmol/L (136-145) 06/24/22 00:10 Potassium 3.5 mmol/L (3.5-5.1) 06/24/22 00:10 Chloride 98 mmol/L (98-107) 06/24/22 00:10 Carbon Dioxide 25 mmol/L (22-29) 06/24/22 00:10 Anion Gap 16.5 (5-19) 06/24/22 00:10 BUN 17 mg/dL (6-20) 06/24/22 00:10 Creatinine 0.7 mg/dL (0.7-1.2) 06/24/22 00:10 GFR Calculation 135.3 mL/min (90-130) H 06/24/22 00:10 Glucose 156 mg/dL (65-115) H 06/24/22 00:10 Calculated Osmolality 287 mOsm/kg (285-295) 06/24/22 00:10 Calcium 9.8 mg/dL (8.5-10.5) 06/24/22 00:10 Total Bilirubin 0.2 mg/dL (0.15-1.2) 06/24/22 00:10 AST 13 U/L (0-40) 06/24/22 00:10 ALT 16 U/L (0-41) 06/24/22 00:10 Alkaline Phosphatase 34 U/L (40-130) L 06/24/22 00:10 Total Protein 7.4 g/dL (6.6-8.7) 06/24/22 00:10 Albumin 4.4 g/dL (3.5-5.2) 06/24/22 00:10 Globulin 3.0 g/dL (1.3-4.6) 06/24/22 00:10 TSH 4.72 uIU/mL (0.27-4.20) H 06/24/22 00:10 Salicylates < 0.3 mg/dL (3-10) L 06/24/22 00:10 Acetaminophen < 5.0 ug/mL (10-30) L 06/24/22 00:10 Ethyl Alcohol < 10 mg/dL (0-10) 06/24/22 00:10 Discharge Plan Discharge Patient Disposition: Home Clinical Impression: Auditory hallucination, Intellectual disability Condition: Stable Prescriptions: No Action hydrochlorothiazide 25 mg tablet 25 mg PO DAILY@08 loperamide 2 mg tablet 4 mg PO PRN MDD 8 tabs PRN (Reason: Diarrhea) Januvia 100 mg tablet 100 mg PO DAILY@08 Victoza 2-Otf 0.6 mg/0.1 mL (18 mg/3 mL) pen injector 1.8 mg SUBCUT DAILY@08 fenofibrate nanocrystallized 145 mg tablet 145 mg PO BEDTIME@20 ibuprofen 800 mg tablet 800 mg PO Q8H PRN (Reason: Pain) acetaminophen [Tylenol Extra Strength] 500 mg tablet 500 - 1,000 mg PO Q6H PRN (Reason: Pain) topiramate 100 mg tablet 100 mg PO TID@08,12,20 Qty: 90 1RF (DME) A&D ointment See Rx Instructions .Route .MEDSUPPLY Qty: 1 6RF Rx Instructions: to be applied daily triamcinolone acetonide 0.1 % Cream 1 applic TOPICAL DAILY PRN (Reason: Rash) polyethylene glycol 3350 [Miralax] 17 gram/dose Powder 17 g PO DAILY PRN (Reason: Constipation) fluticasone propionate 50 mcg/actuation [place],Suspension 1 spray INTRANASAL DAILY@08 glimepiride 2 mg tablet 2 mg PO BIDWM@08,18 Rx Instructions: before meals insulin glargine [Lantus Solostar U-100 Insulin] 100 unit/mL (3 mL) insulin pen 10 unit SUBCUT DAILY@20 promethazine-DM 6.25-15 mg/5 mL syrup 5 ml PO Q4H PRN (Reason: Cough) metformin 1,000 mg tablet 1,000 mg PO BID@08,20 mupirocin 2 % ointment 1 applic TOPICAL BID PRN (Reason: Skin Irritation) albuterol sulfate [Ventolin HFA] 90 mcg/actuation HFA aerosol inhaler 2 puff INHALATION Q4H PRN (Reason: Shortness Of Breath) budesonide-formoterol [Symbicort] 160-4.5 mcg/actuation HFA aerosol inhaler 2 puff INHALATION BID multivitamin with folic acid [Daily-Suzette (with folic acid)] 400 mcg tablet 1 tab PO DAILY@08 trazodone 150 mg tablet 150 mg PO BEDTIME@20 DDAVP 0.2 mg Tablet 0.2 mg PO BEDTIME Depakote 500 mg Tablet,Delayed Release (Dr/Ec) 1,000 mg PO BID@08,14 divalproex 500 mg tablet,delayed release (DR/EC) 500 mg PO DAILY@20 Rx Instructions: 2 tablets (1,000mg) at 08:00 and 14:00 and 1 tablet (500mg) at 20:00 hydrochlorothiazide 25 mg Tablet 25 mg PO DAILY 30 Days Qty: 30 1RF aripiprazole 10 mg Tablet 10 mg PO DAILY 30 Days Qty: 30 1RF Discharge Orders: Discharge ED (Routine); Ordered 06/24/22 Ordered By: Lyle Fuentes Referrals: Beatriz Loza DO [Primary Care Provider] - Discharge Diet: Usual diet Patient Instructions: Hallucinations (ED) Activity Restrictions/Additional Instructions: Continue routine medications. Follow-up in medical office clinic or behavioral health clinic on Sunday. Return to ER as needed. Coding Level of Care Code ED Drawing In Hand for Chg Fwd Exam Detailed Documented by User: Jimmie Magallanes DO 06/24/22 05:31 HPI - Psych General: Chief Complaint: Psychiatric Symptoms Stated Complaint: SI Time Seen by Provider: 06/23/22 23:48 PFSH ED PFSH: Medical History Attention-deficit hyperactivity disorder, combined type Bipolar disorder, unspecified Generalized anxiety disorder Intermittent explosive disorder Nicotine dependence, cigarettes, uncomplicated On valproic acid therapy Psychiatric care Social History (Reviewed 06/20/22 @ 02: by Sridhar Chavez MD) Smoking and tobacco status: current every day smoker cigarettes Packs smoked per day: 2 Smoking risk assessment/counseling performed?: Yes Tobacco counseling given: counseling >3 minutes Course Vital Signs: Vital signs: Vital Signs Temperature 97.4 F L 06/23/22 23:48 Pulse Rate 102 H 06/23/22 23:48 Respiratory Rate 16 06/23/22 23:48 Blood Pressure 144/97 06/23/22 23:48 Pulse Oximetry 96 06/23/22 23:48 Oxygen Delivery Me thod 06/23/22 23:48 MDM - Psych Medical Decision Making 27-year-old male patient comes in today for concerns of suicidal ideation and auditory hallucinations. Patient reports that he is hearing voices telling him to cut his throat. Patient feels that he may harm himself because the voices continue to tell him to harm himself. Patient believes that his medication needs adjustment further in order to stop the voices. Differential diagnosis includes schizophrenia, malingering, intellectual disability, bipolar disorder, diabetes type 2. Reviewed patient with Dr. Khoury. Dr. Khoury had evaluated the patient earlier today and felt comfortable for him being seen in outpatient clinic, he believes his symptoms are secondary to his intellectual disability and with patient being calm and no signs of self-harm he is safe to be discharged. I reviewed this with patient reported understanding. Patient is nonaggressive and is calm. This patient was originally seen by KAYLEIGH Umana.? I agree with his history, evaluation, and treatment. Lab Data 06/24/22 00:10 06/24/22 00:10 Laboratory Results WBC 5.9 10^3/uL (4.0-10.0) 06/24/22 00:10 RBC 4.67 10^6/uL (4.1-5.3) 06/24/22 00:10 Hgb 13.6 g/dL (11.7-16.6) 06/24/22 00:10 Hct 42.3 % (42.0-52.0) 06/24/22 00:10 MCV 90.6 fl (80-94) 06/24/22 00:10 MCH 29.1 pg (28.0-34.0) 06/24/22 00:10 MCHC 32.2 g/dL (30.0-36.0) 06/24/22 00:10 RDW 13.8 % (12.1-15.1) 06/24/22 00:10 Plt Count 251 10^3/cmm (130-400) 06/24/22 00:10 MPV 11.8 fL (7.4-10.4) H 06/24/22 00:10 Neut % (Auto) 56.4 % 06/24/22 00:10 Lymph % (Auto) 30.5 % 06/24/22 00:10 Winkler % (Auto) 9.9 % 06/24/22 00:10 Eos % (Auto) 1.5 % 06/24/22 00:10 Baso % (Auto) 0.7 % 06/24/22 00:10 Neut # (Auto) 3.35 10^3/uL (1.8-7.7) 06/24/22 00:10 Lymph # (Auto) 1.8 10^3/uL (0.8-4.8) 06/24/22 00:10 [place]ink[place] # (Auto) 0.6 10^3/uL (0.2-0.9) 06/24/22 00:10 Eos # (Auto) 0.1 10^3/uL (0.0-0.8) 06/24/22 00:10 Baso # (Auto) 0.0 10^3/uL (0.0-0.1) 06/24/22 00:10 Nucleated RBC % (auto) 0 % 06/24/22 00:10 Nucleated RBCs # 0.0 /100WBC 06/24/22 00:10 Sodium 136 mmol/L (136-145) 06/24/22 00:10 Potassium 3.5 mmol/L (3.5-5.1) 06/24/22 00:10 Chloride 98 mmol/L (98-107) 06/24/22 00:10 Carbon Dioxide 25 mmol/L (22-29) 06/24/22 00:10 Anion Gap 16.5 (5-19) 06/24/22 00:10 BUN 17 mg/dL (6-20) 06/24/22 00:10 Creatinine 0.7 mg/dL (0.7-1.2) 06/24/22 00:10 GFR Calculation 135.3 mL/min (90-130) H 06/24/22 00:10 Glucose 156 mg/dL (65-115) H 06/24/22 00:10 Calculated Osmolality 287 mOsm/kg (285-295) 06/24/22 00:10 Calcium 9.8 mg/dL (8.5-10.5) 06/24/22 00:10 Total Bilirubin 0.2 mg/dL (0.15-1.2) 06/24/22 00:10 AST 13 U/L (0-40) 06/24/22 00:10 ALT 16 U/L (0-41) 06/24/22 00:10 Alkaline Phosphatase 34 U/L (40-130) L 06/24/22 00:10 Total Protein 7.4 g/dL (6.6-8.7) 06/24/22 00:10 Albumin 4.4 g/dL (3.5-5.2) 06/24/22 00:10 Globulin 3.0 g/dL (1.3-4.6) 06/24/22 00:10 TSH 4.72 uIU/mL (0.27-4.20) H 06/24/22 00:10 Salicylates < 0.3 mg/dL (3-10) L 06/24/22 00:10 Acetaminophen < 5.0 ug/mL (10-30) L 06/24/22 00:10 Ethyl Alcohol < 10 mg/dL (0-10) 06/24/22 00:10 Discharge Plan Discharge Patient Disposition: Home Clinical Impression: Auditory hallucination, Intellectual disability Condition: Stable Prescriptions: No Action hydrochlorothiazide 25 mg tablet 25 mg PO DAILY@08 loperamide 2 mg tablet 4 mg PO PRN MDD 8 tabs PRN (Reason: Diarrhea) Januvia 100 mg tablet 100 mg PO DAILY@08 Victoza 2-Otf 0.6 mg/0.1 mL (18 mg/3 mL) pen injector 1.8 mg SUBCUT DAILY@08 fenofibrate nanocrystallized 145 mg tablet 145 mg PO BEDTIME@20 ibuprofen 800 mg tablet 800 mg PO Q8H PRN (Reason: Pain) acetaminophen [Tylenol Extra Strength] 500 mg tablet 500 - 1,000 mg PO Q6H PRN (Reason: Pain) topiramate 100 mg tablet 100 mg PO TID@08,12,20 Qty: 90 1RF (DME) A&D ointment See Rx Instructions .Route .MEDSUPPLY Qty: 1 6RF Rx Instructions: to be applied daily triamcinolone acetonide 0.1 % Cream 1 applic TOPICAL DAILY PRN (Reason: Rash) polyethylene glycol 3350 [Miralax] 17 gram/dose Powder 17 g PO DAILY PRN (Reason: Constipation) fluticasone propionate 50 mcg/actuation [place],Suspension 1 spray INTRANASAL DAILY@08 glimepiride 2 mg tablet 2 mg PO BIDWM@08,18 Rx Instructions: before meals insulin glargine [Lantus Solostar U-100 Insulin] 100 unit/mL (3 mL) insulin pen 10 unit SUBCUT DAILY@20 promethazine-DM 6.25-15 mg/5 mL syrup 5 ml PO Q4H PRN (Reason: Cough) metformin 1,000 mg tablet 1,000 mg PO BID@08,20 mupirocin 2 % ointment 1 applic TOPICAL BID PRN (Reason: Skin Irritation) albuterol sulfate [Ventolin HFA] 90 mcg/actuation HFA aerosol inhaler 2 puff INHALATION Q4H PRN (Reason: Shortness Of Breath) budesonide-formoterol [Symbicort] 160-4.5 mcg/actuation HFA aerosol inhaler 2 puff INHALATION BID multivitamin with folic acid [Daily-Suzette (with folic acid)] 400 mcg tablet 1 tab PO DAILY@08 trazodone 150 mg tablet 150 mg PO BEDTIME@20 DDAVP 0.2 mg Tablet 0.2 mg PO BEDTIME Depakote 500 mg Tablet,Delayed Release (Dr/Ec) 1,000 mg PO BID@08,14 divalproex 500 mg tablet,delayed release (DR/EC) 500 mg PO DAILY@20 Rx Instructions: 2 tablets (1,000mg) at 08:00 and 14:00 and 1 tablet (500mg) at 20:00 hydrochlorothiazide 25 mg Tablet 25 mg PO DAILY 30 Days Qty: 30 1RF aripiprazole 10 mg Tablet 10 mg PO DAILY 30 Days Qty: 30 1RF Discharge Orders: Discharge ED (Routine); Ordered 06/24/22 Ordered By: Lyle Fuentes Referrals: Beatriz Loza DO [Primary Care Provider] - Discharge Diet: Usual diet Patient Instructions: Hallucinations (ED) Activity Restrictions/Additional Instructions: Continue routine medications. Follow-up in medical office clinic or behavioral health clinic on Sunday. Return to ER as needed. Coding Level of Care Code ED Drawing In Hand for Caron Fwd Exam Detailed
[2022-06-24 00:18] LABS: Basophils % 0.7 %; Eosinophils # 0.1 10^3/uL (0.0-0.8); Eosinophils % 1.5 %; Hematocrit 42.3 % (42.0-52.0); Hemoglobin 13.6 g/dL (11.7-16.6); Lymphocytes # 1.8 10^3/uL (0.8-4.8); Lymphocytes % 30.5 %; Mean Corpuscular HGB Conc 32.2 g/dL (30.0-36.0); Mean Corpuscular Hemoglobin 29.1 pg (28.0-34.0); Mean Corpuscular Volume 90.6 fl (80-94); Mean Platelet Volume 11.8 fL (7.4-10.4); Monocytes # 0.6 10^3/uL (0.2-0.9); Monocytes % 9.9 %; Neutrophils # 3.35 10^3/uL (1.8-7.7); Neutrophils % 56.4 %; Nucleated Red Blood Cells % 0 %; Platelet Count 251 10^3/cmm (130-400); Red Blood Count 4.67 10^6/uL (4.1-5.3); Red Cell Distribution Width 13.8 % (12.1-15.1); White Blood Count 5.9 10^3/uL (4.0-10.0)
[2022-06-24 00:47] LABS: Alanine Aminotransferase 16 U/L (0-41); Albumin Level 4.4 g/dL (3.5-5.2); Alkaline Phosphatase 34 U/L (40-130); Anion Gap 16.5 (5-19); Aspartate Amino Transferase 13 U/L (0-40); Blood Urea Nitrogen 17 mg/dL (6-20); Calcium 9.8 mg/dL (8.5-10.5); Carbon Dioxide 25 mmol/L (22-29); Chloride 98 mmol/L (98-107); Glomerular Filtration Rate 135.3 mL/min (90-130); Glucose 156 mg/dL (65-115); Osmolality Calculated 287 mOsm/kg (285-295); Potassium 3.5 mmol/L (3.5-5.1); Sodium 136 mmol/L (136-145); Thyroid Stimulating Hormone 4.72 uIU/mL (0.27-4.20); Total Bilirubin 0.2 mg/dL (0.15-1.2); Total Protein 7.4 g/dL (6.6-8.7)
[2022-06-24 00:49] LABS: Acetaminophen < 5.0 ug/mL (10-30); Alcohol Level < 10 mg/dL (0-10); Salicylate < 0.3 mg/dL (3-10)
== END 2022-06-24 00:32 | disposition home or self-care (01) ==
PROVIDERS: Emergency Provider Nurse Practitioner Family; PCP Family Medicine
DX: R44.0 Auditory hallucinations (principal); F79 Unspecified intellectual disabilities; Z79.4 Long term (current) use of insulin; Z79.84 Long term (current) use of oral hypoglycemic drugs; F17.210 Nicotine dependence, cigarettes, uncomplicated
CPT/HCPCS: 80053; 80307; 84443; 85025; 99283

== ENCOUNTER 2022-06-26 05:35 | Emergency (ER) | payer MEDICAID, SELFPAY ==
[2022-06-26 05:40] VITALS: BP 145/71; PULSE 100; RESP 16; TEMP 36.9; O2SAT 98
--- NOTE | 2022-06-26 05:52 | XRR_ITS ---
PROCEDURE INFORMATION: Exam: XR Right Knee Exam date and time: 06/26/2022 5:57 AM Age: 27 years old Clinical indication: Injury or trauma; Fall; Blunt trauma; Knee; Right; Additional info: Fall knee pain TECHNIQUE: Imaging protocol: Radiologic exam of the Right knee. Views: 3 views. COMPARISON: No relevant prior studies available. FINDINGS: Bones/joints: Normal. Soft tissues: Normal. XR/XR knee RT 3V* [id number] IMPRESSION: No acute findings.
--- NOTE | 2022-06-26 05:53 | ED.C_ITS ---
HPI - Psych General: Chief Complaint: Psychiatric Symptoms Stated Complaint: SI, right knee pain Time Seen by Provider: 06/26/22 05:40 Source: patient History of Present Illness: 27-year-old male well-known to the emergency department. He has had 5 visits here in the past couple of weeks. He was recently admitted to the neuropsychiatric unit and discharged 2 days ago. He was back yesterday as well. He presents after arguing with the staff member and his home. He states that she raised her voice at him and it made him mad. He had fallen yesterday and struck his knee on a stair causing an abrasion. He is complaining of knee pain and a complaint of wanting to hurt himself and his staff member. complaint: suicidal ideation Onset (ago): hour(s) Duration: constant History of same: Yes Relieving factors: none Exacerbating factors: none Associated psychiatric symptoms: depression, suicidal ideation and homicidal ideation Associated symptoms: Deny auditory hallucinations or visual hallucinations Review of Systems Const: Denies: fever(s) Card: Denies: chest pain Resp: Denies: dyspnea GI: Denies: abdominal pain or vomiting Musc: Reports: joint pain (Right knee) Psych: Reports: anxiety; Denies: visual hallucinations or auditory hallucinations PFSH ED PFSH: Medical History Attention-deficit hyperactivity disorder, combined type Bipolar disorder, unspecified Generalized anxiety disorder Intermittent explosive disorder Nicotine dependence, cigarettes, uncomplicated On valproic acid therapy Psychiatric care Social History Smoking and tobacco status: current every day smoker cigarettes Packs smoked per day: 2 Smoking risk assessment/counseling performed?: Yes Tobacco counseling given: counseling >3 minutes Physical Exam Const: COMMON NORMALS: no acute distress GENERAL APPEARANCE: disheveled (Mildly); not in distress and not ill appearing HENMT: COMMON NORMALS: normocephalic, atraumatic and Normal external nose present HEAD & SCALP: normocephalic and atraumatic FACE & SINUS: normal facial exam NOSE: Normal external nose present Eye: COMMON NORMALS: Equal, round and reactive pupils present and EOMs intact bilaterally PUPIL: Yes Equal, round and reactive pupils present Neck/C-Spine: GENERAL: Yes trachea midline Chest: CHEST: Yes Symmetrical chest wall rise Resp: COMMON NORMALS: normal respiratory effort, No use of accessory muscles and clear to auscultation bilaterally AUSCULTATION: clear to auscultation bilaterally Cardio: COMMON NORMALS: regular rate and regular rhythm RATE: regular rate RHYTHM: regular rhythm GI: COMMON NORMALS: Normal to inspection, nondistended, normoactive bowel sounds present Extremity: NARRATIVE EXTREMITY EXAM: Examination of the right knee reveals an abrasion over the patella. There is a mild effusion present. Patellar tenderness. No joint line tenderness. No deformity. Range of motion is intact. Neuro: NELL COMA SCALE: document [facility] findings [place] coma scale eye opening: Spontaneous [place] coma scale verbal response: Orientated [place] coma scale motor response: Obey commands [place] coma scale total score: 15 Psych: APPEARANCE: Yes unkempt ACTIVITY/MOTOR BEHAVIOR: Yes psychomotor slowing SPEECH: Yes slow MOOD & AFFECT: Yes depressed mood and Yes Flat affect present THOUGHT PROCESS: disorganized Course Consultations: Consultation #1: Peng Time: 06:21 Vital Signs: Vital signs: Vital Signs Temperature 98.5 F 06/26/22 05:40 Pulse Rate 100 06/26/22 05:40 Respiratory Rate 16 06/26/22 05:40 Blood Pressure 145/71 06/26/22 05:40 Pulse Oximetry 98 06/26/22 05:40 Oxygen Delivery Me thod 06/26/22 05:40 MDM - Psych Medical Decision Making Mr. Calloway's behavior of late is a problem. He presents essentially wanting to go back to the neuropsychiatric unit as this is a positive reward for him with the secondary gain of getting out of his home. Medically he is quite stable. Laboratory done less than 48 hours ago was essentially unremarkable. Knee will be x-rayed. It is unlikely that psychiatry will take him back on the unit, as his limited intellectual capacity makes him not an appropriate admission candidate, and his lethality risk is incredibly low. Spoke with psychiatry. They have indeed requested that Ángel not come to the neuropsychiatric unit for the reasons above. He will be allowed discharge. Lab Data Radiology Impressions Knee X-Ray 06/26/22 05:52 IMPRESSION: No acute findings. Discharge Plan Discharge Patient Disposition: Home Clinical Impression: Contusion of knee, right, Intermittent explosive disorder Condition: Stable Prescriptions: No Action hydrochlorothiazide 25 mg tablet 25 mg PO DAILY@08 loperamide 2 mg tablet 4 mg PO PRN MDD 8 tabs PRN (Reason: Diarrhea) Januvia 100 mg tablet 100 mg PO DAILY@08 Victoza 2-Otf 0.6 mg/0.1 mL (18 mg/3 mL) pen injector 1.8 mg SUBCUT DAILY@08 fenofibrate nanocrystallized 145 mg tablet 145 mg PO BEDTIME@20 ibuprofen 800 mg tablet 800 mg PO Q8H PRN (Reason: Pain) acetaminophen [Tylenol Extra Strength] 500 mg tablet 500 - 1,000 mg PO Q6H PRN (Reason: Pain) topiramate 100 mg tablet 100 mg PO TID@08,12,20 Qty: 90 1RF (DME) A&D ointment See Rx Instructions .Route .MEDSUPPLY Qty: 1 6RF Rx Instructions: to be applied daily triamcinolone acetonide 0.1 % Cream 1 applic TOPICAL DAILY PRN (Reason: Rash) polyethylene glycol 3350 [Miralax] 17 gram/dose Powder 17 g PO DAILY PRN (Reason: Constipation) fluticasone propionate 50 mcg/actuation [place],Suspension 1 spray INTRANASAL DAILY@08 glimepiride 2 mg tablet 2 mg PO BIDWM@,18 Rx Instructions: before meals insulin glargine [Lantus Solostar U-100 Insulin] 100 unit/mL (3 mL) insulin pen 10 unit SUBCUT DAILY@20 promethazine-DM 6.25-15 mg/5 mL syrup 5 ml PO Q4H PRN (Reason: Cough) metformin 1,000 mg tablet 1,000 mg PO BID@08,20 mupirocin 2 % ointment 1 applic TOPICAL BID PRN (Reason: Skin Irritation) albuterol sulfate [Ventolin HFA] 90 mcg/actuation HFA aerosol inhaler 2 puff INHALATION Q4H PRN (Reason: Shortness Of Breath) budesonide-formoterol [Symbicort] 160-4.5 mcg/actuation HFA aerosol inhaler 2 puff INHALATION BID multivitamin with folic acid [Daily-Suzette (with folic acid)] 400 mcg tablet 1 tab PO DAILY@08 trazodone 150 mg tablet 150 mg PO BEDTIME@20 DDAVP 0.2 mg Tablet 0.2 mg PO BEDTIME Depakote 500 mg Tablet,Delayed Release (Dr/Ec) 1,000 mg PO BID@08,14 divalproex 500 mg tablet,delayed release (DR/EC) 500 mg PO DAILY@20 Rx Instructions: 2 tablets (1,000mg) at 08:00 and 14:00 and 1 tablet (500mg) at 20:00 hydrochlorothiazide 25 mg Tablet 25 mg PO DAILY 30 Days Qty: 30 1RF aripiprazole 10 mg Tablet 10 mg PO DAILY 30 Days Qty: 30 1RF Discharge Orders: Discharge ED (Routine); Ordered 06/26/22 Ordered By: Jimmie Magallanes Referrals: Beatriz Loza DO [Primary Care Provider] - 1-3 days Patient Instructions: Knee Pain (ED) Activity Restrictions/Additional Instructions: Ice your knee frequently. Bear weight as tolerated. Coding Level of Care Code ED Butadiene Converter Operator for Caron Fwsamira Exam Comprehensive
--- NOTE | 2022-06-26 07:13 | PC.NURSE ---
waiting on patients ride to get here.
== END 2022-06-26 09:56 | disposition home or self-care (01) ==
PROVIDERS: Emergency Provider Emergency Medicine; PCP Family Medicine
DX: S80.01XA Contusion of right knee, initial encounter (principal); F63.81 Intermittent explosive disorder; Z79.4 Long term (current) use of insulin; Z79.84 Long term (current) use of oral hypoglycemic drugs; F17.210 Nicotine dependence, cigarettes, uncomplicated; W22.09XA Striking against other stationary object, initial encounter
CPT/HCPCS: 73562; 99285

== ENCOUNTER 2022-06-28 05:20 | Emergency (ER) | payer MEDICAID, SELFPAY ==
[2022-06-28 05:29] VITALS: PULSE 96; RESP 20; TEMP 36.4; O2SAT 100; BMI 51.5
--- NOTE | 2022-06-28 05:32 | ED.C_ITS ---
HPI - Psych General: Stated Complaint: psych eval Time Seen by Provider: 06/28/22 05:21 Source: patient and police Mode of arrival: other (police) Limitations: no limitations History of Present Illness: 27-year-old male who is very well-known to the ER he has a history intellectual disability lives in a [place] [facility] patient got upset with his caregiver night and ran away and was at [place] police were called he told police that he was suicidal so they brought him him he no longer claims to be suicidal he states he had just gotten upset caregivers are here and or want to take him back he denies any worsening improving factors. He has been calm and cooperative here. Associated symptoms: Reports depression Review of Systems Const: Denies: fever(s), chills, body aches or change in appetite Eyes: Denies: blurry vision or eye discomfort ENMT: Denies: throat pain or dental pain Card: Denies: chest pain Resp: Denies: dyspnea GI: Denies: abdominal pain, nausea, vomiting or diarrhea : Denies: dysuria Musc: Denies: neck pain or back pain Skin/Breast: Denies: rash Neuro: Denies: headache(s) Psych: Reports: depression Harshad/Lymph: Denies: easy bruising All/Imm: Denies: urticaria PFSH ED PFSH: Medical History Attention-deficit hyperactivity disorder, combined type Bipolar disorder, unspecified Generalized anxiety disorder Intermittent explosive disorder Nicotine dependence, cigarettes, uncomplicated On valproic acid therapy Psychiatric care Social History Smoking and tobacco status: current every day smoker cigarettes Packs smoked per day: 2 Smoking risk assessment/counseling performed?: Yes Tobacco counseling given: counseling >3 minutes Physical Exam Const: COMMON NORMALS: no acute distress and patient oriented x3 HENMT: COMMON NORMALS: normocephalic and atraumatic HEAD & SCALP: normocephalic and atraumatic Eye: COMMON NORMALS: conjunctivae normal CONJUNCTIVA: Yes conjunctivae normal Neck/C-Spine: COMMON NORMALS: supple Chest: COMMONS NORMALS: normal inspection of the chest Resp: COMMON NORMALS: normal respiratory effort Cardio: COMMON NORMALS: regular rate RATE: regular rate GI: INSPECTION: Yes normal to inspection Extremity: COMMON NORMALS: normal to inspection and full ROM Neuro: COMMON NORMALS: patient oriented x3 Psych: COMMON NORMALS: mental status grossly normal MOOD & AFFECT: Yes depressed mood Skin: COMMON NORMALS: no rashes or lesions noted GENERAL SKIN EXAM: no rashes or lesions noted [facility] - Psych Medical Decision Making Patient presents here with depression he was originally suicidal he is no longer suicidal he has been seen here multiple times for this he gets angry he runs away from his caregivers police and brought them out. He is well-appearing and has been calm I spoke to Dr. Khoury who knows patient very well he does not feel that he needs to be readmitted to the psych facility we will discharge him at this time with his caregivers Discharge Plan Discharge Patient Disposition: Home Clinical Impression: Depression Condition: Stable Prescriptions: No Action hydrochlorothiazide 25 mg tablet 25 mg PO DAILY@08 loperamide 2 mg tablet 4 mg PO PRN MDD 8 tabs PRN (Reason: Diarrhea) Januvia 100 mg tablet 100 mg PO DAILY@08 Victoza 2-Otf 0.6 mg/0.1 mL (18 mg/3 mL) pen injector 1.8 mg SUBCUT DAILY@08 fenofibrate nanocrystallized 145 mg tablet 145 mg PO BEDTIME@20 ibuprofen 800 mg tablet 800 mg PO Q8H PRN (Reason: Pain) acetaminophen [Tylenol Extra Strength] 500 mg tablet 500 - 1,000 mg PO Q6H PRN (Reason: Pain) aripiprazole [Abilify] 20 mg tablet 20 mg PO DAILY Qty: 30 0RF clonazepam 1 mg tablet 1 mg PO QID Qty: 120 0RF topiramate 100 mg tablet 100 mg PO TID@08,12,20 Qty: 90 1RF (DME) A&D ointment See Rx Instructions .Route .MEDSUPPLY Qty: 1 6RF Rx Instructions: to be applied daily triamcinolone acetonide 0.1 % Cream 1 applic TOPICAL DAILY PRN (Reason: Rash) polyethylene glycol 3350 [Miralax] 17 gram/dose Powder 17 g PO DAILY PRN (Reason: Constipation) fluticasone propionate 50 mcg/actuation [place],Suspension 1 spray INTRANASAL DAILY@08 glimepiride 2 mg tablet 2 mg PO BIDWM@08,18 Rx Instructions: before meals insulin glargine [Lantus Solostar U-100 Insulin] 100 unit/mL (3 mL) insulin pen 10 unit SUBCUT DAILY@20 promethazine-DM 6.25-15 mg/5 mL syrup 5 ml PO Q4H PRN (Reason: Cough) metformin 1,000 mg tablet 1,000 mg PO BID@08,20 mupirocin 2 % ointment 1 applic TOPICAL BID PRN (Reason: Skin Irritation) albuterol sulfate [Ventolin HFA] 90 mcg/actuation HFA aerosol inhaler 2 puff INHALATION Q4H PRN (Reason: Shortness Of Breath) budesonide-formoterol [Symbicort] 160-4.5 mcg/actuation HFA aerosol inhaler 2 puff INHALATION BID multivitamin with folic acid [Daily-Suzette (with folic acid)] 400 mcg tablet 1 tab PO DAILY@08 trazodone 150 mg tablet 150 mg PO BEDTIME@20 Depakote 500 mg Tablet,Delayed Release (Dr/Ec) 1,000 mg PO BID@08,14 divalproex 500 mg tablet,delayed release (DR/EC) 500 mg PO DAILY@20 Rx Instructions: 2 tablets (1,000mg) at 08:00 and 14:00 and 1 tablet (500mg) at 20:00 hydrochlorothiazide 25 mg Tablet 25 mg PO DAILY 30 Days Qty: 30 1RF Discharge Orders: Discharge ED (Routine); Ordered 06/28/22 Ordered By: Sridhar Chavez Referrals: Beatriz Loza DO [Primary Care Provider] - 1-3 days Discharge Diet: Advance as tolerated Discharge Activity: Resume usual activity Patient Instructions: Depression (ED) Coding Level of Care Code ED Surgical Scrub Technician for Caron Crane
[2022-06-28] MEDS: LORazepam 1 mg Tablet PO (05:38)
[2022-06-28 05:39] VITALS: BP 116/75
--- NOTE | 2022-06-28 05:45 | PC.NURSE ---
Pt not placed in scrubs and personal belongings not taken from pt secondary to Dr. Chvaez and Dr. Khoury screening pt on arrival and pt being discharged.
== END 2022-06-28 05:55 | disposition home or self-care (01) ==
PROVIDERS: Emergency Provider Emergency Medicine; PCP Family Medicine
DX: F32.A Depression, unspecified (principal); Z79.4 Long term (current) use of insulin; Z79.84 Long term (current) use of oral hypoglycemic drugs; F17.210 Nicotine dependence, cigarettes, uncomplicated
CPT/HCPCS: 99283

== ENCOUNTER 2022-06-30 05:18 | Inpatient (IN) | payer MEDICAID, SELFPAY ==
[2022-06-30 05:18] VITALS: TEMP 35.5; BMI 44.3
--- NOTE | 2022-06-30 05:21 | ED.C_ITS ---
Documented by User: Sridhar Chavez MD 06/30/22 05:33 HPI - Psych General: Chief Complaint: Psychiatric Symptoms Stated Complaint: SI Time Seen by Provider: 06/30/22 05:19 Source: patient and EMS Mode of arrival: EMS Limitations: no limitations History of Present Illness: 27-year-old male who is very well-known to the ER he has been seen here multiple times for this week for suicidal ideations and depression he was admitted twice last month patient denied pulled his caregivers hair needed called EMS he states he is suicidal patient does have intellectual disability. He denies any suicidal plan to me he has been calm and cooperative. Associated symptoms: Reports depression and suicidal ideation Review of Systems Const: Denies: fever(s), chills, body aches or change in appetite Eyes: Denies: blurry vision or eye discomfort ENMT: Denies: throat pain or dental pain Card: Denies: chest pain Resp: Denies: dyspnea GI: Denies: abdominal pain, nausea, vomiting or diarrhea : Denies: dysuria Musc: Denies: neck pain or back pain Skin/Breast: Denies: rash Neuro: Denies: headache(s) Psych: Reports: depression and suicidal ideation Harshad/Lymph: Denies: easy bruising All/Imm: Denies: urticaria PFSH ED PFSH: Medical History Attention-deficit hyperactivity disorder, combined type Bipolar disorder, unspecified Generalized anxiety disorder Intermittent explosive disorder Nicotine dependence, cigarettes, uncomplicated On valproic acid therapy Psychiatric care Social History Smoking and tobacco status: current every day smoker cigarettes Packs smoked per day: 2 Smoking risk assessment/counseling performed?: Yes Tobacco counseling given: counseling >3 minutes Physical Exam Const: COMMON NORMALS: no acute distress, patient oriented x3 and healthy appearing HENMT: COMMON NORMALS: normocephalic and atraumatic HEAD & SCALP: normocephalic and atraumatic Eye: COMMON NORMALS: Equal, round and reactive pupils present and EOMs intact bilaterally PUPIL: Yes Equal, round and reactive pupils present Neck/C-Spine: COMMON NORMALS: full ROM and supple Chest: COMMONS NORMALS: normal inspection of the chest and normal palpation of entire chest wall Resp: COMMON NORMALS: normal respiratory effort, No retractions, No use of accessory muscles and clear to auscultation bilaterally AUSCULTATION: clear to auscultation bilaterally Cardio: COMMON NORMALS: regular rate, regular rhythm and No murmurs present (Cardio) RATE: regular rate RHYTHM: regular rhythm GI: COMMON NORMALS: Normal to inspection, nondistended, normoactive bowel sounds present, Soft to palpation, non-tender and no masses PALPATION: Yes Soft to palpation Extremity: COMMON NORMALS: normal to inspection and full ROM Neuro: COMMON NORMALS: patient oriented x3, moves all extremities and no focal motor deficits Psych: COMMON NORMALS: mental status grossly normal, Normal thought process present and cooperative THOUGHT PROCESS: Normal thought process present Skin: COMMON NORMALS: no rashes or lesions noted and no wounds GENERAL SKIN EXAM: no rashes or lesions noted Course Vital Signs: Vital signs: Vital Signs Temperature 96 F L 06/30/22 05:18 Pulse Rate 93 06/30/22 12:30 Respiratory Rate 20 H 06/30/22 12:30 Blood Pressure 137/87 06/30/22 12:30 Pulse Oximetry 97 06/30/22 12:30 Oxygen Delivery Me thod 06/30/22 12:30 Discharge Plan Discharge Patient Disposition: Admitted As Inpatient Admit Provider: Jaquan Khoury Clinical Impression: Outbursts of explosive behavior, Depression, Aggressive behavior Condition: Stable Discharge Diet: Advance as tolerated Discharge Activity: Resume usual activity Sign Out Sign Out Data: Patient Sign Out occurred on 06/30/22 at 07:13. Patient's care was discussed, and care was transferred from to Alistair Carter DO. Coding Level of Care Code ED Armature And Rotor Winder for Chg Fwd Exam Comprehensive Documented by User: Alistair Carter DO 06/30/22 12:58 HPI - Psych General: Chief Complaint: Psychiatric Symptoms Stated Complaint: SI Time Seen by Provider: 06/30/22 05:19 PFSH ED PFSH: Medical History Attention-deficit hyperactivity disorder, combined type Bipolar disorder, unspecified Generalized anxiety disorder Intermittent explosive disorder Nicotine dependence, cigarettes, uncomplicated On valproic acid therapy Psychiatric care Social History Smoking and tobacco status: current every day smoker cigarettes Packs smoked pe r day: 2 Smoking risk assessment/counseling performed?: Yes Tobacco counseling given: counseling >3 minutes Course Vital Signs: Vital signs: Vital Signs Temperature 96 F L 06/30/22 05:18 Pulse Rate 93 06/30/22 12:30 Respiratory Rate 20 H 06/30/22 12:30 Blood Pressure 137/87 06/30/22 12:30 Pulse Oximetry 97 06/30/22 12:30 Oxygen Delivery Me thod 06/30/22 12:30 MDM - Psych Medical Decision Making Patient care handoff received from Dr. Chavez continuation of ED evaluation. I personally saw and evaluated patient and reperformed helm portions of E/M. Discussed case Dr. Chavez he had talked to Peng last night Dr. Khoury is going to look into potential plans this morning after making some contacts we are awaiting his input on this patient. He is otherwise been well behaved since arriving here. Discussed Dr. Khoury will admit patient. Plan is to admit and adjust medicat ions and evaluate for more aggressive treatment. Discussed with caregivers care plan. Anticipate 3-day hospital stay caregivers expressed understanding. Orders written Medical Records I reviewed the patient's medical records. Lab Data I reviewed the patient's lab results. Discharge Plan Discharge Patient Disposition: Admitted As Inpatient Admit Provider: Jaquan Khoury Clinical Impression: Outbursts of explosive behavior, Depression, Aggressive behavior Condition: Stable Discharge Diet: Advance as tolerated Discharge Activity: Resume usual activity Sign Out Sign Out Data: Patient Sign Out occurred on 06/30/22 at 07:13. Patient's care was discussed, and care was transferred from to Alistair Carter DO. Coding Level of Care Code ED Arm[employer] Rotor Winder for Caron Fwsamira Exam Comprehensive
[2022-06-30 05:24] VITALS: BP 133/88; PULSE 72; RESP 18; O2SAT 97
--- NOTE | 2022-06-30 12:03 | PC.PHAR ---
THE DIRECTOR OF THE PTS FACILITY TIA STS THAT QUETIAPINE 200MG WAS DISC. BY PTS PROVIDER- MED STILL SHOWED ON PTS JUL AND WAS LAST GIVEN TO PT ON 06/29/22.
[2022-06-30 12:30] VITALS: BP 137/87; PULSE 93; RESP 20; O2SAT 97
--- NOTE | 2022-06-30 14:17 | PC.NURSE ---
27y/o male admitted to [facility] room 125-2 from ED voluntary per guardian. Reported by Melissa from ED;pt. brought to [facility] ED by Guardian due to aggression towards her and stating he wanted to kill himself. Patient stated during Nurse admission's assessment, Keyla would not light my cigarette so I pulled her hair and said I wanted to kill myself. Denied SI/HI, AVH during assessment. Denies any pain or discomfort. Independent of ADL'S. Orientated to unit. No behavior noted.
[2022-06-30 15:41] VITALS: BP 148/74; PULSE 88; RESP 18; TEMP 36.6; O2SAT 98
[2022-06-30] MEDS: divalproex DR 500 mg Tablet PO ×2 (15:48→21:00)
[2022-06-30] MEDS: nicotine 2 mg Gum BUCCAL ×3 (15:49→20:58)
[2022-06-30 16:25] VITALS: PULSE 95; RESP 18; O2SAT 98
[2022-06-30] MEDS: CLONazepam 1 mg Tablet PO ×2 (17:04→20:58)
[2022-06-30] MEDS: glimepiride 2 mg Tablet PO (17:04)
[2022-06-30 17:34] LABS: Glucose Point of Care 109 mg/dL (70-110)
[2022-06-30 20:07] VITALS: BP 130/87; PULSE 95; RESP 18; TEMP 36.6; O2SAT 96
[2022-06-30 20:18] LABS: Glucose Point of Care 118 mg/dL (70-110)
[2022-06-30] MEDS: trazodone 150 mg Tablet PO (20:58)
[2022-06-30] MEDS: metformin 500 mg Tablet 1000 MG PO (20:58)
[2022-06-30] MEDS: topiramate 100 mg Tablet PO (20:58)
[2022-06-30] MEDS: fenofibrate 145 mg Tablet PO (20:59)
[2022-06-30] MEDS: insulin glargine 100 units/1 mL 10 UNIT SUBCUT (21:07)
[2022-07-01] MEDS: nicotine 2 mg Gum BUCCAL ×9 (04:54→23:08)
[2022-07-01] MEDS: ibuprofen 800 mg tablet PO (04:54)
[2022-07-01 05:52] VITALS: BP 123/85; PULSE 89; RESP 18; TEMP 36.9; O2SAT 98
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
[2022-07-01 07:52] LABS: Glucose Point of Care 195 mg/dL (70-110)
[2022-07-01 08:38] VITALS: PULSE 94; RESP 16; O2SAT 99
[2022-07-01] MEDS: budesonide 0.5 mg/2 mL Neb INHALATION ×2 (08:38→19:46)
[2022-07-01 08:41] VITALS: PULSE 92
[2022-07-01] MEDS: ARIPiprazole 10 mg Tablet 20 MG PO (09:10)
[2022-07-01] MEDS: multivitamin therapeutic Tablet 1 TAB PO (09:11)
[2022-07-01] MEDS: sitagliptin 100 mg Tablet PO (09:11)
[2022-07-01] MEDS: CLONazepam 1 mg Tablet PO ×4 (09:11→20:05)
[2022-07-01] MEDS: hydroCHLOROthiazide 25 mg Tablet PO (09:11)
[2022-07-01] MEDS: divalproex DR 500 mg Tablet 1000 MG PO ×2 (09:15→13:42)
[2022-07-01] MEDS: glimepiride 2 mg Tablet PO ×2 (09:16→17:05)
[2022-07-01] MEDS: fluticasone nasal spray 16gm Btl 1 SPRAY INTRANASAL (09:16)
[2022-07-01] MEDS: metformin 500 mg Tablet 1000 MG PO ×2 (09:16→20:05)
[2022-07-01] MEDS: topiramate 100 mg Tablet PO ×3 (09:16→20:05)
[2022-07-01 12:15] LABS: Glucose Point of Care 141 mg/dL (70-110)
[2022-07-01 14:00] VITALS: BP 113/79; PULSE 104; RESP 20; TEMP 36.8; O2SAT 98
[2022-07-01 16:52] LABS: Glucose Point of Care 107 mg/dL (70-110)
[2022-07-01 19:47] VITALS: PULSE 89; RESP 16; O2SAT 98
[2022-07-01 20:05] LABS: Glucose Point of Care 138 mg/dL (70-110)
[2022-07-01] MEDS: fenofibrate 145 mg Tablet PO (20:05)
[2022-07-01] MEDS: trazodone 150 mg Tablet PO (20:05)
[2022-07-01] MEDS: divalproex DR 500 mg Tablet PO (20:07)
[2022-07-01 20:08] VITALS: BP 125/94; PULSE 103; RESP 18; TEMP 36.5; O2SAT 98
[2022-07-01] MEDS: insulin glargine 100 units/1 mL 10 UNIT SUBCUT (20:08)
[2022-07-02] MEDS: OLANZapine 5 mg ODT PO (00:34)
[2022-07-02] MEDS: nicotine 2 mg Gum BUCCAL ×9 (00:54→18:06)
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
[2022-07-02 05:24] VITALS: RESP 18
[2022-07-02] MEDS: topiramate 100 mg Tablet PO ×3 (08:01→18:44)
[2022-07-02] MEDS: glimepiride 2 mg Tablet PO ×2 (08:01→17:19)
[2022-07-02] MEDS: hydroCHLOROthiazide 25 mg Tablet PO (08:01)
[2022-07-02] MEDS: sitagliptin 100 mg Tablet PO (08:01)
[2022-07-02] MEDS: metformin 500 mg Tablet 1000 MG PO ×2 (08:01→18:45)
[2022-07-02] MEDS: ARIPiprazole 10 mg Tablet 20 MG PO (08:01)
[2022-07-02] MEDS: multivitamin therapeutic Tablet 1 TAB PO (08:02)
[2022-07-02] MEDS: divalproex DR 500 mg Tablet 1000 MG PO ×2 (08:02→14:05)
[2022-07-02] MEDS: CLONazepam 1 mg Tablet PO ×4 (08:02→18:45)
--- NOTE | 2022-07-02 08:05 | PC.NURSE ---
REFUSED SCHEDULED NASAL SPRAY
[2022-07-02 08:07] LABS: Glucose Point of Care 189 mg/dL (70-110)
[2022-07-02] MEDS: budesonide 0.5 mg/2 mL Neb INHALATION (08:08)
[2022-07-02 08:09] VITALS: PULSE 83; RESP 16; O2SAT 98
[2022-07-02 12:22] LABS: Glucose Point of Care 265 mg/dL (70-110)
[2022-07-02 14:00] VITALS: BP 134/90; PULSE 107; RESP 18; TEMP 36.4; O2SAT 99
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
[2022-07-02] MEDS: hyDROXYzine 25 mg Capsule 50 MG PO (14:58)
--- NOTE | 2022-07-02 14:58 | PC.NURSE ---
PRN VISTARIL 50 MG GIVEN PO PER PT C/O ANXIETY
[2022-07-02 17:48] LABS: Glucose Point of Care 141 mg/dL (70-110)
[2022-07-02] MEDS: diphenhydrAMINE 50 mg/mL SDV 1mL IM (18:21)
[2022-07-02] MEDS: haloperidol inj 5 mg/mL INJ 1 mL IM (18:22)
[2022-07-02] MEDS: LORazepam 2 mg/mL INJ 1 mL IM (18:22)
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
[2022-07-02] MEDS: fenofibrate 145 mg Tablet PO (18:44)
[2022-07-02] MEDS: divalproex DR 500 mg Tablet PO (18:44)
[2022-07-02] MEDS: trazodone 150 mg Tablet PO (18:44)
[2022-07-02] MEDS: insulin glargine 100 units/1 mL 10 UNIT SUBCUT (18:45)
[2022-07-02 20:02] LABS: Glucose Point of Care 110 mg/dL (70-110)
[2022-07-02 21:51] VITALS: RESP 16
[2022-07-03] MEDS: nicotine 2 mg Gum BUCCAL ×6 (04:16→14:40)
[2022-07-03 06:00] VITALS: BP 117/83; PULSE 98; RESP 18; TEMP 36.6; O2SAT 96
[2022-07-03 07:56] LABS: Glucose Point of Care 163 mg/dL (70-110)
[2022-07-03] MEDS: ARIPiprazole 10 mg Tablet 20 MG PO (08:32)
[2022-07-03] MEDS: hydroCHLOROthiazide 25 mg Tablet PO (08:32)
[2022-07-03] MEDS: metformin 500 mg Tablet 1000 MG PO (08:32)
[2022-07-03] MEDS: CLONazepam 1 mg Tablet PO (08:32)
[2022-07-03] MEDS: topiramate 100 mg Tablet PO ×2 (08:32→12:53)
[2022-07-03] MEDS: divalproex DR 500 mg Tablet 1000 MG PO ×2 (08:32→14:16)
[2022-07-03] MEDS: sitagliptin 100 mg Tablet PO (08:32)
[2022-07-03] MEDS: glimepiride 2 mg Tablet PO (08:32)
[2022-07-03] MEDS: multivitamin therapeutic Tablet 1 TAB PO (08:32)
[2022-07-03 08:57] VITALS: PULSE 95; RESP 18; O2SAT 99
[2022-07-03] MEDS: budesonide 0.5 mg/2 mL Neb INHALATION (08:57)
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
[2022-07-03 11:57] LABS: Glucose Point of Care 90 mg/dL (70-110)
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
[2022-07-03 12:44] VITALS: BP 117/83; PULSE 95; RESP 18; TEMP 36.6; O2SAT 99
[2022-07-03] MEDS: CLONazepam 0.5 mg Tablet PO (14:16)
--- NOTE | 2022-07-03 15:51 | PC.NURSE ---
Pt's ride here. Discharge information, including Level II information, reviewed with pt's facility staff. Questions answered. Pt left ambulatory accompanied by his facility staff. Pt said he felt good to leave; denied SI/HI/AVH. Pt's belongings returned to him prior to his leaving.
== END 2022-07-03 15:50 | disposition home or self-care (01) | DRG 883 ==
LOC: ER 07:13 → NP 12:01
PROVIDERS: Admitting Provider Psychiatry & Neurology Psychiatry; Emergency Provider Family Medicine; PCP Family Medicine; Visit Provider Psychiatry & Neurology Psychiatry
DX: F63.81 Intermittent explosive disorder (principal); R45.851 Suicidal ideations; F31.9 Bipolar disorder, unspecified; F79 Unspecified intellectual disabilities; F91.1 Conduct disorder, childhood-onset type; F90.2 Attention-deficit hyperactivity disorder, combined type; F41.1 Generalized anxiety disorder; F17.210 Nicotine dependence, cigarettes, uncomplicated
CPT/HCPCS: 36416; 82962; 94640; 96372; 97150; 97165; 99239; 99285; J1200; J1630; J1815; J2060; J7626

== ENCOUNTER 2022-07-03 19:47 | Emergency (ER) | payer MEDICAID, SELFPAY ==
--- NOTE | 2022-07-03 19:59 | W.ED.PSYCHS ---
HPI - Psych General: Chief Complaint: Psychiatric Symptoms Stated Complaint: psychiatric symptoms Time Seen by Provider: 07/03/22 19:59 History of Present Illness: Mr. Calloway is a 27-year-old gentleman presenting with behavioral concern. He was just discharged from the hospital and apparently became upset because he did not want to go home. He was throwing rocks and through [place] at staff. Denies self injury or homicidal/suicidal ideation. No other changes in health since discharge. Onset (ago): minute(s) History of same: Yes Context: significant life stressor Review of Systems General: Reports: 10 or more systems reviewed and unremarkable except in HPI and below PFSH ED PFSH: Medical History Attention-deficit hyperactivity disorder, combined type Bipolar disorder, unspecified Generalized anxiety disorder Intermittent explosive disorder Nicotine dependence, cigarettes, uncomplicated On valproic acid therapy Psychiatric care Social History Smoking and tobacco status: current every day smoker cigarettes Packs smoked per day: 2 Smoking risk assessment/counseling performed?: Yes Tobacco counseling given: counseling >3 minutes Physical Exam Const: COMMON NORMALS: alert GENERAL APPEARANCE: cooperative and well developed HENMT: COMMON NORMALS: normocephalic and atraumatic HEAD & SCALP: normocephalic and atraumatic Eye: COMMON NORMALS: conjunctivae normal CONJUNCTIVA: Yes conjunctivae normal SCLERA: sclerae normal Neck/C-Spine: COMMON NORMALS: supple GENERAL: Yes trachea midline Resp: COMMON NORMALS: clear to auscultation bilaterally EFFORT & INSPECTION: Yes able to speak in complete sentences AUSCULTATION: clear to auscultation bilaterally Cardio: COMMON NORMALS: regular rate and regular rhythm RATE: regular rate RHYTHM: regular rhythm GI: COMMON NORMALS: Soft to palpation PALPATION: Yes Soft to palpation and No Tenderness to palpation present (GI) Extremity: GENERAL: Yes normal exam except as noted and No edema Neuro: COMMON NORMALS: moves all extremities SENSORIUM/ORIENTATION: Yes alert and No Orientation impaired Psych: COMMON NORMALS: mental status grossly normal and Normal thought process present THOUGHT PROCESS: Normal thought process present Course Vital Signs: Vital signs: Vital Signs Temperature 98.0 F 07/03/22 20:06 Pulse Rate 104 H 07/03/22 20:06 Respiratory Rate 25 H 07/03/22 20:06 Blood Pressure 126/85 07/03/22 20:06 Pulse Oximetry 98 07/03/22 20:06 Oxygen Delivery Me thod 07/03/22 20:06 [facility] - Psych Medical Decision Making 27-year-old gentleman presenting to the emerged department for behavioral concern having just been discharged from neuropsychiatric unit. This appears to be largely behavioral as the patient is unhappy with going home. He does not endorse SI or homicidal ideation or plan. Discussed with Dr. Khoury. Plan to continue outpatient management. Discussed need to continue medication regimen with the patient. Discussed plan with staff. Medical Records I reviewed the patient's medical records. Lab Data I reviewed the patient's lab results. Discharge Plan Discharge Patient Disposition: Home Clinical Impression: Behavior concern in adult Condition: Stable Prescriptions: No Action loperamide 2 mg tablet 4 mg PO PRN MDD 8 tabs PRN (Reason: Diarrhea) Januvia 100 mg tablet 100 mg PO DAILY@08 fenofibrate nanocrystallized 145 mg tablet 145 mg PO BEDTIME@20 ibuprofen 800 mg tablet 800 mg PO Q8H PRN (Reason: Pain) acetaminophen [Tylenol Extra Strength] 500 mg tablet 500 - 1,000 mg PO Q6H PRN (Reason: Pain) topiramate 100 mg tablet 100 mg PO TID@08,12,20 Qty: 90 1RF (DME) A&D ointment See Rx Instructions .Route .MEDSUPPLY Qty: 1 6RF Rx Instructions: to be applied daily clonazepam [Klonopin] 2 mg tablet 2 mg PO BEDTIME 30 Days Qty: 30 0RF divalproex 500 mg tablet,delayed release (DR/EC) 500 mg PO .COMPLEX Qty: 150 1RF Rx Instructions: 2 tablets (1,000mg) at 08:00 and 14:00 and 1 tablet (500mg) at 20:00 triamcinolone acetonide 0.1 % Cream 1 applic TOPICAL DAILY PRN (Reason: Rash) polyethylene glycol 3350 [Miralax] 17 gram/dose Powder 17 g PO DAILY PRN (Reason: Constipation) fluticasone propionate 50 mcg/actuation [place],Suspension 1 spray INTRANASAL DAILY@08 glimepiride 2 mg tablet 2 mg PO BID@08,20 insulin glargine [Lantus Solostar U-100 Insulin] 100 unit/mL (3 mL) insulin pen 10 unit SUBCUT DAILY@20 promethazine-DM 6.25-15 mg/5 mL syrup 5 ml PO Q4H PRN (Reason: Cough) metformin 1,000 mg tablet 1,000 mg PO BID@08,20 mupirocin 2 % ointment 1 applic TOPICAL BID PRN (Reason: Skin Irritation) albuterol sulfate [Ventolin HFA] 90 mcg/actuation HFA aerosol inhaler 2 puff INHALATION Q4H PRN (Reason: Shortness Of Breath) budesonide-formoterol [Symbicort] 160-4.5 mcg/actuation HFA aerosol inhaler 2 puff INHALATION BID@08,20 multivitamin with folic acid [Daily-Suzette (with folic acid)] 400 mcg tablet 1 tab PO DAILY@08 trazodone 150 mg tablet 150 mg PO BEDTIME@20 nicotine 21 mg/24 hr patch 24 hour 1 patch transdermal DAILY@12 Trulicity 3 mg/0.5 mL pen injector 3 mg SUBCUT Q7D Rx Instructions: ON SUNDAY clonazepam 0.5 mg tablet 0.5 mg PO TID Rx Instructions: PT NOT STARTED TAKING YET 07/14/22 quetiapine 200 mg tablet See Rx Instructions .ROUTE .COMPLEX Rx Instructions: ONE TAB (200MG) PO QAM AT 08:00 AND TWO TABS (400MG) PO AT BEDTIME @20:00 quetiapine 100 mg tablet 100 mg PO BEDTIME@20 Rx Instructions: TAKE WITH 400MG AT HS nicotine (polacrilex) 4 mg gum 4 mg PO Q2H PRN (Reason: Smoking Cessation) diclofenac sodium 1 % gel 4 g TOPICAL QID Rx Instructions: @08:00,12:00,16:00,20:00 A and D (los, pet) Ointment 1 applic TOPICAL DAILY@20 hydrochlorothiazide 25 mg tablet 25 mg PO DAILY@08 Abilify 20 mg tablet 20 mg PO DAILY@08 Discharge Orders: Discharge ED (Routine); Ordered 07/03/22 Ordered By: Bear Barron Referrals: Beatriz Loza DO [Primary Care Provider] - Discharge Diet: Usual diet Discharge Activity: Resume usual activity Activity Restrictions/Additional Instructions: Thank you for visiting the emergency department. You were seen and evaluated for aggressive behavior. Based on clinical history and in discussion with psychiatry service you do not require hospitalization at this time. I recommend continuing previously prescribed medications including changes made while in the hospital. Please also continue follow-up plan. Contact your psychiatric care provider tomorrow regarding your ED visit. Return to the emergency department for anything that you are concerned about and feel needs emergency department evaluation. Coding Level of Care Code ED Supervisor Winding Department for [facility]
[2022-07-03 20:06] VITALS: BP 126/85; PULSE 104; RESP 25; TEMP 36.7; O2SAT 98
== END 2022-07-03 20:49 | disposition home or self-care (01) ==
PROVIDERS: Emergency Provider Emergency Medicine; PCP Family Medicine
DX: R46.89 Other symptoms and signs involving appearance and behavior (principal); Z79.85 Long-term (current) use of injectable non-insulin antidiabetic drugs; Z79.84 Long term (current) use of oral hypoglycemic drugs; Z79.4 Long term (current) use of insulin; F17.210 Nicotine dependence, cigarettes, uncomplicated
CPT/HCPCS: 99283

== ENCOUNTER 2022-07-05 00:12 | Emergency (ER) | payer MEDICAID, SELFPAY ==
--- NOTE | 2022-07-05 00:14 | ED.C_ITS ---
HPI - Psych General: Chief Complaint: Psychiatric Symptoms Stated Complaint: psychiatric symptoms Time Seen by Provider: 07/05/22 00:12 Source: patient and EMS Mode of arrival: EMS Limitations: no limitations History of Present Illness: 27-year-old male who is very well-known to the ER he has been seen here multiple times for suicidality patient has been admitted multiple times well and was admitted over the weekend he was seen here yesterday as well patient states that he is hearing voices telling him to harm himself no specific plan. Denies any worsening improving factors. Associated symptoms: Reports depression and suicidal ideation Review of Systems Const: Denies: fever(s), chills, body aches or change in appetite Eyes: Denies: blurry vision or eye discomfort ENMT: Denies: throat pain or dental pain Card: Denies: chest pain Resp: Denies: dyspnea GI: Denies: abdominal pain, nausea, vomiting or diarrhea : Denies: dysuria Musc: Denies: neck pain or back pain Skin/Breast: Denies: rash Neuro: Denies: headache(s) Psych: Reports: depression and suicidal ideation Harshad/Lymph: Denies: easy bruising All/Imm: Denies: urticaria PFSH ED PFSH: Medical History Attention-deficit hyperactivity disorder, combined type Bipolar disorder, unspecified Generalized anxiety disorder Intermittent explosive disorder Nicotine dependence, cigarettes, uncomplicated On valproic acid therapy Psychiatric care Social History Smoking and tobacco status: current every day smoker cigarettes Packs smoked per day: 2 Smoking risk assessment/counseling performed?: Yes Tobacco counseling given: counseling >3 minutes Physical Exam Const: COMMON NORMALS: no acute distress, patient oriented x3 and healthy appearing HENMT: COMMON NORMALS: normocephalic and atraumatic HEAD & SCALP: normocephalic and atraumatic Eye: COMMON NORMALS: Equal, round and reactive pupils present and EOMs intact bilaterally PUPIL: Yes Equal, round and reactive pupils present Neck/C-Spine: COMMON NORMALS: full ROM and supple Chest: COMMONS NORMALS: normal inspection of the chest and normal palpation of entire chest wall Resp: COMMON NORMALS: normal respiratory effort, No retractions, No use of accessory muscles and clear to auscultation bilaterally AUSCULTATION: clear to auscultation bilaterally Cardio: COMMON NORMALS: regular rate, regular rhythm and No murmurs present (Cardio) RATE: regular rate RHYTHM: regular rhythm GI: COMMON NORMALS: Normal to inspection, nondistended, normoactive bowel sounds present, Soft to palpation, non-tender and no masses PALPATION: Yes Soft to palpation Extremity: COMMON NORMALS: normal to inspection and full ROM Neuro: COMMON NORMALS: patient oriented x3, moves all extremities and no focal motor deficits Psych: COMMON NORMALS: mental status grossly normal, Normal thought process present and cooperative THOUGHT PROCESS: Normal thought process present Skin: COMMON NORMALS: no rashes or lesions noted and no wounds GENERAL SKIN EXAM: no rashes or lesions noted Course Vital Signs: Vital signs: Vital Signs Temperature 97.4 F L 07/05/22 00:15 Pulse Rate 84 07/05/22 00:15 Respiratory Rate 18 07/05/22 01:03 Blood Pressure 130/84 07/05/22 00:15 Pulse Oximetry 98 07/05/22 00:15 Oxygen Delivery Me thod 07/05/22 00:15 [facility] - Psych Medical Decision Making Patient presents here with depression and complaint of suicidality his no longer suicidal I did speak to the psychiatrist who knows patient well he is just discharged this week and he is stable for discharge he is to follow-up PCP and return if worsening. Discharge Plan Discharge Patient Disposition: Home Clinical Impression: Depression Condition: Stable Prescriptions: No Action loperamide 2 mg tablet 4 mg PO PRN MDD 8 tabs PRN (Reason: Diarrhea) Januvia 100 mg tablet 100 mg PO DAILY@08 fenofibrate nanocrystallized 145 mg tablet 145 mg PO BEDTIME@20 ibuprofen 800 mg tablet 800 mg PO Q8H PRN (Reason: Pain) acetaminophen [Tylenol Extra Strength] 500 mg tablet 500 - 1,000 mg PO Q6H PRN (Reason: Pain) aripiprazole [Abilify] 20 mg tablet 20 mg PO DAILY Qty: 30 0RF topiramate 100 mg tablet 100 mg PO TID@08,12,20 Qty: 90 1RF (DME) A&D ointment See Rx Instructions .Route .MEDSUPPLY Qty: 1 6RF Rx Instructions: to be applied daily triamcinolone acetonide 0.1 % Cream 1 applic TOPICAL DAILY PRN (Reason: Rash) polyethylene glycol 3350 [Miralax] 17 gram/dose Powder 17 g PO DAILY PRN (Reason: Constipation) fluticasone propionate 50 mcg/actuation [place],Suspension 1 spray INTRANASAL DAILY@08 glimepiride 2 mg tablet 2 mg PO BIDWM@08,18 Rx Instructions: before meals insulin glargine [Lantus Solostar U-100 Insulin] 100 unit/mL (3 mL) insulin pen 10 unit SUBCUT DAILY@20 promethazine-DM 6.25-15 mg/5 mL syrup 5 ml PO Q4H PRN (Reason: Cough) metformin 1,000 mg tablet 1,000 mg PO BID@08,20 mupirocin 2 % ointment 1 applic TOPICAL BID PRN (Reason: Skin Irritation) albuterol sulfate [Ventolin HFA] 90 mcg/actuation HFA aerosol inhaler 2 puff INHALATION Q4H PRN (Reason: Shortness Of Breath) budesonide-formoterol [Symbicort] 160-4.5 mcg/actuation HFA aerosol inhaler 2 puff INHALATION BID multivitamin with folic acid [Daily-Suzette (with folic acid)] 400 mcg tablet 1 tab PO DAILY@08 trazodone 150 mg tablet 150 mg PO BEDTIME@20 divalproex [Depakote] 500 mg Tablet,Delayed Release (Dr/Ec) 1,000 mg PO BID@08,14 divalproex 500 mg tablet,delayed release (DR/EC) 500 mg PO DAILY@20 Rx Instructions: 2 tablets (1,000mg) at 08:00 and 14:00 and 1 tablet (500mg) at 20:00 hydrochlorothiazide 25 mg Tablet 25 mg PO DAILY 30 Days Qty: 30 1RF nicotine 21 mg/24 hr patch 24 hour 1 patch transdermal Q24H Trulicity 3 mg/0.5 mL pen injector 3 mg SUBCUT Q7D clonazepam 0.5 mg Tablet 0.5 mg PO TID 30 Days Qty: 90 1RF Klonopin 2 mg tablet 2 mg PO BEDTIME 14 Days Qty: 14 0RF Rx Instructions: Take for 2 weeks then go to 0.5 mg tabs Discharge Orders: Discharge ED (Routine); Ordered 07/05/22 Ordered By: Sridhar Chavez Referrals: Beatriz Loza DO [Primary Care Provider] - Discharge Diet: Advance as tolerated Discharge Activity: Resume usual activity Patient Instructions: Depression (ED) Coding Level of Care Code ED Tool Design Drafter for [facility]
[2022-07-05 00:15] VITALS: BP 130/84; PULSE 84; RESP 18; TEMP 36.3; O2SAT 98
[2022-07-05] MEDS: LORazepam 1 mg Tablet PO (00:24)
[2022-07-05 01:03] VITALS: RESP 18
== END 2022-07-05 01:03 | disposition home or self-care (01) ==
LOC: ER 00:44
PROVIDERS: Emergency Provider Emergency Medicine; PCP Family Medicine
DX: F32.A Depression, unspecified (principal)
CPT/HCPCS: 99283

== ENCOUNTER 2022-07-05 05:47 | Emergency (ER) | payer MEDICAID, SELFPAY ==
[2022-07-05 05:52] VITALS: BP 137/85; PULSE 91; RESP 16; TEMP 37.1; O2SAT 99
--- NOTE | 2022-07-05 06:14 | ED.C_ITS ---
HPI - Psych General: Chief Complaint: Psychiatric Symptoms Stated Complaint: psychiatric symptoms Time Seen by Provider: 07/05/22 05:50 Source: patient Mode of arrival: EMS History of Present Illness: 27-year-old male who has had 3 visits to the emergency room in the last approximately 48 hours. Little less than 48 hours ago he was discharged from the [facility] after a 3-day stay. Dr. Khoury had admitted him with the intention of doing a level 3 admission's that the patient would be placed at a facility more appropriate for his behavior level. He has frequent behavioral outbursts. He is intentionally seeking admission to the psychiatry department because [facility]. He was here approximately 6 hours ago was seen by Dr. Chavez. Dr. Chavez discussed the case and with Dr. Khoury who is on-call for psychiatry given his history and he is a well-known entity to psychiatry department with a discharged [facility] to [facility]. He became angry and states he has been hearing voices he picked up at the desk and threw it at a caregiver. On arrival here he states he is hearing voices that are telling him to hurt others but he is well behaved and shows no aggression. Duration: constant History of same: Yes Relieving factors: none Exacerbating factors: none Associated psychiatric symptoms: none Review of Systems Const: Denies: fever(s), chills, body aches, change in appetite, fatigue or malaise ENMT: Denies: throat pain, ear or mastoid pain, nasal discharge or nasal congestion Card: Denies: chest pain, edema, dyspnea on exertion or orthopnea Resp: Denies: dyspnea, productive cough or non-productive cough GI: Denies: abdominal pain, nausea, vomiting, hematemesis, coffee ground emesis, diarrhea, constipation, bloating, hematochezia or melena : Denies: flank pain, dysuria, urinary frequency or urinary urgency Skin/Breast: Denies: rash or pruritus PFSH ED PFSH: Medical History Attention-deficit hyperactivity disorder, combined type Bipolar disorder, unspecified Generalized anxiety disorder Intermittent explosive disorder Nicotine dependence, cigarettes, uncomplicated On valproic acid therapy Psychiatric care Social History Smoking and tobacco status: current every day smoker cigarettes Packs smoked per day: 2 Smoking risk assessment/counseling performed?: Yes Tobacco counseling given: counseling >3 minutes Physical Exam Const: COMMON NORMALS: no acute distress GENERAL APPEARANCE: cooperative and comfortable ORIENTATION/CONSCIOUSNESS: Yes awake, Yes oriented to person, Yes oriented to place and Yes oriented to time Neuro: SENSORIUM/ORIENTATION: Yes oriented to person, Yes oriented to place and Yes oriented to time Course Vital Signs: Vital signs: Vital Signs Temperature 98.8 F 07/05/22 05:52 Pulse Rate 91 07/05/22 05:52 Respiratory Rate 16 07/05/22 05:52 Blood Pressure 137/85 07/05/22 05:52 Pulse Oximetry 99 07/05/22 05:52 [facility] - Psych Medical Decision Making Discussed patient with Dr. Khoury again this morning. See Dr. Khoury previous notes including his recent hospitalization notes. Dr. Khoury did recommend that at this point they only use the Klonopin 2 mg at night and do not give any during the day as this acts as a disinhibited or and worsens his explosive outbursts. Discussed with the patient that we would not be admitting him. Discussed with the caregiver as well that these are behavioral issues and even a long-term hospitalization would not the issues at hand with his explosive outbursts. Caregiver and patient expressed understanding of the plan. Medical Records I reviewed the patient's medical records. Lab Data I reviewed the patient's lab results. Discharge Plan Discharge Patient Disposition: Home Clinical Impression: Intermittent explosive disorder, Intellectual disability Condition: Stable Prescriptions: Discontinued clonazepam 0.5 mg Tablet 0.5 mg PO TID 30 Days Qty: 90 1RF No Action loperamide 2 mg tablet 4 mg PO PRN MDD 8 tabs PRN (Reason: Diarrhea) Januvia 100 mg tablet 100 mg PO DAILY@08 fenofibrate nanocrystallized 145 mg tablet 145 mg PO BEDTIME@20 ibuprofen 800 mg tablet 800 mg PO Q8H PRN (Reason: Pain) acetaminophen [Tylenol Extra Strength] 500 mg tablet 500 - 1,000 mg PO Q6H PRN (Reason: Pain) aripiprazole [Abilify] 20 mg tablet 20 mg PO DAILY Qty: 30 0RF topiramate 100 mg tablet 100 mg PO TID@08,12,20 Qty: 90 1RF (DME) A&D ointment See Rx Instructions .Route .MEDSUPPLY Qty: 1 6RF Rx Instructions: to be applied daily triamcinolone acetonide 0.1 % Cream 1 applic TOPICAL DAILY PRN (Reason: Rash) polyethylene glycol 3350 [Miralax] 17 gram/dose Powder 17 g PO DAILY PRN (Reason: Constipation) fluticasone propionate 50 mcg/actuation [place],Suspension 1 spray INTRANASAL DAILY@08 glimepiride 2 mg tablet 2 mg PO BIDWM@08,18 Rx Instructions: before meals insulin glargine [Lantus Solostar U-100 Insulin] 100 unit/mL (3 mL) insulin pen 10 unit SUBCUT DAILY@20 promethazine-DM 6.25-15 mg/5 mL syrup 5 ml PO Q4H PRN (Reason: Cough) metformin 1,000 mg tablet 1,000 mg PO BID@08, mupirocin 2 % ointment 1 applic TOPICAL BID PRN (Reason: Skin Irritation) albuterol sulfate [Ventolin HFA] 90 mcg/actuation HFA aerosol inhaler 2 puff INHALATION Q4H PRN (Reason: Shortness Of Breath) budesonide-formoterol [Symbicort] 160-4.5 mcg/actuation HFA aerosol inhaler 2 puff INHALATION BID multivitamin with folic acid [Daily-Suzette (with folic acid)] 400 mcg tablet 1 tab PO DAILY@08 trazodone 150 mg tablet 150 mg PO BEDTIME@20 divalproex [Depakote] 500 mg Tablet,Delayed Release (Dr/Ec) 1,000 mg PO BID@08,14 divalproex 500 mg tablet,delayed release (DR/EC) 500 mg PO DAILY@20 Rx Instructions: 2 tablets (1,000mg) at 08:00 and 14:00 and 1 tablet (500mg) at 20:00 hydrochlorothiazide 25 mg Tablet 25 mg PO DAILY 30 Days Qty: 30 1RF nicotine 21 mg/24 hr patch 24 hour 1 patch transdermal Q24H Trulicity 3 mg/0.5 mL pen injector 3 mg SUBCUT Q7D Klonopin 2 mg tablet 2 mg PO BEDTIME 14 Days Qty: 14 0RF Rx Instructions: Take for 2 weeks then go to 0.5 mg tabs Discharge Orders: Discharge ED (Routine); Ordered 07/05/22 Ordered By: Alistair Carter Referrals: Beatriz Loza, [Primary Care Provider] - Discharge Diet: Usual diet Discharge Activity: Resume usual activity Patient Instructions: Opioid Safety, Pain Management Activity Restrictions/Additional Instructions: You are seen today for explosive outburst. After reviewing your medicine list with the psychiatrist on-call recommend that you only take the clonazepam at bedtime and do not take the daytime doses anymore. Follow-up with behavioral health Coding Level of Care Code ED Chief Human Resources Officer for [facility]
== END 2022-07-05 08:33 | disposition home or self-care (01) ==
PROVIDERS: Emergency Provider Family Medicine; PCP Family Medicine
DX: F63.81 Intermittent explosive disorder (principal); F79 Unspecified intellectual disabilities
CPT/HCPCS: 99285

== ENCOUNTER 2022-07-12 20:43 | Emergency (ER) | payer MEDICAID, SELFPAY ==
[2022-07-12 20:44] VITALS: BP 134/94; PULSE 108; RESP 18; TEMP 36.7; O2SAT 96; BMI 47.2
--- NOTE | 2022-07-12 20:45 | W.ED.PSYCHS ---
HPI - Psych General: Chief Complaint: Psychiatric Symptoms Stated Complaint: MHE Time Seen by Provider: 07/12/22 20:45 History of Present Illness: Mr. Calloway is a 27-year-old gentleman with history of psychiatric disorder, intellectual disability, diabetes presenting to the emergency department for suicidal and homicidal ideation. He reports increasing depression and had 2 shots of alcohol today at which point he began hearing more voices telling him to kill himself and kill others. Denies actual suicide attempt. No other specific changes in health, exacerbating, or alleviating factors identified. Onset (ago): hour(s) History of same: Yes Context: recent alcohol abuse Review of Systems General: Reports: 10 or more systems reviewed and unremarkable except in HPI and below PFSH ED PFSH: Medical History Attention-deficit hyperactivity disorder, combined type Bipolar disorder, unspecified Generalized anxiety disorder Intermittent explosive disorder Nicotine dependence, cigarettes, uncomplicated On valproic acid therapy Psychiatric care Social History Smoking and tobacco status: current every day smoker cigarettes Packs smoked per day: 2 Smoking risk assessment/counseling performed?: Yes Tobacco counseling given: counseling >3 minutes Physical Exam Const: COMMON NORMALS: alert GENERAL APPEARANCE: cooperative and well developed HENMT: COMMON NORMALS: normocephalic and atraumatic HEAD & SCALP: normocephalic and atraumatic Eye: COMMON NORMALS: conjunctivae normal CONJUNCTIVA: Yes conjunctivae normal SCLERA: sclerae normal Neck/C-Spine: COMMON NORMALS: supple GENERAL: Yes trachea midline Resp: COMMON NORMALS: normal respiratory effort EFFORT & INSPECTION: Yes able to speak in complete sentences Cardio: COMMON NORMALS: regular rate and regular rhythm RATE: regular rate RHYTHM: regular rhythm GI: COMMON NORMALS: Soft to palpation PALPATION: Yes Soft to palpation and No Tenderness to palpation present (GI) PERCUSSION: normal to percussion Extremity: GENERAL: Yes normal exam except as noted and No edema Neuro: COMMON NORMALS: moves all extremities SENSORIUM/ORIENTATION: Yes alert and No Orientation impaired Psych: COMMON NORMALS: mental status grossly normal and Normal thought process present THOUGHT PROCESS: Normal thought process present Course Vital Signs: Vital signs: Vital Signs Temperature 98.1 F 07/12/22 20:44 Pulse Rate 91 07/12/22 22:15 Respiratory Rate 18 07/12/22 22:15 Blood Pressure 134/94 07/12/22 20:44 Pulse Oximetry 98 07/12/22 22:15 Oxygen Delivery Me thod 07/12/22 20:44 MDM - Psych Medical Decision Making 27-year-old gentleman well-known to our emergency department and psychiatric Services presenting for psychiatric evaluation in the context of recent alcohol use. Patient calm and cooperative on exam. He appears baseline. No significant hematologic or metabolic abnormalities. Toxic ingestions are negative. Given clinical history and physical exam there is no indication for imaging. Discussed with Dr. Khoury, no indication for hospitalization at this time. The results of ED evaluation were discussed with the patient including prescriptions and/or symptomatic cares (if applicable) including appropriate and responsible use, followup plan, and return precautions. The staff verbalized understanding and felt safe for discharge. Medical Records I reviewed the patient's medical records. Lab Data I reviewed the patient's lab results. 07/12/22 21:00 07/12/22 21:00 Laboratory Results WBC 6.5 10^3/uL (4.0-10.0) 07/12/22 21:00 RBC 4.95 10^6/uL (4.1-5.3) 07/12/22 21:00 Hgb 14.2 g/dL (11.7-16.6) 07/12/22 21:00 Hct 44.1 % (42.0-52.0) 07/12/22 21:00 MCV 89.1 fl (80-94) 07/12/22 21:00 MCH 28.7 pg (28.0-34.0) 07/12/22 21:00 MCHC 32.2 g/dL (30.0-36.0) 07/12/22 21:00 RDW 13.8 % (12.1-15.1) 07/12/22 21:00 Plt Count 252 10^3/cmm (130-400) 07/12/22 21:00 MPV 11.5 fL (7.4-10.4) H 07/12/22 21:00 Neut % (Auto) 58.6 % 07/12/22 21:00 Lymph % (Auto) 32.4 % 07/12/22 21:00 [place] % (Auto) 7.0 % 07/12/22 21:00 Eos % (Auto) 0.9 % 07/12/22 21:00 Baso % (Auto) 0.5 % 07/12/22 21:00 Neut # (Auto) 3.79 10^3/uL (1.8-7.7) 07/12/22 21:00 Lymph # (Auto) 2.1 10^3/uL (0.8-4.8) 07/12/22 21:00 [place] # (Auto) 0.5 10^3/uL (0.2-0.9) 07/12/22 21:00 Eos # (Auto) 0.1 10^3/uL (0.0-0.8) 07/12/22 21:00 Baso # (Auto) 0.0 10^3/uL (0.0-0.1) 07/12/22 21:00 Nucleated RBC % (auto) 0 % 07/12/22 21:00 Nucleated RBCs # 0.0 /100WBC 07/12/22 21:00 Sodium 138 mmol/L (136-145) 07/12/22 21:00 Potassium 3.3 mmol/L (3.5-5.1) L 07/12/22 21:00 Chloride 102 mmol/L (98-107) 07/12/22 21:00 Carbon Dioxide 23 mmol/L (22-29) 07/12/22 21:00 Anion Gap 16.3 (5-19) 07/12/22 21:00 BUN 19 mg/dL (6-20) 07/12/22 21:00 Creatinine 0.9 mg/dL (0.7-1.2) 07/12/22 21:00 GFR Calculation 101.2 mL/min (90-130) 07/12/22 21:00 Glucose 99 mg/dL (65-115) 07/12/22 21:00 Calculated Osmolality 288 mOsm/kg (285-295) 07/12/22 21:00 Calcium 9.8 mg/dL (8.5-10.5) 07/12/22 21:00 Total Bilirubin 0.2 mg/dL (0.15-1.2) 07/12/22 21:00 AST 23 U/L (0-40) 07/12/22 21:00 ALT 22 U/L (0-41) 07/12/22 21:00 Alkaline Phosphatase 35 U/L (40-130) L 07/12/22 21:00 Total Protein 7.7 g/dL (6.6-8.7) 07/12/22 21:00 Albumin 4.6 g/dL (3.5-5.2) 07/12/22 21:00 Globulin 3.1 g/dL (1.3-4.6) 07/12/22 21:00 TSH 1.94 uIU/mL (0.27-4.20) 07/12/22 21:00 Salicylates < 0.3 mg/dL (3-10) L 07/12/22 21:00 Urine Opiates Screen Negative ng/mL (Negative) 07/12/22 21:00 Acetaminophen < 5.0 ug/mL (10-30) L 07/12/22 21:00 Ur Barbiturates Screen Negative ng/mL (Negative) 07/12/22 21:00 Ur Phencyclidine Scrn Negative ng/mL (Negative) 07/12/22 21:00 Ur Amphetamines Screen Negative ng/mL (Negative) 07/12/22 21:00 U Benzodiazepines Scrn Negative ng/mL (Negative) 07/12/22 21:00 Urine Cocaine Screen Negative ng/mL (Negative) 07/12/22 21:00 U Marijuana (THC) Screen Negative ng/mL (Negative) 07/12/22 21:00 Ethyl Alcohol < 10 mg/dL (0-10) 07/12/22 21:00 Discharge Plan Discharge Patient Disposition: Home Clinical Impression: Alcohol intoxication, Intellectual disability, Psychiatric illness Condition: Stable Prescriptions: No Action loperamide 2 mg tablet 4 mg PO PRN MDD 8 tabs PRN (Reason: Diarrhea) Januvia 100 mg tablet 100 mg PO DAILY@08 fenofibrate nanocrystallized 145 mg tablet 145 mg PO BEDTIME@20 ibuprofen 800 mg tablet 800 mg PO Q8H PRN (Reason: Pain) acetaminophen [Tylenol Extra Strength] 500 mg tablet 500 - 1,000 mg PO Q6H PRN (Reason: Pain) topiramate 100 mg tablet 100 mg PO TID@08,12,20 Qty: 90 1RF (DME) A&D ointment See Rx Instructions .Route .MEDSUPPLY Qty: 1 6RF Rx Instructions: to be applied daily divalproex 500 mg tablet,delayed release (DR/EC) 500 mg PO .COMPLEX Qty: 150 1RF Rx Instructions: 2 tablets (1,000mg) at 08:00 and 14:00 and 1 tablet (500mg) at 20:00 triamcinolone acetonide 0.1 % Cream 1 applic TOPICAL DAILY PRN (Reason: Rash) polyethylene glycol 3350 [Miralax] 17 gram/dose Powder 17 g PO DAILY PRN (Reason: Constipation) fluticasone propionate 50 mcg/actuation [place],Suspension 1 spray INTRANASAL DAILY@08 glimepiride 2 mg tablet 2 mg PO BID@08,20 insulin glargine [Lantus Solostar U-100 Insulin] 100 unit/mL (3 mL) insulin pen 10 unit SUBCUT DAILY@20 promethazine-DM 6.25-15 mg/5 mL syrup 5 ml PO Q4H PRN (Reason: Cough) metformin 1,000 mg tablet 1,000 mg PO BID@08,20 mupirocin 2 % ointment 1 applic TOPICAL BID PRN (Reason: Skin Irritation) albuterol sulfate [Ventolin HFA] 90 mcg/actuation HFA aerosol inhaler 2 puff INHALATION Q4H PRN (Reason: Shortness Of Breath) budesonide-formoterol [Symbicort] 160-4.5 mcg/actuation HFA aerosol inhaler 2 puff INHALATION BID@08,20 multivitamin with folic acid [Daily-Suzette (with folic acid)] 400 mcg tablet 1 tab PO DAILY@08 trazodone 150 mg tablet 150 mg PO BEDTIME@20 nicotine 21 mg/24 hr patch 24 hour 1 patch transdermal DAILY@12 Trulicity 3 mg/0.5 mL pen injector 3 mg SUBCUT Q7D Rx Instructions: ON SUNDAY clonazepam 0.5 mg tablet 0.5 mg PO TID Rx Instructions: PT NOT STARTED TAKING YET 07/14/22 quetiapine 200 mg tablet See Rx Instructions .ROUTE .COMPLEX Rx Instructions: ONE TAB (200MG) PO QAM AT 08:00 AND TWO TABS (400MG) PO AT BEDTIME @20:00 quetiapine 100 mg tablet 100 mg PO BEDTIME@20 Rx Instructions: TAKE WITH 400MG AT HS nicotine (polacrilex) 4 mg gum 4 mg PO Q2H PRN (Reason: Smoking Cessation) diclofenac sodium 1 % gel 4 g TOPICAL QID Rx Instructions: @08:00,12:00,16:00,20:00 A and D (los, pet) Ointment 1 applic TOPICAL DAILY@20 hydrochlorothiazide 25 mg tablet 25 mg PO DAILY@08 Abilify 20 mg tablet 20 mg PO DAILY@08 Discharge Orders: Discharge ED (Routine); Ordered 07/12/22 Ordered By: Bear Barron Referrals: Beatriz Loza DO [Primary Care Provider] - Discharge Diet: Usual diet Discharge Activity: Resume usual activity Activity Restrictions/Additional Instructions: Thank you for visiting the emergency department. You were seen and evaluated for psychiatric symptoms in the context of alcohol use. After discussion with psychiatry service and evaluation in the emergency department we believe that continued outpatient management is appropriate. Please do not use alcohol anymore. Please continue your psychiatric medications as prescribed. Follow-up with your primary care provider and psychiatric care provider. [facility] [phone] If you or someone you care for is experiencing a psychiatric emergency, please call the crisis hotline ([employer]) 24-hours a day, 7 days a week at [phone]. Return to the emergency department for anything that you are concerned about and feel needs emergency department evaluation. Coding Level of Care Code ED [employer] for Caron Crane
[2022-07-12 21:08] LABS: Basophils % 0.5 %; Eosinophils # 0.1 10^3/uL (0.0-0.8); Eosinophils % 0.9 %; Hematocrit 44.1 % (42.0-52.0); Hemoglobin 14.2 g/dL (11.7-16.6); Lymphocytes # 2.1 10^3/uL (0.8-4.8); Lymphocytes % 32.4 %; Mean Corpuscular HGB Conc 32.2 g/dL (30.0-36.0); Mean Corpuscular Hemoglobin 28.7 pg (28.0-34.0); Mean Corpuscular Volume 89.1 fl (80-94); Mean Platelet Volume 11.5 fL (7.4-10.4); Monocytes # 0.5 10^3/uL (0.2-0.9); Neutrophils # 3.79 10^3/uL (1.8-7.7); Neutrophils % 58.6 %; Nucleated Red Blood Cells % 0 %; Platelet Count 252 10^3/cmm (130-400); Red Blood Count 4.95 10^6/uL (4.1-5.3); Red Cell Distribution Width 13.8 % (12.1-15.1); White Blood Count 6.5 10^3/uL (4.0-10.0)
[2022-07-12 21:17] LABS: Amphetamines Screen Urine Negative (Negative); Barbiturates Screen Urine Negative (Negative); Benzodiazepines Screen Urine Negative (Negative); Cocaine Screen Urine Negative (Negative); Opiate Screen Urine Negative (Negative); PCP Screen Urine Negative (Negative); THC Screen Urine Negative (Negative)
[2022-07-12 21:53] LABS: Alanine Aminotransferase 22 U/L (0-41); Albumin Level 4.6 g/dL (3.5-5.2); Alkaline Phosphatase 35 U/L (40-130); Anion Gap 16.3 (5-19); Aspartate Amino Transferase 23 U/L (0-40); Blood Urea Nitrogen 19 mg/dL (6-20); Calcium 9.8 mg/dL (8.5-10.5); Carbon Dioxide 23 mmol/L (22-29); Chloride 102 mmol/L (98-107); Globulin 3.1 g/dL (1.3-4.6); Glomerular Filtration Rate 101.2 mL/min (90-130); Glucose 99 mg/dL (65-115); Osmolality Calculated 288 mOsm/kg (285-295); Potassium 3.3 mmol/L (3.5-5.1); Sodium 138 mmol/L (136-145); Thyroid Stimulating Hormone 1.94 uIU/mL (0.27-4.20); Total Bilirubin 0.2 mg/dL (0.15-1.2); Total Protein 7.7 g/dL (6.6-8.7)
[2022-07-12 21:55] LABS: Acetaminophen < 5.0 ug/mL (10-30); Alcohol Level < 10 mg/dL (0-10); Salicylate < 0.3 mg/dL (3-10)
[2022-07-12] MEDS: potassium chloride ER 20 mEq Tablet 40 MEQ PO (22:07)
[2022-07-12 22:15] VITALS: PULSE 91; RESP 18; O2SAT 98
== END 2022-07-12 22:16 | disposition home or self-care (01) ==
PROVIDERS: Emergency Provider Emergency Medicine; PCP Family Medicine
DX: F31.9 Bipolar disorder, unspecified (principal); F79 Unspecified intellectual disabilities; F10.129 Alcohol abuse with intoxication, unspecified
CPT/HCPCS: 80053; 80306; 80307; 84443; 85025; 99283

== ENCOUNTER 2022-07-14 08:17 | Emergency (ER) | payer MEDICAID, SELFPAY ==
[2022-07-14 08:25] VITALS: BP 123/78; PULSE 92; RESP 14; O2SAT 96; BMI 42.8
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
[2022-07-14 08:42] VITALS: RESP 16
[2022-07-14 08:57] LABS: Basophils % 0.3 %; Eosinophils # 0.1 10^3/uL (0.0-0.8); Eosinophils % 0.7 %; Hematocrit 46.6 % (42.0-52.0); Hemoglobin 14.9 g/dL (11.7-16.6); Lymphocytes # 1.1 10^3/uL (0.8-4.8); Lymphocytes % 15.2 %; Mean Corpuscular Hemoglobin 29.4 pg (28.0-34.0); Mean Corpuscular Volume 91.9 fl (80-94); Mean Platelet Volume 11.8 fL (7.4-10.4); Monocytes # 0.4 10^3/uL (0.2-0.9); Monocytes % 5.2 %; Neutrophils # 5.68 10^3/uL (1.8-7.7); Neutrophils % 78.1 %; Nucleated Red Blood Cells % 0 %; Platelet Count 248 10^3/cmm (130-400); Red Blood Count 5.07 10^6/uL (4.1-5.3); Red Cell Distribution Width 13.8 % (12.1-15.1); White Blood Count 7.3 10^3/uL (4.0-10.0)
[2022-07-14 09:06] LABS: Alanine Aminotransferase 25 U/L (0-41); Albumin Level 4.8 g/dL (3.5-5.2); Alkaline Phosphatase 36 U/L (40-130); Anion Gap 17.5 (5-19); Aspartate Amino Transferase 25 U/L (0-40); Blood Urea Nitrogen 18 mg/dL (6-20); Calcium 9.8 mg/dL (8.5-10.5); Carbon Dioxide 24 mmol/L (22-29); Chloride 99 mmol/L (98-107); Globulin 3.3 g/dL (1.3-4.6); Glomerular Filtration Rate 135.3 mL/min (90-130); Glucose 112 mg/dL (65-115); Osmolality Calculated 287 mOsm/kg (285-295); Potassium 3.5 mmol/L (3.5-5.1); Sodium 137 mmol/L (136-145); Total Bilirubin 0.2 mg/dL (0.15-1.2); Total Protein 8.1 g/dL (6.6-8.7)
[2022-07-14 09:07] LABS: Valproic Acid Level 63.3 ug/mL (50-100)
[2022-07-14 11:11] LABS: Valproic Acid Level 49.1 ug/mL (50-100)
== END 2022-07-14 12:38 | disposition home or self-care (01) ==
PROVIDERS: Emergency Provider Family Medicine; PCP Family Medicine
DX: F63.81 Intermittent explosive disorder (principal); E11.9 Type 2 diabetes mellitus without complications; F90.2 Attention-deficit hyperactivity disorder, combined type; Z79.85 Long-term (current) use of injectable non-insulin antidiabetic drugs; Z79.84 Long term (current) use of oral hypoglycemic drugs; Z79.4 Long term (current) use of insulin; F17.210 Nicotine dependence, cigarettes, uncomplicated
CPT/HCPCS: 36415; 80053; 80164; 85025; 99283

== ENCOUNTER 2022-07-15 01:17 | Emergency (ER) | payer MEDICAID, SELFPAY ==
[2022-07-15 01:18] VITALS: BP 116/76; PULSE 89; RESP 20; O2SAT 99; BMI 44.3
--- NOTE | 2022-07-15 01:22 | W.ED.PSYCHS ---
HPI - Psych General: Chief Complaint: Psychiatric Symptoms Stated Complaint: MHE Time Seen by Provider: 07/15/22 01:18 Source: patient and EMS Mode of arrival: EMS Limitations: no limitations History of Present Illness: 27-year-old male who is very well-known to the ER has been seen here multiple times in the past for suicidal complaints he has a history of intellectual disability per EMS patient wanted a Nicorette gum tonight he had a new caregiver is unable to give it to him he became upset and called EMS stating that he wanted to harm himself patient has no specific plans. Associated symptoms: Reports depression Review of Systems Const: Denies: fever(s), chills, body aches or change in appetite Eyes: Denies: blurry vision or eye discomfort ENMT: Denies: throat pain or dental pain Card: Denies: chest pain Resp: Denies: dyspnea GI: Denies: abdominal pain, nausea, vomiting or diarrhea : Denies: dysuria Musc: Denies: neck pain or back pain Skin/Breast: Denies: rash Neuro: Denies: headache(s) Psych: Reports: depression Harshad/Lymph: Denies: easy bruising All/Imm: Denies: urticaria PFSH ED PFSH: Medical History Attention-deficit hyperactivity disorder, combined type Bipolar disorder, unspecified Generalized anxiety disorder Intermittent explosive disorder Nicotine dependence, cigarettes, uncomplicated On valproic acid therapy Psychiatric care Social History Smoking and tobacco status: current every day smoker cigarettes Packs smoked per day: 2 Smoking risk assessment/counseling performed?: Yes Tobacco counseling given: counseling >3 minutes Physical Exam Const: COMMON NORMALS: no acute distress, patient oriented x3 and healthy appearing HENMT: COMMON NORMALS: normocephalic and atraumatic HEAD & SCALP: normocephalic and atraumatic Eye: COMMON NORMALS: Equal, round and reactive pupils present and EOMs intact bilaterally PUPIL: Yes Equal, round and reactive pupils present Neck/C-Spine: COMMON NORMALS: full ROM and supple Chest: COMMONS NORMALS: normal inspection of the chest and normal palpation of entire chest wall Resp: COMMON NORMALS: normal respiratory effort, No retractions, No use of accessory muscles and clear to auscultation bilaterally AUSCULTATION: clear to auscultation bilaterally Cardio: COMMON NORMALS: regular rate, regular rhythm and No murmurs present (Cardio) RATE: regular rate RHYTHM: regular rhythm GI: COMMON NORMALS: Normal to inspection, nondistended, normoactive bowel sounds present, Soft to palpation, non-tender and no masses PALPATION: Yes Soft to palpation Extremity: COMMON NORMALS: normal to inspection and full ROM Neuro: COMMON NORMALS: patient oriented x3, moves all extremities and no focal motor deficits Psych: COMMON NORMALS: mental status grossly normal, Normal thought process present and cooperative THOUGHT PROCESS: Normal thought process present Skin: COMMON NORMALS: no rashes or lesions noted and no wounds GENERAL SKIN EXAM: no rashes or lesions noted Course Vital Signs: Vital signs: Vital Signs Pulse Rate 89 07/15/22 01:18 Respiratory Rate 20 H 07/15/22 01:18 Blood Pressure 116/76 07/15/22 01:18 Pulse Oximetry 99 07/15/22 01:18 MDM - Psych Medical Decision Making Patient presents here with depression he is claiming he is suicidal he has been seen here multiple times for this in the past and discussed case with Dr. Khoury who agrees that patient does not require inpatient admission he has been cooperative here we will discharge him. Discharge Plan Discharge Patient Disposition: Home Clinical Impression: Depression Condition: Stable Prescriptions: No Action loperamide 2 mg tablet 4 mg PO PRN MDD 8 tabs PRN (Reason: Diarrhea) Januvia 100 mg tablet 100 mg PO DAILY@08 fenofibrate nanocrystallized 145 mg tablet 145 mg PO BEDTIME@20 ibuprofen 800 mg tablet 800 mg PO Q8H PRN (Reason: Pain) acetaminophen [Tylenol Extra Strength] 500 mg tablet 500 - 1,000 mg PO Q6H PRN (Reason: Pain) topiramate 100 mg tablet 100 mg PO TID@08,12,20 Qty: 90 1RF (DME) A&D ointment See Rx Instructions .Route .MEDSUPPLY Qty: 1 6RF Rx Instructions: to be applied daily clonazepam [Klonopin] 2 mg tablet 2 mg PO BEDTIME 30 Days Qty: 30 0RF divalproex 500 mg tablet,delayed release (DR/EC) 500 mg PO .COMPLEX Qty: 150 1RF Rx Instructions: 2 tablets (1,000mg) at 08:00 and 14:00 and 1 tablet (500mg) at 20:00 triamcinolone acetonide 0.1 % Cream 1 applic TOPICAL DAILY PRN (Reason: Rash) polyethylene glycol 3350 [Miralax] 17 gram/dose Powder 17 g PO DAILY PRN (Reason: Constipation) fluticasone propionate 50 mcg/actuation [place],Suspension 1 spray INTRANASAL DAILY@08 glimepiride 2 mg tablet 2 mg PO BID@08,20 insulin glargine [Lantus Solostar U-100 Insulin] 100 unit/mL (3 mL) insulin pen 10 unit SUBCUT DAILY@20 promethazine-DM 6.25-15 mg/5 mL syrup 5 ml PO Q4H PRN (Reason: Cough) metformin 1,000 mg tablet 1,000 mg PO BID@08,20 mupirocin 2 % ointment 1 applic TOPICAL BID PRN (Reason: Skin Irritation) albuterol sulfate [Ventolin HFA] 90 mcg/actuation HFA aerosol inhaler 2 puff INHALATION Q4H PRN (Reason: Shortness Of Breath) budesonide-formoterol [Symbicort] 160-4.5 mcg/actuation HFA aerosol inhaler 2 puff INHALATION BID@08,20 multivitamin with folic acid [Daily-Suzette (with folic acid)] 400 mcg tablet 1 tab PO DAILY@08 trazodone 150 mg tablet 150 mg PO BEDTIME@20 nicotine 21 mg/24 hr patch 24 hour 1 patch transdermal DAILY@12 Trulicity 3 mg/0.5 mL pen injector 3 mg SUBCUT Q7D Rx Instructions: ON SUNDAY clonazepam 0.5 mg tablet 0.5 mg PO TID Rx Instructions: PT NOT STARTED TAKING YET 07/14/22 quetiapine 200 mg tablet See Rx Instructions .ROUTE .COMPLEX Rx Instructions: ONE TAB (200MG) PO QAM AT 08:00 AND TWO TABS (400MG) PO AT BEDTIME @20:00 quetiapine 100 mg tablet 100 mg PO BEDTIME@20 Rx Instructions: TAKE WITH 400MG AT HS nicotine (polacrilex) 4 mg gum 4 mg PO Q2H PRN (Reason: Smoking Cessation) diclofenac sodium 1 % gel 4 g TOPICAL QID Rx Instructions: @08:00,12:00,16:00,20:00 A and D (los, pet) Ointment 1 applic TOPICAL DAILY@20 hydrochlorothiazide 25 mg tablet 25 mg PO DAILY@08 Abilify 20 mg tablet 20 mg PO DAILY@08 Discharge Orders: Discharge ED (Routine); Ordered 07/15/22 Ordered By: Sridhar Chavez Referrals: Beatriz Loza DO [Primary Care Provider] - Discharge Diet: Advance as tolerated Discharge Activity: Resume usual activity Patient Instructions: Depression (ED) Coding Level of Care Code 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
[2022-07-15] MEDS: nicotine 4 mg lozenge MUCOUS MEM (01:33)
[2022-07-15] MEDS: haloperidol inj 5 mg/mL INJ 1 mL IM (01:33)
--- NOTE | 2022-07-15 02:10 | PC.NURSE ---
Patient sitter notified patient's nurse that the patient was trying choke himself with a blanket. Patient became aggressive when asked to stop. When ED Nurse BAKARI Chu and [facility] armoured corps officer tried de-escalate the situation, he became more aggressive stated he wanted to go to residential and he was going to throw water on the staff when he was not given his way. Patient stated he was going to hurt someone so he could go to residential. Patient started to come out of his room towards [facility] armoured corps officer while swing his left and right arm trying to strike staff and Elijah Garner RN stepped into restrain him as BAKARI Chu went to get Dr. Chavez. Patient was taken to the bed by [facility] security alarm technician , Elijah Garner RN, Bethany Chávez RN, and LOWELL Sotelo and held for his safety while he calmed down.
== END 2022-07-15 02:45 | disposition home or self-care (01) ==
PROVIDERS: Emergency Provider Emergency Medicine; PCP Family Medicine
DX: F32.A Depression, unspecified (principal); Z79.85 Long-term (current) use of injectable non-insulin antidiabetic drugs; Z79.4 Long term (current) use of insulin; Z79.84 Long term (current) use of oral hypoglycemic drugs; F17.210 Nicotine dependence, cigarettes, uncomplicated
CPT/HCPCS: 96372; 99284; J1630

== ENCOUNTER 2022-07-17 02:38 | Emergency (ER) | payer MEDICAID, SELFPAY ==
--- NOTE | 2022-07-17 02:41 | W.ED.PSYCHS ---
HPI - Psych General: Chief Complaint: Psychiatric Symptoms Stated Complaint: psychiatric complaints Time Seen by Provider: 07/17/22 02:39 Source: patient Mode of arrival: ambulatory Limitations: no limitations History of Present Illness: 27-year-old male who is very well-known to the ER has a history of intellectual delay he has been seen here multiple multiple times for hallucinations and depression he has been admitted multiple times as well. He states that he is hearing voices he denies any suicidal or homicidal thoughts at this time. Denies any worsening proving factors Associated symptoms: Reports auditory hallucinations Review of Systems Const: Denies: fever(s), chills, body aches or change in appetite Eyes: Denies: blurry vision or eye discomfort ENMT: Denies: throat pain or dental pain Card: Denies: chest pain Resp: Denies: dyspnea GI: Denies: abdominal pain, nausea, vomiting or diarrhea : Denies: dysuria Musc: Denies: neck pain or back pain Skin/Breast: Denies: rash Neuro: Denies: headache(s) Psych: Reports: auditory hallucinations Harshad/Lymph: Denies: easy bruising All/Imm: Denies: urticaria PFSH ED PFSH: Medical History Attention-deficit hyperactivity disorder, combined type Bipolar disorder, unspecified Generalized anxiety disorder Intermittent explosive disorder Nicotine dependence, cigarettes, uncomplicated On valproic acid therapy Psychiatric care Social History Smoking and tobacco status: current every day smoker cigarettes Packs smoked per day: 2 Smoking risk assessment/counseling performed?: Yes Tobacco counseling given: counseling >3 minutes Physical Exam Const: COMMON NORMALS: no acute distress, patient oriented x3 and healthy appearing HENMT: COMMON NORMALS: normocephalic and atraumatic HEAD & SCALP: normocephalic and atraumatic Eye: COMMON NORMALS: Equal, round and reactive pupils present and EOMs intact bilaterally PUPIL: Yes Equal, round and reactive pupils present Neck/C-Spine: COMMON NORMALS: full ROM and supple Chest: COMMONS NORMALS: normal inspection of the chest and normal palpation of entire chest wall Resp: COMMON NORMALS: normal respiratory effort, No retractions, No use of accessory muscles and clear to auscultation bilaterally AUSCULTATION: clear to auscultation bilaterally Cardio: COMMON NORMALS: regular rate, regular rhythm and No murmurs present (Cardio) RATE: regular rate RHYTHM: regular rhythm GI: COMMON NORMALS: Normal to inspection, nondistended, normoactive bowel sounds present, Soft to palpation, non-tender and no masses PALPATION: Yes Soft to palpation Extremity: COMMON NORMALS: normal to inspection and full ROM Neuro: COMMON NORMALS: patient oriented x3, moves all extremities and no focal motor deficits Psych: COMMON NORMALS: mental status grossly normal, Normal thought process present and cooperative THOUGHT PROCESS: Normal thought process present Skin: COMMON NORMALS: no rashes or lesions noted and no wounds GENERAL SKIN EXAM: no rashes or lesions noted Course Vital Signs: Vital signs: Vital Signs Temperature 97.4 F L 07/17/22 02:42 Pulse Rate 76 07/17/22 02:42 Respiratory Rate 20 H 07/17/22 02:42 Blood Pressure 139/79 07/17/22 02:42 Pulse Oximetry 97 07/17/22 02:42 Oxygen Delivery Me thod 07/17/22 02:42 [facility] - Psych Medical Decision Making Patient presents here with hallucinations he is not suicidal not homicidal he does not require admission at this time he is stable for discharge. Discharge Plan Discharge Patient Disposition: Home Clinical Impression: Hallucinations Condition: Stable Prescriptions: No Action loperamide 2 mg tablet 4 mg PO PRN MDD 8 tabs PRN (Reason: Diarrhea) Januvia 100 mg tablet 100 mg PO DAILY@08 fenofibrate nanocrystallized 145 mg tablet 145 mg PO BEDTIME@20 ibuprofen 800 mg tablet 800 mg PO Q8H PRN (Reason: Pain) acetaminophen [Tylenol Extra Strength] 500 mg tablet 500 - 1,000 mg PO Q6H PRN (Reason: Pain) topiramate 100 mg tablet 100 mg PO TID@08,12,20 Qty: 90 1RF (DME) A&D ointment See Rx Instructions .Route .MEDSUPPLY Qty: 1 6RF Rx Instructions: to be applied daily divalproex 500 mg tablet,delayed release (DR/EC) 500 mg PO .COMPLEX Qty: 150 1RF Rx Instructions: 2 tablets (1,000mg) at 08:00 and 14:00 and 1 tablet (500mg) at 20:00 triamcinolone acetonide 0.1 % Cream 1 applic TOPICAL DAILY PRN (Reason: Rash) polyethylene glycol 3350 [Miralax] 17 gram/dose Powder 17 g PO DAILY PRN (Reason: Constipation) fluticasone propionate 50 mcg/actuation [place],Suspension 1 spray INTRANASAL DAILY@08 glimepiride 2 mg tablet 2 mg PO BID@08,20 insulin glargine [Lantus Solostar U-100 Insulin] 100 unit/mL (3 mL) insulin pen 10 unit SUBCUT DAILY@20 promethazine-DM 6.25-15 mg/5 mL syrup 5 ml PO Q4H PRN (Reason: Cough) metformin 1,000 mg tablet 1,000 mg PO BID@08,20 mupirocin 2 % ointment 1 applic TOPICAL BID PRN (Reason: Skin Irritation) albuterol sulfate [Ventolin HFA] 90 mcg/actuation HFA aerosol inhaler 2 puff INHALATION Q4H PRN (Reason: Shortness Of Breath) budesonide-formoterol [Symbicort] 160-4.5 mcg/actuation HFA aerosol inhaler 2 puff INHALATION BID@08,20 multivitamin with folic acid [Daily-Suzette (with folic acid)] 400 mcg tablet 1 tab PO DAILY@08 trazodone 150 mg tablet 150 mg PO BEDTIME@20 nicotine 21 mg/24 hr patch 24 hour 1 patch transdermal DAILY@12 Trulicity 3 mg/0.5 mL pen injector 3 mg SUBCUT Q7D Rx Instructions: ON SUNDAY clonazepam 0.5 mg tablet 0.5 mg PO TID Rx Instructions: PT NOT STARTED TAKING YET 07/14/22 quetiapine 200 mg tablet See Rx Instructions .ROUTE .COMPLEX Rx Instructions: ONE TAB (200MG) PO QAM AT 08:00 AND TWO TABS (400MG) PO AT BEDTIME @20:00 quetiapine 100 mg tablet 100 mg PO BEDTIME@20 Rx Instructions: TAKE WITH 400MG AT HS nicotine (polacrilex) 4 mg gum 4 mg PO Q2H PRN (Reason: Smoking Cessation) diclofenac sodium 1 % gel 4 g TOPICAL QID Rx Instructions: @08:00,12:00,16:00,20:00 A and D (los, pet) Ointment 1 applic TOPICAL DAILY@20 hydrochlorothiazide 25 mg tablet 25 mg PO DAILY@08 Abilify 20 mg tablet 20 mg PO DAILY@08 Discharge Orders: Discharge ED (Routine); Ordered 07/17/22 Ordered By: Sridhar Chavez Referrals: Beatriz Loza DO [Primary Care Provider] - Discharge Diet: Advance as tolerated Discharge Activity: Resume usual activity Patient Instructions: Hallucinations (ED) Coding Level of Care 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
[2022-07-17 02:42] VITALS: BP 139/79; PULSE 76; RESP 20; TEMP 36.3; O2SAT 97; BMI 45.9
== END 2022-07-17 02:51 | disposition home or self-care (01) ==
LOC: ER 02:46
PROVIDERS: Emergency Provider Emergency Medicine; PCP Family Medicine
DX: R44.0 Auditory hallucinations (principal); Z79.85 Long-term (current) use of injectable non-insulin antidiabetic drugs; Z79.4 Long term (current) use of insulin; Z79.84 Long term (current) use of oral hypoglycemic drugs; F17.210 Nicotine dependence, cigarettes, uncomplicated
CPT/HCPCS: 99285

== ENCOUNTER 2022-07-17 18:26 | Emergency (ER) | payer MEDICAID, SELFPAY ==
[2022-07-17 18:31] VITALS: BP 127/98; PULSE 88; O2SAT 98; BMI 31.5
--- NOTE | 2022-07-17 19:14 | W.ED.PSYCHS ---
HPI - Psych General: Chief Complaint: Psychiatric Symptoms Stated Complaint: SI/ HI Time Seen by Provider: 07/17/22 18:33 History of Present Illness: Patient is a 27-year-old male who comes to the ED for psych evaluation. Patient was brought in by police. He got angry and left his skilled nursing and police found patient and he told them that he was suicidal. Please officer fill out affidavit. Review of Systems Const: Denies: fever(s), chills or fatigue Eyes: Denies: change in vision or eye discomfort ENMT: Denies: throat pain, odynophagia, nasal discharge or nasal congestion Card: Denies: chest pain, palpitations, edema, swelling of feet/ankles, dyspnea on exertion or orthopnea Resp: Denies: dyspnea, productive cough or non-productive cough GI: Denies: abdominal pain, nausea, vomiting, diarrhea, constipation or hematochezia : Denies: flank pain, difficulty urinating, dysuria or hematuria Musc: Denies: neck pain, back pain or extremity swelling Skin/Breast: Denies: rash or new lesions Neuro: Denies: headache(s), numbness in extremities or weakness in extremities PFSH ED PFSH: Medical History Attention-deficit hyperactivity disorder, combined type Bipolar disorder, unspecified Generalized anxiety disorder Intermittent explosive disorder Nicotine dependence, cigarettes, uncomplicated On valproic acid therapy Psychiatric care Social History Smoking and tobacco status: current every day smoker cigarettes Packs smoked per day: 2 Smoking risk assessment/counseling performed?: Yes Tobacco counseling given: counseling >3 minutes Physical Exam Const: COMMON NORMALS: patient oriented x3 HENMT: COMMON NORMALS: normocephalic HEAD & SCALP: normocephalic MOUTH: Normal oral and palatal mucosa present THROAT: posterior oropharynx normal and uvula midline Eye: COMMON NORMALS: Equal, round and reactive pupils present and EOMs intact bilaterally GENERAL EYE: appearance normal, both eyes and all related structures PUPIL: Yes Equal, round and reactive pupils present Neck/C-Spine: COMMON NORMALS: supple GENERAL: Yes normal visual inspection Lymph: LYMPHATIC: no lymphadenopathy noted Resp: COMMON NORMALS: normal respiratory effort, No retractions, No use of accessory muscles and clear to auscultation bilaterally AUSCULTATION: clear to auscultation bilaterally Cardio: COMMON NORMALS: regular rate, regular rhythm, S1 normal heart sound present, S2 normal heart sound present, No gallops present (Cardio), No clicks present (Cardio), No murmurs present (Cardio) and Peripheral pulses 2+ throughout RATE: regular rate RHYTHM: regular rhythm HEART SOUNDS: S1 normal heart sound present and S2 normal heart sound present PERIPHERAL PULSES: Peripheral pulses 2+ throughout GI: COMMON NORMALS: Normal to inspection, nondistended, normoactive bowel sounds present, Soft to palpation, non-tender and no masses PALPATION: Yes Soft to palpation : COMMON NORMALS: Yes no CVA tenderness BLADDER/KIDNEY EXAM: Yes no CVA tenderness Back/Pelvis: COMMON NORMALS: no CVA tenderness Extremity: GENERAL: Yes normal exam except as noted Neuro: COMMON NORMALS: patient oriented x3 Skin: COMMON NORMALS: no rashes or lesions noted GENERAL SKIN EXAM: no rashes or lesions noted and dry skin Course Vital Signs: Vital signs: Vital Signs Pulse Rate 88 07/17/22 18:31 Blood Pressure 127/98 07/17/22 18:31 Pulse Oximetry 98 07/17/22 18:31 Oxygen Delivery Me thod 07/17/22 18:31 MDM - Psych Medical Decision Making Patient is a 27-year-old male comes to the ED for psych eval. He has been seen here multiple times for same complaint over the past couple days. I spoke with Dr. Khoury about patient case and Dr. Khoury is very familiar with patient. He states that patient has these episodes were he gets angry and just needs to cool off briefly. He states he does not need to be admitted into the [facility] and he can be discharged home from the ED. Discharge Plan Discharge Patient Disposition: Home Clinical Impression: Intermittent explosive disorder Condition: Stable Prescriptions: No Action loperamide 2 mg tablet 4 mg PO PRN MDD 8 tabs PRN (Reason: Diarrhea) Januvia 100 mg tablet 100 mg PO DAILY@08 fenofibrate nanocrystallized 145 mg tablet 145 mg PO BEDTIME@20 ibuprofen 800 mg tablet 800 mg PO Q8H PRN (Reason: Pain) acetaminophen [Tylenol Extra Strength] 500 mg tablet 500 - 1,000 mg PO Q6H PRN (Reason: Pain) topiramate 100 mg tablet 100 mg PO TID@08,12,20 Qty: 90 1RF (DME) A&D ointment See Rx Instructions .Route .MEDSUPPLY Qty: 1 6RF Rx Instructions: to be applied daily divalproex 500 mg tablet,delayed release (DR/EC) 500 mg PO .COMPLEX Qty: 150 1RF Rx Instructions: 2 tablets (1,000mg) at 08:00 and 14:00 and 1 tablet (500mg) at 20:00 triamcinolone acetonide 0.1 % Cream 1 applic TOPICAL DAILY PRN (Reason: Rash) polyethylene glycol 3350 [Miralax] 17 gram/dose Powder 17 g PO DAILY PRN (Reason: Constipation) fluticasone propionate 50 mcg/actuation [place],Suspension 1 spray INTRANASAL DAILY@08 glimepiride 2 mg tablet 2 mg PO BID@08,20 insulin glargine [Lantus Solostar U-100 Insulin] 100 unit/mL (3 mL) insulin pen 10 unit SUBCUT DAILY@20 promethazine-DM 6.25-15 mg/5 mL syrup 5 ml PO Q4H PRN (Reason: Cough) metformin 1,000 mg tablet 1,000 mg PO BID@08,20 mupirocin 2 % ointment 1 applic TOPICAL BID PRN (Reason: Skin Irritation) albuterol sulfate [Ventolin HFA] 90 mcg/actuation HFA aerosol inhaler 2 puff INHALATION Q4H PRN (Reason: Shortness Of Breath) budesonide-formoterol [Symbicort] 160-4.5 mcg/actuation HFA aerosol inhaler 2 puff INHALATION BID@08,20 multivitamin with folic acid [Daily-Suzette (with folic acid)] 400 mcg tablet 1 tab PO DAILY@08 trazodone 150 mg tablet 150 mg PO BEDTIME@20 nicotine 21 mg/24 hr patch 24 hour 1 patch transdermal DAILY@12 Trulicity 3 mg/0.5 mL pen injector 3 mg SUBCUT Q7D Rx Instructions: ON SUNDAY clonazepam 0.5 mg tablet 0.5 mg PO TID Rx Instructions: PT NOT STARTED TAKING YET 07/14/22 quetiapine 200 mg tablet See Rx Instructions .ROUTE .COMPLEX Rx Instructions: ONE TAB (200MG) PO QAM AT 08:00 AND TWO TABS (400MG) PO AT BEDTIME @20:00 quetiapine 100 mg tablet 100 mg PO BEDTIME@20 Rx Instructions: TAKE WITH 400MG AT HS nicotine (polacrilex) 4 mg gum 4 mg PO Q2H PRN (Reason: Smoking Cessation) diclofenac sodium 1 % gel 4 g TOPICAL QID Rx Instructions: @08:00,12:00,16:00,20:00 A and D (los, pet) Ointment 1 applic TOPICAL DAILY@20 hydrochlorothiazide 25 mg tablet 25 mg PO DAILY@08 Abilify 20 mg tablet 20 mg PO DAILY@08 Discharge Orders: Discharge ED (Routine); Ordered 07/17/22 Ordered By: [place] Referrals: Beatriz Loza DO [Primary Care Provider] - Discharge Diet: Regular Discharge Activity: Resume usual activity Activity Restrictions/Additional Instructions: Follow-up with PCP and behavioral health at her next scheduled appointment. 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
== END 2022-07-17 19:52 | disposition home or self-care (01) ==
PROVIDERS: Emergency Provider Physician Assistant; PCP Family Medicine
DX: F63.81 Intermittent explosive disorder (principal); Z79.84 Long term (current) use of oral hypoglycemic drugs; Z79.4 Long term (current) use of insulin; Z79.85 Long-term (current) use of injectable non-insulin antidiabetic drugs; F17.210 Nicotine dependence, cigarettes, uncomplicated
CPT/HCPCS: 99283

== ENCOUNTER 2023-12-13 13:09 | Emergency (ER) | payer MEDICAID, SELFPAY ==
[2023-12-13 13:11] VITALS: BP 118/98; PULSE 96; TEMP 36.6; O2SAT 98
--- NOTE | 2023-12-13 13:19 | CT_ITS ---
WS: [id number] CT CERVICAL TRAUMA TECHNIQUE: Noncontrast CT of the cervical spine with coronal and sagittal reformatted images. CLINICAL INFORMATION: HEAD INJURY COMPARISON: None. DLP: 1541.[address] scans at [facility] use at least one of these dose optimization techniques: automated e xposure control; mA and/or kV adjustment per patient size (includes targeted exams where dose is matc hed to clinical indication); or iterative reconstruction. FINDINGS: Straightening of the normal cervical lordosis. Normal craniocervical junction. Normal C1-C2 articulat ion. Dens is normal in appearance. Normal occipital condyles. No high-grade spinal canal narrowing. N ormal C1 ring. No evidence of acute fracture or dislocation. Normal prevertebral soft tissues. Mastoids air cells are well aerated. Dorsal scalp laceration with sutures. CT/CT cervical spin wo con* [id number] IMPRESSION: No evidence of acute fracture or dislocation.
--- NOTE | 2023-12-13 13:19 | CT_ITS ---
WS: [id number] CT HEAD TECHNIQUE: Noncontrast CT of the head obtained from the skullbase to the vertex. CLINICAL INFORMATION: HEAD INJURY COMPARISON: 2019 DLP: 1541.[address] scans at [facility] use at least one of these dose optimization techniques: automated e xposure control; mA and/or kV adjustment per patient size (includes targeted exams where dose is matc hed to clinical indication); or iterative reconstruction. FINDINGS: No evidence of intracranial hemorrhage or mass effect. Ventricular system and basal cisterns are anton nt. No extra-axial fluid collections. No evidence of mass or mass effect. Normal hamm-white different iation. Paranasal sinuses and mastoid air cells are well aerated. .Dorsal scalp laceration with adam. No v isualized fractures. CT/CT head wo con* [id number] IMPRESSION: 1. No evidence of intracranial hemorrhage or mass effect. 2. No acute intracranial findings.
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
[2023-12-13] MEDS: tetanus-dipt-pertussis 0.5 mL SDV IM (13:40)
[2023-12-13 13:51] VITALS: BP 152/87; RESP 18
== END 2023-12-13 14:29 | disposition home or self-care (01) ==
PROVIDERS: Emergency Provider Family Medicine; PCP Family Medicine
DX: S01.01XA Laceration without foreign body of scalp, initial encounter (principal); Y04.2XXA Assault by strike against or bumped into by another person, initial encounter; Y92.149 Unspecified place in prison as the place of occurrence of the external cause; F17.210 Nicotine dependence, cigarettes, uncomplicated; Z23 Encounter for immunization; Z79.85 Long-term (current) use of injectable non-insulin antidiabetic drugs; Z79.84 Long term (current) use of oral hypoglycemic drugs; Z79.4 Long term (current) use of insulin
CPT/HCPCS: 12002; 70450; 72125; 90471; 90715; 99284

== ENCOUNTER → 2024-04-29 09:22 | Outpatient (BNVA) | payer MEDICAID, SELFPAY | PROVIDERS: PCP Family Medicine; Visit Provider Podiatrist Foot & Ankle Surgery | DX: E11.8 Type 2 diabetes mellitus with unspecified complications (principal); Z79.4 Long term (current) use of insulin; Z79.84 Long term (current) use of oral hypoglycemic drugs | CPT/HCPCS: 99203 ==

== ENCOUNTER 2024-06-25 19:34 | Emergency (ER) | payer MEDICAID, SELFPAY ==
[2024-06-25 19:37] VITALS: BP 125/87; PULSE 94; RESP 18; O2SAT 99; BMI 36.9
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
[2024-06-25 20:10] LABS: Basophils % 0.6 %; Eosinophils # 0.2 10^3/uL (0.0-0.8); Eosinophils % 3.3 %; Hematocrit 43.1 % (37-53); Lymphocytes # 1.9 10^3/uL (0.8-4.8); Lymphocytes % 38.5 %; Mean Corpuscular Hemoglobin 28.4 pg (27-33); Mean Corpuscular Volume 88.7 fl (82-101); Mean Platelet Volume 11.8 fL (7.4-10.4); Monocytes # 0.4 10^3/uL (0.2-0.9); Nucleated Red Blood Cells % 0 %; Platelet Count 223 10^3/cmm (157-399); Red Blood Count 4.86 10^6/uL (3.85-5.65)
[2024-06-25 20:12] LABS: Bilirubin Urine Negative (Negative); Blood Urine Negative (Negative); Glucose Urine UA Negative (Normal); Ketones Urine Negative (Negative); Leukocyte Esterase Urine Negative (Negative); Nitrate Urine Negative (Negative); Protein Urine Negative (Negative); Urine Appearance Turbid (CLEAR); Urine Color Yellow (Yellow); pH Urine 7.5 (5-7)
[2024-06-25 20:18] LABS: Add Urine Microscopic? YES; Bacteria Urine None Seen /hpf; RBC Urine 0-2 /hpf (0-2); Squamous Epithelial Cell Urine 0-5 /hpf (0-5); WBC Urine 0-5 /hpf (0-5)
[2024-06-25 20:19] LABS: Amphetamines Screen Urine Negative (Negative); Barbiturates Screen Urine Negative (Negative); Benzodiazepines Screen Urine Negative (Negative); Cocaine Screen Urine Negative (Negative); Opiate Screen Urine Negative (Negative); PCP Screen Urine Negative (Negative); THC Screen Urine Negative (Negative)
[2024-06-25 20:28] LABS: Alanine Aminotransferase 13 U/L (0-41); Albumin Level 4.4 g/dL (3.5-5.2); Alkaline Phosphatase 41 U/L (40-130); Aspartate Amino Transferase 15 U/L (0-40); Blood Urea Nitrogen 17 mg/dL (6-20); Calcium 9.4 mg/dL (8.5-10.5); Carbon Dioxide 22 mmol/L (22-29); Chloride 106 mmol/L (98-107); Creatinine Clr Calc Pharmacy 205.3958; Globulin 2.7 g/dL (1.3-4.6); Glomerular Filtration Rate 133.3 mL/min (90-130); Glucose 84 mg/dL (65-115); Osmolality Calculated 291 mOsm/kg (285-295); Sodium 140 mmol/L (136-145); Total Bilirubin 0.2 mg/dL (0.15-1.2); Total Protein 7.1 g/dL (6.6-8.7)
[2024-06-25 20:32] LABS: Acetaminophen < 5.0 ug/mL (10-30); Alcohol Level < 10 mg/dL (0-10); Anion Gap 16.1 (5-19); Potassium 4.1 mmol/L (3.5-5.1); Salicylate < 0.3 mg/dL (3-10)
== END 2024-06-25 21:07 | disposition home or self-care (01) ==
PROVIDERS: Emergency Medicine; Emergency Provider Physician Assistant; PCP Family Medicine
DX: E11.8 Type 2 diabetes mellitus with unspecified complications (principal); R44.0 Auditory hallucinations; F78.A9 Other genetic related intellectual disability; Z79.84 Long term (current) use of oral hypoglycemic drugs; F17.210 Nicotine dependence, cigarettes, uncomplicated
CPT/HCPCS: 36415; 80053; 80164; 80306; 80307; 81001; 85025; 99203; 99283

== ENCOUNTER 2024-07-14 13:15 | Emergency (ER) | payer MEDICAID, SELFPAY ==
[2024-07-14 13:16] VITALS: BP 115/76; PULSE 94; RESP 17; TEMP 36.7; O2SAT 99; BMI 41.1
--- NOTE | 2024-07-14 13:36 | W.ED.PSYCHS ---
HPI - Psych General: Chief Complaint: Psychiatric Symptoms Stated Complaint: SI Time Seen by Provider: 07/14/24 13:17 History of Present Illness: 29-year-old man with a history of psychiatric issues, bipolar disorder, ADD, anxiety and developmental delay who presents to the emergency room from a facility called [facility]. Apparently there was some orders given that patients/residents of this facility did not need to go outside because of the weather and he became distraught because he wanted to go outside. He says the voices are telling him that he might should harm other people. When asked him about this he says he does not think he would actually harm anyone. He says he is calm down down feels better. The person from the facility also seems unconcerned about him actually harming anyone. He denies any suicidal ideation. Related Data Home Medications ?Medication ?Instructions ?Recorded ?Confirmed metformin 1,000 mg tablet 1,000 mg PO BID@08,20 06/02/22 06/27/24 hydrochlorothiazide 25 mg tablet 25 mg PO DAILY@08 07/14/22 06/27/24 atorvastatin 20 mg tablet 20 mg PO DAILY 04/30/24 06/27/24 divalproex 500 mg tablet,delayed See Rx Instructions .Route .COMPLEX 05/12/24 06/27/24 release fenofibrate nanocrystallized 145 145 mg PO DAILY 05/12/24 06/27/24 mg tablet glimepiride 1 mg tablet 1 mg PO .twice daily 05/12/24 06/27/24 multivitamin 1 tab PO DAILY 05/12/24 06/27/24 linaclotide 145 mcg capsule 145 mcg PO DAILY 06/25/24 06/27/24 (Linzess) acetaminophen 500 mg tablet 1,000 mg PO Q8H PRN Pain 06/27/24 06/27/24 (Tylenol Extra Strength) benzonatate 100 mg capsule 100 mg PO TID PRN 06/27/24 06/27/24 docusate sodium 100 mg capsule 100 mg PO BID 06/27/24 06/27/24 Previous Rx's ?Medication ?Instructions ?Recorded A&D ointment #1 ea 07/07/22 topiramate 100 mg tablet 100 mg PO TID@08,12,20 #90 tabs 08/10/22 Diabetic Shoes w/3 x inserts #1 ea 06/25/24 quetiapine 300 mg tablet (Seroquel) 300 mg PO BID #60 tabs 06/27/24 Allergies Allergy/AdvReac Type Severity Reaction Status Date / Time olanzapine Allergy Unknown Verified 06/27/24 08:44 risperidone Allergy Unknown Verified 06/27/24 08:44 Review of Systems Narrative: Constitutional symptoms: Negative except as documented in HPI. Skin symptoms: Negative except as documented in HPI. Eye symptoms: Negative except as documented in HPI. ENMT symptoms: Negative except as documented in HPI. Respiratory symptoms: Negative except as documented in HPI. Cardiovascular symptoms: Negative except as documented in HPI. Gastrointestinal symptoms: Negative except as documented in HPI. Genitourinary symptoms: Negative except as documented in HPI. Musculoskeletal symptoms: Negative except as documented in HPI. Neurologic symptoms: Negative except as documented in HPI. Psychiatric symptoms: Negative except as documented in HPI. Endocrine symptoms: Negative except as documented in HPI. PFS ED PFSH: Medical History Psychiatric care Nicotine dependence, cigarettes, uncomplicated Intermittent explosive disorder On valproic acid therapy Bipolar disorder, unspecified Attention-deficit hyperactivity disorder, combined type Generalized anxiety disorder Social History Smoking and tobacco/nicotine status: current every day tobacco/nicotine user cigarettes Packs smoked per day: 2 Physical Exam Narrative: EXAM NARRATIVE: General: Alert, no acute distress. Skin: Warm, dry. Head: Normocephalic, atraumatic. Neck: Supple, trachea midline. Eye: Extraocular movements are intact. Ears, nose, mouth and throat: mucosa moist. Cardiovascular: Regular, Normal peripheral perfusion. Respiratory: Lungs are clear to auscultation, respirations are non-labored, breath sounds are equal, Symmetrical chest wall expansion. Gastrointestinal: Soft, Nontender, Non distended Musculoskeletal: Normal ROM, no deformity. Neurological: Alert and oriented, No focal neurological deficit observed. Psychiatric: Cooperative, odd affect, denies suicidal ideations. Denies any homicidal ideation at this time. He says he still does hear some voices. We agreed to try some Geodon and go back to the facility for now. They are working on getting a man with a different therapist to help work on these issues. Course Vital Signs: Vital signs: Vital Signs Temperature 98.1 F 07/14/24 13:16 Pulse Rate 94 07/14/24 13:16 Respiratory Rate 17 07/14/24 13:16 Blood Pressure 115/76 07/14/24 13:16 Pulse Oximetry 99 07/14/24 13:16 Oxygen Delivery Me thod Room Air 07/14/24 13:16 MDM - Psych Medical Decision Making Patient does not seem to actually have any threat to others. Consultation: I spoke with Dr. Babb who is on-call for the psychiatric service and he agrees that this patient is likely safe to go home and we will do this and if he becomes more aggressive he can return to the emergency room. Assessment and plan: Hallucinations ? Gera in the emergency room. - Discharged home - Discussed plan with patient. Answered any questions. - Evaluation and treatment of this problem were appropriate in the emergency setting. All radiology interpretation(s) finalized by discharge Discharge Plan Discharge Patient Disposition: Home Clinical Impression: Intermittent explosive disorder, Intellectual disability Condition: Stable Prescriptions: No Action fenofibrate nanocrystallized 145 mg tablet 145 mg PO DAILY acetaminophen [Tylenol Extra Strength] 500 mg tablet 1,000 mg PO Q8H PRN (Reason: Pain) atorvastatin 20 mg tablet 20 mg PO DAILY docusate sodium 100 mg capsule 100 mg PO BID divalproex 500 mg tablet,delayed release (DR/EC) See Rx Instructions .ROUTE .COMPLEX Dose Instruction: TAKE TWO TABLETS BY MOUTH at EIGHT IN THE MORNING and TWO IN THE EVENING and take ONE tablet at EIGHT IN THE EVENING Rx Instructions: TAKE TWO TABLETS BY MOUTH at EIGHT IN THE MORNING and TWO IN THE EVENING glimepiride 1 mg tablet 1 mg PO .twice daily multivitamin Tablet 1 tab PO DAILY quetiapine [Seroquel] 300 mg tablet 300 mg PO BID Qty: 60 2RF Linzess 145 mcg capsule 145 mcg PO DAILY (DME) Diabetic Shoes w/3 x inserts See Rx Instructions .Route .MEDSUPPLY Qty: 1 0RF Rx Instructions: As directed By the Sury Constantino 3 x inserts benzonatate 100 mg capsule 100 mg PO TID PRN (DME) A&D ointment See Rx Instructions .Route .MEDSUPPLY Qty: 1 6RF Rx Instructions: to be applied daily topiramate 100 mg tablet 100 mg PO TID@08,12,20 Qty: 90 1RF metformin 1,000 mg tablet 1,000 mg PO BID@ hydrochlorothiazide 25 mg tablet 25 mg PO DAILY@08 Discharge Orders: Discharge ED (Routine); Ordered 07/14/24 Ordered By: Patience Diaz Referrals: Beatriz Loza DO [Primary Care Provider] - Discharge Diet: Usual diet Discharge Activity: Increase activity as tolerated Patient Instructions: Opioid Safety, Pain Management Activity Restrictions/Additional Instructions: Thank you for choosing [facility] for your healthcare needs today. Please realize this is an emergency room and that we are providing you with a medical screening exam and this may not be complete and all inclusive of all the testing and or work up that you may need to determine your ailment or severity of your illness. You have been screened and evaluated and felt safe for discharge. Health conditions do change or evolve sometimes and as such it is important that you follow up with your Primary Doctor to be re checked, 3-5 days is a general good time frame for follow up. You are always welcome to return to the ED for re assessment if your symptoms are worsening or you have new concerns Print Language: Nigerien Coding Level of Care Code ED Green Feed Attendant for Caron Crane
[2024-07-14] MEDS: water for injection-sterile 10 ML (13:44)
[2024-07-14] MEDS: ziprasidone 20 mg/mL SDV IM (13:44)
[2024-07-14 13:54] VITALS: BP 115/76; PULSE 94; O2SAT 99
== END 2024-07-14 13:55 | disposition home or self-care (01) ==
PROVIDERS: Emergency Provider Emergency Medicine; PCP Family Medicine
DX: F63.81 Intermittent explosive disorder (principal); F79 Unspecified intellectual disabilities; Z79.84 Long term (current) use of oral hypoglycemic drugs; F17.210 Nicotine dependence, cigarettes, uncomplicated
CPT/HCPCS: 96372; 99284; J3486

== ENCOUNTER 2024-07-18 19:17 | Emergency (ER) | payer MEDICAID, SELFPAY ==
[2024-07-18 19:18] VITALS: BMI 40.6
[2024-07-18 19:26] VITALS: BP 168/87; PULSE 101; RESP 20; TEMP 36.9; O2SAT 100
--- NOTE | 2024-07-18 19:30 | W.ED.PSYCHS ---
HPI - Psych General: Chief Complaint: Psychiatric Symptoms Stated Complaint: SI Time Seen by Provider: 07/18/24 19:22 History of Present Illness: 29-year-old male with history of electro disability, psychiatric issues and hallucinations who presents to the emergency room after having some worsening hallucinations. He says at times the voices will tell him to hurt himself but he will not do it. He says he has some as needed medication he got from the clinic the other day but they are not helping. Related Data Home Medications ?Medication ?Instructions ?Recorded ?Confirmed metformin 1,000 mg tablet 1,000 mg PO BID@08,06/02/22 07/18/24 hydrochlorothiazide 25 mg tablet 25 mg PO DAILY@08 07/14/22 07/18/24 atorvastatin 20 mg tablet 20 mg PO DAILY 04/30/24 07/18/24 divalproex 500 mg tablet,delayed See Rx Instructions .Route .COMPLEX 05/12/24 07/18/24 release fenofibrate nanocrystallized 145 145 mg PO DAILY 05/12/24 07/18/24 mg tablet glimepiride 1 mg tablet 1 mg PO .twice daily 05/12/24 07/18/24 multivitamin 1 tab PO DAILY 05/12/24 07/18/24 linaclotide 145 mcg capsule 145 mcg PO DAILY 06/25/24 07/18/24 (Linzess) acetaminophen 500 mg tablet 1,000 mg PO Q8H PRN Pain 06/27/24 07/18/24 (Tylenol Extra Strength) benzonatate 100 mg capsule 100 mg PO TID PRN 06/27/24 07/18/24 docusate sodium 100 mg capsule 100 mg PO BID 06/27/24 07/18/24 Previous Rx's ?Medication ?Instructions ?Recorded topiramate 100 mg tablet 100 mg PO TID@,, #90 tabs 08/10/22 Diabetic Shoes w/3 x inserts #1 ea 06/25/24 quetiapine 300 mg tablet (Seroquel) 300 mg PO BID #60 tabs 06/27/24 haloperidol 5 mg tablet 5 mg PO DAILY PRN agitation #30 07/18/24 tabs Allergies Allergy/AdvReac Type Severity Reaction Status Date / Time olanzapine Allergy Unknown Verified 07/18/24 09:22 risperidone Allergy Unknown Verified 07/18/24 09:22 Review of Systems Narrative: Constitutional symptoms: Negative except as documented in HPI. Skin symptoms: Negative except as documented in HPI. Eye symptoms: Negative except as documented in HPI. ENMT symptoms: Negative except as documented in HPI. Respiratory symptoms: Negative except as documented in HPI. Cardiovascular symptoms: Negative except as documented in HPI. Gastrointestinal symptoms: Negative except as documented in HPI. Genitourinary symptoms: Negative except as documented in HPI. Musculoskeletal symptoms: Negative except as documented in HPI. Neurologic symptoms: Negative except as documented in HPI. Psychiatric symptoms: Negative except as documented in HPI. Endocrine symptoms: Negative except as documented in HPI. PFSH ED PFSH: Medical History Psychiatric care Nicotine dependence, cigarettes, uncomplicated Intermittent explosive disorder On valproic acid therapy Bipolar disorder, unspecified Attention-deficit hyperactivity disorder, combined type Generalized anxiety disorder Social History Smoking and tobacco/nicotine status: current every day tobacco/nicotine user cigarettes Packs smoked per day: 2 Physical Exam Narrative: EXAM NARRATIVE: General: Alert, no acute distress. Skin: Warm, dry. Head: Normocephalic, atraumatic. Neck: Supple, trachea midline. Eye: Extraocular movements are intact. Ears, nose, mouth and throat: mucosa moist. Cardiovascular: Regular, Normal peripheral perfusion. Respiratory: Lungs are clear to auscultation, respirations are non-labored, breath sounds are equal, Symmetrical chest wall expansion. Gastrointestinal: Soft, Nontender, Non distended Musculoskeletal: Normal ROM, no deformity. Neurological: Alert and oriented, No focal neurological deficit observed. Psychiatric: Cooperative, patient states that the voices tell him to hurt himself sometimes but he would not do it. Odd affect. Course Vital Signs: Vital signs: Vital Signs Temperature 98.4 F 07/18/24 19:26 Pulse Rate 101 H 07/18/24 19:26 Respiratory Rate 20 H 07/18/24 19:26 Blood Pressure 168/87 07/18/24 19:26 Pulse Oximetry 100 07/18/24 19:26 [facility] - Psych Medical Decision Making Consultation: I spoke with Dr. Khoury who is on-call for psychiatry. He is quite familiar with the patient. There is very little concern for patient harming himself or others. This is a behavioral type issue. We are giving some Geodon and Ativan here IM. He agrees with this plan. Assessment and plan: Intellectual disability Hallucinations ? IM Ativan and IM Geodon in the emergency room - Discharged home - Discussed plan with patient. Answered any questions. - Evaluation and treatment of this problem were appropriate in the emergency setting. No radiology studies performed this visit Discharge Plan Discharge Patient Disposition: Home Clinical Impression: Intellectual disability, Hallucinations Condition: Stable Prescriptions: No Action fenofibrate nanocrystallized 145 mg tablet 145 mg PO DAILY acetaminophen [Tylenol Extra Strength] 500 mg tablet 1,000 mg PO Q8H PRN (Reason: Pain) atorvastatin 20 mg tablet 20 mg PO DAILY docusate sodium 100 mg capsule 100 mg PO BID divalproex 500 mg tablet,delayed release (DR/EC) See Rx Instructions .ROUTE .COMPLEX Dose Instruction: TAKE TWO TABLETS BY MOUTH at EIGHT IN THE MORNING and TWO IN THE EVENING and take ONE tablet at EIGHT IN THE EVENING Rx Instructions: TAKE TWO TABLETS BY MOUTH at EIGHT IN THE MORNING and TWO IN THE EVENING glimepiride 1 mg tablet 1 mg PO .twice daily multivitamin Tablet 1 tab PO DAILY quetiapine [Seroquel] 300 mg tablet 300 mg PO BID Qty: 60 2RF haloperidol 5 mg tablet 5 mg PO DAILY PRN (Reason: agitation) Qty: 30 0RF Linzess 145 mcg capsule 145 mcg PO DAILY (DME) Diabetic Shoes w/3 x inserts See Rx Instructions .Route .MEDSUPPLY Qty: 1 0RF Rx Instructions: As directed By the Sury Constantino 3 x inserts benzonatate 100 mg capsule 100 mg PO TID PRN topiramate 100 mg tablet 100 mg PO TID@08,12,20 Qty: 90 1RF metformin 1,000 mg tablet 1,000 mg PO BID@08,20 hydrochlorothiazide 25 mg tablet 25 mg PO DAILY@08 Discharge Orders: Discharge ED (Routine); Ordered 07/18/24 Ordered By: Patience Diaz Referrals: Beatriz Loza DO [Primary Care Provider] - Discharge Diet: Usual diet Discharge Activity: Increase activity as tolerated Patient Instructions: Opioid Safety, Pain Management Activity Restrictions/Additional Instructions: Thank you for choosing [facility] for your healthcare needs today. Please realize this is an emergency room and that we are providing you with a medical screening exam and this may not be complete and all inclusive of all the testing and or work up that you may need to determine your ailment or severity of your illness. You have been screened and evaluated and felt safe for discharge. Health conditions do change or evolve sometimes and as such it is important that you follow up with your Primary Doctor to be re checked, 3-5 days is a general good time frame for follow up. You are always welcome to return to the ED for re assessment if your symptoms are worsening or you have new concerns Print Language: Egyptian Coding Level of Care Code ED Fashion Illustrator for Caron Crane
[2024-07-18] MEDS: water for injection-sterile 10 ML (20:13)
[2024-07-18] MEDS: ziprasidone 20 mg/mL SDV IM (20:13)
== END 2024-07-18 20:19 | disposition home or self-care (01) ==
PROVIDERS: Emergency Provider Emergency Medicine; PCP Family Medicine
DX: F79 Unspecified intellectual disabilities (principal); R44.3 Hallucinations, unspecified; Z79.84 Long term (current) use of oral hypoglycemic drugs; F17.210 Nicotine dependence, cigarettes, uncomplicated
CPT/HCPCS: 96372; 99284; J3486

== ENCOUNTER 2024-07-19 16:16 | Emergency (ER) | payer MEDICAID, SELFPAY ==
[2024-07-19 16:18] VITALS: BP 114/83; PULSE 92; RESP 18; TEMP 36.7; O2SAT 99
--- NOTE | 2024-07-19 16:28 | W.ED.PSYCHS ---
HPI - Psych General: Chief Complaint: Psychiatric Symptoms Stated Complaint: mhe Time Seen by Provider: 07/19/24 16:18 History of Present Illness: 29-year-old male presents emergency room complaining of auditory hallucinations. This is a recurrent problem for this patient. He has had it several times before he lives at a long-term now. He was seen a couple of days ago at behavioral health clinic by his primary caregiver and medications were adjusted although I do not have access to that any is not sure of what it was. He states the voices are telling him to harm himself but he does not want to do it and has not done anything to harm himself. Associated symptoms: Reports auditory hallucinations Related Data Home Medications ?Medication ?Instructions ?Recorded ?Confirmed metformin 1,000 mg tablet 1,000 mg PO BID@06/02/22 07/18/24 hydrochlorothiazide 25 mg tablet 25 mg PO DAILY@07/14/22 07/18/24 atorvastatin 20 mg tablet 20 mg PO DAILY 04/30/24 07/18/24 divalproex 500 mg tablet,delayed See Rx Instructions .Route .COMPLEX 05/12/24 07/18/24 release fenofibrate nanocrystallized 145 145 mg PO DAILY 05/12/24 07/18/24 mg tablet glimepiride 1 mg tablet 1 mg PO .twice daily 05/12/24 07/18/24 multivitamin 1 tab PO DAILY 05/12/24 07/18/24 linaclotide 145 mcg capsule 145 mcg PO DAILY 06/25/24 07/18/24 (Linzess) acetaminophen 500 mg tablet 1,000 mg PO Q8H PRN Pain 06/27/24 07/18/24 (Tylenol Extra Strength) benzonatate 100 mg capsule 100 mg PO TID PRN 06/27/24 07/18/24 docusate sodium 100 mg capsule 100 mg PO BID 06/27/24 07/18/24 Previous Rx's ?Medication ?Instructions ?Recorded topiramate 100 mg tablet 100 mg PO TID@,, #90 tabs 08/10/22 Diabetic Shoes w/3 x inserts #1 ea 06/25/24 quetiapine 300 mg tablet (Seroquel) 300 mg PO BID #60 tabs 06/27/24 haloperidol 5 mg tablet 5 mg PO DAILY PRN agitation #30 07/18/24 tabs quetiapine 100 mg tablet (Seroquel) 100 mg PO DAILY #30 tabs 07/19/24 Allergies Allergy/AdvReac Type Severity Reaction Status Date / Time olanzapine Allergy Unknown Verified 07/18/24 09:22 risperidone Allergy Unknown Verified 07/18/24 09:22 Review of Systems Const: Denies: fever(s) or chills Card: Denies: chest pain Resp: Denies: dyspnea GI: Denies: abdominal pain : Denies: dysuria, urinary frequency or urinary urgency Musc: Denies: neck pain or back pain Skin/Breast: Denies: rash Psych: Reports: anxiety and auditory hallucinations PFSH ED PFSH: Medical History Psychiatric care Nicotine dependence, cigarettes, uncomplicated Intermittent explosive disorder On valproic acid therapy Bipolar disorder, unspecified Attention-deficit hyperactivity disorder, combined type Generalized anxiety disorder Social History Smoking and tobacco/nicotine status: current every day tobacco/nicotine user cigarettes Packs smoked per day: 2 Physical Exam Const: COMMON NORMALS: no acute distress GENERAL APPEARANCE: cooperative and comfortable ORIENTATION/CONSCIOUSNESS: Yes awake, Yes oriented to person, Yes oriented to place and Yes oriented to time HENMT: COMMON NORMALS: normocephalic, atraumatic and hearing grossly normal bilaterally HEAD & SCALP: normocephalic and atraumatic Resp: COMMON NORMALS: normal respiratory effort, No retractions, No use of accessory muscles and clear to auscultation bilaterally AUSCULTATION: clear to auscultation bilaterally Cardio: COMMON NORMALS: regular rate, regular rhythm and No murmurs present (Cardio) RATE: regular rate RHYTHM: regular rhythm Extremity: COMMON NORMALS: normal to inspection, capillary refill normal, no clubbing, cyanosis or edema, no calf tenderness and no pedal edema Neuro: SENSORIUM/ORIENTATION: Yes oriented to person, Yes oriented to place and Yes oriented to time Skin: COMMON NORMALS: no rashes or lesions noted GENERAL SKIN EXAM: no rashes or lesions noted Course Vital Signs: Vital signs: Vital Signs Temperature 98.1 F 07/19/24 16:18 Pulse Rate 92 07/19/24 16:18 Respiratory Rate 18 02/22/25 16:18 Blood Pressure 114/83 07/19/24 16:18 Pulse Oximetry 99 07/19/24 16:18 Oxygen Delivery Me thod Room Air 07/19/24 16:18 MDM - Psych Medical Decision Making Reviewed chart discussed with Dr. Khoury who is able to see the [facility] notes. Provider at [facility] had added as needed Haldol. Discussed with Dr. Khoury he recommends adding Seroquel 100 at noon and then titrating up to the behavioral health clinic next week. Continue the Haldol as needed. He was given a dose of Haldol and his evening dose of Seroquel while here. Dr. Khoury is very familiar with the patient. Although patient is having hallucinations his chronic he states the voices he hears are telling him to harm himself but he denies any intent or plan he has not done anything to advance any lethality. Was felt he could be discharged home safely. Medical Records I reviewed the patient's medical records. Lab Data I reviewed the patient's lab results. 07/19/24 16:58 07/19/24 16:58 Laboratory Results WBC 4.39 10^3/uL (3.29-11.43) 07/19/24 16:58 RBC 4.84 10^6/uL (3.85-5.65) 07/19/24 16:58 Hgb 14.10 g/dL (11.27-16.99) 07/19/24 16:58 Hct 42.8 % (37-53) 07/19/24 16:58 MCV 88.4 fl (82-101) 07/19/24 16:58 MCH 29.1 pg (27-33) 07/19/24 16:58 MCHC 32.9 g/dL (30-55) 07/19/24 16:58 RDW 14.2 % (12.1-15.1) 07/19/24 16:58 Plt Count 228 10^3/cmm (157-399) 07/19/24 16:58 MPV 11.8 fL (7.4-10.4) H 07/19/24 16:58 Neut % (Auto) 47.8 % 07/19/24 16:58 Lymph % (Auto) 39.6 % 07/19/24 16:58 Nye % (Auto) 7.3 % 07/19/24 16:58 Eos % (Auto) 3.9 % 07/19/24 16:58 Baso % (Auto) 0.9 % 07/19/24 16:58 Neut # (Auto) 2.10 10^3/uL (1.8-7.7) 07/19/24 16:58 Lymph # (Auto) 1.7 10^3/uL (0.8-4.8) 07/19/24 16:58 Nye # (Auto) 0.3 10^3/uL (0.2-0.9) 07/19/24 16:58 Eos # (Auto) 0.2 10^3/uL (0.0-0.8) 07/19/24 16:58 Baso # (Auto) 0.0 10^3/uL (0.0-0.1) 07/19/24 16:58 Nucleated RBC % (auto) 0 % 07/19/24 16:58 Nucleated RBCs # 0.0 /100WBC 07/19/24 16:58 Sodium 135 mmol/L (136-145) L 07/19/24 16:58 Potassium 3.4 mmol/L (3.5-5.1) L 07/19/24 16:58 Chloride 102 mmol/L (98-107) 07/19/24 16:58 Carbon Dioxide 24 mmol/L (22-29) 07/19/24 16:58 Anion Gap 12.4 (5-19) 07/19/24 16:58 BUN 21 mg/dL (6-20) H 07/19/24 16:58 Creatinine 0.7 mg/dL (0.7-1.2) 07/19/24 16:58 GFR Calculation 133.3 mL/min (90-130) H 07/19/24 16:58 Glucose 109 mg/dL (65-115) 07/19/24 16:58 Calculated Osmolality 284 mOsm/kg (285-295) L 07/19/24 16:58 Calcium 9.1 mg/dL (8.5-10.5) 07/19/24 16:58 Total Bilirubin 0.2 mg/dL (0.15-1.2) 07/19/24 16:58 AST 15 U/L (0-40) 07/19/24 16:58 ALT 17 U/L (0-41) 07/19/24 16:58 Alkaline Phosphatase 43 U/L (40-130) 07/19/24 16:58 Total Protein 7.2 g/dL (6.6-8.7) 07/19/24 16:58 Albumin 4.3 g/dL (3.5-5.2) 07/19/24 16:58 Globulin 2.9 g/dL (1.3-4.6) 07/19/24 16:58 Salicylates < 0.3 mg/dL (3-10) L 07/19/24 16:58 Acetaminophen < 5.0 ug/mL (10-30) L 07/19/24 16:58 No radiology studies performed this visit Discharge Plan Discharge Patient Disposition: Home Clinical Impression: Auditory hallucination Condition: Stable Prescriptions: New quetiapine [Seroquel] 100 mg tablet 100 mg PO DAILY Qty: 30 0RF Rx Instructions: Take at noon No Action fenofibrate nanocrystallized 145 mg tablet 145 mg PO DAILY acetaminophen [Tylenol Extra Strength] 500 mg tablet 1,000 mg PO Q8H PRN (Reason: Pain) atorvastatin 20 mg tablet 20 mg PO DAILY docusate sodium 100 mg capsule 100 mg PO BID divalproex 500 mg tablet,delayed release (DR/EC) See Rx Instructions .ROUTE .COMPLEX Dose Instruction: TAKE TWO TABLETS BY MOUTH at EIGHT IN THE MORNING and TWO IN THE EVENING and take ONE tablet at EIGHT IN THE EVENING Rx Instructions: TAKE TWO TABLETS BY MOUTH at EIGHT IN THE MORNING and TWO IN THE EVENING glimepiride 1 mg tablet 1 mg PO .twice daily multivitamin Tablet 1 tab PO DAILY quetiapine [Seroquel] 300 mg tablet 300 mg PO BID Qty: 60 2RF haloperidol 5 mg tablet 5 mg PO DAILY PRN (Reason: agitation) Qty: 30 0RF Linzess 145 mcg capsule 145 mcg PO DAILY (DME) Diabetic Sholakshmi w/3 x inserts See Rx Instructions .Route .MEDSUPPLY Qty: 1 0RF Rx Instructions: As directed By the Sury Constantino 3 x inserts benzonatate 100 mg capsule 100 mg PO TID PRN topiramate 100 mg tablet 100 mg PO TID@08,12,20 Qty: 90 1RF metformin 1,000 mg tablet 1,000 mg PO BID@08,20 hydrochlorothiazide 25 mg tablet 25 mg PO DAILY@08 Discharge Orders: Discharge ED (Routine); Ordered 07/19/24 Ordered By: Alistair Carter Referrals: Beatriz Loza, [Primary Care Provider] - Discharge Diet: Usual diet Discharge Activity: Resume usual activity Patient Instructions: Opioid Safety, Pain Management Activity Restrictions/Additional Instructions: Thank you for choosing [facility] for your healthcare needs today. It is very important that you follow up as instructed or that you return to the Emergency Department should you have concerns or if your condition changes or worsens in any way. You were seen in the emergency room with complaints of anxiety and hallucinations. We reviewed your chart with psychiatrist on-call he recommends that you continue the Seroquel 300 mg in the morning in the evening at 100 mg at noon. Continue to use the Haldol as needed for anxiety issues. Finally they recommend that you follow-up with [facility] next week they may need to increase the Seroquel noon dose to 200 mg. Print Language: Slovenian Coding Level of Care Code ED Life Science Technician for Caron Crane
[2024-07-19 17:05] LABS: Basophils % 0.9 %; Eosinophils # 0.2 10^3/uL (0.0-0.8); Eosinophils % 3.9 %; Hematocrit 42.8 % (37-53); Lymphocytes # 1.7 10^3/uL (0.8-4.8); Lymphocytes % 39.6 %; Mean Corpuscular HGB Conc 32.9 g/dL (30-55); Mean Corpuscular Hemoglobin 29.1 pg (27-33); Mean Corpuscular Volume 88.4 fl (82-101); Mean Platelet Volume 11.8 fL (7.4-10.4); Monocytes # 0.3 10^3/uL (0.2-0.9); Monocytes % 7.3 %; Neutrophils % 47.8 %; Nucleated Red Blood Cells % 0 %; Platelet Count 228 10^3/cmm (157-399); Red Blood Count 4.84 10^6/uL (3.85-5.65); Red Cell Distribution Width 14.2 % (12.1-15.1); White Blood Count 4.39 10^3/uL (3.29-11.43)
[2024-07-19 17:22] LABS: Alanine Aminotransferase 17 U/L (0-41); Albumin Level 4.3 g/dL (3.5-5.2); Alkaline Phosphatase 43 U/L (40-130); Anion Gap 12.4 (5-19); Aspartate Amino Transferase 15 U/L (0-40); Blood Urea Nitrogen 21 mg/dL (6-20); Calcium 9.1 mg/dL (8.5-10.5); Carbon Dioxide 24 mmol/L (22-29); Chloride 102 mmol/L (98-107); Creatinine Clr Calc Pharmacy 222.4211; Globulin 2.9 g/dL (1.3-4.6); Glomerular Filtration Rate 133.3 mL/min (90-130); Glucose 109 mg/dL (65-115); Osmolality Calculated 284 mOsm/kg (285-295); Potassium 3.4 mmol/L (3.5-5.1); Sodium 135 mmol/L (136-145); Total Bilirubin 0.2 mg/dL (0.15-1.2); Total Protein 7.2 g/dL (6.6-8.7)
[2024-07-19 17:24] LABS: Acetaminophen < 5.0 ug/mL (10-30); Salicylate < 0.3 mg/dL (3-10)
[2024-07-19] MEDS: haloperidol 5 mg Tablet PO (18:21)
[2024-07-19] MEDS: quetiapine 300 mg Tablet PO (18:21)
== END 2024-07-19 18:36 | disposition home or self-care (01) ==
PROVIDERS: Emergency Provider Family Medicine; PCP Family Medicine
DX: R44.0 Auditory hallucinations (principal); Z79.84 Long term (current) use of oral hypoglycemic drugs; F17.210 Nicotine dependence, cigarettes, uncomplicated
CPT/HCPCS: 80053; 80307; 85025; 99283

== ENCOUNTER 2024-07-20 17:22 | Emergency (ER) | payer MEDICAID, SELFPAY ==
[2024-07-20 17:25] VITALS: BP 134/103; PULSE 101; RESP 16; TEMP 37; O2SAT 99; BMI 43.0
--- NOTE | 2024-07-20 18:13 | W.ED.EYEPROB ---
HPI - Eye Problem General: Chief complaint: Eye Problems Stated complaint: eye pain Time Seen by Provider: 07/20/24 17:27 Source: patient Mode of arrival: ambulatory Limitations: no limitations History of Present Illness: Per patient is a 29-year-old male who presents to the ED today for his fourth visit over the past week. Today he complains of sudden onset bilateral eye pain. During my initial examination with patient he tells me that all of his eye pain has resolved. No injury or trauma. He has not noticed any redness, swelling, discharge, visual changes. History is somewhat difficult to obtain as patient does have intellectual disabilities. His staff accompanies him today. Staff reports witnessing a few episodes where his eyes seemed to roll back and his fists seemed to clench. No obvious seizure like activity. Denies incontinence. No biting tongue. No apnea or cyanosis. His MAR in his chart reports Depakote for seizures and he has a diagnosis of unspecified convulsions. Staff member states he is new and has only been with the patient for 2-3 weeks and has never seen that before. Again did not strike head/no recent head injury. chief complaint: eye pain Onset (ago): hour(s) Onset description: sudden Duration: now resolved Location: both eyes Place: home Mechanism: none Associated symptoms: Reports no associated symptoms; Denies fever(s), headache(s), nausea, neck pain or vomiting Treatments Prior to Arrival: none Related Data Home Medications ?Medication ?Instructions ?Recorded ?Confirmed metformin 1,000 mg tablet 1,000 mg PO BID@08,06/02/22 07/18/24 hydrochlorothiazide 25 mg tablet 25 mg PO DAILY@07/14/22 07/18/24 atorvastatin 20 mg tablet 20 mg PO DAILY 04/30/24 07/18/24 divalproex 500 mg tablet,delayed See Rx Instructions .Route .COMPLEX 05/12/24 07/18/24 release fenofibrate nanocrystallized 145 145 mg PO DAILY 05/12/24 07/18/24 mg tablet glimepiride 1 mg tablet 1 mg PO .twice daily 05/12/24 07/18/24 multivitamin 1 tab PO DAILY 05/12/24 07/18/24 linaclotide 145 mcg capsule 145 mcg PO DAILY 06/25/24 07/18/24 (Linzess) acetaminophen 500 mg tablet 1,000 mg PO Q8H PRN Pain 06/27/24 07/18/24 (Tylenol Extra Strength) benzonatate 100 mg capsule 100 mg PO TID PRN 06/27/24 07/18/24 docusate sodium 100 mg capsule 100 mg PO BID 06/27/24 07/18/24 Previous Rx's ?Medication ?Instructions ?Recorded topiramate 100 mg tablet 100 mg PO TID@08,12,20 #90 tabs 08/10/22 Diabetic Shoes w/3 x inserts #1 ea 06/25/24 quetiapine 300 mg tablet (Seroquel) 300 mg PO BID #60 tabs 06/27/24 haloperidol 5 mg tablet 5 mg PO DAILY PRN agitation #30 07/18/24 tabs quetiapine 100 mg tablet (Seroquel) 100 mg PO DAILY #30 tabs 07/19/24 Allergies Allergy/AdvReac Type Severity Reaction Status Date / Time olanzapine Allergy Unknown Verified 07/18/24 09:22 risperidone Allergy Unknown Verified 07/18/24 09:22 Review of Systems Const: Denies: fever(s), chills, body aches, fatigue or malaise Eyes: Reports: eye discomfort; Denies: change in vision, blurry vision, eye discharge, eye redness or yellow eyes ENMT: Denies: throat pain, odynophagia, ear or mastoid pain, nasal discharge, nasal congestion or sinus pain Card: Denies: chest pain, palpitations, irregular heart rhythm, lightheadedness, syncope or dyspnea on exertion Resp: Denies: dyspnea, productive cough or pain on inspiration GI: Denies: abdominal pain, nausea, vomiting, heartburn or diarrhea : Denies: difficulty urinating or dysuria Musc: Denies: neck pain, back pain or joint pain Skin/Breast: Denies: rash Neuro: Reports: seizure-like activity (possible); Denies: headache(s), numbness in extremities, weakness in extremities, sensory changes or dizziness PFSH ED PFSH: Medical History Psychiatric care Nicotine dependence, cigarettes, uncomplicated Intermittent explosive disorder On valproic acid therapy Bipolar disorder, unspecified Attention-deficit hyperactivity disorder, combined type Generalized anxiety disorder Social History (Reviewed 07/20/24 @ 19:18 by PAOLA Rodriguez Smoking and tobacco/nicotine status: current every day tobacco/nicotine user cigarettes Packs smoked per day: 2 Physical Exam Const: COMMON NORMALS: no acute distress, no limitations, alert and well nourished GENERAL APPEARANCE: cooperative HENMT: COMMON NORMALS: normocephalic and atraumatic HEAD & SCALP: normal to inspection, normocephalic and atraumatic FACE & SINUS: normal facial exam and face symmetric Eye: COMMON NORMALS: Equal, round and reactive pupils present, EOMs intact bilaterally, conjunctivae normal and no scleral icterus GENERAL EYE: appearance normal, both eyes and all related structures and normal light reflex VISUAL ACUITY: Yes acuity normal PERIORBITAL: periorbital findings normal EYELID: eyelids normal CONJUNCTIVA: Yes conjunctivae normal SCLERA: sclerae normal CORNEA: Yes corneas normal PUPIL: Yes Equal, round and reactive pupils present DIRECT OPHTHALMOSCOPY: Yes normal light reflex OTHER: normal eye pressures bilaterally Neck/C-Spine: COMMON NORMALS: full ROM, no lymphadenopathy, no meningeal signs, no JVD and No carotid bruits Resp: COMMON NORMALS: normal respiratory effort and clear to auscultation bilaterally AUSCULTATION: clear to auscultation bilaterally Cardio: COMMON NORMALS: no JVD, regular rate and regular rhythm RATE: regular rate RHYTHM: regular rhythm Extremity: GENERAL: Yes normal exam except as noted Neuro: NELL COMA SCALE: document GCS findings Nell coma scale eye opening: Spontaneous Nell coma scale verbal response: Orientated Nell coma scale motor response: Obey commands Nell coma scale total score: 15 COMMON NORMALS: CN's II-XII intact bilaterally SENSORIUM/ORIENTATION: Yes alert MENINGEAL SIGNS: Yes no meningeal signs Course Vital Signs: Vital signs: Vital Signs Temperature 98.6 F 07/20/24 17:25 Pulse Rate 89 07/20/24 19:07 Respiratory Rate 16 07/20/24 17:25 Blood Pressure 142/92 07/20/24 19:07 Pulse Oximetry 99 07/20/24 19:07 Oxygen Delivery Me thod Room Air 07/20/24 17:25 MDM - Eye Problem Medical Decision Making Patient states all of his eye pain is completely resolved. He has a completely normal ophthalmologic examination. Eye pressures are normal. We did discuss blood work/possible CT imaging for the history of recent seizures/convulsions but patient declines. He would like to go home. Staff was encouraged to let commercial lending relationship manager of facility know that I would like for him to follow-up with his primary care provider this week for reevaluation. Return to ED precautions discussed. Medical Records I reviewed the patient's medical records. Lab Data Laboratory Results POC Glucose 136 mg/dL (70-110) H 07/20/24 18:54 No radiology studies performed this visit Discharge Plan Discharge Patient Disposition: Home Clinical Impression: Convulsion Qualifiers: Convulsion type: unspecified Qualified Code(s): R56.9 - Unspecified convulsions Condition: Stable Prescriptions: No Action fenofibrate nanocrystallized 145 mg tablet 145 mg PO DAILY acetaminophen [Tylenol Extra Strength] 500 mg tablet 1,000 mg PO Q8H PRN (Reason: Pain) atorvastatin 20 mg tablet 20 mg PO DAILY docusate sodium 100 mg capsule 100 mg PO BID divalproex 500 mg tablet,delayed release (DR/EC) See Rx Instructions .ROUTE .COMPLEX Dose Instruction: TAKE TWO TABLETS BY MOUTH at EIGHT IN THE MORNING and TWO IN THE EVENING and take ONE tablet at EIGHT IN THE EVENING Rx Instructions: TAKE TWO TABLETS BY MOUTH at EIGHT IN THE MORNING and TWO IN THE EVENING glimepiride 1 mg tablet 1 mg PO .twice daily multivitamin Tablet 1 tab PO DAILY quetiapine [Seroquel] 300 mg tablet 300 mg PO BID Qty: 60 2RF haloperidol 5 mg tablet 5 mg PO DAILY PRN (Reason: agitation) Qty: 30 0RF Linzess 145 mcg capsule 145 mcg PO DAILY (DME) Diabetic Shoes w/3 x inserts See Rx Instructions .Route .MEDSUPPLY Qty: 1 0RF Rx Instructions: As directed By the Sury Constantino 3 x inserts benzonatate 100 mg capsule 100 mg PO TID PRN topiramate 100 mg tablet 100 mg PO TID@08,12,20 Qty: 90 1RF metformin 1,000 mg tablet 1,000 mg PO BID@08,20 quetiapine [Seroquel] 100 mg tablet 100 mg PO DAILY Qty: 30 0RF Rx Instructions: Take at noon hydrochlorothiazide 25 mg tablet 25 mg PO DAILY@08 Discharge Orders: Discharge ED (Routine); Ordered 07/20/24 Ordered By: Yadira Alberts Referrals: Beatriz Loza DO [Primary Care Provider] - Print Language: Ethiopian Coding Level of Care Code 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
--- NOTE | 2024-07-20 19:06 | PC.NURSE ---
Upon shift change assessment pt was diaphoretic and complained of headache. BG was check and oral temp of 97.4. CROWN AND BRIDGE TECHNICIAN was notified.
[2024-07-20 19:07] VITALS: BP 142/92; PULSE 89; O2SAT 99
[2024-07-20 19:08] LABS: Glucose Point of Care 136 mg/dL (70-110)
== END 2024-07-20 19:00 | disposition home or self-care (01) ==
PROVIDERS: Emergency Provider Physician Assistant; PCP Family Medicine
DX: R56.9 Unspecified convulsions (principal); Z79.84 Long term (current) use of oral hypoglycemic drugs
CPT/HCPCS: 36416; 82962; 99283

== ENCOUNTER 2024-08-02 18:30 | Emergency (ER) | payer MEDICAID, SELFPAY ==
--- NOTE | 2024-08-02 18:46 | W.ED.PSYCHS ---
HPI - Psych General: Chief Complaint: Psychiatric Symptoms Stated Complaint: mhe Time Seen by Provider: 08/02/24 18:31 History of Present Illness: This patient is a 29-year-old white male who [facility] with a history of bipolar disorder, aggressive behavior and intellectual disability presents to the emergency department with auditory hallucinations. The patient called the hotline because he was having auditory hallucinations which were telling him to hurt himself and others. He states the voice was telling him to flower buncher or picker a piece of a gutter and injure himself and others. Patient is on divalproex, Haldol, quetiapine and topiramate. Associated symptoms: Reports auditory hallucinations Related Data Home Medications ?Medication ?Instructions ?Recorded ?Confirmed metformin 1,000 mg tablet 1,000 mg PO BID@06/02/22 07/24/24 hydrochlorothiazide 25 mg tablet 25 mg PO DAILY@08 07/14/22 07/24/24 atorvastatin 20 mg tablet 20 mg PO DAILY 04/30/24 07/24/24 divalproex 500 mg tablet,delayed See Rx Instructions .Route .COMPLEX 05/12/24 07/24/24 release fenofibrate nanocrystallized 145 145 mg PO DAILY 05/12/24 07/24/24 mg tablet glimepiride 1 mg tablet 1 mg PO .twice daily 05/12/24 07/24/24 multivitamin 1 tab PO DAILY 05/12/24 07/24/24 linaclotide 145 mcg capsule 145 mcg PO DAILY 06/25/24 07/24/24 (Linzess) acetaminophen 500 mg tablet 1,000 mg PO Q8H PRN Pain 06/27/24 07/24/24 (Tylenol Extra Strength) benzonatate 100 mg capsule 100 mg PO TID PRN 06/27/24 07/24/24 docusate sodium 100 mg capsule 100 mg PO BID 06/27/24 07/24/24 Previous Rx's ?Medication ?Instructions ?Recorded topiramate 100 mg tablet 100 mg PO TID@08,,20 #90 tabs 08/10/22 Diabetic Shoes w/3 x inserts #1 ea 06/25/24 quetiapine 300 mg tablet (Seroquel) 300 mg PO BID #60 tabs 06/27/24 haloperidol 5 mg tablet 5 mg PO DAILY PRN agitation #30 02/21/25 tabs quetiapine 100 mg tablet (Seroquel) 100 mg PO DAILY #30 tabs 07/19/24 Allergies Allergy/AdvReac Type Severity Reaction Status Date / Time olanzapine Allergy Unknown Verified 07/24/24 09:57 risperidone Allergy Unknown Verified 07/24/24 09:57 Review of Systems General: Reports: 10 or more systems reviewed and unremarkable except in HPI and below Psych: Reports: auditory hallucinations PFSH ED PFSH: Medical History Psychiatric care Nicotine dependence, cigarettes, uncomplicated Intermittent explosive disorder On valproic acid therapy Bipolar disorder, unspecified Attention-deficit hyperactivity disorder, combined type Generalized anxiety disorder Social History Smoking and tobacco/nicotine status: current every day tobacco/nicotine user cigarettes Packs smoked per day: 2 Physical Exam Const: COMMON NORMALS: no acute distress and patient oriented x3 GENERAL APPEARANCE: cooperative and comfortable HENMT: COMMON NORMALS: normocephalic, atraumatic, Normal nasal mucous membranes and turbinates present, moist oral mucous membranes and oropharynx normal HEAD & SCALP: normal to inspection, normocephalic and atraumatic FACE & SINUS: normal facial exam NOSE: Normal nasal mucous membranes and turbinates present Eye: COMMON NORMALS: Equal, round and reactive pupils present, EOMs intact bilaterally and conjunctivae normal GENERAL EYE: appearance normal, both eyes and all related structures CONJUNCTIVA: Yes conjunctivae normal PUPIL: Yes Equal, round and reactive pupils present Neck/C-Spine: COMMON NORMALS: supple and no JVD Chest: COMMONS NORMALS: normal inspection of the chest Resp: COMMON NORMALS: normal respiratory effort and clear to auscultation bilaterally AUSCULTATION: clear to auscultation bilaterally Cardio: COMMON NORMALS: no JVD, regular rate, regular rhythm, No gallops present (Cardio), No murmurs present (Cardio) and No rub (Cardio) RATE: regular rate RHYTHM: regular rhythm GI: COMMON NORMALS: Normal to inspection, nondistended, normoactive bowel sounds present, Soft to palpation and non-tender AUSCULTATION: Yes normoactive bowel sounds PALPATION: Yes Soft to palpation : COMMON NORMALS: Yes no CVA tenderness BLADDER/KIDNEY EXAM: Yes no CVA tenderness Back/Pelvis: COMMON NORMALS: no CVA tenderness and thoracic and lumbar spine normal to inspection Extremity: COMMON NORMALS: normal to inspection Neuro: COMMON NORMALS: patient oriented x3 and CN's II-XII intact bilaterally Psych: COMMON NORMALS: cooperative MOOD & AFFECT: Yes Flat affect present THOUGHT CONTENT: Yes Hallucination(s) present ATTENTION/CONCENTRATION: Yes attention grossly intact MEMORY/COGNITION: Yes cognition grossly impaired INSIGHT: Limited insight present (Psych) JUDGEMENT: Limited judgement present (Psych) Skin: COMMON NORMALS: no rashes or lesions noted, turgor normal and no jaundice GENERAL SKIN EXAM: no rashes or lesions noted and turgor normal Course Vital Signs: Vital signs: Vital Signs Temperature 97.5 F L 08/02/24 18:47 Pulse Rate 88 08/02/24 18:47 Respiratory Rate 20 H 08/02/24 18:47 Blood Pressure 112/67 08/02/24 18:47 Pulse Oximetry 97 08/02/24 18:47 MDM - Psych Medical Decision Making Patient's laboratory workup was normal. He remained stable throughout the ER stay. I did discuss this case with Dr. Khoury, psychiatrist on-call. He does not think the patient needs to be admitted. Patient does present frequently with the same complaints. We typically give the patient an injection of Haldol. Patient was given an injection of Haldol and Benadryl. He was discharged in stable condition instructed to follow-up with his psychiatrist and/or primary care physician for ongoing management. Patient's knockdown worker was in the room during these discharge instructions and plans. Lab Data 08/02/24 18:49 08/02/24 18:49 Laboratory Results WBC 4.58 10^3/uL (3.29-11.43) 08/02/24 18:49 RBC 4.64 10^6/uL (3.85-5.65) 08/02/24 18:49 Hgb 13.40 g/dL (11.27-16.99) 08/02/24 18:49 Hct 43.1 % (37-53) 08/02/24 18:49 MCV 92.9 fl (82-101) 08/02/24 18:49 MCH 28.9 pg (27-33) 08/02/24 18:49 MCHC 31.1 g/dL (30-55) 08/02/24 18:49 RDW 15.0 % (12.1-15.1) 08/02/24 18:49 Plt Count 176 10^3/cmm (157-399) 08/02/24 18:49 MPV 11.8 fL (7.4-10.4) H 08/02/24 18:49 Neut % (Auto) 51.7 % 08/02/24 18:49 Lymph % (Auto) 33.6 % 08/02/24 18:49 [place] % (Auto) 9.2 % 08/02/24 18:49 Eos % (Auto) 3.9 % 08/02/24 18:49 Baso % (Auto) 0.7 % 08/02/24 18:49 Neut # (Auto) 2.37 10^3/uL (1.8-7.7) 08/02/24 18:49 Lymph # (Auto) 1.5 10^3/uL (0.8-4.8) 08/02/24 18:49 [place] # (Auto) 0.4 10^3/uL (0.2-0.9) 08/02/24 18:49 Eos # (Auto) 0.2 10^3/uL (0.0-0.8) 08/02/24 18:49 Baso # (Auto) 0.0 10^3/uL (0.0-0.1) 08/02/24 18:49 Nucleated RBC % (auto) 0 % 08/02/24 18:49 Nucleated RBCs # 0.0 /100WBC 08/02/24 18:49 Sodium 141 mmol/L (136-145) 08/02/24 18:49 Potassium 4.1 mmol/L (3.5-5.1) 08/02/24 18:49 Chloride 108 mmol/L (98-107) H 08/02/24 18:49 Carbon Dioxide 24 mmol/L (22-29) 08/02/24 18:49 Anion Gap 13.1 (5-19) 08/02/24 18:49 BUN 15 mg/dL (6-20) 08/02/24 18:49 Creatinine 0.5 mg/dL (0.7-1.2) L 08/02/24 18:49 GFR Calculation 196.6 mL/min (90-130) H 08/02/24 18:49 Glucose 173 mg/dL (65-115) H 08/02/24 18:49 Calculated Osmolality 297 mOsm/kg (285-295) H 08/02/24 18:49 Calcium 9.1 mg/dL (8.5-10.5) 08/02/24 18:49 Total Bilirubin 0.2 mg/dL (0.15-1.2) 08/02/24 18:49 AST 14 U/L (0-40) 08/02/24 18:49 ALT 16 U/L (0-41) 08/02/24 18:49 Alkaline Phosphatase 44 U/L (40-130) 08/02/24 18:49 Total Protein 6.9 g/dL (6.6-8.7) 08/02/24 18:49 Albumin 4.3 g/dL (3.5-5.2) 08/02/24 18:49 Globulin 2.6 g/dL (1.3-4.6) 08/02/24 18:49 TSH 2.04 uIU/mL (0.27-4.20) 08/02/24 18:49 Urine Color Yellow (Yellow) 08/02/24 18:21 Urine Appearance Turbid (CLEAR) A 08/02/24 18:21 Urine pH 7.5 (5-7) 08/02/24 18:21 Ur Specific [place] 1.021 (1.005-1.030) 08/02/24 18:21 Urine Protein Negative (Negative) 08/02/24 18:21 Urine Glucose (UA) 2+ (Normal) H 08/02/24 18:21 Urine Ketones Trace (Negative) 08/02/24 18:21 Urine Blood Negative (Negative) 08/02/24 18:21 Urine Nitrate Negative (Negative) 08/02/24 18: Urine Bilirubin Negative (Negative) 08/02/24 18: Urine Urobilinogen 1.0 mg/dL (Negative) 08/02/24 18:21 Ur Leukocyte Esterase Negative (Negative) 08/02/24 18:21 Urine RBC 0-2 /hpf (0-2) 08/02/24 18:21 Urine WBC 0-5 /hpf (0-5) 08/02/24 18:21 Ur Squamous Epith Cells 0-5 /hpf (0-5) 08/02/24 18:21 Amorphous Sediment Not Reportable 08/02/24 18:21 Urine Bacteria None seen /hpf (NONE) 08/02/24 18:21 Hyaline Casts 0-4 /lpf H 08/02/24 18:21 Salicylates < 0.3 mg/dL (3-10) L 08/02/24 18:49 Urine Opiates Screen Negative ng/mL (Negative) 08/02/24 18:21 Acetaminophen < 5.0 ug/mL (10-30) L 08/02/24 18:49 Ur Barbiturates Screen Negative ng/mL (Negative) 08/02/24 18:21 Ur Phencyclidine Scrn Negative ng/mL (Negative) 08/02/24 18:21 Ur Amphetamines Screen Negative ng/mL (Negative) 08/02/24 18:21 U Benzodiazepines Scrn Negative ng/mL (Negative) 08/02/24 18:21 Urine Cocaine Screen Negative ng/mL (Negative) 08/02/24 18:21 U Marijuana (THC) Screen Negative ng/mL (Negative) 08/02/24 18:21 Ethyl Alcohol < 10 mg/dL (0-10) 08/02/24 18:49 No radiology studies performed this visit Discharge Plan Discharge Patient Disposition: Home Clinical Impression: Auditory hallucinations Condition: Stable Prescriptions: No Action fenofibrate nanocrystallized 145 mg tablet 145 mg PO DAILY acetaminophen [Tylenol Extra Strength] 500 mg tablet 1,000 mg PO Q8H PRN (Reason: Pain) atorvastatin 20 mg tablet 20 mg PO DAILY docusate sodium 100 mg capsule 100 mg PO BID divalproex 500 mg tablet,delayed release (DR/EC) See Rx Instructions .ROUTE .COMPLEX Dose Instruction: TAKE TWO TABLETS BY MOUTH at EIGHT IN THE MORNING and TWO IN THE EVENING and take ONE tablet at EIGHT IN THE EVENING Rx Instructions: TAKE TWO TABLETS BY MOUTH at EIGHT IN THE MORNING and TWO IN THE EVENING glimepiride 1 mg tablet 1 mg PO .twice daily multivitamin Tablet 1 tab PO DAILY quetiapine [Seroquel] 300 mg tablet 300 mg PO BID Qty: 60 2RF haloperidol 5 mg tablet 5 mg PO DAILY PRN (Reason: agitation) Qty: 30 0RF Linzess 145 mcg capsule 145 mcg PO DAILY (DME) Diabetic Shoes w/3 x inserts See Rx Instructions .Route .MEDSUPPLY Qty: 1 0RF Rx Instructions: As directed By the Sury Constantino 3 x inserts benzonatate 100 mg capsule 100 mg PO TID PRN topiramate 100 mg tablet 100 mg PO TID@08,12,20 Qty: 90 1RF metformin 1,000 mg tablet 1,000 mg PO BID@08,20 quetiapine [Seroquel] 100 mg tablet 100 mg PO DAILY Qty: 30 0RF Rx Instructions: Take at noon hydrochlorothiazide 25 mg tablet 25 mg PO DAILY@08 Discharge Orders: Discharge ED (Routine); Ordered 08/02/24 Ordered By: Randall Ochoa Referrals: Beatriz Loza DO [Primary Care Provider] - Patient Instructions: Hallucinations (ED) Activity Restrictions/Additional Instructions: Follow-up with your primary care provider and/or psychiatrist for ongoing management. 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
[2024-08-02 18:47] VITALS: BP 112/67; PULSE 88; RESP 20; TEMP 36.4; O2SAT 97; BMI 43.7
[2024-08-02 18:58] LABS: Basophils % 0.7 %; Eosinophils # 0.2 10^3/uL (0.0-0.8); Eosinophils % 3.9 %; Hematocrit 43.1 % (37-53); Lymphocytes # 1.5 10^3/uL (0.8-4.8); Lymphocytes % 33.6 %; Mean Corpuscular HGB Conc 31.1 g/dL (30-55); Mean Corpuscular Hemoglobin 28.9 pg (27-33); Mean Corpuscular Volume 92.9 fl (82-101); Mean Platelet Volume 11.8 fL (7.4-10.4); Monocytes # 0.4 10^3/uL (0.2-0.9); Monocytes % 9.2 %; Neutrophils # 2.37 10^3/uL (1.8-7.7); Neutrophils % 51.7 %; Nucleated Red Blood Cells % 0 %; Platelet Count 176 10^3/cmm (157-399); Red Blood Count 4.64 10^6/uL (3.85-5.65); White Blood Count 4.58 10^3/uL (3.29-11.43)
[2024-08-02 19:10] LABS: Bilirubin Urine Negative (Negative); Blood Urine Negative (Negative); Glucose Urine UA 2+ (Normal); Ketones Urine Trace (Negative); Leukocyte Esterase Urine Negative (Negative); Nitrate Urine Negative (Negative); Protein Urine Negative (Negative); Specific Gravity, Urine 1.021 (1.005-1.030); Urine Appearance Turbid (CLEAR); Urine Color Yellow (Yellow); pH Urine 7.5 (5-7)
--- NOTE | 2024-08-02 19:11 | ECG_ITS ---
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 Measurements Intervals [place] Rate: 98 P: 11 VA: 185 QRS: 21 QRSD: 89 T: 5 QT: 328 QTc: 419 Interpretive Statements SINUS RHYTHM Compared to ECG 12/15/2021 17:55:50 T-wave abnormality no longer present Electronically Signed On 08-02-2024 19:24:02 HAT AND CAP OPENER by James Montes M.D. [email or web address]
[2024-08-02 19:12] LABS: Add Urine Microscopic? YES; Bacteria Urine None Seen /hpf; Hyaline Casts Urine 0-4 /lpf; RBC Urine 0-2 /hpf (0-2); Squamous Epithelial Cell Urine 0-5 /hpf (0-5); WBC Urine 0-5 /hpf (0-5)
[2024-08-02 19:23] LABS: Alanine Aminotransferase 16 U/L (0-41); Albumin Level 4.3 g/dL (3.5-5.2); Alkaline Phosphatase 44 U/L (40-130); Anion Gap 13.1 (5-19); Aspartate Amino Transferase 14 U/L (0-40); Blood Urea Nitrogen 15 mg/dL (6-20); Calcium 9.1 mg/dL (8.5-10.5); Carbon Dioxide 24 mmol/L (22-29); Chloride 108 mmol/L (98-107); Globulin 2.6 g/dL (1.3-4.6); Glomerular Filtration Rate 196.6 mL/min (90-130); Glucose 173 mg/dL (65-115); Osmolality Calculated 297 mOsm/kg (285-295); Potassium 4.1 mmol/L (3.5-5.1); Sodium 141 mmol/L (136-145); Thyroid Stimulating Hormone 2.04 uIU/mL (0.27-4.20); Total Bilirubin 0.2 mg/dL (0.15-1.2); Total Protein 6.9 g/dL (6.6-8.7)
[2024-08-02 19:27] LABS: Amphetamines Screen Urine Negative (Negative); Barbiturates Screen Urine Negative (Negative); Benzodiazepines Screen Urine Negative (Negative); Cocaine Screen Urine Negative (Negative); Opiate Screen Urine Negative (Negative); PCP Screen Urine Negative (Negative); THC Screen Urine Negative (Negative)
[2024-08-02 19:28] LABS: Acetaminophen < 5.0 ug/mL (10-30); Alcohol Level < 10 mg/dL (0-10); Salicylate < 0.3 mg/dL (3-10)
[2024-08-02] MEDS: diphenhydrAMINE 50 mg/mL SDV 1mL 25 MG IM (21:21)
[2024-08-02] MEDS: haloperidol inj 5 mg/mL INJ 1 mL 2.5 MG IM (21:21)
[2024-08-02 21:32] VITALS: BP 118/65; PULSE 84; O2SAT 96
== END 2024-08-02 21:33 | disposition home or self-care (01) ==
PROVIDERS: Emergency Provider Emergency Medicine; PCP Family Medicine
DX: R44.0 Auditory hallucinations (principal); F17.210 Nicotine dependence, cigarettes, uncomplicated
CPT/HCPCS: 36415; 80053; 80306; 80307; 81001; 84443; 85025; 93005; 96372; 99284; J1200; J1630

== ENCOUNTER 2024-09-23 23:01 | Emergency (ER) | payer MEDICAID, SELFPAY ==
[2024-09-23 23:02] VITALS: BP 128/77; PULSE 95; RESP 18; TEMP 36.8; O2SAT 98; BMI 44.7
[2024-09-23 23:07] VITALS: BP 128/77; PULSE 93; RESP 20; O2SAT 98
[2024-09-23 23:09] LABS: Glucose Point of Care 301 mg/dL (70-110)
--- NOTE | 2024-09-23 23:28 | ECG_ITS ---
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 Measurements Intervals [place] Rate: 88 P: 32 MD: 205 QRS: 55 QRSD: 87 T: 60 QT: 346 QTc: 419 Interpretive Statements SINUS RHYTHM Compared to ECG 08/02/2024 19:11:01 No significant changes Electronically Signed On 09-29-2024 10:40:19 CDT by James Montes M.D. [email or web address]
[2024-09-23 23:37] LABS: Basophils % 0.8 %; Eosinophils # 0.2 10^3/uL (0.0-0.8); Eosinophils % 4.9 %; Hematocrit 39.1 % (37-53); Lymphocytes # 1.4 10^3/uL (0.8-4.8); Lymphocytes % 36.1 %; Mean Corpuscular HGB Conc 33.2 g/dL (30-55); Mean Corpuscular Hemoglobin 29.9 pg (27-33); Mean Corpuscular Volume 89.9 fl (82-101); Mean Platelet Volume 11.6 fL (7.4-10.4); Monocytes # 0.5 10^3/uL (0.2-0.9); Monocytes % 13.2 %; Neutrophils # 1.69 10^3/uL (1.8-7.7); Nucleated Red Blood Cells % 0 %; Platelet Count 238 10^3/cmm (157-399); Red Blood Count 4.35 10^6/uL (3.85-5.65); Red Cell Distribution Width 13.5 % (12.1-15.1); White Blood Count 3.85 10^3/uL (3.29-11.43)
[2024-09-23 23:44] LABS: Ketone (Acetest) Serum Negative (Negative)
[2024-09-23 23:48] LABS: Alanine Aminotransferase 14 U/L (0-41); Albumin Level 4.2 g/dL (3.5-5.2); Alkaline Phosphatase 50 U/L (40-130); Anion Gap 16.6 (5-19); Aspartate Amino Transferase 13 U/L (0-40); Blood Urea Nitrogen 24 mg/dL (6-20); Carbon Dioxide 24 mmol/L (22-29); Chloride 101 mmol/L (98-107); Creatinine Clr Calc Pharmacy 205.1072; Glomerular Filtration Rate 114.3 mL/min (90-130); Glucose 198 mg/dL (65-115); Osmolality Calculated 296 mOsm/kg (285-295); Potassium 3.6 mmol/L (3.5-5.1); Sodium 138 mmol/L (136-145); Total Bilirubin 0.2 mg/dL (0.15-1.2); Total Protein 7.2 g/dL (6.6-8.7)
[2024-09-23] MEDS: sodium chloride 0.9% 1,000 ML 999 ML IV (23:48)
[2024-09-24 00:16] VITALS: BP 110/83; PULSE 90; RESP 16; O2SAT 98
[2024-09-24 00:31] LABS: Glucose Point of Care 167 mg/dL (70-110)
--- NOTE | 2024-09-24 00:34 | W.ED.GENADLT ---
HPI - General Adult General: Chief complaint: General Medical Stated complaint: dizziness Time Seen by Provider: 09/23/24 23:04 Source: patient Mode of arrival: ambulatory Limitations: no limitations History of Present Illness: Patient is a 29-year-old male well-known here to the emergency department complaining of dizziness, and a fall just prior to arrival. He is brought in by ambulance, he is from [facility]. States that he was walking when he suddenly got dizzy, and fell directly onto his face and struck his glasses. He does have a psychiatric history. History of type 1 diabetes, blood sugar noted to be 400 by ambulance, Accu-Chek at bedside 371 here. He is alert and oriented x 4, baseline per caregiver. He has no complaints at this time. Vitals within normal limits. He states he has been taking his medications as normal. MD complaint: Dizziness, fall, high blood sugar Associated symptoms: Deny chest pain, dyspnea, headache(s), nausea, rash, palpitations or vomiting Related Data Home Medications ?Medication ?Instructions ?Recorded ?Confirmed metformin 1,000 mg tablet 1,000 mg PO BID@08,06/02/22 09/12/24 hydrochlorothiazide 25 mg tablet 25 mg PO DAILY@08 07/14/22 09/12/24 atorvastatin 20 mg tablet 20 mg PO DAILY 04/30/24 09/12/24 divalproex 500 mg tablet,delayed See Rx Instructions .Route .COMPLEX 05/12/24 09/12/24 release fenofibrate nanocrystallized 145 145 mg PO DAILY 05/12/24 09/12/24 mg tablet glimepiride 1 mg tablet 1 mg PO .twice daily 05/12/24 09/12/24 multivitamin 1 tab PO DAILY 05/12/24 09/12/24 linaclotide 145 mcg capsule 145 mcg PO DAILY 06/25/24 09/12/24 (Linzess) acetaminophen 500 mg tablet 1,000 mg PO Q8H PRN Pain 06/27/24 09/12/24 (Tylenol Extra Strength) benzonatate 100 mg capsule 100 mg PO TID PRN 06/27/24 09/12/24 docusate sodium 100 mg capsule 100 mg PO BID 06/27/24 09/12/24 Previous Rx's ?Medication ?Instructions ?Recorded topiramate 100 mg tablet 100 mg PO TID@08,,20 #90 tabs 08/10/22 Diabetic Shoes w/3 x inserts #1 ea 06/25/24 haloperidol 5 mg tablet 5 mg PO DAILY PRN agitation #30 07/18/24 tabs quetiapine 100 mg tablet (Seroquel) 100 mg PO DAILY #30 tabs 07/19/24 quetiapine 300 mg tablet (Seroquel) 300 mg PO BID #60 tabs 08/19/24 Allergies Allergy/AdvReac Type Severity Reaction Status Date / Time olanzapine Allergy Unknown Verified 09/23/24 23:05 risperidone Allergy Unknown Verified 09/23/24 23:05 Review of Systems General: Reports: 10 or more systems reviewed and unremarkable except in HPI and below Const: Reports: other (Fall, high blood sugar); Denies: fever(s), chills or fatigue Eyes: Denies: change in vision ENMT: Denies: throat pain, ear or mastoid pain or nasal discharge Card: Denies: chest pain, palpitations, swelling of feet/ankles or lightheadedness Resp: Denies: dyspnea, productive cough or wheezing GI: Denies: abdominal pain, nausea, vomiting, diarrhea or constipation : Denies: flank pain, difficulty urinating, dysuria or urinary frequency Musc: Denies: neck pain, back pain or joint pain Skin/Breast: Denies: rash Neuro: Reports: dizziness; Denies: headache(s), numbness in extremities or weakness in extremities PFSH ED PFSH: Medical History Psychiatric care Nicotine dependence, cigarettes, uncomplicated Intermittent explosive disorder On valproic acid therapy Bipolar disorder, unspecified Attention-deficit hyperactivity disorder, combined type Generalized anxiety disorder Social History Smoking and tobacco/nicotine status: current every day tobacco/nicotine user cigarettes Packs smoked per day: 2 Physical Exam Const: COMMON NORMALS: no acute distress, patient oriented x3 and no limitations GENERAL APPEARANCE: cooperative and well developed NUTRITIONAL APPEARANCE: obese morbidly obese ORIENTATION/CONSCIOUSNESS: Yes awake, Yes oriented to person, Yes oriented to place and Yes oriented to time HENMT: COMMON NORMALS: normocephalic, atraumatic and hearing grossly normal bilaterally HEAD & SCALP: normocephalic and atraumatic Eye: COMMON NORMALS: Equal, round and reactive pupils present, EOMs intact bilaterally and conjunctivae normal CONJUNCTIVA: Yes conjunctivae normal PUPIL: Yes Equal, round and reactive pupils present Neck/C-Spine: COMMON NORMALS: full ROM, supple and no JVD Resp: COMMON NORMALS: normal respiratory effort, No retractions, No use of accessory muscles and clear to auscultation bilaterally AUSCULTATION: clear to auscultation bilaterally Cardio: COMMON NORMALS: no JVD, regular rate, regular rhythm, No clicks present (Cardio), No murmurs present (Cardio) and No rub (Cardio) RATE: regular rate RHYTHM: regular rhythm GI: COMMON NORMALS: Normal to inspection, nondistended, normoactive bowel sounds present, Soft to palpation and non-tender AUSCULTATION: Yes normoactive bowel sounds PALPATION: Yes Soft to palpation RECTAL EXAM: Yes deferred Extremity: COMMON NORMALS: normal to inspection, full ROM and capillary refill normal Neuro: COMMON NORMALS: patient oriented x3, CN's II-XII intact bilaterally, moves all extremities, no focal motor deficits and no sensory deficits noted SENSORIUM/ORIENTATION: Yes oriented to person, Yes oriented to place and Yes oriented to time Psych: COMMON NORMALS: mental status grossly normal and Normal thought process present THOUGHT PROCESS: Normal thought process present Skin: COMMON NORMALS: no rashes or lesions noted GENERAL SKIN EXAM: no rashes or lesions noted Course Vital Signs: Vital signs: Vital Signs Temperature 98.2 F 09/23/24 23:02 Pulse Rate 90 09/24/24 00:16 Respiratory Rate 16 09/24/24 00:16 Blood Pressure 110/83 09/24/24 00:16 Pulse Oximetry 98 09/24/24 00:16 Oxygen Delivery Me thod Room Air 09/23/24 23:02 [facility] - General Adult Medical Decision Making Arrived by ambulance, complaints of dizziness stating he had fallen. Also noted to have elevated blood sugar. States he has been taking his medications as prescribed. He was given IV fluids and blood sugar noted to drop to 161, and this is noted to be around normal range for him. All of his blood work was unremarkable, ketones were negative. EKG showing normal sinus rhythm with no acute STEMI, and orthostatic vital signs were negative. I do not see a reason for CT imaging of the head at this time, he has been stable here in the ED. Suspect orthostatic dizziness, but potentially complicated by hyperglycemia related to his type 1 diabetes. There is also no signs of trauma or signs that he had hit his head. Informed him and caregiver they will be discharged home at this time, strict return precautions were given to which he verbalized understanding. Lab Data 09/23/24 22:16 09/23/24 22:16 Laboratory Results WBC 3.85 10^3/uL (3.29-11.43) 09/23/24 22:16 RBC 4.35 10^6/uL (3.85-5.65) 09/23/24 22:16 Hgb 13.00 g/dL (11.27-16.99) 09/23/24 22:16 Hct 39.1 % (37-53) 09/23/24 22:16 MCV 89.9 fl (82-101) 09/23/24 22:16 MCH 29.9 pg (27-33) 09/23/24 22:16 MCHC 33.2 g/dL (30-55) 09/23/24 22:16 RDW 13.5 % (12.1-15.1) 09/23/24 22:16 Plt Count 238 10^3/cmm (157-399) 09/23/24 22:16 MPV 11.6 fL (7.4-10.4) H 09/23/24 22:16 Neut % (Auto) 44.0 % 09/23/24 22:16 Lymph % (Auto) 36.1 % 09/23/24 22:16 [place] % (Auto) 13.2 % 09/23/24 22:16 Eos % (Auto) 4.9 % 09/23/24 22:16 Baso % (Auto) 0.8 % 09/23/24 22:16 Neut # (Auto) 1.69 10^3/uL (1.8-7.7) L 09/23/24 22:16 Lymph # (Auto) 1.4 10^3/uL (0.8-4.8) 09/23/24 22:16 [place] # (Auto) 0.5 10^3/uL (0.2-0.9) 09/23/24 22:16 Eos # (Auto) 0.2 10^3/uL (0.0-0.8) 09/23/24 22:16 Baso # (Auto) 0.0 10^3/uL (0.0-0.1) 09/23/24 22:16 Nucleated RBC % (auto) 0 % 09/23/24 22:16 Nucleated RBCs # 0.0 /100WBC 09/23/24 22:16 Sodium 138 mmol/L (136-145) 09/23/24 22:16 Potassium 3.6 mmol/L (3.5-5.1) 09/23/24 22:16 Chloride 101 mmol/L (98-107) 09/23/24 22:16 Carbon Dioxide 24 mmol/L (22-29) 09/23/24 22:16 Anion Gap 16.6 (5-19) 09/23/24 22:16 BUN 24 mg/dL (6-20) H 09/23/24 22:16 Creatinine 0.8 mg/dL (0.7-1.2) 09/23/24 22:16 GFR Calculation 114.3 mL/min (90-130) 09/23/24 22:16 Glucose 198 mg/dL (65-115) H 09/23/24 22:16 POC Glucose 167 mg/dL (70-110) H 09/24/24 00:15 Calculated Osmolality 296 mOsm/kg (285-295) H 09/23/24 22:16 Calcium 9.0 mg/dL (8.5-10.5) 09/23/24 22:16 Total Bilirubin 0.2 mg/dL (0.15-1.2) 09/23/24 22:16 AST 13 U/L (0-40) 09/23/24 22:16 ALT 14 U/L (0-41) 09/23/24 22:16 Alkaline Phosphatase 50 U/L (40-130) 09/23/24 22:16 Total Protein 7.2 g/dL (6.6-8.7) 09/23/24 22:16 Albumin 4.2 g/dL (3.5-5.2) 09/23/24 22:16 Globulin 3.0 g/dL (1.3-4.6) 09/23/24 22:16 Serum Ketones Negative (Negative) 09/23/24 22:16 No radiology studies performed this visit Discharge Plan Discharge Patient Disposition: Home Clinical Impression: Orthostatic dizziness, Hyperglycemia due to type 1 diabetes mellitus Condition: Stable Prescriptions: No Action fenofibrate nanocrystallized 145 mg tablet 145 mg PO DAILY acetaminophen [Tylenol Extra Strength] 500 mg tablet 1,000 mg PO Q8H PRN (Reason: Pain) atorvastatin 20 mg tablet 20 mg PO DAILY docusate sodium 100 mg capsule 100 mg PO BID divalproex 500 mg tablet,delayed release (DR/EC) See Rx Instructions .ROUTE .COMPLEX Dose Instruction: TAKE TWO TABLETS BY MOUTH at EIGHT IN THE MORNING and TWO IN THE EVENING and take ONE tablet at EIGHT IN THE EVENING Rx Instructions: TAKE TWO TABLETS BY MOUTH at EIGHT IN THE MORNING and TWO IN THE EVENING glimepiride 1 mg tablet 1 mg PO .twice daily multivitamin Tablet 1 tab PO DAILY haloperidol 5 mg tablet 5 mg PO DAILY PRN (Reason: agitation) Qty: 30 0RF Linzess 145 mcg capsule 145 mcg PO DAILY (DME) Diabetic Shoes w/3 x inserts See Rx Instructions .Route .MEDSUPPLY Qty: 1 0RF Rx Instructions: As directed By the Sury Constantino 3 x inserts benzonatate 100 mg capsule 100 mg PO TID PRN topiramate 100 mg tablet 100 mg PO TID@08,12,20 Qty: 90 1RF quetiapine [Seroquel] 300 mg tablet 300 mg PO BID Qty: 60 2RF metformin 1,000 mg tablet 1,000 mg PO BID@08,20 quetiapine [Seroquel] 100 mg tablet 100 mg PO DAILY Qty: 30 0RF Rx Instructions: Take at noon hydrochlorothiazide 25 mg tablet 25 mg PO DAILY@08 Discharge Orders: Discharge ED (Routine); Ordered 09/24/24 Ordered By: Aaron Xie Referrals: Beatriz Loza DO [Primary Care Provider] - Patient Instructions: Dizziness (ED), Diabetic Hyperglycemia (ED) Activity Restrictions/Additional Instructions: Continue keeping track your blood sugar at home. Continue taking your home medications. Make sure that you are drinking plenty of fluids. Please follow-up with your regular doctor for routine reevaluation. Return with any new or worsening. 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
[2024-09-24 00:40] VITALS: BP 117/85; BP 119/76; BP 128/82
[2024-09-24 00:59] VITALS: BP 129/72; PULSE 88; RESP 16; O2SAT 98
== END 2024-09-24 00:42 | disposition home or self-care (01) ==
PROVIDERS: Emergency Provider Physician Assistant; PCP Family Medicine
DX: I95.1 Orthostatic hypotension (principal); E10.65 Type 1 diabetes mellitus with hyperglycemia; Z79.84 Long term (current) use of oral hypoglycemic drugs; F17.210 Nicotine dependence, cigarettes, uncomplicated
CPT/HCPCS: 36416; 80053; 82009; 82962; 85025; 93005; 96360; 99284; J7030

== ENCOUNTER 2024-09-29 08:48 | Emergency (ER) | payer MEDICAID, SELFPAY ==
[2024-09-29] VITALS (21 sets, daily range): BP systolic 121–147; BP diastolic 84–97; PULSE 88–110; RESP 14–24; TEMP 37.4; O2SAT 94–100; BMI 40.6
--- NOTE | 2024-09-29 08:56 | XR_ITS ---
WS: [id number] XR chest 1V portable [id number] REASON FOR EXAM: AMS FINDINGS: The chest is unchanged compared to 03/25/2024. Heart and mediastinum are within normal limits. Mild calcified granulomatous disease bilaterally. No acute pulmonary parenchymal or pleural abnormality is identified. Bony thorax intact without significant focal abnormality. XR/XR chest 1V portable [id number] IMPRESSION: Stable chest with no acute abnormality.
--- NOTE | 2024-09-29 09:12 | ECG_ITS ---
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 Measurements Intervals [place] Rate: 107 P: 50 MI: 184 QRS: 48 QRSD: 94 T: 64 QT: 324 QTc: 433 Interpretive Statements SINUS TACHYCARDIA Compared to ECG 09/24/2024 00:26:36 Sinus rhythm no longer present Electronically Signed On 09-29-2024 10:20:50 CDT by James Montes M.D. [email or web address]
[2024-09-29 09:18] LABS: Glucose Point of Care 313 mg/dL (70-110)
[2024-09-29 09:19] LABS: ABG PCO2 32.6 mmHg (35-45); ABG PH Result 7.38 (7.35-7.45); Alveolar-Arterial Oxygen Gradi 4.2 mmHg (5-10); Arterial Blood Gas Hematocrit 42.8 % (42-52); Base Excess ABG -4.7 mmol/L (-2.0-2.0); Blood Gas Allen Test Pos; Blood Gas Operator Identificat WALCI; Blood Gas Sample Site Radial, right; Blood Gas Sample Type Arterial; Carboxyhemoglobin 0.4 %THgb (0.4-20.1); HCO3 ABG 19.4 mmol/L (22-26); HGB O2 Sat 92.9 % (95-100); Ionized Calcium Level - ABG 1.2 mmol/L (1.1-1.4); Methemoglobin 0.9 % (0.4-1.5); Oxygen Device ROOM AIR; Oxygen Saturation ABG 94.1; PO2 ABG 75.8 mmHg (80.0-100.0); PO2 FiO2 Ratio Arterial Blood 360; Potassium Level - ABG 2.6 mmol/L (3.5-5.0)
[2024-09-29 09:48] LABS: Basophils % 0.5 %; Eosinophils # 0.1 10^3/uL (0.0-0.8); Eosinophils % 1.8 %; Hematocrit 41.6 % (37-53); Lymphocytes # 0.9 10^3/uL (0.8-4.8); Lymphocytes % 15.3 %; Mean Corpuscular HGB Conc 32.7 g/dL (30-55); Mean Corpuscular Hemoglobin 29.9 pg (27-33); Mean Corpuscular Volume 91.4 fl (82-101); Mean Platelet Volume 11.3 fL (7.4-10.4); Monocytes # 0.9 10^3/uL (0.2-0.9); Monocytes % 14.2 %; Neutrophils # 4.11 10^3/uL (1.8-7.7); Neutrophils % 67.1 %; Nucleated Red Blood Cells % 0 %; Platelet Count 228 10^3/cmm (157-399); Red Blood Count 4.55 10^6/uL (3.85-5.65); Red Cell Distribution Width 13.4 % (12.1-15.1); White Blood Count 6.13 10^3/uL (3.29-11.43)
[2024-09-29 10:05] LABS: Ketone (Acetest) Serum Negative (Negative)
[2024-09-29 10:08] LABS: Alanine Aminotransferase 15 U/L (0-41); Albumin Level 4.1 g/dL (3.5-5.2); Alkaline Phosphatase 46 U/L (40-130); Anion Gap 19.7 (5-19); Aspartate Amino Transferase 12 U/L (0-40); Blood Urea Nitrogen 10 mg/dL (6-20); Calcium 9.4 mg/dL (8.5-10.5); Carbon Dioxide 19 mmol/L (22-29); Chloride 99 mmol/L (98-107); Creatinine Clr Calc Pharmacy 259.4913; Globulin 3.7 g/dL (1.3-4.6); Glomerular Filtration Rate 159.3 mL/min (90-130); Glucose 192 mg/dL (65-115); Osmolality Calculated 284 mOsm/kg (285-295); Sodium 135 mmol/L (136-145); Total Bilirubin 0.2 mg/dL (0.15-1.2); Total Protein 7.8 g/dL (6.6-8.7)
[2024-09-29 10:11] LABS: Alcohol Level < 10 mg/dL (0-10); Potassium 2.7 mmol/L (3.5-5.1)
--- NOTE | 2024-09-29 10:20 | W.ED.GENADLT ---
HPI - General Adult General: Chief complaint: Recheck/Abnormal Lab/Rx Stated complaint: hyperglycemia - ams Time Seen by Provider: 09/29/24 08:57 Source: patient and other (retirement caregiver) Mode of arrival: ambulatory Limitations: other (pt with baseline cognitive delay) History of Present Illness: 29-year-old male with a history of type 2 diabetes presents to the ED from his retirement for complaint of hyperglycemia and dizziness. This morning plan of care glucose measured 369, and patient reportedly felt dizzy. Patient denies any GI symptoms including nausea vomiting diarrhea or constipation. He also denies urinary symptoms, chest pain dyspnea, fever or chills. He does report still feeling a bit dizzy but overall improved. No headaches. Caregiver reports normal blood glucose to be 120-140 range. Caregiver also reports the patient having started Ozempic about a week ago and Tessalon Perles for persistent cough. States appetite has decreased since taking the Ozempic. Vitals stable upon arrival. History somewhat limited from patient given his intellectual disability. Caregiver reports patient is at baseline during my examination. Onset (ago): hour(s) Relieving factors: none Exacerbating factors: none Associated symptoms: Deny chest pain, diaphoresis, dyspnea, headache(s), nausea, rash or vomiting Treatments prior to arrival: none Related Data Home Medications ?Medication ?Instructions ?Recorded ?Confirmed metformin 1,000 mg tablet 1,000 mg PO BID@08,06/02/22 09/29/24 hydrochlorothiazide 25 mg tablet 25 mg PO DAILY@08 07/14/22 09/29/24 atorvastatin 20 mg tablet 20 mg PO DAILY 04/30/24 09/29/24 divalproex 500 mg tablet,delayed See Rx Instructions .Route .COMPLEX 05/12/24 09/29/24 release fenofibrate nanocrystallized 145 145 mg PO DAILY 05/12/24 09/29/24 mg tablet glimepiride 1 mg tablet 1 mg PO BID 05/12/24 09/29/24 multivitamin 1 tab PO DAILY 05/12/24 09/29/24 linaclotide 145 mcg capsule 145 mcg PO DAILY 06/25/24 09/29/24 (Linzess) acetaminophen 500 mg tablet 1,000 mg PO Q8H PRN Pain 06/27/24 09/29/24 (Tylenol Extra Strength) benzonatate 100 mg capsule 100 mg PO TID PRN Cough 06/27/24 09/29/24 docusate sodium 100 mg capsule 100 mg PO BID 06/27/24 09/29/24 quetiapine 100 mg tablet (Seroquel) 100 mg PO .NOON 09/29/24 09/29/24 semaglutide 0.25 mg or 0.5 mg (2 0.25 mg SUBCUT Q7D 09/29/24 09/29/24 mg/3 mL) subcutaneous pen injector (Ozempic) Previous Rx's ?Medication ?Instructions ?Recorded topiramate 100 mg tablet 100 mg PO TID@08,12,20 #90 tabs 08/10/22 Diabetic Shoes w/3 x inserts #1 ea 06/25/24 haloperidol 5 mg tablet 5 mg PO DAILY PRN agitation #30 07/18/24 tabs quetiapine 300 mg tablet (Seroquel) 300 mg PO BID #60 tabs 08/19/24 potassium chloride 20 mEq 20 meq PO QID 2 days #8 tabs 09/29/24 tablet,extended release (K-Tab) Allergies Allergy/AdvReac Type Severity Reaction Status Date / Time olanzapine Allergy Unknown Verified 09/29/24 09:19 risperidone Allergy Unknown Verified 09/29/24 09:19 Review of Systems Const: Reports: change in appetite (Decreased); Denies: fever(s), chills, body aches, fatigue or diaphoresis Eyes: Denies: change in vision Card: Denies: chest pain Resp: Reports: non-productive cough (Occasional); Denies: dyspnea GI: Denies: abdominal pain, nausea, vomiting or change in bowel habits : Denies: urinary frequency or urinary urgency Musc: Denies: neck pain, back pain, extremity pain, extremity swelling or joint swelling Skin/Breast: Denies: rash Neuro: Reports: dizziness; Denies: headache(s), numbness in extremities, weakness in extremities, sensory changes, frequent falls or seizure-like activity Endo: Denies: polyuria, polydipsia or excessive sweating PFS ED PFSH: Medical History Psychiatric care Nicotine dependence, cigarettes, uncomplicated Intermittent explosive disorder On valproic acid therapy Bipolar disorder, unspecified Attention-deficit hyperactivity disorder, combined type Generalized anxiety disorder Social History Smoking and tobacco/nicotine status: current every day tobacco/nicotine user cigarettes Packs smoked per day: 2 Physical Exam Narrative: EXAM NARRATIVE: Patient Const: COMMON NORMALS: no acute distress, patient oriented x3, alert and well nourished EXAM LIMITATIONS: other limitations (Developmental) GENERAL APPEARANCE: cooperative and comfortable NUTRITIONAL APPEARANCE: obese HENMT: COMMON NORMALS: normocephalic and atraumatic HEAD & SCALP: normal to inspection, normocephalic and atraumatic Eye: COMMON NORMALS: Equal, round and reactive pupils present, EOMs intact bilaterally and conjunctivae normal CONJUNCTIVA: Yes conjunctivae normal PUPIL: Yes Equal, round and reactive pupils present Neck/C-Spine: COMMON NORMALS: full ROM, no lymphadenopathy and no meningeal signs Resp: COMMON NORMALS: normal respiratory effort AUSCULTATION: wheezes expiratory wheezes OTHER: course lung sounds-improved with coughing; patient is an everyday smoker Cardio: COMMON NORMALS: regular rate, regular rhythm, S1 normal heart sound present and S2 normal heart sound present RATE: regular rate RHYTHM: regular rhythm HEART SOUNDS: S1 normal heart sound present and S2 normal heart sound present GI: COMMON NORMALS: Normal to inspection, nondistended, normoactive bowel sounds present, Soft to palpation and non-tender PALPATION: Yes Soft to palpation Back/Pelvis: COMMON NORMALS: thoracic and lumbar spine normal to inspection and no thoracic nor lumbar tenderness Extremity: COMMON NORMALS: normal to inspection, capillary refill normal, no clubbing, cyanosis or edema, no calf tenderness and no pedal edema GENERAL: Yes normal exam except as noted Neuro: COMMON NORMALS: patient oriented x3, CN's II-XII intact bilaterally, moves all extremities and no focal motor deficits SENSORIUM/ORIENTATION: Yes alert MENINGEAL SIGNS: Yes no meningeal signs Psych: COMMON NORMALS: mental status grossly normal, cooperative and normal affect Skin: COMMON NORMALS: no rashes or lesions noted GENERAL SKIN EXAM: no rashes or lesions noted Course Vital Signs: Vital signs: Vital Signs Temperature 99.3 F 09/29/24 09:06 Pulse Rate 94 09/29/24 12:00 Respiratory Rate 16 09/29/24 12:00 Blood Pressure 138/93 09/29/24 12:00 Pulse Oximetry 99 09/29/24 12:00 Oxygen Delivery Me thod Room Air 09/29/24 09:06 MDM - General Adult Medical Decision Making Patient is a 29-year-old male here for episodes of hyperglycemia while at home. He states he takes metformin and recently placed on Ozempic. Looks like he is also taking glimepiride. Blood sugars were over 300 this morning. On his CMP blood sugars were 192. He received IV fluids for this. Withheld insulin as he had a critically low potassium of 2.7. This was supplemented with PO and IV potassium. He did not want to stay for the completion of his IV potassium therefore we will place him on additional PO potassium over the next 2 days. Blood sugars continuing to trend downward at time of discharge. He states he feels better. Patient will be encouraged to follow-up with his primary care provider to have potassium rechecked later this week. Medical Records I reviewed the patient's medical records. Lab Data I reviewed the patient's lab results. 09/29/24 09:42 09/29/24 09:42 Radiology Impressions Chest X-Ray 09/29/24 08:56 IMPRESSION: Stable chest with no acute abnormality. Laboratory Results WBC 6.13 10^3/uL (3.29-11.43) 09/29/24 09:42 RBC 4.55 10^6/uL (3.85-5.65) 09/29/24 09:42 Hgb 13.60 g/dL (11.27-16.99) 09/29/24 09:42 Hct 41.6 % (37-53) 09/29/24 09:42 MCV 91.4 fl (82-101) 09/29/24 09:42 MCH 29.9 pg (27-33) 09/29/24 09:42 MCHC 32.7 g/dL (30-55) 09/29/24 09:42 RDW 13.4 % (12.1-15.1) 09/29/24 09:42 Plt Count 228 10^3/cmm (157-399) 09/29/24 09:42 MPV 11.3 fL (7.4-10.4) H 09/29/24 09:42 Neut % (Auto) 67.1 % 09/29/24 09:42 Lymph % (Auto) 15.3 % 09/29/24 09:42 [place] % (Auto) 14.2 % 09/29/24 09:42 Eos % (Auto) 1.8 % 09/29/24 09:42 Baso % (Auto) 0.5 % 09/29/24 09:42 Neut # (Auto) 4.11 10^3/uL (1.8-7.7) 09/29/24 09:42 Lymph # (Auto) 0.9 10^3/uL (0.8-4.8) 09/29/24 09:42 [place] # (Auto) 0.9 10^3/uL (0.2-0.9) 09/29/24 09:42 Eos # (Auto) 0.1 10^3/uL (0.0-0.8) 09/29/24 09:42 Baso # (Auto) 0.0 10^3/uL (0.0-0.1) 09/29/24 09:42 Nucleated RBC % (auto) 0 % 09/29/24 09:42 Nucleated RBCs # 0.0 /100WBC 09/29/24 09:42 Specimen Type Arterial 09/29/24 09:08 Sample Site Radial, right 09/29/24 09:08 ABG pH 7.38 (7.35-7.45) 09/29/24 09:08 ABG pCO2 32.6 mmHg (35-45) L 09/29/24 09:08 ABG pO2 75.8 mmHg (80.0-100.0) L 09/29/24 09:08 ABG PO2/FiO2 Ratio 360 09/29/24 09:08 ABG HCO3 19.4 mmol/L (22-26) L 09/29/24 09:08 ABG O2 Saturation 94.1 09/29/24 09:08 ABG Base Excess -4.7 mmol/L (-2.0-2.0) L 09/29/24 09:08 Scot Test Pos 09/29/24 09:08 A-a O2 Gradient 4.2 mmHg (5-10) L 09/29/24 09:08 Hematocrit 42.8 % (42-52) 09/29/24 09:08 Hgb O2 Saturation 92.9 % (95-100) L 09/29/24 09:08 Carboxyhemoglobin 0.4 %THgb (0.4-20.1) 09/29/24 09:08 Methemoglobin 0.9 % (0.4-1.5) 09/29/24 09:08 Total Hemoglobin 14.0 g/dL (14-18) 09/29/24 09:08 Sodium 139.0 mmol/L (131-143) 09/29/24 09:08 Potassium 2.6 mmol/L (3.5-5.0) L 09/29/24 09:08 Glucose 249.0 mg/dL (70-115) H 09/29/24 09:08 Ionized Calcium 1.2 mmol/L (1.1-1.4) 09/29/24 09:08 O2 Delivery Device Room air 09/29/24 09:08 FiO2 21.0 % 09/29/24 09:08 Pattern Data Operator ID [place] 09/29/24 09:08 Sodium 135 mmol/L (136-145) L 09/29/24 09:42 Potassium 2.7 mmol/L (3.5-5.1) L* 09/29/24 09:42 Chloride 99 mmol/L (98-107) 09/29/24 09:42 Carbon Dioxide 19 mmol/L (22-29) L 09/29/24 09:42 Anion Gap 19.7 (5-19) H 09/29/24 09:42 BUN 10 mg/dL (6-20) 09/29/24 09:42 Creatinine 0.6 mg/dL (0.7-1.2) L 09/29/24 09:42 GFR Calculation 159.3 mL/min (90-130) H 09/29/24 09:42 Glucose 192 mg/dL (65-115) H 09/29/24 09:42 POC Glucose 313 mg/dL (70-110) H 09/29/24 09:10 Calculated Osmolality 284 mOsm/kg (285-295) L 09/29/24 09:42 Calcium 9.4 mg/dL (8.5-10.5) 09/29/24 09:42 Magnesium 2.0 mg/dL (1.7-2.3) 09/29/24 09:42 Total Bilirubin 0.2 mg/dL (0.15-1.2) 09/29/24 09:42 AST 12 U/L (0-40) 09/29/24 09:42 ALT 15 U/L (0-41) 09/29/24 09:42 Alkaline Phosphatase 46 U/L (40-130) 09/29/24 09:42 Total Protein 7.8 g/dL (6.6-8.7) 09/29/24 09:42 Albumin 4.1 g/dL (3.5-5.2) 09/29/24 09:42 Globulin 3.7 g/dL (1.3-4.6) 09/29/24 09:42 Ethyl Alcohol < 10 mg/dL (0-10) 09/29/24 09:42 Serum Ketones Negative (Negative) 09/29/24 09:42 All radiology interpretation(s) finalized by discharge Discharge Plan Discharge Patient Disposition: Home Clinical Impression: Hyperglycemia, Hyponatremia Condition: Stable Prescriptions: New potassium chloride [K-Tab] 20 mEq tablet extended release 20 meq PO QID 2 Days Qty: 8 0RF No Action fenofibrate nanocrystallized 145 mg tablet 145 mg PO DAILY acetaminophen [Tylenol Extra Strength] 500 mg tablet 1,000 mg PO Q8H PRN (Reason: Pain) atorvastatin 20 mg tablet 20 mg PO DAILY docusate sodium 100 mg capsule 100 mg PO BID divalproex 500 mg tablet,delayed release (DR/EC) See Rx Instructions .ROUTE .COMPLEX Dose Instruction: TAKE TWO TABLETS BY MOUTH at EIGHT IN THE MORNING and TWO IN THE EVENING and take ONE tablet at EIGHT IN THE EVENING Rx Instructions: TAKE TWO TABLETS BY MOUTH at EIGHT IN THE MORNING and TWO IN THE EVENING glimepiride 1 mg tablet 1 mg PO BID multivitamin Tablet 1 tab PO DAILY haloperidol 5 mg tablet 5 mg PO DAILY PRN (Reason: agitation) Qty: 30 0RF Linzess 145 mcg capsule 145 mcg PO DAILY (DME) Diabetic Shoes w/3 x inserts See Rx Instructions .Route .MEDSUPPLY Qty: 1 0RF Rx Instructions: As directed By the Sury Constantino 3 x inserts benzonatate 100 mg capsule 100 mg PO TID PRN (Reason: Cough) topiramate 100 mg tablet 100 mg PO TID@08,12,20 Qty: 90 1RF quetiapine [Seroquel] 300 mg tablet 300 mg PO BID Qty: 60 2RF metformin 1,000 mg tablet 1,000 mg PO BID@08,20 Ozempic 0.25 mg or 0.5 mg (2 mg/3 mL) pen injector 0.25 mg SUBCUT Q7D quetiapine [Seroquel] 100 mg tablet 100 mg PO .NOON hydrochlorothiazide 25 mg tablet 25 mg PO DAILY@08 Discharge Orders: Discharge ED (Routine); Ordered 09/29/24 Ordered By: Yadira Alberts Referrals: Beatriz Loza DO [Primary Care Provider, [facility]] Patient Instructions: Hyperglycemia, Hypokalemia (ED) Activity Restrictions/Additional Instructions: As we discussed, potassium was critically low here at 2.7. He was given oral and IV supplementation although he did not want to stay for the completion of the IV potassium. Will place him on additional oral potassium over the next 2 days. Please plan to have his potassium checked through his primary care office later this week. Blood sugars trending downward after IV fluids. Continue to keep glucose log and follow-up with primary care slightly and adjust medications based on these. Print Language: Australian Coding Level of Care Code ED Trigonometry Tutor for Caron Crane
[2024-09-29] MEDS: potassium chloride oral liq 20 mEq/15 mL UDC 40 MEQ PO (10:56)
[2024-09-29] MEDS: sodium chloride 0.9% 1,000 ML 999 ML IV (10:56)
[2024-09-29] MEDS: lidocaine 1% 5 ML in potassium chloride premix 100 ML 52.5 ML IV (10:56)
--- NOTE | 2024-09-29 11:21 | PC.PHAR ---
Pt has [facility] for care. Guardian has a current medication list.
== END 2024-09-29 13:02 | disposition home or self-care (01) ==
PROVIDERS: Emergency Provider Physician Assistant; PCP Family Medicine
DX: R73.9 Hyperglycemia, unspecified (principal); F17.210 Nicotine dependence, cigarettes, uncomplicated; E87.1 Hypo-osmolality and hyponatremia; Z79.84 Long term (current) use of oral hypoglycemic drugs
CPT/HCPCS: 36416; 36600; 71045; 80051; 80053; 80307; 82009; 82330; 82805; 82962; 83735; 85025; 93005; 96374; 99285; J3480; J7030; J9999

== ENCOUNTER 2024-10-08 18:22 | Emergency (ER) | payer MEDICAID, SELFPAY ==
[2024-10-08 18:29] VITALS: BP 128/80; PULSE 104; RESP 16; TEMP 36.4; O2SAT 97; BMI 37.3
[2024-10-08 18:46] LABS: Glucose Point of Care 340 mg/dL (70-110)
--- NOTE | 2024-10-08 20:23 | CTR_ITS ---
PROCEDURE INFORMATION: Exam: CT Head Without Contrast Exam date and time: 10/08/2024 8:27 PM Age: 29 years old Clinical indication: Injury or trauma; Fall; Blunt trauma (contusions or hematomas); Without loss of consciousness; Additional info: Fall, head injury TECHNIQUE: Imaging protocol: Computed tomography of the head without contrast. Radiation optimization: All CT scans at this facility use at least one of these dose optimization techniques: automated exposure control; mA and/or kV adjustment per patient size (includes targeted exams where dose is matched to clinical indication); or iterative reconstruction. COMPARISON: CT head wo con* [id number] 12/13/2023 1:41 PM RADIATION DOSE METRICS: Total DLP (mGy-cm): 1157.28 FINDINGS: Brain: No hemorrhage. Unremarkable white matter. No mass effect. Preserved hamm-white interfaces. Cerebral ventricles: No ventriculomegaly. Paranasal sinuses: See Bones finding. Mastoid air cells: Visualized mastoid air cells are well aerated. Bones: There is mucosal thickening in the ethmoid, sphenoid, and frontal sinuses. There is extensive calvarial thickening which is most prominent in the bifrontal regions, unchanged from prior. No acute fracture or destructive bony lesion. Soft tissues: Unremarkable. CT/CT head wo con* [id number] IMPRESSION: 1. No evidence of acute intracranial hemorrhage, mass effect, or edema. 2. Ethmoid, frontal, and sphenoid sinus disease appears chronic.
--- NOTE | 2024-10-08 20:33 | W.ED.FALL ---
HPI - Fall General: Chief Complaint: Fall Stated Complaint: Blood Sug over 300 fall hit head legs swollen pain Time Seen by Provider: 10/08/24 20:19 History of Present Illness: 29-year-old man with a history of developmental delay/learning disability, psychiatric issues, obesity, and diabetes who presents emergency room after having a fall and also noting that he is hyperglycemic. He hit his forehead. No loss of consciousness. No altered mental status. No focal motor deficits. No chest pain. No shortness of breath. No nausea or vomiting. No abdominal pain. He says he also hit his knees. Mild abrasions. Is able to walk. Related Data Home Medications ?Medication ?Instructions ?Recorded ?Confirmed metformin 1,000 mg tablet 1,000 mg PO BID@06/02/22 09/29/24 hydrochlorothiazide 25 mg tablet 25 mg PO DAILY@07/14/22 09/29/24 atorvastatin 20 mg tablet 20 mg PO DAILY 04/30/24 09/29/24 divalproex 500 mg tablet,delayed See Rx Instructions .Route .COMPLEX 05/12/24 09/29/24 release fenofibrate nanocrystallized 145 145 mg PO DAILY 05/12/24 09/29/24 mg tablet glimepiride 1 mg tablet 1 mg PO BID 05/12/24 09/29/24 multivitamin 1 tab PO DAILY 05/12/24 09/29/24 linaclotide 145 mcg capsule 145 mcg PO DAILY 06/25/24 09/29/24 (Linzess) acetaminophen 500 mg tablet 1,000 mg PO Q8H PRN Pain 06/27/24 09/29/24 (Tylenol Extra Strength) benzonatate 100 mg capsule 100 mg PO TID PRN Cough 06/27/24 09/29/24 docusate sodium 100 mg capsule 100 mg PO BID 06/27/24 09/29/24 quetiapine 100 mg tablet (Seroquel) 100 mg PO .NOON 09/29/24 09/29/24 semaglutide 0.25 mg or 0.5 mg (2 0.25 mg SUBCUT Q7D 09/29/24 09/29/24 mg/3 mL) subcutaneous pen injector (Ozempic) Previous Rx's ?Medication ?Instructions ?Recorded topiramate 100 mg tablet 100 mg PO TID@08,,20 #90 tabs 08/10/22 Diabetic Shoes w/3 x inserts #1 ea 06/25/24 haloperidol 5 mg tablet 5 mg PO DAILY PRN agitation #30 07/18/24 tabs quetiapine 300 mg tablet (Seroquel) 300 mg PO BID #60 tabs 08/19/24 Allergies Allergy/AdvReac Type Severity Reaction Status Date / Time olanzapine Allergy Unknown Verified 10/08/24 18:36 risperidone Allergy Unknown Verified 10/08/24 18:36 Review of Systems Narrative: Constitutional symptoms: Negative except as documented in HPI. Skin symptoms: Negative except as documented in HPI. Eye symptoms: Negative except as documented in HPI. ENMT symptoms: Negative except as documented in HPI. Respiratory symptoms: Negative except as documented in HPI. Cardiovascular symptoms: Negative except as documented in HPI. Gastrointestinal symptoms: Negative except as documented in HPI. Genitourinary symptoms: Negative except as documented in HPI. Musculoskeletal symptoms: Negative except as documented in HPI. Neurologic symptoms: Negative except as documented in HPI. Psychiatric symptoms: Negative except as documented in HPI. Endocrine symptoms: Negative except as documented in HPI. PFSH ED PFSH: Medical History Psychiatric care Nicotine dependence, cigarettes, uncomplicated Intermittent explosive disorder On valproic acid therapy Bipolar disorder, unspecified Attention-deficit hyperactivity disorder, combined type Generalized anxiety disorder Social History Smoking and tobacco/nicotine status: current every day tobacco/nicotine user cigarettes Packs smoked per day: 2 Physical Exam Narrative: EXAM NARRATIVE: General: Alert, no acute distress. Skin: Warm, dry. Head: Normocephalic, atraumatic. Neck: Supple, trachea midline. Eye: Extraocular movements are intact. Ears, nose, mouth and throat: mucosa moist. Cardiovascular: Regular, Normal peripheral perfusion. Respiratory: Lungs are clear to auscultation, respirations are non-labored, breath sounds are equal, Symmetrical chest wall expansion. Gastrointestinal: Soft, Nontender, Non distended Musculoskeletal: Normal ROM, no deformity. Neurological: Alert and oriented, No focal neurological deficit observed. Psychiatric: Cooperative, appropriate mood & affect. Course Vital Signs: Vital signs: Vital Signs Temperature 97.6 F 10/08/24 18:29 Pulse Rate 87 10/08/24 21:41 Respiratory Rate 16 10/08/24 18:29 Blood Pressure 130/83 10/08/24 21:41 Pulse Oximetry 98 10/08/24 21:41 Oxygen Delivery Me thod Room Air 10/08/24 18:29 MDM - Fall Medical Decision Making Medical decision making: Differential diagnosis for the patient with hyperglycemia would include but not be limited to and would be based on the above HPI review of systems and physical exam: DKA. Dehydration. Renal failure. Concern for electrolyte abnormalities. Concern for underlying infection that might result in hyperglycemia. Medical non-compliance. Orders placed to evaluate differential diagnosis of the patient with hyperglycemia are based on the above differential, HPI and physical exam. CT head: No acute intracranial process. no intracranial hemorrhage, no evidence of infarct. no evidence of acute fracture.This was reviewed and interpreted by myself the ER physician. Lab Review: Laboratory results were reviewed and interpreted by myself the emergency room physician. No leukocytosis. No anemia. No renal failure. Glucose is elevated at 313. Urinalysis negative for infection but is quite concentrated at 1.036. I reviewed the patient's medical record. Reexamination: Patient remained stable. No increased work of breathing. No altered mental status. No focal motor deficits. Assessment and plan: Fall Head injury Hyperglycemia Dehydration ? IV normal saline bolus in the emergency room - Discharged home - Discussed plan with patient. Answered any questions. - Evaluation and treatment of this problem were appropriate in the emergency setting. Lab Data 10/08/24 20:42 10/08/24 21:[address] 10/08/24 20:23 IMPRESSION: 1. No evidence of acute intracranial hemorrhage, mass effect, or edema. 2. Ethmoid, frontal, and sphenoid sinus disease appears chronic. Laboratory Results WBC 4.68 10^3/uL (3.29-11.43) 10/08/24 20:42 RBC 4.69 10^6/uL (3.85-5.65) 10/08/24 20:42 Hgb 14.00 g/dL (11.27-16.99) 10/08/24 20:42 Hct 42.5 % (37-53) 10/08/24 20:42 MCV 90.6 fl (82-101) 10/08/24 20:42 MCH 29.9 pg (27-33) 10/08/24 20: MCHC 32.9 g/dL (30-55) 10/08/24 20: RDW 13.2 % (12.1-15.1) 10/08/24 20: Plt Count 238 10^3/cmm (157-399) 10/08/24 20:42 MPV 11.9 fL (7.4-10.4) H 10/08/24 20:42 Neut % (Auto) 52.7 % 10/08/24 20: Lymph % (Auto) 32.5 % 10/08/24 20:42 [place] % (Auto) 9.4 % 10/08/24 20: Eos % (Auto) 2.8 % 10/08/24 20: Baso % (Auto) 0.9 % 10/08/24 20: Neut # (Auto) 2.47 10^3/uL (1.8-7.7) 10/08/24 20: Lymph # (Auto) 1.5 10^3/uL (0.8-4.8) 10/08/24 20:42 [place] # (Auto) 0.4 10^3/uL (0.2-0.9) 10/08/24 20: Eos # (Auto) 0.1 10^3/uL (0.0-0.8) 10/08/24 20: Baso # (Auto) 0.0 10^3/uL (0.0-0.1) 10/08/24 20: Nucleated RBC % (auto) 0 % 10/08/24 20: Nucleated RBCs # 0.0 /100WBC 10/08/24 20:42 Sodium 138 mmol/L (136-145) 10/08/24 21:14 Potassium 3.7 mmol/L (3.5-5.1) 10/08/24 21:14 Chloride 102 mmol/L (98-107) 10/08/24 21:14 Carbon Dioxide 24 mmol/L (22-29) 10/08/24 21:14 Anion Gap 15.7 (5-19) 10/08/24 21:14 BUN 14 mg/dL (6-20) 10/08/24 21:14 Creatinine 0.7 mg/dL (0.7-1.2) 10/08/24 21:14 GFR Calculation 133.3 mL/min (90-130) H 10/08/24 21:14 Glucose 313 mg/dL (65-115) H 10/08/24 21:14 POC Glucose 340 mg/dL (70-110) H 10/08/24 18:33 Calculated Osmolality 298 mOsm/kg (285-295) H 10/08/24 21:14 Lactic Acid 1.8 mmol/L (0.5-2.2) 10/08/24 21:14 Calcium 9.1 mg/dL (8.5-10.5) 10/08/24 21:14 Total Bilirubin 0.2 mg/dL (0.15-1.2) 10/08/24 21:14 AST 13 U/L (0-40) 10/08/24 21:14 ALT 15 U/L (0-41) 10/08/24 21:14 Alkaline Phosphatase 50 U/L (40-130) 10/08/24 21:14 Total Protein 7.6 g/dL (6.6-8.7) 10/08/24 21:14 Albumin 4.1 g/dL (3.5-5.2) 10/08/24 21:14 Globulin 3.5 g/dL (1.3-4.6) 10/08/24 21:14 Urine Color Yellow (Yellow) 10/08/24 20:53 Urine Appearance Cloudy (CLEAR) A 10/08/24 20:53 Urine pH 7.0 (5-7) 10/08/24 20:53 Ur Specific [place] 1.036 (1.005-1.030) H 10/08/24 20:53 Urine Protein Negative (Negative) 10/08/24 20:53 Urine Glucose (UA) 3+ (Normal) H 10/08/24 20:53 Urine Ketones Negative (Negative) 10/08/24 20:53 Urine Blood Negative (Negative) 10/08/24 20:53 Urine Nitrate Negative (Negative) 10/08/24 20:53 Urine Bilirubin Negative (Negative) 10/08/24 20:53 Urine Urobilinogen 1.0 mg/dL (Negative) 10/08/24 20:53 Ur Leukocyte Esterase Negative (Negative) 10/08/24 20:53 Urine RBC 0-2 /hpf (0-2) 10/08/24 20:53 Urine WBC 0-5 /hpf (0-5) 10/08/24 20:53 Ur Squamous Epith Cells 0-5 /hpf (0-5) 10/08/24 20:53 Amorphous Sediment Not Reportable 10/08/24 20:53 Urine Bacteria None seen /hpf (NONE) 10/08/24 20:53 Hyaline Casts 0-4 /lpf H 10/08/24 20:53 Serum Ketones Negative (Negative) 10/08/24 21:14 All radiology interpretation(s) finalized by discharge Discharge Plan Discharge Patient Disposition: Home Clinical Impression: Hyperglycemia, Dehydration, Head injury, Fall Condition: Stable Prescriptions: No Action fenofibrate nanocrystallized 145 mg tablet 145 mg PO DAILY acetaminophen [Tylenol Extra Strength] 500 mg tablet 1,000 mg PO Q8H PRN (Reason: Pain) atorvastatin 20 mg tablet 20 mg PO DAILY docusate sodium 100 mg capsule 100 mg PO BID divalproex 500 mg tablet,delayed release (DR/EC) See Rx Instructions .ROUTE .COMPLEX Dose Instruction: TAKE TWO TABLETS BY MOUTH at EIGHT IN THE MORNING and TWO IN THE EVENING and take ONE tablet at EIGHT IN THE EVENING Rx Instructions: TAKE TWO TABLETS BY MOUTH at EIGHT IN THE MORNING and TWO IN THE EVENING glimepiride 1 mg tablet 1 mg PO BID multivitamin Tablet 1 tab PO DAILY haloperidol 5 mg tablet 5 mg PO DAILY PRN (Reason: agitation) Qty: 30 0RF Linzess 145 mcg capsule 145 mcg PO DAILY (DME) Diabetic Shoes w/3 x inserts See Rx Instructions .Route .MEDSUPPLY Qty: 1 0RF Rx Instructions: As directed By the Sury Constantino 3 x inserts benzonatate 100 mg capsule 100 mg PO TID PRN (Reason: Cough) topiramate 100 mg tablet 100 mg PO TID@08,12,20 Qty: 90 1RF quetiapine [Seroquel] 300 mg tablet 300 mg PO BID Qty: 60 2RF metformin 1,000 mg tablet 1,000 mg PO BID@08,20 Ozempic 0.25 mg or 0.5 mg (2 mg/3 mL) pen injector 0.25 mg SUBCUT Q7D quetiapine [Seroquel] 100 mg tablet 100 mg PO .NOON hydrochlorothiazide 25 mg tablet 25 mg PO DAILY@08 Discharge Orders: Discharge ED (Routine); Ordered 10/08/24 Ordered By: Patience Diaz Referrals: Jaiden Miranda MD [Primary Care Provider, Family Practice] Discharge Diet: Usual diet Discharge Activity: Increase activity as tolerated Patient Instructions: Diabetic Hyperglycemia (ED), Opioid Safety, Pain Management Activity Restrictions/Additional Instructions: Thank you for choosing [facility] for your healthcare needs today. You have been screened and evaluated and felt safe for discharge. Health conditions do change or evolve sometimes and as such it is important that you follow up with your Primary Doctor to be re checked, 3-5 days is a general good time frame for follow up. You are always welcome to return to the ED for re assessment if your symptoms are worsening or you have new concerns Print Language: Chinese Coding Level of Care Code ED Pin Pusher for Caron Crane
[2024-10-08 20:54] LABS: Basophils % 0.9 %; Eosinophils # 0.1 10^3/uL (0.0-0.8); Eosinophils % 2.8 %; Hematocrit 42.5 % (37-53); Lymphocytes # 1.5 10^3/uL (0.8-4.8); Lymphocytes % 32.5 %; Mean Corpuscular HGB Conc 32.9 g/dL (30-55); Mean Corpuscular Hemoglobin 29.9 pg (27-33); Mean Corpuscular Volume 90.6 fl (82-101); Mean Platelet Volume 11.9 fL (7.4-10.4); Monocytes # 0.4 10^3/uL (0.2-0.9); Monocytes % 9.4 %; Neutrophils # 2.47 10^3/uL (1.8-7.7); Neutrophils % 52.7 %; Nucleated Red Blood Cells % 0 %; Platelet Count 238 10^3/cmm (157-399); Red Blood Count 4.69 10^6/uL (3.85-5.65); Red Cell Distribution Width 13.2 % (12.1-15.1); White Blood Count 4.68 10^3/uL (3.29-11.43)
[2024-10-08 20:59] LABS: Bilirubin Urine Negative (Negative); Blood Urine Negative (Negative); Glucose Urine UA 3+ (Normal); Ketones Urine Negative (Negative); Leukocyte Esterase Urine Negative (Negative); Nitrate Urine Negative (Negative); Protein Urine Negative (Negative); Urine Appearance Cloudy (CLEAR); Urine Color Yellow (Yellow)
[2024-10-08 21:02] LABS: Bacteria Urine None Seen /hpf; Hyaline Casts Urine 0-4 /lpf; RBC Urine 0-2 /hpf (0-2); Squamous Epithelial Cell Urine 0-5 /hpf (0-5); WBC Urine 0-5 /hpf (0-5)
[2024-10-08 21:04] LABS: Specific Gravity, Urine 1.036 (1.005-1.030)
[2024-10-08 21:33] LABS: Ketone (Acetest) Serum Negative (Negative)
[2024-10-08] MEDS: sodium chloride 0.9% 1,000 ML 999 ML IV (21:36)
[2024-10-08] MEDS: insulin regular-human 100 units/1 mL 10 UNIT IVP (21:37)
[2024-10-08 21:40] LABS: Alanine Aminotransferase 15 U/L (0-41); Albumin Level 4.1 g/dL (3.5-5.2); Alkaline Phosphatase 50 U/L (40-130); Anion Gap 15.7 (5-19); Aspartate Amino Transferase 13 U/L (0-40); Blood Urea Nitrogen 14 mg/dL (6-20); Calcium 9.1 mg/dL (8.5-10.5); Carbon Dioxide 24 mmol/L (22-29); Chloride 102 mmol/L (98-107); Creatinine Clr Calc Pharmacy 212.4311; Globulin 3.5 g/dL (1.3-4.6); Glomerular Filtration Rate 133.3 mL/min (90-130); Glucose 313 mg/dL (65-115); Osmolality Calculated 298 mOsm/kg (285-295); Potassium 3.7 mmol/L (3.5-5.1); Sodium 138 mmol/L (136-145); Total Bilirubin 0.2 mg/dL (0.15-1.2); Total Protein 7.6 g/dL (6.6-8.7)
[2024-10-08 21:41] VITALS: BP 130/83; PULSE 87; O2SAT 98
[2024-10-08 21:41] LABS: Lactic Sepsis W/Reflex 1.8 mmol/L (0.5-2.2)
[2024-10-08 22:47] VITALS: BP 147/88; PULSE 95; O2SAT 99
== END 2024-10-08 22:50 | disposition home or self-care (01) ==
PROVIDERS: Emergency Provider Emergency Medicine; PCP Family Medicine
DX: R73.9 Hyperglycemia, unspecified (principal); E86.0 Dehydration; S09.90XA Unspecified injury of head, initial encounter; Z79.84 Long term (current) use of oral hypoglycemic drugs; F17.210 Nicotine dependence, cigarettes, uncomplicated; W19.XXXA Unspecified fall, initial encounter
CPT/HCPCS: 36415; 36416; 70450; 80053; 81001; 82009; 82962; 83605; 85025; 96374; 99285; J1815; J7030

== ENCOUNTER 2024-12-02 08:31 | Emergency (ER) | payer MEDICAID, SELFPAY ==
--- OUTSIDE RECORDS SUMMARY | 2021-05-05 05:30 | XMS_ITS | Continuity of Care Document ---
Author Organization [facility] Address [address] [id number][place] [address] Phone Care Team Providers Care Consultant Nurse Name Role Phone Yesy Childs DDS Unavailable [...] Diagnoses Date Provider Providers Copied on Encounter [facility], [id number] 898079CT-Xv [place], [place], [address], [place] tel:[phone] [facility] Encounter for dental exam and cleaning w/o abnormal findings 1 Amadeo Hayward Beth. [address], [place], [address], [place]. tel:[phone] Referring Provider: CasiAmy Childs, [address] [place], [address] . tel:[phone] [facility], [id number] 314658EL-[place], [address], [place] tel:[phone] [facility] No Information 1 Amadeo Casi. [address], [place], [address], [place]. tel:[phone] Referring Provider: Casi Jackson, [address] [place], [address] . tel:[phone] [facility], [id number] 879823NY[place], [address], [place] tel:[phone] [facility] Encounter for dental exam and cleaning w/o abnormal findings 1 No Information Family History Family Member Type Diagnosis Age At Onset No Information Payers Payer name Insurance type Covered libertarian ID Edgarvladislav supa(s) D Medicaid [id number] Social History Type Description Quantity Date Captured [...]
--- OUTSIDE RECORDS SUMMARY | 2024-12-02 08:34 | XMS_ITS | Data Portability ---
Author Organization [facility] Address [address] [place] [phone] Care Team Providers Care Reservations And Ticketing Agent Name Role Phone RENETTA MIRANDA Primary Care Provider Assessment No assessment recorded. Plan of Treatment Reminders Order Date Submit Date Provider Last Modified By Organization Details Last Modified Time Details Appointments OFFICE VISIT 15 2024 10:00A M Renetta Miranda MD Not available Not available Not available Lab HbA1c (hemoglob in A1c), blood [address] [facility], [address] [facility] [address], [place], [address], 11/30/2024 20:10:48 Referral None recorded. Procedures None recorded. Surgeries None recorded. Imaging None recorded. Medication Orders Ozempic 1 mg/dose (4 mg/3 mL) subcutane ous pen injector 2024 025 [facility], [address], [place], [address], 11/25/2024 11:51:57 Flonase Allergy Relief 50 mcg/actua tion nasal spray,elif pension 2024 025 [facility] [employer] [facility] [address], [place], [address], 10/02/2024 12:48:17 cetirizin e 10 mg tablet 2024 025 [facility] [employer] [facility] [address], [address], 10/02/2024 12:48:17 Ozempic 0.25 mg or 0.5 mg (2 mg/1.5 mL) subcutane ous pen injector 2024 025 [facility], [address], [place], [address], 10/01/2024 17:41:34 Patient TargetsNo targets recorded. Patient InstructionsNo instructions recorded. Reason for Referral None Reported. Results Created Date Observation Date Name Description Value Unit Range Abnormal Flag Note LastModifiedBy Organization Detail LastModifiedTime 11/22/1911/21/2024 HBA1C hemaglobin A1C 7.5 4.2-6. 5 high Not Available [facility] [address] [facility] [address], [place], [address], 11/21/2024 12:58:56 Result Notes None recorded. Problems Name Problem SNOMED Code Status Onset Date Resolution Date Notes Provider Name and Address Organization Details Recorded Time Moderate intellec tual disabili ty 08267672 Active 2023 Maria Guadalupe wynn [facility] 14:44:02 Obesity 748257022 Active 2023 Maria Guadalupe wynn [facility] 14:44:09 Metaboli c syndrome X 965082876 Active 2023 Maria Guadalupe wynn [facility] 14:44:25 Bipolar disorder 11983264 Active 2023 Maria Guadalupe wynn [facility] 14:42:09 Phonolog ical disorder 831044660 Active 2023 Maria Guadalupe wynn [facility], [facility] 14:45:13 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 27991342 Active 2023 Maria Guadalupe wynn [facility] 14:44:47 Cellulit is of left lower limb 86311702738 504286 Completed 202307/31/2024 Maria Guadalupe wynn, [facility], [facility] 14:42:28 Bilatera l lower limb edema 186187352 Active 2023 Maria Guadalupe wynn, [facility], [facility] 14:42:03 Type 2 diabetes mellitus 75875851 Active 2023 Maria Guadalupe wynn, [facility], [facility] 14:44:53 Dysuria 54781075 Active 2023 Maria Guadalupe wynn, [facility], [facility] 14:43:23 Chronic pain 22649772 Active 2023 Maria Guadalupe wynn, [facility], [facility] 14:43:13 Onychomy cosis of toenails 911899865 Active 2023 Maria Guadalupe wynn, [facility], [facility] 14:45:06 [facility]ia l hyperten jordan 68972961 Active 2023 Maria Guadalupe wynn, [facility], [facility] 14:43:39 Chronic constipa tion 852810424 Completed 202407/31/2024 Removal Reason: duplicat e Maria Guadalupe wynn, [facility], [facility] 14:43:07 Irritabl e bowel syndrome characte rized by constipa tion 164048276 Active 2024 Maria Guadalupe wynn, [facility], [facility] 14:43:50 Chronic idiopath ic constipa tion 85589417 Active 2024 Maria Guadalupe wynn [facility] 5 14:42:47 Allergic rhinitis 06011980 Active 2024 Renetta Miranda MD [address] [place] [address], [phone], [facility] 5 17:55:12 Hypergly cemia due to type 2 diabetes mellitus 06117616822 9109 Active 2024 Renetta Miranda MD [address] [place] [address], [phone], [facility] 5 16:33:50 Problem Notes None recorded. Medical Equipment None Reported. Allergies Allergen ID Allergen Name Allergen Category Reaction Reaction Severity Criticality Documentation Date Start Date Code Code System Note Provider Name and Address Organization Details Recorded Time 02312 Zyprexa medicatio n Not available Not available Not available 12/23/2022 25075 3 RxNorm Comme nt: Recor ded 04/22 10:55 AM by Megmitch Barrios er, Offic e Visit ; Promo alexis; Signi fican ce: *; Reaso n: Drug aller gy; ; Not Available [facility] 3 02:28:39 52158 risperido ne medicatio n Not available Not available Not available 12/23/2022 93087 RxNorm Comme nt: Recor ded 04/22 10:55 AM by Megmitch Barrios er, Offic e Visit ; Promo alexis; Signi brittneyan ce: *; Reaso n: Drug aller gy; ; Not Available [facility] 3 02:28:39 Medications Name Sig Start Date Stop Date Status Note LastModified by Organization Details LastModified Time atorvasta tin 20 mg tablet TAKE ONE TABLET BY MOUTH EVERY DAY active Not Available Not Available No t Available haloperid ol 5 mg tablet TAKE ONE TABLET BY MOUTH DAILY NEEDED FOR AGITATIO N active Not Available Not Available No t Available quetiapin e 300 mg tablet TAKE ONE TABLET BY MOUTH TWICE DAILY active Not Available Not Available No t Available cetirizin e 10 mg tablet TAKE ONE TABLET BY MOUTH EVERY DAY active Not Available Not Available No t Available clonazepa m 0.5 mg tablet BID prn 03/24 completed Recorded 04/09/20 4:34PM by Vignesh Gonzáles MD, Phone Encounte r; Refill Quantity : 0; Not Available Not Available Not Available quetiapin e 200 mg tablet TAKE ONE TABLET BY MOUTH TWICE DAILY 08/01 completed Not Available Not Available Not Available Eucerin topical cream Apply 1 applicat ion twice a day by topical route for 14 days. 06/25 completed Not Available Not Available Not Available divalproe x 500 mg tablet,de layed release TAKE TWO TABLETS BY MOUTH TWICE DAILY, TWO IN THE MORNING AND TWO IN THE EVENING active Not Available Not Available No t Available sulfameth oxazole 800 mg-trimet hoprim 160 mg tablet TAKE ONE TABLET BY MOUTH EVERY TWELVE HOURS 06/25 completed Not Available Not Available Not Available quetiapin e 100 mg tablet TAKE ONE TABLET BY MOUTH EVERY DAY AT NOON active Not Available Not Available No t Available acetamino phen 500 mg tablet TAKE TWO TABLETS BY MOUTH EVERY EIGHT HOURS NEEDED FOR PAIN OR TEMPERAT URE GREATER THAN 100.4 active Not Available Not Available No t Available guaifenes in 100 mg/5 mL oral liquid TAKE 2 TEASPOON FULS (10 ML'S) BY MOUTH EVERY FOUR HOURS NEEDED FOR COUGH FOR FIVE DAYS 06/25 completed Not Available Not Available Not Available glimepiri de 1 mg tablet TAKE ONE TABLET BY MOUTH TWICE DAILY active Not Available Not Available No t Available terbinafi ne HCl 250 mg tablet TAKE ONE TABLET BY MOUTH EVERY DAY 09/19 completed Not Available Not Available Not Available Multiple Vitamins tablet Take 1 tablet every day by oral route for 90 days. 08/01 completed Not Available Not Available Not Available benzonata te 100 mg capsule TAKE ONE CAPSULE BY MOUTH THREE TIMES DAILY NEEDED FOR COUGH active Not Available Not Available No t Available metformin 1,000 mg tablet TAKE ONE TABLET BY MOUTH TWICE DAILY active Not Available Not Available No t Available divalproe x ER 500 mg tablet,ex tended release 24 hr Take 1 tablet every day by oral route for 90 days. 04/15 completed Not Available Not Available Not Available docusate sodium 100 mg capsule TAKE ONE CAPSULE BY MOUTH TWICE DAILY active Not Available Not Available No t Available hydrochlo rothiazid e 25 mg tablet TAKE ONE TABLET BY MOUTH EVERY DAY active Not Available Not Available No t Available polyethyl saadia glycol 3350 17 gram/dose oral powder MIX AND DRINK 17 GRAMS IN EIGHT OUNCES OF WATER, JUICE, SODA, COFFEE, OR TEA ONCE DAILY FOR 7 DAYS 06/25 completed Not Available Not Available Not Available topiramat e 100 mg tablet TAKE ONE TABLET BY MOUTH THREE TIMES DAILY active Not Available Not Available No t Available fluticaso ne propionat e 50 mcg/actua tion nasal spray,elif pension USE 1 SPRAY IN EACH NOSTRIL EVERY DAY active Not Available Not Available No t Available haloperid ol 5 mg prn agitatio n 08/01 completed Not Available Not Available Not Available Trazodone daily at bedtime 03/24 completed Recorded 06/18/19 23 3:42PM by KAYLEIGH Ray, Office Visit; Refill Quantity : 0; Not Available Not Available Not Available Fenofibra te daily in the evening 03/24 completed Recorded 06/18/19 23 3:43PM by KAYLEIGH Ray, Office Visit; Refill Quantity : 0; Not Available Not Available Not Available fenofibra te nanocryst allized 145 mg tablet TAKE ONE TABLET BY MOUTH EVERY DAY active Not Available Not Available No t Available Linzess 145 mcg capsule TAKE ONE CAPSULE BY MOUTH EVERY DAY active Not Available Not Available No t Available Multi Vitamin 06/25 completed Not Available Not Available Not Available potassium chloride ER 20 mEq tablet,ex tended release TAKE ONE TABLET BY MOUTH FOUR TIMES DAILY FOR 2 DAYS 10/15 completed Not Available Not Available Not Available Ozempic 0.25 mg or 0.5 mg (2 mg/1.5 mL) subcutane ous pen injector 0.25mg SQ weekly x 4 weeks then increase to 0.5mg weekly 10/01 completed Not Available Not Available Not Available Tab-A-Vit e 400 mcg tablet TAKE ONE TABLET BY MOUTH EVERY DAY active Not Available Not Available No t Available Ozempic 1 mg/dose (4 mg/3 mL) subcutane ous pen injector INJECT ONE MG UNDER SKIN EVERY WEEK active Not Available Not Available No t Available Ozempic 0.25 mg or 0.5 mg (2 mg/3 mL) subcutane ous pen injector INJECT 0.5MG UNDER SKIN WEEKLY FOR FOUR WEEKS THEN INCREASE TO 0.5MG WEEKLY active Not Available Not Available No t Available Vitals Date Recorded Body height Body mass index (BMI) Body weight Body temperature Respiratory rate Heart rate Oxygen saturation Oxygen saturation in Arterial blood by Pulse oximetry Systolic And Diastolic Provider Name and Address Organization Details Last Updated DateTime 5 182.88 cm 45.5 kg/m2 137926. 54 g 97.3 [degF] 16 /min 94 /min 97 % 97 % 122/76 mm[Hg] Aaron Johnson [facility] 5 11:14:14 Date Recorded Body height Body mass index (BMI) Body weight Body temperature Oxygen saturation Oxygen saturation in Arterial blood by Pulse oximetry Heart rate Systolic And Diastolic Provider Name and Address Organization Details Last Updated DateTime 5 182.88 cm 47.4 kg/m2 578847. 14 g 97.5 [degF] 97 % 97 % 99 /min 136/84 mm[Hg] [facility] 11:52:01 Date Recorded Body height Body mass index (BMI) Body weight Oxygen saturation Oxygen saturation in Arterial blood by Pulse oximetry Heart rate Respiratory rate Body temperature Systolic And Diastolic Provider Name and Address Organization Details Last Updated DateTime 5 182.88 cm 47.3 kg/m2 787949. 74 g 99 % 99 % 94 /min 18 /min 97.8 [degF] 118/80 mm[Hg] Maria Guadalupe Lara [facility] 5 17:33:59 Date Recorded Body height Body mass index (BMI) Body weight Oxygen saturation Oxygen saturation in Arterial blood by Pulse oximetry Heart rate Respiratory rate Body temperature Provider Name and Address Organization Details Last Updated DateTime 5 182.88 cm 48.7 kg/m2 309020. 66 g 97 % 97 % 102 /min 20 /min 97.6 [degF] Maria Guadalupe Marco [facility] 5 14:44:54 Date Recorded Body height Body mass index (BMI) Body weight Body temperature Heart rate Oxygen saturation Oxygen saturation in Arterial blood by Pulse oximetry Systolic And Diastolic Provider Name and Address Organization Details Last Updated DateTime 5 182.88 cm 49.2 kg/m2 851128. 03 g 98.3 [degF] 113 /min 96 % 96 % 128/80 mm[Hg] Shae Acosta [facility] 5 12:01:39 Social History Question Answer Notes LastModified by Kimeltuizat ion Details LastModified Time Tobacco Smoking Status Current Every Day Smoker Shalonda North tianna [facility] 03/24/2024 11:58:38 What Is Your Level Of Caffeine Consumption? Heavy Information not available 03/25/2024 What Type Of Diet Are You Following? REGULAR Information not available 03/25/2024 What Was The Date Of Your Most Recent Tobacco Screening? 11/21/2024 Information not available 11/21/2024 What Is Your Current Pack Years? 10-19packyear s [email or web address] Information not available 06/25/2024 Do You Have Any Dietary Restrictions? No Information not available 03/25/2024 Sex: Unknown Functional Status Question Answer Note LastModified by Organizat ion Details LastModified Time Do you use any illicit or recreational drugs? No [email or web address] Information not available 10/01/2024 What is your level of alcohol consumption? None Information not available 03/25/2024 Are you currently employed? No Information not available 03/25/2024 Are you able to walk? YESWOREST Information not available 03/25/2024 Mental Status None recorded. Family History Nothing Reported. Medical History No medical history recorded. Immunizations Vaccine Type Date Status Note Provider Nam e and Address Organization Details Recorded Time Influenza, split virus, trivalent, preservative 4 completed Not Available [facility] 11/21/2024 11:56:37 Influenza, split virus, quadrivalent, PF 5 completed Not Available [facility] 11/21/2024 11:56:37 Influenza, split virus, quadrivalent, PF 6 completed Not Available [facility] 11/21/2024 11:56:37 Influenza, split virus, quadrivalent, PF 6 completed Not Available [facility] 11/21/2024 11:56:37 Influenza, split virus, quadrivalent, PF 8 completed Not Available [facility] 11/21/2024 11:56:37 Influenza, split virus, quadrivalent, PF 0 completed Not Available [facility] 11/21/2024 11:56:37 COVID-19, mRNA, LNP-S, PF, 30 mcg/0.3 mL dose 1 completed Not Available [facility] 11/21/2024 11:56:37 COVID-19, mRNA, LNP-S, PF, 30 mcg/0.3 mL dose 1 completed Not Available [facility] 11/21/2024 11:56:37 Tdap 1 completed Not Available [facility] 11/21/2024 11:56:37 Influenza, split virus, quadrivalent, PF 1 completed Not Available [facility] 11/21/2024 11:56:37 Tdap 1 completed Not Available [facility] 11/21/2024 11:56:37 Tdap 2 completed Not Available [facility] 11/21/2024 11:56:37 Influenza, split virus, quadrivalent, PF 2 completed Not Available [facility] 11/21/2024 11:56:37 Tdap 4 completed Not Available [facility] 11/21/2024 11:56:37 Influenza, split virus, trivalent, PF 4 completed Not Available [facility] 11/21/2024 11:56:37 Past Encounters Encounter ID Performer Location Encounter Start Date Encounter Closed Date Diagnosis/Indication Diagnosis SNOMED-CT Code Diagnosis ICD10 Code Diagnosis Note [id number] KAYLEIGH SÁNCHEZ [facility] ([facility]) [address] [place] [phone] 03/24/2024 11:49:38 03/24/2024 12:36:17 [id number] Renetta Miranda MD [facility] ([facility]) [address] [place] [phone] 03/25/2024 11:30:09 03/25/2024 12:25:58 Cellulitis of left lower limb 6519098154 4411930 L03.116 Patient's exam is concerning for cellulitis of the left lower limb. We will start antibiotic s. Bilateral lower limb edema 540331527 R60.0 Encouraged to elevate legs. Will check lab work today. Type 2 dedrick betes mellitus 38661462 E11.9 We will check his A1c and urine microalbum in. Continue current medication s. Reviewed medication s and the patient was not on a statin so this will be started for him. Bipolar disorder 9279970 4 F31.9 Stable on Depakote. Check Depakote levels. Dysuria 83407295 R30.0 Tuberculos is screening 919998567 Z11.1 X-rays obtained reviewed by me. No lesions or acute changes noted. Chest x-ray will be reviewed by the radiologis t. Chronic pain 92726448 G8 9.29 Provide Tylenol to use as needed. Onychomyco sis of toenails 375519331 B35.1 She was informed of the difficulty of treating nail fungus and recommend oral treatments . Discussed the course of treatment with the patient and caregivers and they agreed to proceed. Essential hypertension 48571317 I10 Continue current medication s. Recommend checking blood pressures every of the day and to notify physician of significan t elevations . [id number] Renetta Miranda MD [facility] ([facility]) [address] [place] [phone] 06/25/2024 10:51:41 06/25/2024 11:58:25 Type 2 diabetes mellitus 89958725 E11.9 Recheck A1c today. As discussed what to do in case of low blood sugar. Instructio ns provided to caregivers . Essential hypertension 51964837 I10 Continue current medication s. Recommend checking blood pressures every of the day and to notify physician of significan t elevations . Irritable bowel syndrome characterized by constipation 117410098 K58.1 Chronic id iopathic constipation 00098032 K59.04 The patient has struggled with constipati on. Patient continues to try a high-fiber diet. The patient has tried and failed MiraLAX and is currently feeling docusate. Recommend that we should try Linzess. [id number] Renetta Miranda MD [facility] ([facility]) [address] [place] [phone] 08/01/2024 10:57:46 08/01/2024 11:51:37 Bipolar disorder 40054979 F31.9 Patient was having a lot of issues related to his mental health. However, the patient appears to be doing better with the changes in his Seroquel and the addition of Haldol. The caregiver states they have created a plan to better help manage his behaviors and so far seems to be working well. No other changes needed at this time. Moderate i ntellectual disability 64193360 F71 [id number] Renetta Miranda MD [facility] ([facility]) [address] [place] [phone] 09/19/2024 11:42:25 09/19/2024 13:29:57 Bipolar disorder 17808021 F31.9 Continue current meds Type 2 dedrick betes mellitus 92023026 E11.9 discussed starting ozempic to help with DM management in addition to weight and appetite control. The patient and caregivers were agreeable. Essential hypertension 77473038 I10 Continue current medication s. Recommend checking blood pressures every of the day and to notify physician of significan t elevations . Moderate i ntellectual disability 11381845 F71 Obesity 890186124 E66.9 [id number] Renetta Miranda MD [facility] ([facility]) [address] [place] [phone] 10/01/2024 17:14:42 10/06/2024 16:22:29 Allergic rhinitis 19123801 J30.9 Exam is most consistent with allergies. Recommend starting antihistam ine and Flonase Hyperglyce jaycee due to type 2 diabetes mellitus 0672913212 21118 E11.65 Continue to work on diet. Ozempic should hopefully help with blood sugars especially as we increase the dose monthly. Continue to monitor closely to help manage his blood sugars. [id number] Renetta Miranda MD [facility] ([facility]) [address] [place] [phone] 10/15/2024 14:32:18 10/15/2024 15:39:06 Hyperglycemia due to type 2 diabetes mellitus 7910120784 42187 E11.65 Continue to work on diet. Ozempic should hopefully help with blood sugars especially as we increase the dose monthly. Continue to monitor closely to help manage his blood sugars. fall W19.XXXD No significan t sequelae from the fall. Continue to work on diet and increase activity to help manage blood sugars. [id number] Renetta Miranda MD [facility] ([facility]) [address] [place] [phone] 11/21/2024 11:55:45 11/21/2024 13:03:41 Type 2 diabetes mellitus 88893542 E11.9 Will check A1c today. Will increase his Ozempic to the 1 mg dose. Reinforced healthy eating choices and encouraged daily exercise. Health Concerns Section Related Observation LastModified by Organization Detai ls LastModified Time None Recorded Concern Status LastModified by Organization Details LastModified Time None Recorded Advance Directives Directive None Recorded Payers Insurance Date Sequence Insurance Name Policy Number Policy Vega Covered Member ID Vega Member ID Guarantor Name 11/18/2024 [place] [facility]ngel Calloway [id number] Nicky Lay 11/18/2024 1 [place] Ángel Calloway [id number] Nicky Lay Notes Date Note Type Note Provider Name and Address Organization Details Recorded Time 08/01/2024 text/html Patient here tod ay for hospital f/up and seizure like activity. Patient's medication care manager states that he has a h/o sensitivity to light, and he had been seen in the emergency department approximately 3 times that week. His dosage of Seroquel was increased, and he was given Haldol. Patient was diagnosed with pseudoseizures. The patient was able to respond during possible seizure activity. The patient has been having some behavioral changes but this did improve after the changes of his medication. Renetta Miranda MD [address] [place] [address], [phone], [facility] 08/03/2024 11:51:07 09/19/2024 text/html Pt is here for f /u. Pt is gaining weight and struggling with calorie restriction. Pt has been working out. Caregivers states that is behaviors are managed fairly well with minimal outbursts. His other chronic issues are managed. Renetta Miranda MD [address] [place] [address], [phone], [facility] 09/22/2024 11:50:18 10/01/2024 text/html ER F/U HE went t o er 09/29/24 for elevated blood glucose of 364. they found him to have low potassium of 2.7. he had some iv and the oral potassium his blood glucose was in the 200 plus range this morning. The patient has not started his Ozempic and has taken a total of 1 dose. he has had a cough and his breathing has been somewhat labored. The patient has noted some congestion and cough. Renetta Miranda MD [address] [place] [address], [phone], [facility] 10/02/2024 16:34:39 10/15/2024 text/html Diabetes F/UReported bypatient.Context:s eeing eye doctor regularly; checks every morning and as needed Associated Symptoms:unintentio nal weight gain (10 lbs) This 29-year-old gentleman comes in today for ER follow-up. The patient had a fall and was seen in the ER. The patient was noted to have a blood sugar significant elevated at 325. The patient has been taking his diabetic medication as prescribed and has recently started Ozempic. He is on his last dose of 0.25 mg and will be increasing the week after to 0.5 mg. Patient did not have any significant injury from the fall. Patient denies any significant concerns today. Renetta Miranda MD [address] [place] [address], [phone], [facility] 10/20/2024 14:54:51 11/21/2024 text/html This is a 29 yea r old male here to follow up on his Ozempic. He has been on it for 5 weeks now. His blood sugars have not changed, states Aranza the medical coordinator with [employer]. No side effects. The patient has had weight gain due to diet and life style choices. Renetta Miranda MD [address] [place] [address], [phone], [facility], L.LFranklinCFranklin 11/22/2024 18:14:15
[2024-12-02 08:50] VITALS: BP 133/87; PULSE 92; RESP 22; TEMP 36.7; O2SAT 98
--- NOTE | 2024-12-02 09:46 | W.ED.RECABL ---
HPI - Recheck/Abnormal Lab/Rx General: Chief Complaint: Recheck/Abnormal Lab/Rx Stated Complaint: blood sugar Time Seen by Provider: 12/02/24 09:01 History of Present Illness: 29-year-old male with history of diabetes mellitus patient has electro disability is very noncompliant with his diet. Reports he drank large quantities of heavily sweetened tea yesterday. He otherwise eats unrestricted. His blood sugars have been hard to control he usually sees a local primary primary care doctor. They have gotten 1 glimepiride GLP-1 and metformin despite this his blood sugars are elevated. Patient denies any chest pain or abdominal pain nausea or vomiting at this time. He is awake alert nontoxic. Related Data Home Medications ?Medication ?Instructions ?Recorded ?Confirmed metformin 1,000 mg tablet 1,000 mg PO BID@06/02/22 11/14/24 hydrochlorothiazide 25 mg tablet 25 mg PO DAILY@07/14/22 11/14/24 atorvastatin 20 mg tablet 20 mg PO DAILY 04/30/24 11/14/24 divalproex 500 mg tablet,delayed See Rx Instructions .Route .COMPLEX 05/12/24 11/14/24 release fenofibrate nanocrystallized 145 145 mg PO DAILY 05/12/24 11/14/24 mg tablet glimepiride 1 mg tablet 1 mg PO BID 05/12/24 11/14/24 multivitamin 1 tab PO DAILY 05/12/24 11/14/24 linaclotide 145 mcg capsule 145 mcg PO DAILY 06/25/24 11/14/24 (Linzess) acetaminophen 500 mg tablet 1,000 mg PO Q8H PRN Pain 06/27/24 11/14/24 (Tylenol Extra Strength) benzonatate 100 mg capsule 100 mg PO TID PRN Cough 06/27/24 11/14/24 docusate sodium 100 mg capsule 100 mg PO BID 06/27/24 11/14/24 quetiapine 100 mg tablet (Seroquel) 100 mg PO .NOON 09/29/24 11/14/24 cetirizine 10 mg capsule (All Day 10 mg PO DAILY 11/14/24 11/14/24 Allergy (cetirizine)) fluticasone propionate 50 1 spray intranasal DAILY 06/20/25 06/20/25 mcg/actuation nasal spray,suspension semaglutide 0.25 mg or 0.5 mg (2 0.5 mg SUBCUT Q7D 11/14/24 11/14/24 mg/3 mL) subcutaneous pen injector (Ozempic) Previous Rx's ?Medication ?Instructions ?Recorded topiramate 100 mg tablet 100 mg PO TID@08,12,20 #90 tabs 08/10/22 Diabetic Shoes w/3 x inserts #1 ea 06/25/24 haloperidol 5 mg tablet 5 mg PO DAILY PRN agitation #30 07/18/24 tabs quetiapine 300 mg tablet (Seroquel) 300 mg PO BID #60 tabs 11/07/24 Allergies Allergy/AdvReac Type Severity Reaction Status Date / Time olanzapine Allergy Unknown Verified 11/14/24 10:22 risperidone Allergy Unknown Verified 11/14/24 10:22 Review of Systems Const: Denies: fever(s) or chills Card: Denies: chest pain Resp: Denies: dyspnea GI: Denies: abdominal pain : Denies: dysuria, urinary frequency or urinary urgency Musc: Denies: neck pain or back pain Skin/Breast: Denies: rash PFSH ED PFSH: Medical History Psychiatric care Nicotine dependence, cigarettes, uncomplicated Intermittent explosive disorder On valproic acid therapy Bipolar disorder, unspecified Attention-deficit hyperactivity disorder, combined type Generalized anxiety disorder Social History Smoking and tobacco/nicotine status: current every day tobacco/nicotine user cigarettes Packs smoked per day: 2 Physical Exam Const: COMMON NORMALS: no acute distress GENERAL APPEARANCE: cooperative and comfortable ORIENTATION/CONSCIOUSNESS: Yes awake, Yes oriented to person, Yes oriented to place and Yes oriented to time HENMT: COMMON NORMALS: normocephalic, atraumatic and hearing grossly normal bilaterally HEAD & SCALP: normocephalic and atraumatic Resp: COMMON NORMALS: normal respiratory effort, No retractions, No use of accessory muscles and clear to auscultation bilaterally AUSCULTATION: clear to auscultation bilaterally Cardio: COMMON NORMALS: regular rate, regular rhythm and No murmurs present (Cardio) RATE: regular rate RHYTHM: regular rhythm GI: COMMON NORMALS: Soft to palpation and No hepatosplenomegaly present AUSCULTATION: Yes normoactive bowel sounds PALPATION: Yes Soft to palpation, No Tenderness to palpation present (GI), No Guarding due to palpation present (GI) and Yes No hepatosplenomegaly present Extremity: COMMON NORMALS: normal to inspection, capillary refill normal, no clubbing, cyanosis or edema, no calf tenderness and no pedal edema Neuro: SENSORIUM/ORIENTATION: Yes oriented to person, Yes oriented to place and Yes oriented to time Skin: COMMON NORMALS: no rashes or lesions noted GENERAL SKIN EXAM: no rashes or lesions noted Course Vital Signs: Vital signs: Vital Signs Temperature 98.1 F 12/02/24 08:50 Pulse Rate 92 12/02/24 08:50 Respiratory Rate 22 H 12/02/24 08:50 Blood Pressure 133/87 12/02/24 08:50 Pulse Oximetry 98 12/02/24 08:50 Oxygen Delivery Me thod Room Air 12/02/24 08:50 MDM - Recheck/Abnormal Lab/Rx Medical Decision Making Exam unremarkable. Patient given 5 units of units of insulin monitor for time recheck blood sugar less than 300 will discharge home encouraged follow-up with primary care for further treatment options to maintain blood sugar control Lab Data Laboratory Results POC Glucose 274 mg/dL (70-110) H 12/02/24 10:21 No radiology studies performed this visit Discharge Plan Discharge Patient Disposition: Home Clinical Impression: Poorly controlled diabetes mellitus Condition: Stable Prescriptions: No Action fenofibrate nanocrystallized 145 mg tablet 145 mg PO DAILY acetaminophen [Tylenol Extra Strength] 500 mg tablet 1,000 mg PO Q8H PRN (Reason: Pain) atorvastatin 20 mg tablet 20 mg PO DAILY docusate sodium 100 mg capsule 100 mg PO BID divalproex 500 mg tablet,delayed release (DR/EC) See Rx Instructions .ROUTE .COMPLEX Dose Instruction: TAKE TWO TABLETS BY MOUTH at EIGHT IN THE MORNING and TWO IN THE EVENING and take ONE tablet at EIGHT IN THE EVENING Rx Instructions: TAKE TWO TABLETS BY MOUTH at EIGHT IN THE MORNING and TWO IN THE EVENING glimepiride 1 mg tablet 1 mg PO BID multivitamin Tablet 1 tab PO DAILY haloperidol 5 mg tablet 5 mg PO DAILY PRN (Reason: agitation) Qty: 30 0RF fluticasone propionate 50 mcg/actuation spray,suspension 1 spray intranasal DAILY Rx Instructions: administer into each nostril All Day Allergy (cetirizine) 10 mg capsule 10 mg PO DAILY Linzess 145 mcg capsule 145 mcg PO DAILY (DME) Diabetic Shoes w/3 x inserts See Rx Instructions .Route .MEDSUPPLY Qty: 1 0RF Rx Instructions: As directed By the Sury Constantino 3 x inserts benzonatate 100 mg capsule 100 mg PO TID PRN (Reason: Cough) topiramate 100 mg tablet 100 mg PO TID@08,12,20 Qty: 90 1RF quetiapine [Seroquel] 300 mg tablet 300 mg PO BID Qty: 60 2RF metformin 1,000 mg tablet 1,000 mg PO BID@08,20 quetiapine [Seroquel] 100 mg tablet 100 mg PO .NOON Ozempic 0.25 mg or 0.5 mg (2 mg/3 mL) pen injector 0.5 mg SUBCUT Q7D hydrochlorothiazide 25 mg tablet 25 mg PO DAILY@08 Discharge Orders: Discharge ED (Routine); Ordered 12/02/24 Ordered By: Alistair Carter Referrals: Jaiden Miranad MD [Primary Care Provider, Family Practice] Discharge Diet: Diabetic Discharge Activity: Resume usual activity Patient Instructions: Opioid Safety, Pain Management, Patient Portal & Ian Instructions Activity Restrictions/Additional Instructions: Thank you for choosing [facility] for your healthcare needs today. It is very important that you follow up as instructed or that you return to the Emergency Department should you have concerns or if your condition changes or worsens in any way. You are seen in the emergency room for elevated blood sugar.. On Accu-Chek your blood sugar was 324. You were given 5 units of insulin. Continue current medications follow-up your primary care doctor to manage your blood sugar in a long-term basis. 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
[2024-12-02] MEDS: insulin regular-human 100 units/1 mL 5 UNIT IVP (10:06)
[2024-12-02 10:24] VITALS: BP 125/87; PULSE 90; O2SAT 96
== END 2024-12-02 10:24 | disposition home or self-care (01) ==
PROVIDERS: Emergency Provider Family Medicine; PCP Family Medicine
DX: E11.65 Type 2 diabetes mellitus with hyperglycemia (principal); Z79.84 Long term (current) use of oral hypoglycemic drugs
CPT/HCPCS: 36416; 82962; 96374; 99284; J1815

== ENCOUNTER 2024-12-11 08:35 | Emergency (ER) | payer MEDICAID, SELFPAY ==
--- OUTSIDE RECORDS SUMMARY | 2021-05-05 05:30 | XMS_ITS | Continuity of Care Document ---
Author Organization [facility] Address [address] [id number][place] [address] Phone Care Team Providers Care Pile Driver Operator Barge Mounted Name Role Phone Yesy Childs DDS Unavailable Unavaila ble Allergies, Adverse Reactions, Alerts Substance Reaction Status Criticality olanzapine Active No Information risperidone Active No Information Medications Medication Instructions Dosage Effective Dates (start - stop) Status Comments Januvia 25 mg tablet take 1 tablet by oral route every day 25 MG - Active White Petroleum Jelly topical - Active glimepiride 2 mg tablet take 1 tablet by oral route every day 2 MG - Active Lantus Solostar U-100 Insulin 100 unit/mL (3 mL) subcutaneous pen inject by subcutaneous route as per insulin protocol 0.00 - Active clonazepam 1 mg tablet take 1 tablet by oral route 3 times every day 1 MG - Active ArmonAir Digihaler 55 mcg/actuation aerosol powder breath act, sensor inhale 1 puff by inhalation route 2 times every day - Active loperamide 2 mg tablet take 2 tablet by oral route after 1st loose stool and 1 tablet (2 mg) after each next bowel movement; do not exceed 16 mg in 24hrs 4 MG - Active Multi Vitamin 9 mg iron/15 mL oral liquid - Active polyethylene glycol 3350 17 gram/dose oral powder take (17G) by oral route every day mixed with 8 oz. water, juice, soda, coffee or tea - Active quetiapine 400 mg tablet take 1 tablet b y oral route 2 times every day 400 MG - Active topiramate 100 mg tablet take 1 tablet b y oral route 2 times every day 100 MG - Active triamcinolone acetonide 0.025 % lotion apply by topical route 2 times every day a thin layer to the affected area(s) 0.00 - Active Victoza 2-Otf 0.6 mg/0.1 mL (18 mg/3 mL) subcutaneous pen injector inject (1.2MG) by subcutaneous route every day 1.2 MG - Active lorazepam 1 mg tablet take 1 tablet by oral route 3 times every day as needed 1 MG - Active hydrochlorothiazide 25 mg tablet take 1 tablet by oral route every day 25 MG - Active Trokendi XR 100 mg capsule, extended release take 1 capsule by oral route every day 100 MG - Active divalproex ER 500 mg tablet,extended release 24 hr take 1 tablet by oral route every day 500 MG - Active benztropine 1 mg tablet take 1 tablet by oral route 2 times every day 1 MG - Active quetiapine 100 mg tablet take 1 tablet b y oral route 2 times every day 100 MG - Active desmopressin 0.2 mg tablet take 1 tablet by oral route 2 times every day 0.2 MG - Active loperamide 2 mg capsule take 2 capsule b y oral route after 1st loose stool, followed by 1 capsule after each subsequent loose stool not to exceed 16 mg/day 4 MG - Active hydroxyzine HCl 50 mg tablet take 1 tablet by oral route 4 times every day 50 MG - Active metformin 500 mg tablet take 1 tablet by oral route 2 times every day with morning and evening meals 500 MG - Active terbinafine HCl 1 % topical cream apply by topical route every day to the affected and surrounding areas of skin 0.00 - Active Procedures Procedure Date Treatment Plan Complete Prophylaxis Adult Bitewings Four Films Periodic Oral Eval Est Patient - Adult Medicaid EDR Approval Note Comprehensive Oral Evaluatio n New Or Established Panoramic Film Bitewings Four Films Intraoral Periapical First Film Intraoral Periapical Each Additional Film Intraoral Periapical Each Additional Film Intraoral Periapical Each Additional Film Perio Probing EDR Approval Note Advance Directives Directive Yes / No Effective Date File Name No Information Encounters Encounter Description Practice Location Reason(s) For Visit Diagnoses Date Provider Providers Copied on Encounter [facility], [id number] [place], [place], [address], [place] tel:[phone] [facility] Encounter for dental exam and cleaning w/o abnormal findings 1 Amadeo Hayward Beth. [address], [place], [address], [place]. tel:[phone] Referring Provider: CasiAmy Childs, [address] [place], [address] . tel:[phone] [facility], [id number] 144[place], [address], [place] tel:[phone] [facility] No Information 1 Amadeo Casi. [address], [place], [address], [place]. tel:[phone] Referring Provider: Casi Jackson, [address] [place], [address] . tel:[phone] [facility], [id number] 081625RR[place], [address], [place] tel:[phone] [facility] Encounter for dental exam and cleaning w/o abnormal findings 1 No Information Family History Family Member Type Diagnosis Age At Onset No Information Payers Payer name Insurance type Covered libertarian ID Edgarvladislav supa(s) D Medicaid [id number] Social History Type Description Quantity Date Captured Comments Alcohol Use Details No Caffeine Use Details Unknown Tobacco Use Status Smoking Status No Information Sex Male Sexual Orientation Decline To Specify Gender Identity Male Chief Complaint And Reason For Visit No Information Reason For Referral Reason For Referral No Information Plan Of Treatment Date Type Action Status Goal Tobacco cessation counseling completed History Of Present Illness Encounter Date Complaint History Of Prese nt Illness No Information Functional Status Date Functional Assessmen t No Information Instructions Date Instruction Additional Infor loreto Lifestyle education Related to D ental Examination Lifestyle education Related to D ental Examination Assessments Type Assessment Date No Information Patient Care Teams Name Effective Dates (start - stop) Status Members No Information
--- OUTSIDE RECORDS SUMMARY | 2024-12-11 08:41 | XMS_ITS | Continuity of Care Document ---
Author Organization [facility] Susan, Bladimir [facility] ([facility]) Address [address] [place] [address] Care Team Providers Care Tong Setter Name Role Phone RENETTA MIRANDA Primary Care Provider Assessment No assessment recorded. Plan of Treatment Reminders Order Date Submit Date Provider Last Modified By Organization Details Last Modified Time Details Appointments OFFICE VISIT 15 2024 10:00A M Renetta Miranda MD Not available Not available Not available Lab None recorded . Referral None recorded . Procedures None recorded . Surgeries None recorded . Imaging None recorded . Medication Orders None recorded . Patient TargetsNo targets recorded. Patient InstructionsNo instructions recorded. Reason for Referral None Reported. Problems Name Problem SNOMED Code Status Onset Date Resolution Date Notes Provider Name and Address Organization Details Recorded Time Moderate intellec tual disabili ty 97557960 Active [address] [facility] [facility] 14:44:02 Obesity 803165038 Active [address] [facility] 14:44:09 Metaboli c syndrome X 984195581 Active [address] [facility] [facility] 14:44:25 Bipolar disorder 35421814 Active [address] [facility] 5 14:42:09 Phonolog ical disorder 096401379 Active [address] 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, [place] 5 14:44:47 Cellulit is of left lower limb 51146455474 631777 Completed 202307/31/2024 Maria Guadalupe wynn, [facility], [place] 5 14:42:28 Bilatera l lower limb edema 808395301 Active 2023 Maria Guadalupe wynn, [facility], [place] 5 14:42:03 Type 2 diabetes mellitus 84628501 Active 2023 Maria Guadalupe wynn, [facility], [place] 5 14:44:53 Dysuria 23177421 Active 2023 Maria Guadalupe wynn, [facility], AdithyaCFranklin 5 14:43:23 Chronic pain 31534390 [facility] 2023 [facility], [place] 5 14:43:13 Onychomy cosis of toenails 013667540 Active 2023 Maria Guadalupe wynn, [facility], AdithyaCFranklin 5 14:45:06 [facility] hyperten jordan 23170365 Active 2023 Maria Guadalupe wynn, [facility], AdithyaCFranklin 5 14:43:39 Chronic constipa tion 209287990 Completed 202407/31/2024 Removal Reason: duplicat e Maria Guadalupe wynn, [facility], [place] 14:43:07 Irritabl e bowel syndrome characte rized by constipa tion 410079093 Active [address] [facility], L.L.CFranklin 5 14:43:50 Chronic idiopath ic constipa tion 72974306 Active 2024 [facility], [place] 5 14:42:47 Allergic rhinitis 44814003 Active 2024 Renetta Miranda MD [address] [place] [address], [phone], [facility], [place] 17:55:12 Hypergly cemia due to type 2 diabetes mellitus 43090082768 9109 Active 2024 Renetta Miranda MD [address] [place] [address], [phone], [facility], [place] 16:33:50 Problem Notes None recorded. Medical Equipment None Reported. Allergies Allergen ID Allergen Name Allergen Category Reaction Reaction Severity Criticality Documentation Date Start Date Code Code System Note Provider Name and Address Organization Details Recorded Time 51809 Zyprexa medicatio n Not available Not available Not available 12/23/2022 30345 3 RxNorm Comme nt: Recor ded 04/22 10:55 AM by Alfa Barrios er, Offic e Visit ; Promo alexis; Signi fican ce: *; Reaso n: Drug aller gy; ; Not Available [facility] 3 02:28:39 22924 risperido ne medicatio n Not available Not available Not available 12/23/2022 04851 RxNorm Comme nt: Recor ded 04/22 10:55 AM by Alfa Barrios er, Offic e Visit ; Promo alexis; Signi fican ce: *; Reaso n: Drug aller gy; ; Not Available [facility] 3 02:28:39 Medications Name Sig Start [...] tablet BID prn 03/24 completed Recorded 04/09/20 22 4:34PM by Vignesh Gonzáles MD, Phone Encounte [...] TABLET BY MOUTH EVERY DAY AT NOON 2024 active Not Available Not Available Not Avai lable acetamino phen 500 mg tablet TAKE TWO [...] FOUR WEEKS THEN INCREASE TO 0.5MG WEEKLY 12/04 completed Not Available Not Available Not Available Vitals Date Recorded Body height Body mass index (BMI) Body weight Oxygen saturation Oxygen saturation in Arterial blood by Pulse oximetry Heart rate Respiratory rate Body temperature Systolic And Diastolic Provider Name and Address Organization Details Last Updated DateTime 182.88 cm 49.8 kg/m2 324490. 4 g 98 % 98 % 96 /min 22 /min 97.3 [degF] 118/80 mm[Hg] Maria Guadalupe Lara [facility] 10:20:29 Social History Question Answer Notes LastModified by [email or web address] Details LastModified Time Tobacco Smoking Status Current Every Day Sm[facility] 03/24/2024 11:58:38 What Is Your Level Of Caffeine Consumption? Heavy Information not available 03/25/2024 What Type Of Diet Are You Following? REGULAR Information not available 03/25/2024 What Was The Date Of Your Most Recent Tobacco Screening? 11/21/2024 [email or web address] Information not available 11/21/2024 What Is Your Current Pack Years? 10-19pacharlie s [email or web address] Information not available 06/25/2024 Do You Have Any Dietary Restrictions? No Information not available 03/25/2024 Sex: Unknown Functional Status Question Answer Note LastModified by [email or web address] Details LastModified Time Do you use any illicit or recreational drugs? No [email or web address] Information not available 10/01/2024 What is your [...] virus, trivalent, preservative 4 completed Not Available [facility] 12/04/2024 10:09:53 Influenza, split virus, quadrivalent, PF 5 completed Not Available [facility] 12/04/2024 10:09:53 Influenza, split virus, quadrivalent, PF 6 completed Not Available [facility] 12/04/2024 10:09:53 Influenza, split virus, quadrivalent, PF 6 completed Not Available [facility] 12/04/2024 10:09:53 Influenza, split virus, quadrivalent, PF 8 completed Not Available [facility] 12/04/2024 10:09:53 Influenza, split virus, quadrivalent, PF 0 completed Not Available [facility] 12/04/2024 10:09:53 COVID-19, mRNA, LNP-S, PF, 30 mcg/0.3 mL dose 1 completed Not Available [facility] 12/04/2024 10:09:53 COVID-19, mRNA, LNP-S, PF, 30 mcg/0.3 mL dose 1 completed Not Available [facility] 12/04/2024 10:09:53 Tdap 1 completed Not Available [facility] 12/04/2024 10:09:53 Influenza, split virus, quadrivalent, PF 1 completed Not Available [facility] 12/04/2024 10:09:53 Tdap 1 completed Not Available [facility] 12/04/2024 10:09:53 Tdap 2 completed Not Available [facility] 12/04/2024 10:09:53 Influenza, split virus, quadrivalent, PF 2 completed Not Available [facility] 12/04/2024 10:09:53 Tdap 4 completed Not Available [facility] 12/04/2024 10:09:53 Influenza, split virus, trivalent, PF 4 completed Not Available [facility] 12/04/2024 10:09:53 Past Encounters Encounter ID Performer Location Encounter Start Date Encounter Closed Date Diagnosis/Indication Diagnosis SNOMED-CT Code Diagnosis ICD10 Code Diagnosis Note [id number] Renetta Miranda MD [facility] ([facility]) [address] [place] [phone] 11/21/2024 11:55:45 11/21/2024 13:03:41 Type 2 diabetes mellitus 58847667 E11.9 Will check A1c today. Will increase his Ozempic to the 1 mg dose. Reinforced healthy eating choices and encouraged daily exercise. [id number] Renetta Miranda MD [facility] ([facility]) [address] [place] [phone] 12/04/2024 10:09:32 12/04/2024 10:55:16 Hyperglycemia due to type 2 diabetes mellitus 9732750390 88885 E11.65 Reinforced diabetic diet and the limitation of sugary drinks from his diet. Reinforced diet recommenda tions. Continue Ozempic. The patient just started on 1 mg dosing. Will increase it to 2 mg dosing after he completes 4 weeks. Health Concerns Section Related Observation LastModified by Organization Detai ls LastModified Time None Recorded Concern Status LastModified by Organization Details LastModified Time None Recorded Payers Encounter Date Sequence Insurance Name Policy Number Policy Vega Covered Member ID Vega Member ID Guarantor Name 12/04/2024 1 [place] Ángel Calloway [id number] Nicky Lay Notes Date Note Type Note Provider Name and Address Organization Details Recorded Time 12/04/2024 text/html patient was in [facility] for fasting blood sugars 404, 379, 387.He was asymptomatic ER gave him insulin and sent him home. The patient has been intaking sugary drinks.his daily blood glucose has been above 200 each morning. today 228. Patient has been tolerating his Ozempic without any issues but has not done much to curb his appetite. Renetta Miranda MD [address] [place] [address], [phone], [facility], [place] 12/06/2024 20:24:18
--- OUTSIDE RECORDS SUMMARY | 2024-12-11 08:41 | XMS_ITS | Data Portability ---
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 Plan of Treatment Reminders Order Date Submit Date Provider Last Modified By Organization Details Last Modified Time Details Appointments OFFICE VISIT 15 2024 10:00A M Renetta Miranda MD Not available Not available Not available Lab HbA1c (hemoglob in A1c), blood [address] [facility], [address] [facility] [address], [place], [address], 11/30/2024 20:10:48 Referral None recorded. Procedures None recorded. Surgeries None recorded. Imaging None recorded. Medication Orders Ozempic 1 mg/dose (4 mg/3 mL) subcutane ous pen injector 2024 025 [facility], [address], [place], [address], 11/25/2024 11:51:57 Flonase Allergy Relief 50 mcg/actua tion nasal spray,elif pension 2024 025 [facility] [place] [place], [address], [place], [address], 10/02/2024 12:48:17 cetirizin e 10 mg tablet 2024 025 [facility] [place] [place], [address], [address], 10/02/2024 12:48:17 Ozempic 0.25 mg or 0.5 mg (2 mg/1.5 mL) subcutane ous pen injector 2024 025 [facility], [address], [place], [address], 10/01/2024 17:41:34 Patient TargetsNo targets recorded. Patient InstructionsNo instructions recorded. Reason for Referral None Reported. Results Created Date Observation Date Name Description Value Unit Range Abnormal Flag Note LastModifiedBy Organization Detail LastModifiedTime 11/22/1911/21/2024 HBA1C hemaglobin A1C 7.5 4.2-6. 5 high Not Available [facility] [address] [facility] [address], [place], [address], 11/21/2024 12:58:56 Result Notes None recorded. Problems Name Problem SNOMED Code Status Onset Date Resolution Date Notes Provider Name and Address Organization Details Recorded Time Moderate intellec tual disabili ty 61186405 Active 2023 Maria Guadalupe wynn [facility] 14:44:02 Obesity 752131236 Active 2023 Maria Guadalupe wynn [facility] 14:44:09 Metaboli c syndrome X 771204633 Active 2023 Maria Guadalupe wynn [facility] 14:44:25 Bipolar disorder 35256903 Active 2023 Maria Guadalupe wynn [facility] 14:42:09 Phonolog ical disorder 429604723 Active 2023 Maria Guadalupe wynn [facility] 14:45:13 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 53526273 Active 2023 Maria Guadalupe wynn [facility] 14:44:47 Cellulit is of left lower limb 15590457080 189079 Completed 202307/31/2024 Maria Guadalupe wynn, [facility] 14:42:28 Bilatera l lower limb edema 886278428 Active 2023 Maria Guadalupe wynn, [facility] 14:42:03 Type 2 diabetes mellitus 80693402 Active 2023 Maria Guadalupe wynn, [facility] 14:44:53 Dysuria 34689000 Active 2023 Maria Guadalupe wynn, [facility] 14:43:23 Chronic pain 31250143 Active 2023 Maria Guadalupe wynn, [facility] 14:43:13 Onychomy cosis of toenails 521681555 Active 2023 Maria Guadalupe wynn, [facility] 14:45:06 [facility] hyperten jordan 52499493 Active 2023 Maria Guadalupe wynn, [facility] 14:43:39 Chronic constipa tion 464413595 Completed 202407/31/2024 Removal Reason: duplicat e Maria Guadalupe wynn, [facility] [place] 14:43:07 Irritabl e bowel syndrome characte rized by constipa tion 178064386 Active 2024 Maria Guadalupe wynn, [facility] 14:43:50 Chronic idiopath ic constipa tion 52547295 Active 2024 Maria Guadalupe wynn [facility] 5 14:42:47 Allergic rhinitis 91972661 Active 2024 Renetta Miranda MD [address] [place] [address], [phone], [facility] 5 17:55:12 Hypergly cemia due to type 2 diabetes mellitus 70112100095 9109 Active 2024 Renetta Miranda MD [address] [place] [address], [phone], [facility] 5 16:33:50 Problem Notes None recorded. Medical Equipment None Reported. Allergies Allergen ID Allergen Name Allergen Category Reaction Reaction Severity Criticality Documentation Date Start Date Code Code System Note Provider Name and Address Organization Details Recorded Time 71485 Zyprexa medicatio n Not available Not available Not available 12/23/2022 62968 3 RxNorm Comme nt: Recor ded 04/22 10:55 AM by Megmitch Barrios er, Offic e Visit ; Promo alexis; Signi fican ce: *; Reaso n: Drug aller gy; ; Not Available [facility] 3 02:28:39 44525 risperido ne medicatio n Not available Not available Not available 12/23/2022 42576 RxNorm Comme nt: Recor ded 04/22 10:55 AM by Megmitch Barrios er, Offic e Visit ; Promo alexis; Signi brittneyan ce: *; Reaso n: Drug aller gy; ; Not Available [facility] 3 02:28:39 Medications Name Sig Start Date [...] Updated DateTime 5 182.88 cm 47.4 kg/m2 346001. 14 g 97.5 [degF] 97 % 97 % 99 /min 136/84 mm[Hg] BETH [facility] 5 11:52:01 Date Recorded Body height Body mass index (BMI) Body weight Oxygen saturation Oxygen saturation in Arterial blood by Pulse oximetry Heart rate Respiratory rate Body temperature Systolic And Diastolic Provider Name and Address Organization Details Last Updated DateTime 5 182.88 cm 47.3 kg/m2 545601. 74 g 99 % 99 % 94 /min 18 /min 97.8 [degF] 118/80 mm[Hg] [facility] 5 17:33:59 Date Recorded Body height Body mass index (BMI) Body weight Oxygen saturation Oxygen saturation in Arterial blood by Pulse oximetry Heart rate Respiratory rate Body temperature Provider Name and Address Organization Details Last Updated DateTime 5 182.88 cm 48.7 kg/m2 968138. 66 g 97 % 97 % 102 /min 20 /min 97.6 [degF] [facility] 5 14:44:54 Date Recorded Body height Body mass index (BMI) Body weight Body temperature Heart rate Oxygen saturation Oxygen saturation in Arterial blood by Pulse oximetry Systolic And Diastolic Provider Name and Address Organization Details Last Updated DateTime 5 182.88 cm 49.2 kg/m2 037976. 03 g 98.3 [degF] 113 /min 96 % 96 % 128/80 mm[Hg] Shae Acosta [facility] 5 12:01:39 Date Recorded Body height Body mass index (BMI) Body weight Oxygen saturation Oxygen saturation in Arterial blood by Pulse oximetry Heart rate Respiratory rate Body temperature Systolic And Diastolic Provider Name and Address Organization Details Last Updated DateTime 5 182.88 cm 49.8 kg/m2 320929. 4 g 98 % 98 % 96 /min 22 /min 97.3 [degF] 118/80 mm[Hg] Maria Guadalupe Lara [facility] 5 10:20:29 Social History Question Answer Notes LastModified by [id number] ion Details LastModified Time Tobacco Smoking Status Current Every Day Smoker [facility] 03/24/2024 11:58:38 What Is Your Level Of Caffeine Consumption? Heavy Information not available 03/25/2024 What Type Of Diet Are You Following? REGULAR Information not available 03/25/2024 What Was The Date Of Your Most Recent Tobacco Screening? 11/21/2024 Information not available 11/21/2024 What Is Your Current Pack Years? 10-packyerasta s Information not available 06/25/2024 Do You Have Any Dietary Restrictions? No Information not available 03/25/2024 Sex: Unknown Functional Status Question Answer Note LastModified by [facility] ion Details LastModified Time Do you use any illicit or recreational drugs? No [email or web address] Information not available 10/01/2024 What is your [...] trivalent, preservative 4 completed Not Available [facility] 12/04/2024 10:09:53 Influenza, split virus, quadrivalent, PF 5 completed Not Available [facility] 12/04/2024 10:09:53 Influenza, split virus, quadrivalent, PF 6 completed Not Available [facility] 12/04/2024 10:09:53 Influenza, split virus, quadrivalent, PF 6 completed Not Available [facility] 12/04/2024 10:09:53 Influenza, split virus, quadrivalent, PF 8 completed Not Available [facility] 12/04/2024 10:09:53 Influenza, split virus, quadrivalent, PF 0 completed Not Available [facility] 12/04/2024 10:09:53 COVID-19, mRNA, LNP-S, PF, 30 mcg/0.3 mL dose 1 completed Not Available [facility] 12/04/2024 10:09:53 COVID-19, mRNA, LNP-S, PF, 30 mcg/0.3 mL dose 1 completed Not Available [facility] 12/04/2024 10:09:53 Tdap 1 completed Not Available [facility] 12/04/2024 10:09:53 Influenza, split virus, quadrivalent, PF 1 completed Not Available [facility] 12/04/2024 10:09:53 Tdap 1 completed Not Available [facility] 12/04/2024 10:09:53 Tdap 2 completed Not Available [facility] 12/04/2024 10:09:53 Influenza, split virus, quadrivalent, PF 2 completed Not Available [facility] 12/04/2024 10:09:53 Tdap 4 completed Not Available [facility] 12/04/2024 10:09:53 Influenza, split virus, trivalent, PF 4 completed Not Available [facility] 12/04/2024 10:09:53 Past Encounters Encounter ID Performer Location Encounter Start Date Encounter Closed Date Diagnosis/Indication Diagnosis SNOMED-CT Code Diagnosis ICD10 Code Diagnosis Note [id number] KAYLEIGH SÁNCHEZ [facility] [address] [phone] 03/24/2024 11:49:38 03/24/2024 12:36:17 [id number] Renetta Miranda MD [facility] ([facility]) [address] [place] [phone] 03/25/2024 11:30:09 03/25/2024 12:25:58 Cellulitis of left lower limb 1733896739 3894023 L03.116 Patient's exam is concerning for cellulitis of the left lower limb. We will start antibiotic s. Bilateral lower limb edema 650603803 R60.0 Encouraged to elevate legs. Will check lab work today. Type 2 dedrick betes mellitus 71380678 E11.9 We will check his A1c and urine microalbum in. Continue current medication s. Reviewed medication s and the patient was not on a statin so this will be started for him. Bipolar disorder 7134763 4 F31.9 Stable on Depakote. Check Depakote levels. Dysuria 28171119 R30.0 Tuberculos is screening 627949376 Z11.1 X-rays obtained reviewed by me. No lesions or acute changes noted. Chest x-ray will be reviewed by the radiologis t. Chronic pain 16397529 G8 9.29 Provide Tylenol to use as needed. Onychomyco sis of toenails 894598974 B35.1 She was informed of the difficulty of treating nail fungus and recommend oral treatments . Discussed the course of treatment with the patient and caregivers and they agreed to proceed. Essential hypertension 27922105 I10 Continue current medication s. Recommend checking blood pressures every of the day and to notify physician of significan t elevations . [id number] Renetta Miranda MD [facility] ([facility]) [address] [place] [phone] 06/25/2024 10:51:41 06/25/2024 11:58:25 Type 2 diabetes mellitus 94012698 E11.9 Recheck A1c today. As discussed what to do in case of low blood sugar. Instructio ns provided to caregivers . Essential hypertension 44637313 I10 Continue current medication s. Recommend checking blood pressures every of the day and to notify physician of significan t elevations . Irritable bowel syndrome characterized by constipation 841389153 K58.1 Chronic id iopathic constipation 98106337 K59.04 The patient has struggled with constipati on. Patient continues to try a high-fiber diet. The patient has tried and failed MiraLAX and is currently feeling docusate. Recommend that we should try Linzess. [id number] Renetta Miranda MD [facility] ([facility]) [address] [place] [phone] 08/01/2024 10:57:46 08/01/2024 11:51:37 Bipolar disorder 19757278 F31.9 Patient was having a lot of [...] at this time. Moderate i ntellectual disability 04477566 F71 [id number] Renetta Miranda MD [facility] ([facility]) [address] [place] [phone] 09/19/2024 11:42:25 09/19/2024 13:29:57 Bipolar disorder 83033969 F31.9 Continue current meds Type 2 dedrick betes mellitus 80697231 E11.9 discussed starting ozempic to help with DM management in addition to weight and appetite control. The patient and caregivers were agreeable. Essential hypertension 64600535 I10 Continue current medication s. Recommend checking blood pressures every of the day and to notify physician of significan t elevations . Moderate i ntellectual disability 33609987 F71 Obesity 959298761 E66.9 [id number] Renetta Miranda MD [facility] ([facility]) [address] [place] [phone] 10/01/2024 17:14:42 10/06/2024 16:22:29 Allergic rhinitis 41492626 J30.9 Exam is most consistent with allergies. Recommend starting antihistam ine and Flonase Hyperglyce jaycee due to type 2 diabetes mellitus 6515099825 81280 E11.65 Continue to work on diet. Ozempic should hopefully help with blood sugars especially as we increase the dose monthly. Continue to monitor closely to help manage his blood sugars. [id number] Renetta Miranda MD [facility] ([facility]) [address] [place] [address] 10/15/2024 14:32:18 10/15/2024 15:39:06 Hyperglycemia due to type 2 diabetes mellitus 1245433053 35918 E11.65 Continue to work on diet. Ozempic should hopefully help with blood sugars especially as we increase the dose monthly. Continue to monitor closely to help manage his blood sugars. fall W19.XXXD No significan t sequelae from the fall. Continue to work on diet and increase activity to help manage blood sugars. [id number] Renetta Miranda MD [facility] ([facility]) [address] [place] [phone] 11/21/2024 11:55:45 11/21/2024 13:03:41 Type 2 diabetes mellitus 22905672 E11.9 Will check A1c today. Will increase his Ozempic to the 1 mg dose. Reinforced healthy eating choices and encouraged daily exercise. [id number] Renetta Miranda MD [facility] ([facility]) [address] [place] [address] 12/04/2024 10:09:32 12/04/2024 10:55:16 Hyperglycemia due to type 2 diabetes mellitus 1675153007 78710 E11.65 Reinforced diabetic diet and the limitation [...] Member ID Vega Member ID Guarantor Name 12/03/2024 [place] [facility] Ángel Calloway [id number] Nicky Lay 12/03/2024 1 [place] Ángel Calloway [id number] Nicky Lay Notes Date Note Type Note Provider Name and Address Organization Details Recorded Time 09/19/2024 text/html Pt is here for f/u. Pt is gaining weight and struggling with calorie restriction. Pt has been working out. Caregivers states that is behaviors are managed fairly well with minimal outbursts. His other chronic issues are managed. Renetta Miranda MD [address] [place] [address], [phone], [facility] 09/22/2024 11:50:18 10/01/2024 text/html ER F/U [...] some congestion and cough. Renetta Miranda MD [address] [place] [address], [phone], [facility] 10/02/2024 16:34:39 10/15/2024 text/html Diabetes F/UReported bypatient.Context: seeing eye doctor regularly; checks every morning and as needed Associated Symptoms:unintenti onal weight gain (10 lbs) This 29-year-old gentleman [...] any significant concerns today. Renetta Miranda MD [address] [place] [address], [phone], [facility] 10/20/2024 14:54:51 11/21/2024 text/html This is a 29 yea r old male here to follow up on his Ozempic. He has been on it for 5 weeks now. His blood sugars have not changed, states Aranza the medical coordinator with [facility]. No side effects. The patient has had weight gain due to diet and life style choices. Renetta Miranda MD [address] [place] [address], [phone], [facility] 11/22/2024 18:14:15 12/04/2024 text/html patient was in E R for fasting blood sugars 404, 379, 387.He was asymptomatic ER gave him insulin and sent him home. The patient has been intaking sugary drinks.his daily blood glucose has been above 200 each morning. today 228. Patient has been tolerating his Ozempic without any issues but has not done much to curb his appetite. Renetta Miranda MD [address] [place] [address], [phone], [facility] 12/06/2024 20:24:18
[2024-12-11 08:47] VITALS: BP 130/102; PULSE 101; RESP 16; TEMP 36.8; O2SAT 99; BMI 47.7
[2024-12-11 08:54] VITALS: PULSE 95; RESP 16; O2SAT 96
[2024-12-11] MEDS: insulin regular-human 100 units/1 mL 10 UNIT IVP (09:06)
--- NOTE | 2024-12-11 09:28 | W.ED.GENADLT ---
HPI - General Adult General: Chief complaint: General Medical Stated complaint: Blood Sugar Time Seen by Provider: 12/11/24 08:44 History of Present Illness: 29-year-old male with history of diabetes mellitus lives in a halfway. His eating is essentially uncontrolled he is a very poorly controlled diabetic he has been here multiple times. He is asymptomatic at this time he came in by their protocol because his blood sugar was over 400. He is not having any polyuria polydipsia or polyphagia no vomiting. He states he feels fine. He is on restricted diet however staff is not able to enforce this diet with him so he eats unrestrained resulting in very poorly controlled diabetes. Associated symptoms: Deny chest pain, dyspnea or rash Related Data Home Medications ?Medication ?Instructions ?Recorded ?Confirmed metformin 1,000 mg tablet 1,000 mg PO BID@06/02/22 11/14/24 hydrochlorothiazide 25 mg tablet 25 mg PO DAILY@07/14/22 11/14/24 atorvastatin 20 mg tablet 20 mg PO DAILY 04/30/24 11/14/24 divalproex 500 mg tablet,delayed See Rx Instructions .Route .COMPLEX 05/12/24 11/14/24 release fenofibrate nanocrystallized 145 145 mg PO DAILY 05/12/24 11/14/24 mg tablet glimepiride 1 mg tablet 1 mg PO BID 05/12/24 11/14/24 multivitamin 1 tab PO DAILY 05/12/24 11/14/24 linaclotide 145 mcg capsule 145 mcg PO DAILY 06/25/24 11/14/24 (Linzess) acetaminophen 500 mg tablet 1,000 mg PO Q8H PRN Pain 06/27/24 11/14/24 (Tylenol Extra Strength) benzonatate 100 mg capsule 100 mg PO TID PRN Cough 06/27/24 11/14/24 docusate sodium 100 mg capsule 100 mg PO BID 06/27/24 11/14/24 quetiapine 100 mg tablet (Seroquel) 100 mg PO .NOON 09/29/24 11/14/24 cetirizine 10 mg capsule (All Day 10 mg PO DAILY 11/14/24 11/14/24 Allergy (cetirizine)) fluticasone propionate 50 1 spray intranasal DAILY 11/14/24 11/14/24 mcg/actuation nasal spray,suspension semaglutide 0.25 mg or 0.5 mg (2 0.5 mg SUBCUT Q7D 11/14/24 11/14/24 mg/3 mL) subcutaneous pen injector (Ozempic) Previous Rx's ?Medication ?Instructions ?Recorded topiramate 100 mg tablet 100 mg PO TID@08,12,20 #90 tabs 08/10/22 Diabetic Shoes w/3 x inserts #1 ea 06/25/24 haloperidol 5 mg tablet 5 mg PO DAILY PRN agitation #30 07/18/24 tabs quetiapine 300 mg tablet (Seroquel) 300 mg PO BID #60 tabs 11/07/24 Allergies Allergy/AdvReac Type Severity Reaction Status Date / Time olanzapine Allergy Unknown Verified 11/14/24 10:22 risperidone Allergy Unknown Verified 11/14/24 10:22 Review of Systems Const: Denies: fever(s) or chills Card: Denies: chest pain Resp: Denies: dyspnea GI: Denies: abdominal pain : Denies: dysuria, urinary frequency or urinary urgency Musc: Denies: neck pain or back pain Skin/Breast: Denies: rash PFSH ED PFSH: Medical History Psychiatric care Nicotine dependence, cigarettes, uncomplicated Intermittent explosive disorder On valproic acid therapy Bipolar disorder, unspecified Attention-deficit hyperactivity disorder, combined type Generalized anxiety disorder Social History Smoking and tobacco/nicotine status: current every day tobacco/nicotine user cigarettes Packs smoked per day: 2 Physical Exam Const: COMMON NORMALS: no acute distress GENERAL APPEARANCE: cooperative ORIENTATION/CONSCIOUSNESS: Yes awake, Yes oriented to person, Yes oriented to place and Yes oriented to time HENMT: COMMON NORMALS: normocephalic, atraumatic and hearing grossly normal bilaterally HEAD & SCALP: normocephalic and atraumatic Resp: COMMON NORMALS: normal respiratory effort, No retractions, No use of accessory muscles and clear to auscultation bilaterally AUSCULTATION: clear to auscultation bilaterally Cardio: COMMON NORMALS: regular rate, regular rhythm and No murmurs present (Cardio) RATE: regular rate RHYTHM: regular rhythm GI: COMMON NORMALS: Soft to palpation and No hepatosplenomegaly present AUSCULTATION: Yes normoactive bowel sounds PALPATION: Yes Soft to palpation, No Tenderness to palpation present (GI), No Guarding due to palpation present (GI) and Yes No hepatosplenomegaly present Extremity: COMMON NORMALS: normal to inspection, capillary refill normal, no clubbing, cyanosis or edema, no calf tenderness and no pedal edema Neuro: SENSORIUM/ORIENTATION: Yes oriented to person, Yes oriented to place and Yes oriented to time Skin: COMMON NORMALS: no rashes or lesions noted GENERAL SKIN EXAM: no rashes or lesions noted Course Vital Signs: Vital signs: Vital Signs Temperature 98.2 F 12/11/24 08:47 Pulse Rate 96 12/11/24 09:52 Respiratory Rate 16 12/11/24 09:52 Blood Pressure 125/84 12/11/24 09:52 Pulse Oximetry 97 12/11/24 09:52 Oxygen Delivery Me thod Room Air 12/11/24 08:47 MDM - General Adult Medical Decision Making No sign of diabetic ketoacidosis anion gap is normal blood sugar is elevated but is chronically elevated because of his poor diet. I recommend follow-up with his primary care doctor for review of his diabetes management and for caregivers to establish protocols to seek emergent care. Medical Records I reviewed the patient's medical records. Lab Data I reviewed the patient's lab results. 12/11/24 09:02 Laboratory Results Sodium 137 mmol/L (136-145) 12/11/24 09:02 Potassium 4.3 mmol/L (3.5-5.1) 12/11/24 09:02 Chloride 103 mmol/L (98-107) 12/11/24 09:02 Carbon Dioxide 20 mmol/L (22-29) L 12/11/24 09:02 Anion Gap 18.3 (5-19) 12/11/24 09:02 BUN 16 mg/dL (6-20) 12/11/24 09:02 Creatinine 0.6 mg/dL (0.7-1.2) L 12/11/24 09:02 GFR Calculation 159.3 mL/min (90-130) H 12/11/24 09:02 Glucose 328 mg/dL (65-115) H 12/11/24 09:02 POC Glucose 236 mg/dL (70-110) H 12/11/24 09:49 Calculated Osmolality 298 mOsm/kg (285-295) H 12/11/24 09:02 Calcium 9.7 mg/dL (8.5-10.5) 12/11/24 09:02 Serum Ketones Negative (Negative) 12/11/24 09:02 No radiology studies performed this visit Discharge Plan Discharge Patient Disposition: Home Clinical Impression: Hyperglycemia, Poorly controlled diabetes mellitus, Type 2 diabetes mellitus Condition: Stable Prescriptions: No Action fenofibrate nanocrystallized 145 mg tablet 145 mg PO DAILY acetaminophen [Tylenol Extra Strength] 500 mg tablet 1,000 mg PO Q8H PRN (Reason: Pain) atorvastatin 20 mg tablet 20 mg PO DAILY docusate sodium 100 mg capsule 100 mg PO BID divalproex 500 mg tablet,delayed release (DR/EC) See Rx Instructions .ROUTE .COMPLEX Dose Instruction: TAKE TWO TABLETS BY MOUTH at EIGHT IN THE MORNING and TWO IN THE EVENING and take ONE tablet at EIGHT IN THE EVENING Rx Instructions: TAKE TWO TABLETS BY MOUTH at EIGHT IN THE MORNING and TWO IN THE EVENING glimepiride 1 mg tablet 1 mg PO BID multivitamin Tablet 1 tab PO DAILY haloperidol 5 mg tablet 5 mg PO DAILY PRN (Reason: agitation) Qty: 30 0RF fluticasone propionate 50 mcg/actuation spray,suspension 1 spray intranasal DAILY Rx Instructions: administer into each nostril All Day Allergy (cetirizine) 10 mg capsule 10 mg PO DAILY Linzess 145 mcg capsule 145 mcg PO DAILY (DME) Diabetic Shoes w/3 x inserts See Rx Instructions .Route .MEDSUPPLY Qty: 1 0RF Rx Instructions: As directed By the Sury Constantino 3 x inserts benzonatate 100 mg capsule 100 mg PO TID PRN (Reason: Cough) topiramate 100 mg tablet 100 mg PO TID@08,12,20 Qty: 90 1RF quetiapine [Seroquel] 300 mg tablet 300 mg PO BID Qty: 60 2RF metformin 1,000 mg tablet 1,000 mg PO BID@08,20 quetiapine [Seroquel] 100 mg tablet 100 mg PO .NOON Ozempic 0.25 mg or 0.5 mg (2 mg/3 mL) pen injector 0.5 mg SUBCUT Q7D hydrochlorothiazide 25 mg tablet 25 mg PO DAILY@08 Discharge Orders: Discharge ED (Routine); Ordered 12/11/24 Ordered By: Alistair Carter Referrals: Jaiden Miranda MD [Primary Care Provider, Family Practice] Discharge Diet: Diabetic Patient Instructions: Meal Planning with Diabetes Exchanges (DC), Opioid Safety, Pain Management, Patient Portal & Ian Instructions Activity Restrictions/Additional Instructions: [facility] you [facility]. It is very important that you follow up as instructed or that you return to the Emergency Department should you have concerns or if your condition changes or worsens in any way. You are seen in the emergency room with elevated blood sugars. Recommend you follow-up with your primary care doctor to review your blood sugar control. 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
[2024-12-11 09:33] LABS: Ketone (Acetest) Serum Negative (Negative)
[2024-12-11 09:34] VITALS: BP 142/86; PULSE 95; RESP 16; O2SAT 97
[2024-12-11 09:34] LABS: Anion Gap 18.3 (5-19); Blood Urea Nitrogen 16 mg/dL (6-20); Calcium 9.7 mg/dL (8.5-10.5); Carbon Dioxide 20 mmol/L (22-29); Chloride 103 mmol/L (98-107); Creatinine Clr Calc Pharmacy 291.9403; Glucose 328 mg/dL (65-115); Osmolality Calculated 298 mOsm/kg (285-295); Potassium 4.3 mmol/L (3.5-5.1); Sodium 137 mmol/L (136-145)
[2024-12-11 09:52] VITALS: BP 125/84; PULSE 96; RESP 16; O2SAT 97
== END 2024-12-11 09:52 | disposition home or self-care (01) ==
PROVIDERS: Emergency Provider Family Medicine; PCP Family Medicine
DX: E11.65 Type 2 diabetes mellitus with hyperglycemia (principal); Z79.84 Long term (current) use of oral hypoglycemic drugs; Z79.899 Other long term (current) drug therapy; Z79.85 Long-term (current) use of injectable non-insulin antidiabetic drugs; F17.210 Nicotine dependence, cigarettes, uncomplicated
CPT/HCPCS: 36415; 36416; 80048; 82009; 82962; 96374; 99284; J1815

== ENCOUNTER 2025-01-11 00:59 | Emergency (ER) | payer MEDICAID, SELFPAY ==
[2025-01-11 01:06] VITALS: BP 143/86; PULSE 97; RESP 20; TEMP 36.8; O2SAT 97; BMI 48.6
--- NOTE | 2025-01-11 01:12 | XRR_ITS ---
PROCEDURE INFORMATION: Exam: XR Right Foot Exam date and time: 01/11/2025 2:11 AM Age: 29 years old Clinical indication: Injury or trauma; Other: Stubbed toe; Blunt trauma; Toes; Right lesser toe(s); Patient stubbed RT 2nd toe against wall. TECHNIQUE: Imaging protocol: Radiologic exam of the right foot. Views: 1 or 2 views. COMPARISON: CR XR knee RT 3V* [id number] 06/26/2022 5:57 AM FINDINGS: Bones/joints: Normal. Soft tissues: Normal. XR/XR foot RT 2V [id number] IMPRESSION: No acute findings.
[2025-01-11] MEDS: oxyCODONE-APAP 5-325 mg Tablet 1 TAB PO (03:26)
[2025-01-11] MEDS: mupirocin oint 22 gm 1 APPLIC TOPICAL (03:26)
--- NOTE | 2025-01-11 03:27 | W.ED.EXTPRO ---
HPI - Extremity Problem General: Chief complaint: Extremity Injury, Lower Stated complaint: Stubbed toe next to the big toe, bleeding Time Seen by Provider: 01/11/25 02:39 History of Present Illness: This 29-year-old male presents with a foot injury sustained earlier this evening when he kicked into a wall. The patient reports significant bleeding from the wound and notes complete avulsion of a nail. Given his diabetic status, he appropriately sought medical attention for proper wound cleaning and evaluation. THe reports being unable to touch the wound without experiencing discomfort. The mechanism of injury and resulting nail avulsion prompted his visit for professional medical evaluation and management. Related Data Home Medications ?Medication ?Instructions ?Recorded ?Confirmed metformin 1,000 mg tablet 1,000 mg PO BID@06/02/22 11/14/24 hydrochlorothiazide 25 mg tablet 25 mg PO DAILY@07/14/22 11/14/24 atorvastatin 20 mg tablet 20 mg PO DAILY 04/30/24 11/14/24 divalproex 500 mg tablet,delayed See Rx Instructions .Route .COMPLEX 05/12/24 11/14/24 release fenofibrate nanocrystallized 145 145 mg PO DAILY 05/12/24 11/14/24 mg tablet glimepiride 1 mg tablet 1 mg PO BID 05/12/24 11/14/24 multivitamin 1 tab PO DAILY 05/12/24 11/14/24 linaclotide 145 mcg capsule 145 mcg PO DAILY 06/25/24 11/14/24 (Linzess) acetaminophen 500 mg tablet 1,000 mg PO Q8H PRN Pain 06/27/24 11/14/24 (Tylenol Extra Strength) benzonatate 100 mg capsule 100 mg PO TID PRN Cough 06/27/24 11/14/24 docusate sodium 100 mg capsule 100 mg PO BID 06/27/24 11/14/24 quetiapine 100 mg tablet (Seroquel) 100 mg PO .NOON 09/29/24 11/14/24 cetirizine 10 mg capsule (All Day 10 mg PO DAILY 11/14/24 11/14/24 Allergy (cetirizine)) fluticasone propionate 50 1 spray intranasal DAILY 11/14/24 11/14/24 mcg/actuation nasal spray,suspension semaglutide 0.25 mg or 0.5 mg (2 0.5 mg SUBCUT Q7D 11/14/24 11/14/24 mg/3 mL) subcutaneous pen injector (Ozempic) Previous Rx's ?Medication ?Instructions ?Recorded topiramate 100 mg tablet 100 mg PO TID@08,12,20 #90 tabs 08/10/22 Diabetic Shoes w/3 x inserts #1 ea 06/25/24 haloperidol 5 mg tablet 5 mg PO DAILY PRN agitation #30 07/18/24 tabs quetiapine 300 mg tablet (Seroquel) 300 mg PO BID #60 tabs 11/07/24 ibuprofen 800 mg tablet 800 mg PO Q8H #20 tabs 01/11/25 mupirocin 2 % topical ointment 1 applic topical BID #15 grams 01/11/25 ([facility]) Allergies Allergy/AdvReac Type Severity Reaction Status Date / Time olanzapine Allergy Unknown Verified 11/14/24 10:22 risperidone Allergy Unknown Verified 11/14/24 10:22 [facility] ED PFSH: Medical History (Updated 01/11/25 @ 03:28 by Jimmie Magallanes DO) Psychiatric care Nicotine dependence, cigarettes, uncomplicated Intermittent explosive disorder On valproic acid therapy Bipolar disorder, unspecified Attention-deficit hyperactivity disorder, combined type Generalized anxiety disorder Social History Smoking and tobacco/nicotine status: current every day tobacco/nicotine user cigarettes Packs smoked per day: 2 Physical Exam Const: COMMON NORMALS: no acute distress GENERAL APPEARANCE: cooperative; not ill appearing and not frail appearing HENMT: COMMON NORMALS: normocephalic, atraumatic and Normal external nose present HEAD & SCALP: normocephalic and atraumatic FACE & SINUS: normal facial exam and face symmetric NOSE: Normal external nose present Eye: COMMON NORMALS: Equal, round and reactive pupils present and EOMs intact bilaterally PUPIL: Yes Equal, round and reactive pupils present Neck/C-Spine: GENERAL: Yes trachea midline Chest: CHEST: Yes Symmetrical chest wall rise Resp: COMMON NORMALS: normal respiratory effort, No retractions and No use of accessory muscles Cardio: COMMON NORMALS: regular rate and regular rhythm RATE: regular rate RHYTHM: regular rhythm Extremity: NARRATIVE EXTREMITY EXAM: Right second toenail avulsion. Some soft tissue swelling. No deformity of the toe. Capillary refills normal. Bleeding is controlled. Neuro: NELL COMA SCALE: document GCS findings Nell coma scale eye opening: Spontaneous Nell coma scale verbal response: Orientated [place] coma scale motor response: Obey commands [place] coma scale total score: 15 SENSORY EXAM: Yes extremities (intact) Psych: COMMON NORMALS: speech normal SPEECH: Yes normal speech Course Vital Signs: Vital signs: Vital Signs Temperature 98.2 F 01/11/25 01:06 Pulse Rate 93 01/11/25 03:37 Respiratory Rate 18 01/11/25 03:37 Blood Pressure 150/95 01/11/25 03:37 Pulse Oximetry 97 01/11/25 03:37 Oxygen Delivery Me thod Room Air 01/11/25 01:06 MDM - Extremity (Nontraumatic) Medical Decision Making X-ray is negative. Full nail avulsion treatment and local wound care. Mupirocin, bulky dressing. Discharge. Weightbearing as tolerated. Follow-up this week as an outpatient for wound check Lab Data Radiology Impressions Foot X-Ray 01/11/25 01:12 IMPRESSION: No acute findings. All radiology interpretation(s) finalized by discharge Discharge Plan Discharge Patient Disposition: Home Clinical Impression: Avulsion of toenail of right foot Condition: Stable Prescriptions: New ibuprofen 800 mg tablet 800 mg PO Q8H Qty: 20 0RF mupirocin [Centany] 2 % ointment 1 applic topical BID Qty: 15 0RF No Action fenofibrate nanocrystallized 145 mg tablet 145 mg PO DAILY acetaminophen [Tylenol Extra Strength] 500 mg tablet 1,000 mg PO Q8H PRN (Reason: Pain) atorvastatin 20 mg tablet 20 mg PO DAILY docusate sodium 100 mg capsule 100 mg PO BID divalproex 500 mg tablet,delayed release (DR/EC) See Rx Instructions .ROUTE .COMPLEX Dose Instruction: TAKE TWO TABLETS BY MOUTH at EIGHT IN THE MORNING and TWO IN THE EVENING and take ONE tablet at EIGHT IN THE EVENING Rx Instructions: TAKE TWO TABLETS BY MOUTH at EIGHT IN THE MORNING and TWO IN THE EVENING glimepiride 1 mg tablet 1 mg PO BID multivitamin Tablet 1 tab PO DAILY haloperidol 5 mg tablet 5 mg PO DAILY PRN (Reason: agitation) Qty: 30 0RF fluticasone propionate 50 mcg/actuation spray,suspension 1 spray intranasal DAILY Rx Instructions: administer into each nostril All Day Allergy (cetirizine) 10 mg capsule 10 mg PO DAILY Linzess 145 mcg capsule 145 mcg PO DAILY (DME) Diabetic Shoes w/3 x inserts See Rx Instructions .Route .MEDSUPPLY Qty: 1 0RF Rx Instructions: As directed By the Sury Constantino 3 x inserts benzonatate 100 mg capsule 100 mg PO TID PRN (Reason: Cough) topiramate 100 mg tablet 100 mg PO TID@08,12,20 Qty: 90 1RF quetiapine [Seroquel] 300 mg tablet 300 mg PO BID Qty: 60 2RF metformin 1,000 mg tablet 1,000 mg PO BID@08,20 quetiapine [Seroquel] 100 mg tablet 100 mg PO .NOON Ozempic 0.25 mg or 0.5 mg (2 mg/3 mL) pen injector 0.5 mg SUBCUT Q7D hydrochlorothiazide 25 mg tablet 25 mg PO DAILY@08 Discharge Orders: Discharge ED (Routine); Ordered 01/11/25 Ordered By: Jimmie Magallanes Referrals: Jaiden Miranda MD [Primary Care Provider, Family Practice] - 1-3 days Patient Instructions: Nail Avulsion (ED), Opioid Safety, Pain Management, Patient Portal & Ian Instructions Activity Restrictions/Additional Instructions: Dressing changes twice daily as shown in the emergency department. You may wash with soap and running water. Do not soak. Return for any problems. 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
[2025-01-11 03:37] VITALS: BP 150/95; PULSE 93; RESP 18; O2SAT 97
== END 2025-01-11 03:39 | disposition home or self-care (01) ==
PROVIDERS: Emergency Provider Emergency Medicine; PCP Family Medicine
DX: S91.204A Unspecified open wound of right lesser toe(s) with damage to nail, initial encounter (principal); W22.01XA Walked into wall, initial encounter; F17.210 Nicotine dependence, cigarettes, uncomplicated
CPT/HCPCS: 73620; 99283; J9999

== ENCOUNTER 2025-01-24 00:12 | Emergency (ER) | payer MEDICAID, SELFPAY ==
--- OUTSIDE RECORDS SUMMARY | 2021-05-05 05:30 | XMS_ITS | Continuity of Care Document ---
Author Organization [facility] Address [address] [id number]-[place] [address] Phone Care Team Providers Care Test Analyst Name Role Phone Yesy Childs DDS Unavailable [...] Diagnoses Date Provider Providers Copied on Encounter [facility], [id number] 8068[address] [place], [place], [address], [place] tel:[phone] [facility] Encounter for dental exam and cleaning w/o abnormal findings 1 Amadeo Hayward Beth. [address] [place], [place], [address], [place]. tel:[phone] Referring Provider: CasiAmy Childs, [address] [place], [address] . tel:[phone] [facility], [id number] 297[address]OE[place], [address], [place] tel:[phone] [facility] No Information 1 Amadeo Casi. [address], [place], [address], [place]. tel:[phone] Referring Provider: Casi Jackson, [address] [place], [address] . tel:[phone] [facility], [id number] 927655BC-[place], [address], [place] tel:[phone] [facility] Encounter for dental exam and cleaning w/o abnormal findings 1 No Information Family History Family Member Type Diagnosis Age At Onset No Information Payers Payer name Insurance type Covered republican ID Edgarvladislav supa(s) D Medicaid [id number] Social History Type Description Quantity Date Captured [...]
[2025-01-24 00:23] VITALS: BP 136/89; PULSE 94; RESP 16; TEMP 36.7; O2SAT 97; BMI 42.2
[2025-01-24 03:43] LABS: Hematocrit 45.2 % (37-53); Hemoglobin 15.20 g/dL (11.27-16.99); Mean Corpuscular HGB Conc 33.6 g/dL (30-55); Mean Corpuscular Hemoglobin 29.4 pg (27-33); Mean Corpuscular Volume 87.4 fl (82-101); Nucleated Red Blood Cells % 0 %; Platelet Count 244 10^3/cmm (157-399); Red Blood Count 5.17 10^6/uL (3.85-5.65); White Blood Count 4.95 10^3/uL (3.29-11.43)
[2025-01-24 03:45] VITALS: BP 110/84; PULSE 85; O2SAT 98
[2025-01-24 04:03] LABS: Alanine Aminotransferase 16 U/L (0-41); Albumin Level 4.3 g/dL (3.5-5.2); Alkaline Phosphatase 60 U/L (40-130); Anion Gap 17.9 (5-19); Aspartate Amino Transferase 10 U/L (0-40); Blood Urea Nitrogen 20 mg/dL (6-20); Calcium 10.0 mg/dL (8.5-10.5); Carbon Dioxide 23 mmol/L (22-29); Chloride 96 mmol/L (98-107); Creatinine Clr Calc Pharmacy 273.6652; Globulin 3.7 g/dL (1.3-4.6); Glucose 426 mg/dL (65-115); Osmolality Calculated 297 mOsm/kg (285-295); Potassium 3.9 mmol/L (3.5-5.1); Sodium 133 mmol/L (136-145); Total Protein 8.0 g/dL (6.6-8.7)
--- NOTE | 2025-01-24 04:11 | W.ED.RECABL ---
HPI - Recheck/Abnormal Lab/Rx General: Chief Complaint: Recheck/Abnormal Lab/Rx Stated Complaint: High Blood Sugar Time Seen by Provider: 01/24/25 03:59 History of Present Illness: Patient is a 29-year-old male presenting for follow-up of diabetes management. He reports persistently elevated blood glucose readings, with recent values of 350 mg/dL that subsequently increased to 388 mg/dL. A reading at Triage was reportedly lower than his self-monitored values. The patient denies any associated symptoms, including fever or vomiting. He is currently taking Ozempic 2 mg and glimiperide. He denies any recent changes to his medication regimen. Patient has been monitoring his blood glucose regularly, with readings from the past three days showing consistently elevated values: 334 mg/dL this morning at 8:00 AM, 283 mg/dL the previous morning at 8:00 AM, and multiple readings in the 200-300 mg/dL range. The patient also has a healing toe wound that appears to be improving. Related Data Home Medications ?Medication ?Instructions ?Recorded ?Confirmed metformin 1,000 mg tablet 1,000 mg PO BID@06/02/22 11/14/24 hydrochlorothiazide 25 mg tablet 25 mg PO DAILY@07/14/22 11/14/24 atorvastatin 20 mg tablet 20 mg PO DAILY 04/30/24 11/14/24 divalproex 500 mg tablet,delayed See Rx Instructions .Route .COMPLEX 05/12/24 11/14/24 release fenofibrate nanocrystallized 145 145 mg PO DAILY 05/12/24 11/14/24 mg tablet glimepiride 1 mg tablet 1 mg PO BID 05/12/24 11/14/24 multivitamin 1 tab PO DAILY 05/12/24 11/14/24 linaclotide 145 mcg capsule 145 mcg PO DAILY 06/25/24 11/14/24 (Linzess) acetaminophen 500 mg tablet 1,000 mg PO Q8H PRN Pain 06/27/24 11/14/24 (Tylenol Extra Strength) benzonatate 100 mg capsule 100 mg PO TID PRN Cough 06/27/24 11/14/24 docusate sodium 100 mg capsule 100 mg PO BID 06/27/24 11/14/24 quetiapine 100 mg tablet (Seroquel) 100 mg PO .NOON 09/29/24 11/14/24 cetirizine 10 mg capsule (All Day 10 mg PO DAILY 11/14/24 11/14/24 Allergy (cetirizine)) fluticasone propionate 50 1 spray intranasal DAILY 11/14/24 11/14/24 mcg/actuation nasal spray,suspension semaglutide 0.25 mg or 0.5 mg (2 0.5 mg SUBCUT Q7D 11/14/24 11/14/24 mg/3 mL) subcutaneous pen injector (Ozempic) Previous Rx's ?Medication ?Instructions ?Recorded topiramate 100 mg tablet 100 mg PO TID@08,12,20 #90 tabs 08/10/22 Diabetic Shoes w/3 x inserts #1 ea 06/25/24 haloperidol 5 mg tablet 5 mg PO DAILY PRN agitation #30 07/18/24 tabs quetiapine 300 mg tablet (Seroquel) 300 mg PO BID #60 tabs 11/07/24 ibuprofen 800 mg tablet 800 mg PO Q8H #20 tabs 01/11/25 mupirocin 2 % topical ointment 1 applic topical BID #15 grams 01/11/25 (Centany) insulin glargine 100 unit/mL (3 15 unit (0.15 mL) SUBCUT QPM #15 mL 01/24/25 mL) subcutaneous pen (Lantus Solostar U-100 Insulin) Allergies Allergy/AdvReac Type Severity Reaction Status Date / Time olanzapine Allergy Unknown Verified 01/24/25 00:32 risperidone Allergy Unknown Verified 01/24/25 00:32 COUNTS INCLUDE 234 BEDS AT THE [facility] ED PFSH: Medical History Psychiatric care Nicotine dependence, cigarettes, uncomplicated Intermittent explosive disorder On valproic acid therapy Bipolar disorder, unspecified Attention-deficit hyperactivity disorder, combined type Generalized anxiety disorder Social History Smoking and tobacco/nicotine status: current every day tobacco/nicotine user cigarettes Packs smoked per day: 2 Physical Exam Const: COMMON NORMALS: no acute distress GENERAL APPEARANCE: cooperative; not ill appearing and not frail appearing HENMT: COMMON NORMALS: normocephalic, atraumatic and Normal external nose present HEAD & SCALP: normocephalic and atraumatic FACE & SINUS: normal facial exam and face symmetric NOSE: Normal external nose present Eye: COMMON NORMALS: Equal, round and reactive pupils present and EOMs intact bilaterally PUPIL: Yes Equal, round and reactive pupils present Neck/C-Spine: GENERAL: Yes trachea midline Chest: CHEST: Yes Symmetrical chest wall rise Resp: COMMON NORMALS: normal respiratory effort, No retractions, No use of accessory muscles and clear to auscultation bilaterally AUSCULTATION: clear to auscultation bilaterally Cardio: COMMON NORMALS: regular rate and regular rhythm RATE: regular rate RHYTHM: regular rhythm GI: COMMON NORMALS: Normal to inspection, nondistended, normoactive bowel sounds present Extremity: COMMON NORMALS: no pedal edema Neuro: NELL COMA SCALE: document GCS findings Hawthorne coma scale eye opening: Spontaneous Nell coma scale verbal response: Orientated Nell coma scale motor response: Obey commands Hawthorne coma scale total score: 15 SENSORY EXAM: Yes extremities (intact) Psych: COMMON NORMALS: speech normal SPEECH: Yes normal speech Skin: COMMON NORMALS: no rashes or lesions noted GENERAL SKIN EXAM: no rashes or lesions noted Course Vital Signs: Vital signs: Vital Signs Temperature 98.0 F 01/24/25 00:23 Pulse Rate 102 H 01/24/25 05:57 Respiratory Rate 16 01/24/25 00:23 Blood Pressure 129/89 01/24/25 05:57 Pulse Oximetry 96 01/24/25 05:57 Oxygen Delivery Me thod Room Air 01/24/25 05:11 MDM - Recheck/Abnormal Lab/Rx Medical Decision Making Glucose is up to 424. CBC is normal. Bicarbonate is normal. He is not ketotic/acidotic. He is given 16 units regular insulin IV. He will be given Lantus 15 units as well subcutaneously. Will add Lantus to his medication regimen, as Ozempic and glimepiride do not seem to be controlling his blood sugar significantly well. Blood sugars following. Down to 330. No evidence of DKA, or complication as above. He will be discharged on Lantus as above. Lab Data 01/24/25 03:26 01/24/25 03:26 Laboratory Results WBC 4.95 10^3/uL (3.29-11.43) 01/24/25 03:26 RBC 5.17 10^6/uL (3.85-5.65) 01/24/25 03:26 Hgb 15.20 g/dL (11.27-16.99) 01/24/25 03:26 Hct 45.2 % (37-53) 01/24/25 03:26 MCV 87.4 fl (82-101) 01/24/25 03:26 MCH 29.4 pg (27-33) 01/24/25 03:26 MCHC 33.6 g/dL (30-55) 01/24/25 03:26 RDW 13.1 % (12.1-15.1) 01/24/25 03:26 Plt Count 244 10^3/cmm (157-399) 01/24/25 03:26 MPV 12.1 fL (7.4-10.4) H 01/24/25 03:26 Neut % (Auto) 49.1 % 01/24/25 03:26 Lymph % (Auto) 37.2 % 01/24/25 03:26 Stevens % (Auto) 7.9 % 01/24/25 03:26 Eos % (Auto) 4.0 % 01/24/25 03:26 Baso % (Auto) 0.8 % 01/24/25 03:26 Neut # (Auto) 2.43 10^3/uL (1.8-7.7) 01/24/25 03:26 Lymph # (Auto) 1.8 10^3/uL (0.8-4.8) 01/24/25 03:26 Stevens # (Auto) 0.4 10^3/uL (0.2-0.9) 01/24/25 03:26 Eos # (Auto) 0.2 10^3/uL (0.0-0.8) 01/24/25 03:26 Baso # (Auto) 0.0 10^3/uL (0.0-0.1) 01/24/25 03:26 Nucleated RBC % (auto) 0 % 01/24/25 03:26 Nucleated RBCs # 0.0 /100WBC 01/24/25 03:26 Sodium 133 mmol/L (136-145) L 01/24/25 03:26 Potassium 3.9 mmol/L (3.5-5.1) 01/24/25 03:26 Chloride 96 mmol/L (98-107) L 01/24/25 03:26 Carbon Dioxide 23 mmol/L (22-29) 01/24/25 03:26 Anion Gap 17.9 (5-19) 01/24/25 03:26 BUN 20 mg/dL (6-20) 01/24/25 03:26 Creatinine 0.7 mg/dL (0.7-1.2) 01/24/25 03:26 GFR Calculation 133.3 mL/min (90-130) H 01/24/25 03:26 Glucose 426 mg/dL (65-115) H 01/24/25 03:26 POC Glucose 334 mg/dL (70-110) H 01/24/25 05:46 Calculated Osmolality 297 mOsm/kg (285-295) H 01/24/25 03:26 Calcium 10.0 mg/dL (8.5-10.5) 01/24/25 03:26 Total Bilirubin 0.2 mg/dL (0.15-1.2) 01/24/25 03:26 AST 10 U/L (0-40) 01/24/25 03:26 ALT 16 U/L (0-41) 01/24/25 03:26 Alkaline Phosphatase 60 U/L (40-130) 01/24/25 03:26 Total Protein 8.0 g/dL (6.6-8.7) 01/24/25 03:26 Albumin 4.3 g/dL (3.5-5.2) 01/24/25 03:26 Globulin 3.7 g/dL (1.3-4.6) 01/24/25 03:26 All radiology interpretation(s) finalized by discharge Discharge Plan Discharge Patient Disposition: Home Clinical Impression: Type 2 diabetes mellitus, Acute hyperglycemia Condition: Stable Prescriptions: New insulin glargine [Lantus Solostar U-100 Insulin] 100 unit/mL (3 mL) insulin pen 15 unit SUBCUT QPM Qty: 15 0RF No Action fenofibrate nanocrystallized 145 mg tablet 145 mg PO DAILY acetaminophen [Tylenol Extra Strength] 500 mg tablet 1,000 mg PO Q8H PRN (Reason: Pain) atorvastatin 20 mg tablet 20 mg PO DAILY docusate sodium 100 mg capsule 100 mg PO BID divalproex 500 mg tablet,delayed release (DR/EC) See Rx Instructions .ROUTE .COMPLEX Dose Instruction: TAKE TWO TABLETS BY MOUTH at EIGHT IN THE MORNING and TWO IN THE EVENING and take ONE tablet at EIGHT IN THE EVENING Rx Instructions: TAKE TWO TABLETS BY MOUTH at EIGHT IN THE MORNING and TWO IN THE EVENING glimepiride 1 mg tablet 1 mg PO BID multivitamin Tablet 1 tab PO DAILY haloperidol 5 mg tablet 5 mg PO DAILY PRN (Reason: agitation) Qty: 30 0RF fluticasone propionate 50 mcg/actuation spray,suspension 1 spray intranasal DAILY Rx Instructions: administer into each nostril All Day Allergy (cetirizine) 10 mg capsule 10 mg PO DAILY Linzess 145 mcg capsule 145 mcg PO DAILY (DME) Diabetic Shoes w/3 x inserts See Rx Instructions .Route .MEDSUPPLY Qty: 1 0RF Rx Instructions: As directed By the Sury Constantino 3 x inserts benzonatate 100 mg capsule 100 mg PO TID PRN (Reason: Cough) topiramate 100 mg tablet 100 mg PO TID@08,12,20 Qty: 90 1RF quetiapine [Seroquel] 300 mg tablet 300 mg PO BID Qty: 60 2RF metformin 1,000 mg tablet 1,000 mg PO BID@08,20 quetiapine [Seroquel] 100 mg tablet 100 mg PO .NOON Ozempic 0.25 mg or 0.5 mg (2 mg/3 mL) pen injector 0.5 mg SUBCUT Q7D hydrochlorothiazide 25 mg tablet 25 mg PO DAILY@08 ibuprofen 800 mg tablet 800 mg PO Q8H Qty: 20 0RF mupirocin [Centany] 2 % ointment 1 applic topical BID Qty: 15 0RF Discharge Orders: Discharge ED (Routine); Ordered 01/24/25 Ordered By: Jimmie Magallanes Referrals: Jaiden Miranda MD [Primary Care Provider, Family Practice] - 1-3 days Patient Instructions: Diabetic Hyperglycemia (ED), Opioid Safety, Pain Management, Patient Portal & Ian Instructions Activity Restrictions/Additional Instructions: Use the Lantus (long-acting insulin) nightly as prescribed. Continue to check blood sugars in the morning. Return for any problems. 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
[2025-01-24] MEDS: insulin regular-human 100 units/1 mL 16 UNIT IVP (05:04)
[2025-01-24] MEDS: insulin glargine 100 units/1 mL 15 UNIT SUBCUT (05:06)
[2025-01-24 05:11] VITALS: BP 157/82; PULSE 88; O2SAT 99
[2025-01-24 05:57] VITALS: BP 129/89; PULSE 102; O2SAT 96
== END 2025-01-24 06:16 | disposition home or self-care (01) ==
PROVIDERS: Emergency Provider Emergency Medicine; PCP Family Medicine
DX: E11.65 Type 2 diabetes mellitus with hyperglycemia (principal); Z79.84 Long term (current) use of oral hypoglycemic drugs; F17.210 Nicotine dependence, cigarettes, uncomplicated
CPT/HCPCS: 36415; 36416; 80053; 82962; 85025; 96372; 96374; 99284; J1815

== ENCOUNTER 2025-02-21 09:58 | Emergency (ER) | payer MEDICAID, SELFPAY ==
--- OUTSIDE RECORDS SUMMARY | 2021-05-05 05:30 | XMS_ITS | Continuity of Care Document ---
Author Organization [facility] Address [address] [id number]-[place] [address] Phone Care Team Providers Care Social Sciences Department Chair Name Role Phone Yesy Childs DDS Unavailable [...] Diagnoses Date Provider Providers Copied on Encounter [facility], [id number] 042908FR-Hj [place], [place], [address], [place] tel:[phone] [facility] Encounter for dental exam and cleaning w/o abnormal findings 1 Amadeo Hayward Beth. [address] [place], [place], [address], [place]. tel:[phone] Referring Provider: CasiAmy Childs, [address] [place], [address] . tel:[phone] [facility], [id number] 059022ZQ-[place], [address], [place] tel:[phone] [facility] No Information 1 Amadeo Casi. [address] [place], [place], [address], [place]. tel:[phone] Referring Provider: Casi Jackson, [address] [place], [address] . tel:[phone] [facility], [id number] 408601PY-[place], [address], [place] tel:[phone] [facility] Encounter for dental exam and cleaning w/o abnormal findings 1 No Information Family History Family Member Type Diagnosis Age At Onset No Information Payers Payer name Insurance type Covered republican ID Edgarvladislav supa(s) D Medicaid [id number] Social History Type Description Quantity Date Captured [...]
[2025-02-21 10:02] VITALS: BP 132/81; PULSE 113; RESP 18; TEMP 36.9; O2SAT 98
--- OUTSIDE RECORDS SUMMARY | 2025-02-21 10:04 | XMS_ITS | Data Portability ---
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 Plan of Treatment Reminders Order Date Submit Date Provider Last Modified By Organization Details Last Modified Time Details Appointments OFFICE VISIT 15 2024 10:00A M Renetta Miranda MD Not available Not available Not available Lab HbA1c (hemoglob in A1c), blood 2024 025 [email or web address] [facility], [address], [facility], [place], [address], 11/30/2024 20:10:48 Referral None recorded. Procedures None recorded. Surgeries None recorded. Imaging None recorded. Medication Orders Ozempic 1 mg/dose (4 mg/3 mL) subcutane ous pen injector 2024 025 [email or web address] [facility], [address], [place], [address], 01/16/2025 10:52:42 Patient TargetsNo targets recorded. Patient InstructionsNo instructions recorded. Reason for Referral None Reported. Results Created Date Observation Date Name Description Value Unit Range Abnormal Flag Note LastModifiedBy Organization Detail LastModifiedTime 11/22/1911/21/2024 HBA1C hemaglobin A1C 7.5 4.2-6. 5 high Not Available [facility] [address] [facility], [place], [address], 11/21/2024 12:58:56 Result Notes None recorded. Problems Name Problem SNOMED Code Status Onset Date Resolution Date Notes Provider Name and Address Organization Details Recorded Time Moderate intellec tual disabili ty 77821712 Active 2023 Maria Guadalupe wynn [facility] 14:44:02 Obesity 851124282 Active 2023 Maria Guadalupe wynn [facility] 14:44:09 Metaboli c syndrome X 560270192 Active 2023 Maria Guadalupe wynn [facility] 14:44:25 Bipolar disorder 50329268 Active 2023 [facility] 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 14:44:47 Cellulit is of left lower limb 65404608772 659024 Completed 202307/31/2024 Maria Guadalupe wynn [facility] 14:42:28 Bilatera l lower limb edema 154168404 Active 2023 Maria Guadalupe wynn [facility] 14:42:03 Type 2 diabetes mellitus 92246735 Active 2023 [facility] 14:44:53 Dysuria 22640501 Active 2023 Maria Guadalupe wynn [facility] 14:43:23 Chronic pain 15395760 Active 2023 Maria Guadalupe wynn, [facility] LFranklinLFranklinCFrank[facility] 14:43:13 Onychomy cosis of toenails 072111563 Active 2023 Maria Guadalupe wynn, [facility], AdithyaCFranlkin 14:45:06 [facility] hyperten jordan 69991596 Active 2023 Maria Guadalupe wynn, [facility], ErinLFranklinCFrank[place] 5 14:43:39 Chronic constipa tion 633743003 Completed 202407/31/2024 Removal Reason: duplicat e Maria Guadalupe wynn, [facility], AdithyaCFranklin 14:43:07 Irritabl e bowel syndrome characte rized by constipa tion 414040999 Active 2024 Maria Guadalupe wynn, [facility], ErinLFranklinCFranklin 14:43:50 Chronic idiopath ic constipa tion 87205723 Active 2024 Maria Guadalupe wynn [facility] AdithyaC[facility] 14:42:47 Allergic rhinitis 90727853 Active 2024 Renetta Miranda MD [address] [place] [address], [phone], [facility], ErinLFranklinC[place] 17:55:12 Hypergly cemia due to type 2 diabetes mellitus 95148135443 9109 Active 2024 Renetta Miranad MD [address] [place] [address], [phone], [facility], AdithyaCFranklin 16:33:50 Injury of right foot 752695832 Active 2024 Renetta Miranda MD [address] [place] [address], [phone], [facility], Bladimir 5 17:14:23 Avulsion of toenail of right foot 37139680458 136353 Active 2024 Renetta Miranda MD [address] [place] [address], [phone] , [facility], Bladimir 5 17:14:30 Problem Notes None recorded. Medical Equipment None Reported. Allergies Allergen ID Allergen Name Allergen Category Reaction Reaction Severity Criticality Documentation Date Start Date Code Code System Note Provider Name and Address Organization Details Recorded Time 20335 Zyprexa medicatio n Not available Not available Not available 12/23/2022 08536 3 RxNorm Comme nt: Recor ded 04/22 10:55 AM by Alfa Barrios er, Offic e Visit ; Promo alexis; Yunieri zuleika ce: *; Reaso n: Drug aller gy; ; Not Available [facility] 3 02:28:39 61567 risperido ne medicatio n Not available Not available Not available 12/23/2022 30036 RxNorm Comme nt: Recor ded 04/22 10:55 AM by Alfa Barrios er, Offic e Visit ; Promo alexis; Heather to ce: *; Reaso n: Drug aller gy; ; Not Available [facility] 3 02:28:39 Medications Name Sig Start Date [...] TAKE ONE TABLET BY MOUTH EVERY DAY FOR 5 DAYS active Not Available Not Available No t Available ibuprofen 800 mg tablet TAKE ONE TABLET BY MOUTH EVERY EIGHT HOURS NEEDED FOR PAIN - TAKE WITH FOOD active Not Available Not Available No t [...] completed Not Available Not Available Not Available Deep Sea Nasal 0.65 % spray aerosol USE NASALLY TWICE DAILY active Not Available Not Available No t Available Multiple Vitamins tablet Take 1 tablet [...] Not Available Not Available No t Available mupirocin 2 % topical ointment APPLY TOPICALL Y TO THE AFFECTED AREA TWICE DAILY 01/28 completed Not Available Not Available Not Available polyethyl saadia glycol 3350 17 gram/dose [...] Not Available Not Available No t Available Lantus Solostar U-100 Insulin 100 unit/mL (3 mL) subcutane ous pen INJECT 15 UNITS (0.15 ML) UNDER SKIN EVERY EVENING active Not Available Not Available No t Available Lantus Solostar U-100 Insulin 15 units at hs active Not Available Not Available No t [...] completed Not Available Not Available Not Available Candi-Tuss in DM 10 mg-100 mg/5 mL oral liquid TAKE 2 TEASPOON FULS (10 ML'S) BY MOUTH EVERY FOUR HOURS NEEDED active Not Available Not Available No t Available Tab-A-Vit e 400 mcg tablet TAKE ONE TABLET BY MOUTH EVERY DAY active Not Available Not Available No t Available Ozempic 1 mg/dose (4 mg/3 mL) subcutane ous pen injector INJECT ONE MG UNDER SKIN EVERY WEEK 01/16 completed Not Available Not Available Not Available Ozempic 2 mg/dose (8 mg/3 mL) subcutane ous pen injector INJECT 2MG UNDER SKIN EVERY WEEK active Not Available [...] Updated DateTime 5 182.88 cm 49.2 kg/m2 887116. 03 g 98.3 [degF] 113 /min 96 % 96 % 128/80 mm[Hg] Shae Acosta [facility] 5 12:01:39 Date Recorded Body height Body mass index (BMI) Body weight Oxygen saturation Oxygen saturation in Arterial blood by Pulse oximetry Heart rate Respiratory rate Body temperature Systolic And Diastolic Provider Name and Address Organization Details Last Updated DateTime 5 182.88 cm 49.8 kg/m2 366064. 4 g 98 % 98 % 96 /min 22 /min 97.3 [degF] 118/80 mm[Hg] Maria Guadalupe Lara [facility] 5 10:20:29 Date Recorded Body height Body mass index (BMI) Body weight Oxygen saturation Oxygen saturation in Arterial blood by Pulse oximetry Heart rate Body temperature Respiratory rate Systolic And Diastolic Provider Name and Address Organization Details Last Updated DateTime 5 182.88 cm 49.1 kg/m2 629142. 14 g 95 % 95 % 105 /min 97.6 [degF] 20 /min 120/82 mm[Hg] GAIL NIÑO [facility] 5 13:47:25 Date Recorded Body height Body mass index (BMI) Body weight Body temperature Oxygen saturation Oxygen saturation in Arterial blood by Pulse oximetry Heart rate Systolic And Diastolic Provider Name and Address Organization Details Last Updated DateTime 5 182.88 cm 49.1 kg/m2 510782. 44 g 97.5 [degF] 98 % 98 % 102 /min 128/76 mm[Hg] Shae Acosta [facility] 5 10:46:29 Date Recorded Body height Body mass index (BMI) Body weight Oxygen saturation Oxygen saturation in Arterial blood by Pulse oximetry Heart rate Respiratory rate Body temperature Systolic And Diastolic Provider Name and Address Organization Details Last Updated DateTime 5 182.88 cm 48.6 kg/m2 299713. 07 g 97 % 97 % 101 /min 20 /min 97.3 [degF] 120/76 mm[Hg] Maria Guadalupe Marco [facility] 5 11:40:01 Social History Question Answer Notes LastModified by Organizat ion Details LastModified Time Tobacco Smoking Status Current Every Day [facility] 03/24/2024 11:58:38 What Is Your Level Of Caffeine Consumption? Heavy Information not available 03/25/2024 What Type Of Diet Are You Following? REGULAR Information not available 03/25/2024 What Was The Date Of Your Most Recent Tobacco Screening? 01/16/2025 [email or web address] Information not available 01/16/2025 What Is Your Current Pack Years? 10-19pacharlie s [email or web address] Information not available 06/25/2024 At What Age Did You Start Smoking Tobacco? 20 [email or web address] Information not available 01/28/2025 Do You Have Any Dietary Restrictions? No Information not available 03/25/2024 Sex: Unknown Functional Status Question Answer Note LastModified by Organizat ion Details LastModified Time Do you use any illicit or recreational drugs? No [email or web address] Information not available 10/01/2024 Do you or have you ever used any other forms of tobacco or nicotine? Yes [email or web address] Information not available 01/15/2025 What is your level of alcohol consumption? None Information not available 03/25/2024 Do you or have you ever used smokeless tobacco? Currently chews tobacco Information not available 01/15/2025 Are you currently employed? No Information not available 03/25/2024 Are you able to walk independently without assistance or assistive devices? [email or web address] Information not available 03/25/2024 Do you or have you ever used e-cigarettes or vape? Never used electronic cigarettes Information not available 01/15/2025 Do you or have you ever used any nicotine-free cigarettes, vape, or chewing tobacco? No [email or web address] Information not available 01/15/2025 Mental Status None recorded. Family History Nothing Reported. Medical History No medical history recorded. Immunizations Vaccine Type Date Status Note Provider Nam e and Address Organization Details Recorded Time Influenza, split virus, trivalent, preservative 4 completed Not Available [facility] 01/28/2025 11:26:56 Influenza, split virus, quadrivalent, PF 5 completed Not Available [facility] 01/28/2025 11:26:56 Influenza, split virus, quadrivalent, PF 6 completed Not Available [facility] 01/28/2025 11:26:56 Influenza, split virus, quadrivalent, PF 6 completed Not Available [facility] 01/28/2025 11:26:56 Influenza, split virus, quadrivalent, PF 8 completed Not Available [facility] 01/28/2025 11:26:56 Influenza, split virus, quadrivalent, PF 0 completed Not Available [facility] 01/28/2025 11:26:56 COVID-19, mRNA, LNP-S, PF, 30 mcg/0.3 mL dose 1 completed Not Available [facility] 01/28/2025 11:26:56 COVID-19, mRNA, LNP-S, PF, 30 mcg/0.3 mL dose 1 completed Not Available [facility] 01/28/2025 11:26:56 Tdap 1 completed Not Available [facility] 01/28/2025 11:26:56 Influenza, split virus, quadrivalent, PF 1 completed Not Available [facility] 01/28/2025 11:26:56 Tdap 1 completed Not Available [facility] 01/28/2025 11:26:56 Tdap 2 completed Not Available [facility] 01/28/2025 11:26:56 Influenza, split virus, quadrivalent, PF 2 completed Not Available [facility] 01/28/2025 11:26:56 Tdap 4 completed Not Available [facility] 01/28/2025 11:26:56 Influenza, split virus, trivalent, PF 4 completed Not Available [facility] 01/28/2025 11:26:56 Past Encounters Encounter ID Performer Location Encounter Start Date Encounter Closed Date Diagnosis/Indication Diagnosis SNOMED-CT Code Diagnosis ICD10 Code Diagnosis IMO Codes Diagnosis Note [id number] KAYLEIGH SÁNCHEZ [facility] ([facility]) [address] [place] [phone] 03/24/2024 11:49:38 03/24/2024 12:36:17 [id number] Renetta Miranda MD [facility] ([facility]) [address] [place] [phone] 03/25/2024 11:30:09 03/25/2024 12:25:58 Cellulitis of left lower limb [id number] 5760520 L03.116 Patient's exam is concerning for cellulitis of the left lower limb. We will start antibiotic s. Bilateral lower limb edema 135889573 R60.0 Encouraged to elevate legs. Will check lab work today. Type 2 dedrick betes mellitus 23063061 E11.9 We will check his A1c and urine microalbum in. Continue current medication s. Reviewed medication s and the patient was not on a statin so this will be started for him. Bipolar disorder 2632797 4 F31.9 Stable on Depakote. Check Depakote levels. Dysuria 59349882 R30.0 Tuberculos is screening 264648443 Z11.1 X-rays obtained reviewed by me. No lesions or acute changes noted. Chest x-ray will be reviewed by the radiologis t. Chronic pain 18193830 G8 9.29 Provide Tylenol to use as needed. Onychomyco sis of toenails 696337012 B35.1 She was informed of the difficulty of treating nail fungus and recommend oral treatments . Discussed the course of treatment with the patient and caregivers and they agreed to proceed. Essential hypertension 35748349 I10 Continue current medication s. Recommend checking blood pressures every of the day and to notify physician of significan t elevations . [id number] Renetta Miranda MD [facility] ([facility]) [address] [place] [phone] 06/25/2024 10:51:41 06/25/2024 11:58:25 Type 2 diabetes mellitus 55983895 E11.9 Recheck A1c today. As discussed what to do in case of low blood sugar. Instructio ns provided to caregivers . Essential hypertension 36173131 I10 Continue current medication s. Recommend checking blood pressures every of the day and to notify physician of significan t elevations . Irritable bowel syndrome characterized by constipation 178685073 K58.1 Chronic id iopathic constipation 25494040 K59.04 The patient has struggled with constipati on. Patient continues to try a high-fiber diet. The patient has tried and failed MiraLAX and is currently feeling docusate. Recommend that we should try Linzess. [id number] Renetta Miranda MD [facility] ([facility]) [address] [place] [id number] 5 08/01/2024 10:57:46 08/01/2024 11:51:37 Bipolar disorder 23694093 F31.9 Patient was having a lot of [...] at this time. Moderate i ntellectual disability 61102863 F71 [id number] Renetta Miranda MD [facility] ([facility]) [address] [place] [id number] 5 09/19/2024 11:42:25 09/19/2024 13:29:57 Bipolar disorder 98239455 F31.9 Continue current meds Type 2 dedrick betes mellitus 36411740 E11.9 discussed starting ozempic to help with DM management in addition to weight and appetite control. The patient and caregivers were agreeable. Essential hypertension 64385579 I10 Continue current medication s. Recommend checking blood pressures every of the day and to notify physician of significan t elevations . Moderate i ntellectual disability 41440102 F71 Obesity 703282967 E66.9 [id number] Renetta Miranda MD [facility] ([facility]) [address] [place] [id number] 5 10/01/2024 17:14:42 10/06/2024 16:22:29 Allergic rhinitis 16473495 J30.9 2193229 Exam is most consistent with allergies. Recommend starting antihistam ine and Flonase Hyperglyce jaycee due to type 2 diabetes mellitus 9398725661 65577 E11.65 83675084 Continue to work on diet. Ozempic should hopefully help with blood sugars especially as we increase the dose monthly. Continue to monitor closely to help manage his blood sugars. [id number] Renetta Miranda MD [facility] ([facility]) [address] [place] [id number] 5 10/15/2024 14:32:18 10/15/2024 15:39:06 Hyperglycemia due to type 2 diabetes mellitus 2271595385 76172 E11.65 76681573 Continue to work on diet. Ozempic should hopefully help with blood sugars especially as we increase the dose monthly. Continue to monitor closely to help manage his blood sugars. Fall W19.XXXD 20080427 No significan t sequelae from the fall. Continue to work on diet and increase activity to help manage blood sugars. [id number] Renetta Miranda MD [facility] ([facility]) [address] [place] [id number] 5 11/21/2024 11:55:45 11/21/2024 13:03:41 Type 2 diabetes mellitus 66283605 E11.9 Will check A1c today. Will increase his Ozempic to the 1 mg dose. Reinforced healthy eating choices and encouraged daily exercise. [id number] Renetta Miranda MD [facility] ([facility]) [address] [place] [id number] 5 12/04/2024 10:09:32 12/04/2024 10:55:16 Hyperglycemia due to type 2 diabetes mellitus 0825689559 32881 E11.65 02337121 Reinforced diabetic diet and the limitation of sugary drinks from his diet. Reinforced diet recommenda tions. Continue Ozempic. The patient just started on 1 mg dosing. Will increase it to 2 mg dosing after he completes 4 weeks. [id number] KAYLEIGH SÁNCHEZ [facility] ([facility]) [address] [place] [id number] 5 01/15/2025 13:41:10 01/19/2025 10:03:49 Worried well 39492795 Z71.1 812712 No sign of skin/foot injury to left plantar foot. Pt is ambulating with no symptoms. [id number] Renetta Miranda MD [facility] ([facility]) [address] [place] [id number] 01/16/2025 10:41:44 01/16/2025 11:18:37 Injury of right foot 626364226 S99.921D 2607081 Avulsion o f toenail of right foot 8980976787 1566156 S91.209A 70959550 Continue current cares for the next 2 weeks. [id number] Renetta Miranda MD [facility] ([facility]) [address] [place] [id number] 5 01/28/2025 11:26:44 01/28/2025 12:37:43 Hyperglycemia due to type 2 diabetes mellitus 6043449555 92465 E11.65 46008692 Once again reinforced diabetic diet. Will see how he responds with the addition of Lantus at night. Keep follow-up appointmen t at the end of the month. Expressed concerns about significan tly adjusting meds to the point where he is controlled based on current diet as he would be at high risk of hypoglycem ia if diet is adjusted. May need to consider rights restrictio n to help manage diet better as he is demonstrat ing poor insight and judgment. 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 He has been on it for 5 weeks now. His blood sugars have not changed, states Aranza the medical coordinator with [facility]. No side effects. The patient has had weight gain due to diet and life style choices. Renetta Miranda MD [address] [place] [address], [phone], [facility] 11/22/2024 18:14:15 12/04/2024 text/html patient was in ER for fasting blood sugars 404, 379, 387.He was asymptomatic ER gave him insulin and sent him home. The patient has been intaking sugary drinks.his daily blood glucose has been above 200 each morning. today 228. Patient has been tolerating his Ozempic without any issues but has not done much to curb his appetite. Renetta Miranda MD [address] [place] [address], [phone], [facility] 12/06/2024 20:24:18 01/15/2025 text/html ROS as noted in the HPI walk-in; PCP Dr. Miranda [employer] brings pt in today with possibility of foot injury. Patient thinks he stepped on a nail with his left foot. [employer] examined the foot but did not see blood or break in the skin. KAYLEIGH SÁNCHEZ [address] [place], [phone], [facility] 01/16/2025 08:09:43 01/16/2025 text/html Pt sneezed and kicked the wall, ripped his left foot second toe nail off. He went to the ER for bleeding and infection prevention. [facility] will need orders for an end date to stop the current toe treatment of mupirocine cream and bandage twice daily. Renetta Miranda MD [address] [place], [phone], [facility] 01/17/2025 17:14:52 01/28/2025 text/html f/u ER visit for hyperglycemia. The patient received insulin and sent home.lantus 15 units at was added to his meds. Patient just started the medication. Previous readings have been high. The patient is not doing very well with diabetic diet and caloric intake. Renetta Miranda MD [address] [place] [address], [phone], [facility] 01/30/2025 08:46:37
--- NOTE | 2025-02-21 10:12 | W.ED.GENADLT ---
HPI - General Adult General: Chief complaint: General Medical Stated complaint: BS High Time Seen by Provider: 02/21/25 10:09 History of Present Illness: 29-year-old man with a history of type 2 diabetes, obesity, bipolar disorder, intermittent explosive disorder and intellectual disability who presents to the emergency room with a guardian from senior care with high blood sugars. His sugar was over 500 this morning. On presentation here is back down to 370. No altered mental status. No fevers. Guardian says he has been eating inappropriately. Related Data Home Medications ?Medication ?Instructions ?Recorded ?Confirmed metformin 1,000 mg tablet 1,000 mg PO BID@06/02/22 02/10/25 hydrochlorothiazide 25 mg tablet 25 mg PO DAILY@07/14/22 02/10/25 atorvastatin 20 mg tablet 20 mg PO DAILY 04/30/24 02/10/25 divalproex 500 mg tablet,delayed See Rx Instructions .Route .COMPLEX 05/12/24 02/10/25 release fenofibrate nanocrystallized 145 145 mg PO DAILY 05/12/24 02/10/25 mg tablet glimepiride 1 mg tablet 1 mg PO BID 05/12/24 02/10/25 multivitamin 1 tab PO DAILY 05/12/24 02/10/25 linaclotide 145 mcg capsule 145 mcg PO DAILY 06/25/24 02/10/25 (Linzess) acetaminophen 500 mg tablet 1,000 mg PO Q8H PRN Pain 06/27/24 02/10/25 (Tylenol Extra Strength) benzonatate 100 mg capsule 100 mg PO TID PRN Cough 06/27/24 02/10/25 docusate sodium 100 mg capsule 100 mg PO BID 06/27/24 02/10/25 quetiapine 100 mg tablet (Seroquel) 100 mg PO .NOON 09/29/24 02/10/25 cetirizine 10 mg capsule (All Day 10 mg PO DAILY 11/14/24 02/10/25 Allergy (cetirizine)) fluticasone propionate 50 1 spray intranasal DAILY 11/14/24 02/10/25 mcg/actuation nasal spray,suspension semaglutide 0.25 mg or 0.5 mg (2 2 mg SUBCUT Q7D 09/16/25 09/16/25 mg/3 mL) subcutaneous pen injector (Ozempic) Previous Rx's ?Medication ?Instructions ?Recorded topiramate 100 mg tablet 100 mg PO TID@08,, #90 tabs 08/10/22 Diabetic Shoes w/3 x inserts #1 ea 06/25/24 haloperidol 5 mg tablet 5 mg PO DAILY PRN agitation #30 07/18/24 tabs ibuprofen 800 mg tablet 800 mg PO Q8H #20 tabs 01/11/25 insulin glargine 100 unit/mL (3 15 unit (0.15 mL) SUBCUT QPM #15 mL 01/24/25 mL) subcutaneous pen (Lantus Solostar U-100 Insulin) quetiapine 300 mg tablet (Seroquel) 300 mg PO BID #60 tabs 02/11/25 Allergies Allergy/AdvReac Type Severity Reaction Status Date / Time olanzapine Allergy Unknown Verified 02/10/25 11:22 risperidone Allergy Unknown Verified 02/10/25 11:22 Review of Systems Narrative: Constitutional symptoms: Negative except as documented in HPI. Skin symptoms: Negative except as documented in HPI. Eye symptoms: Negative except as documented in HPI. ENMT symptoms: Negative except as documented in HPI. Respiratory symptoms: Negative except as documented in HPI. Cardiovascular symptoms: Negative except as documented in HPI. Gastrointestinal symptoms: Negative except as documented in HPI. Genitourinary symptoms: Negative except as documented in HPI. Musculoskeletal symptoms: Negative except as documented in HPI. Neurologic symptoms: Negative except as documented in HPI. Psychiatric symptoms: Negative except as documented in HPI. Endocrine symptoms: Negative except as documented in HPI. PFSH ED PFSH: Medical History (Updated 02/21/25 @ 11:04 by Patience Diaz MD) Psychiatric care Nicotine dependence, cigarettes, uncomplicated Intermittent explosive disorder On valproic acid therapy Bipolar disorder, unspecified Attention-deficit hyperactivity disorder, combined type Generalized anxiety disorder Social History Smoking and tobacco/nicotine status: current every day tobacco/nicotine user cigarettes Packs smoked per day: 2 Physical Exam Narrative: EXAM NARRATIVE: General: Alert, no acute distress. Skin: Warm, dry. Head: Normocephalic, atraumatic. Neck: Supple, trachea midline. Eye: Extraocular movements are intact. Ears, nose, mouth and throat: mucosa moist. Cardiovascular: Regular, tachycardic normal peripheral perfusion. Respiratory: Lungs are clear to auscultation, respirations are non-labored, breath sounds are equal, Symmetrical chest wall expansion. Gastrointestinal: Soft, Nontender, Non distended Musculoskeletal: Normal ROM, no deformity. Neurological: Alert and oriented, No focal neurological deficit observed. Psychiatric: Cooperative, appropriate mood & affect. Course Vital Signs: Vital signs: Vital Signs Temperature 98.5 F 02/21/25 10:02 Pulse Rate 97 02/21/25 11:12 Respiratory Rate 18 02/21/25 11:12 Blood Pressure 132/81 02/21/25 10:26 Pulse Oximetry 94 02/21/25 11:12 Oxygen Delivery Me thod Nasal Cannula 02/21/25 10:26 MDM - General Adult Medical Decision Making Medical decision making: Differential diagnosis for the patient with hyperglycemia would include but not be limited to and would be based on the above HPI review of systems and physical exam: DKA. Dehydration. Renal failure. Concern for electrolyte abnormalities. Concern for underlying infection that might result in hyperglycemia. Medical non-compliance. Orders placed to evaluate differential diagnosis of the patient with hyperglycemia are based on the above differential, HPI and physical exam. Lab Review: Laboratory results were reviewed and interpreted by myself the emergency room physician. No leukocytosis. No anemia. No renal failure. Blood glucose on BMP is 365. Ketones are negative. I reviewed the patient's medical record. Reexamination: Patient remained stable. No increased work of breathing. No altered mental status. No focal motor deficits. Glucose down to around 300 and heart rate has come down below 100 at discharge after fluids Assessment and plan: Hyperglycemia Dehydration ? Normal saline bolus - Discharged home - Discussed plan with patient. Answered any questions. - Evaluation and treatment of this problem were appropriate in the emergency setting. Lab Data 02/21/25 10:38 02/21/25 10:38 Laboratory Results WBC 4.98 10^3/uL (3.29-11.43) 02/21/25 10:38 RBC 5.21 10^6/uL (3.85-5.65) 02/21/25 10:38 Hgb 14.90 g/dL (11.27-16.99) 02/21/25 10:38 Hct 44.6 % (37-53) 02/21/25 10:38 MCV 85.6 fl (82-101) 02/21/25 10:38 MCH 28.6 pg (27-33) 02/21/25 10:38 MCHC 33.4 g/dL (30-55) 02/21/25 10:38 RDW 12.8 % (12.1-15.1) 02/21/25 10:38 Plt Count 205 10^3/cmm (157-399) 02/21/25 10:38 MPV 11.9 fL (7.4-10.4) H 02/21/25 10:38 Neut % (Auto) 61.3 % 02/21/25 10:38 Lymph % (Auto) 27.7 % 02/21/25 10:38 Edgar % (Auto) 6.4 % 02/21/25 10:38 Eos % (Auto) 2.2 % 02/21/25 10:38 Baso % (Auto) 0.6 % 02/21/25 10:38 Neut # (Auto) 3.05 10^3/uL (1.8-7.7) 02/21/25 10:38 Lymph # (Auto) 1.4 10^3/uL (0.8-4.8) 02/21/25 10:38 Edgar # (Auto) 0.3 10^3/uL (0.2-0.9) 02/21/25 10:38 Eos # (Auto) 0.1 10^3/uL (0.0-0.8) 02/21/25 10:38 Baso # (Auto) 0.0 10^3/uL (0.0-0.1) 02/21/25 10:38 Nucleated RBC % (auto) 0 % 02/21/25 10:38 Nucleated RBCs # 0.0 /100WBC 02/21/25 10:38 Sodium 136 mmol/L (136-145) 02/21/25 10:38 Potassium 3.6 mmol/L (3.5-5.1) 02/21/25 10:38 Chloride 99 mmol/L (98-107) 02/21/25 10:38 Carbon Dioxide 22 mmol/L (22-29) 02/21/25 10:38 Anion Gap 18.6 (5-19) 02/21/25 10:38 BUN 17 mg/dL (6-20) 02/21/25 10:38 Creatinine 0.6 mg/dL (0.7-1.2) L 02/21/25 10:38 GFR Calculation 159.3 mL/min (90-130) H 02/21/25 10:38 Glucose 365 mg/dL (65-115) H 02/21/25 10:38 Calculated Osmolality 298 mOsm/kg (285-295) H 02/21/25 10:38 Calcium 10.2 mg/dL (8.5-10.5) 02/21/25 10:38 Serum Ketones Negative (Negative) 02/21/25 10:38 No radiology studies performed this visit Discharge Plan Discharge Patient Disposition: Home Clinical Impression: Hyperglycemia Condition: Stable Prescriptions: No Action fenofibrate nanocrystallized 145 mg tablet 145 mg PO DAILY acetaminophen [Tylenol Extra Strength] 500 mg tablet 1,000 mg PO Q8H PRN (Reason: Pain) atorvastatin 20 mg tablet 20 mg PO DAILY docusate sodium 100 mg capsule 100 mg PO BID divalproex 500 mg tablet,delayed release (DR/EC) See Rx Instructions .ROUTE .COMPLEX Dose Instruction: TAKE TWO TABLETS BY MOUTH at EIGHT IN THE MORNING and TWO IN THE EVENING and take ONE tablet at EIGHT IN THE EVENING Rx Instructions: TAKE TWO TABLETS BY MOUTH at EIGHT IN THE MORNING and TWO IN THE EVENING glimepiride 1 mg tablet 1 mg PO BID multivitamin Tablet 1 tab PO DAILY haloperidol 5 mg tablet 5 mg PO DAILY PRN (Reason: agitation) Qty: 30 0RF fluticasone propionate 50 mcg/actuation spray,suspension 1 spray intranasal DAILY Rx Instructions: administer into each nostril All Day Allergy (cetirizine) 10 mg capsule 10 mg PO DAILY Linzess 145 mcg capsule 145 mcg PO DAILY (DME) Diabetic Ghada w/3 x inserts See Rx Instructions .Route .MEDSUPPLY Qty: 1 0RF Rx Instructions: As directed By the Sury Constantino 3 x inserts benzonatate 100 mg capsule 100 mg PO TID PRN (Reason: Cough) topiramate 100 mg tablet 100 mg PO TID@08,12,20 Qty: 90 1RF quetiapine [Seroquel] 300 mg tablet 300 mg PO BID Qty: 60 2RF metformin 1,000 mg tablet 1,000 mg PO BID@08,20 quetiapine [Seroquel] 100 mg tablet 100 mg PO .NOON Ozempic 0.25 mg or 0.5 mg (2 mg/3 mL) pen injector 2 mg SUBCUT Q7D hydrochlorothiazide 25 mg tablet 25 mg PO DAILY@08 ibuprofen 800 mg tablet 800 mg PO Q8H Qty: 20 0RF insulin glargine [Lantus Solostar U-100 Insulin] 100 unit/mL (3 mL) insulin pen 15 unit SUBCUT QPM Qty: 15 0RF Discharge Orders: Discharge ED (Routine); Ordered 02/21/25 Ordered By: Patience Diaz Referrals: Jaiden Miranda MD [Primary Care Provider, Family Practice] Discharge Diet: As Directed Discharge Activity: Increase activity as tolerated Patient Instructions: Meal Planning with Diabetes Exchanges (DC), Diabetic Hyperglycemia (ED), Opioid Safety, Pain Management, Patient Portal & Ian Instructions Activity Restrictions/Additional Instructions: Thank you for choosing [facility] for your healthcare needs today. You have been screened and evaluated and felt safe for discharge. Health conditions do change or evolve sometimes and as such it is important that you follow up with your Primary Doctor to be re checked, 3-5 days is a general good time frame for follow up. 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
[2025-02-21 10:26] VITALS: BP 132/81; PULSE 107; RESP 18; O2SAT 94
[2025-02-21 10:44] LABS: Hematocrit 44.6 % (37-53); Hemoglobin 14.90 g/dL (11.27-16.99); Mean Corpuscular HGB Conc 33.4 g/dL (30-55); Mean Corpuscular Hemoglobin 28.6 pg (27-33); Mean Corpuscular Volume 85.6 fl (82-101); Nucleated Red Blood Cells % 0 %; Platelet Count 205 10^3/cmm (157-399); Red Blood Count 5.21 10^6/uL (3.85-5.65); White Blood Count 4.98 10^3/uL (3.29-11.43)
[2025-02-21 10:52] LABS: Ketone (Acetest) Serum Negative (Negative)
[2025-02-21 11:02] LABS: Anion Gap 18.6 (5-19); Blood Urea Nitrogen 17 mg/dL (6-20); Calcium 10.2 mg/dL (8.5-10.5); Carbon Dioxide 22 mmol/L (22-29); Chloride 99 mmol/L (98-107); Glucose 365 mg/dL (65-115); Osmolality Calculated 298 mOsm/kg (285-295); Potassium 3.6 mmol/L (3.5-5.1); Sodium 136 mmol/L (136-145)
[2025-02-21 11:12] VITALS: PULSE 97; RESP 18; O2SAT 94
== END 2025-02-21 11:19 | disposition home or self-care (01) ==
PROVIDERS: Emergency Provider Emergency Medicine; PCP Family Medicine
DX: E11.65 Type 2 diabetes mellitus with hyperglycemia (principal); F17.210 Nicotine dependence, cigarettes, uncomplicated; Z79.4 Long term (current) use of insulin; Z79.84 Long term (current) use of oral hypoglycemic drugs
CPT/HCPCS: 36415; 36416; 80048; 82009; 82962; 85025; 96360; 99284; J7030

== ENCOUNTER → 2025-04-30 09:52 | Outpatient (BNVA) | payer MEDICAID, SELFPAY | PROVIDERS: PCP Family Medicine; Visit Provider Podiatrist Foot & Ankle Surgery | DX: E11.8 Type 2 diabetes mellitus with unspecified complications (principal); Z79.4 Long term (current) use of insulin; Z79.84 Long term (current) use of oral hypoglycemic drugs; Z79.85 Long-term (current) use of injectable non-insulin antidiabetic drugs | CPT/HCPCS: 99213 ==